=== PATIENT | female | born 1995 | race Caucasian/White ===

== ENCOUNTER 2018-07-15 21:21 | Emergency (ER) | payer MEDICAID, SELFPAY ==
[2018-07-15 21:25] VITALS: BP 122/71; PULSE 70; RESP 16; TEMP 37; O2SAT 99
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
[2018-07-15] MEDS: Ibuprofen 800 MG TAB PO (21:47)
[2018-07-15 22:41] VITALS: BP 122/71; PULSE 70; RESP 16; TEMP 37; O2SAT 99
--- NOTE | 2018-07-15 23:07 | DI.VRAD_ITS ---
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 COMPARISON: CR - RIGHT HAND COMPLETE 12/14/2016 9:16 PM FINDINGS: Bones/joints: Bone mineralization is age-appropriate. There is no evidence of fracture. No evidence of dislocation. The joint spaces are adequately preserved; no significant degenerative narrowing and no bony erosion seen. Soft tissues: No radiopaque foreign body present. There is no significant soft tissue swelling present. IMPRESSION: No acute osseous abnormality. Dictated and Authenticated by: Danny Waterman MD. Ordering:WEN GARCIA MD
== END 2018-07-15 23:18 ==
PROVIDERS: Emergency Provider Emergency Medicine; PCP Nurse Practitioner Gerontology
DX: S60.222A Contusion of left hand, initial encounter (principal); W22.8XXA Striking against or struck by other objects, initial encounter
CPT/HCPCS: 29125; 99283; 73130; L3908

== ENCOUNTER 2018-10-16 12:08 | Emergency (ER) | payer MEDICAID, SELFPAY ==
[2018-10-16 12:15] VITALS: BP 130/63; PULSE 100; RESP 16; TEMP 36.7; O2SAT 100
--- NOTE | 2018-10-16 12:39 | ED.GENADUL_ITS ---
Discharge Plan Disposition Patient Disposition: HOME Condition: Good Discharge Details Chief Complaint: RespSymp Clinical Impression: URI (upper respiratory infection) Primary Care Provider: Aleisha Casas ED Provider: Praful Christianson Home Meds and New Rx's Prescriptions: No Action etonogestrel [Nexplanon] 68 MG implant 68 mg SQ ONCE Qty: 1 RF: 0 acetaminophen [Tylenol] 325 MG tablet 650 mg PO Q4H PRN PRNRF: 0 sertraline 25 MG tablet 100 mg PO DAILY RF: 0 loratadine 10 MG tablet 10 mg PO DAILY PRNRF: 0 Discharge Instructions Instructions: Upper Respiratory Infection (ED) Stand Alone Forms: Work Release Referrals: Aleisha Casas, BUSINESS SERVICES MANAGER [Primary Care Provider] - Return if symptoms worsen Discharge Data Discharge Date/Time-TO BE ENTERED AT DEPARTURE: 10/16/18 13:40 Medical Decision Making Exam is normal and history consistent with cold. Will evaluate chest x-ray for pneumonia. If so will treat with Zithromax. If negative we will treat with rest and fluids. Will provide work note. Apprised of negative x-ray. Advised to get plenty of rest and fluids. Work note provided. Advised to return if symptoms worsen. Imaging Data Radiologic Study: Imaging: X-Ray My impression: normal chest Radiologist's impression: Negative chest x-ray. HPI General Date/Time Provider Initiated Documentation: 10/16/18 12:13 . Limitations to Documentation: no limitations . Information obtained by: patient . History of Present Illness 22 year old F presents to the emergency department with the chief complaint of cough, described as mild, HPI Narrative: 22 y/o female here with c/o cough, runny nose, stuffy hose, sob, and chest aches with cough. Symptoms started three weeks ago. 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 Denies smoking history. She denies any fever, chills, COLEY, or other concerns. Related Data Home Medications Medication Instructions Recorded Confirmed acetaminophen [Tylenol] 650 mg PO Q4H PRN PRN tab 07/02/16 07/15/18 etonogestrel [Nexplanon] 68 mg SQ ONCE #1 implant 08/04/16 10/16/18 sertraline 100 mg PO DAILY 11/12/17 10/16/18 loratadine 10 mg PO DAILY PRN 04/15/18 10/16/18 Previous Rx's Medication Instructions Recorded acetaminophen [Tylenol] 650 mg PO Q4H PRN PRN tab 07/02/16 Allergies Allergy/AdvReac Type Severity Reaction Status Date / Time shellfish derived AdvReac nausea/vomi Unverified 10/16/18 12:18 ting General Stated Complaint: RespSymp PALOMO: 4 Review of Systems Constitutional Denies headache(s) Eyes Reports system reviewed and no additional complaints, except as docu ENT Denies otalgia, Denies facial pain, Denies headache(s), Denies hoarseness, Reports nasal congestion, Reports nasal discharge, Denies sinus pain, Denies sinus pressure and Denies sore throat Cardiovascular Reports other (chest aches with cough) Respiratory Reports cough Gastrointestinal Reports system reviewed and no additional complaints, except as docu Genitourinary Reports system reviewed and no additional complaints, except as docu Musculoskeletal Reports system reviewed and no additional complaints, except as docu Neurologic Reports system reviewed and no additional complaints, except as docu and Denies headache(s) Allergic/Immunologic Reports system reviewed and no additional complaints, except as docu PFSH Family History Other No problems noted. Father Migraines Essential hypertension Depression Mental disorder Mother Migraines Grandfather Migraines Myocardial infarction Neoplasm Grandfather Alcohol abuse Neoplasm Grandmother Migraines Grandmother Migraines Diabetes Essential hypertension Sister No problems noted. Family history Neoplasm Social History Smoking/Tobacco Use Status: Never Exam Const General: cooperative, comfortable and no acute distress Nutritional Appearance: well nourished Orientation: alert, awake and oriented x3 HENMT Head: normal to inspection and atraumatic Ears: hearing grossly normal bilaterally, external ears normal and TM's normal bilaterally General nose exam: external nose normal and nares normal Face and sinus: normal facial exam, sinuses nontender and face symmetric Mouth: oral mucosae normal, lip normal, tongue normal, oropharynx normal and moist mucous membranes Teeth and gingiva: dentition normal Throat: posterior oropharynx normal Eyes General: appearance normal, both eyes and all related structures (with bilatral allergic shiners) Neck Neck: normal visual inspection, full ROM and no lymphadenopathy Resp Effort & Inspection: normal respiratory effort Auscultation: clear to auscultation bilaterally Cardio Rate: regular rate Rhythm: regular rhythm Heart Sounds: S1 normal, S2 normal and no murmurs Skin General skin exam: no rashes or lesions noted Extrem General: full ROM and normal capillary refill Psych Appearance: grossly normal Speech and Movement: speech and movement normal Mood: congruent mood Affect: normal affect Attitude: cooperative Thought Process: normal Thought Content: normal Insight: insight good Judgment: judgment good Course Vital Signs Temperature 36.7 C 10/16/18 12:15 Pulse 100 H 10/16/18 12:15 Respiratory Rate 16 10/16/18 12:15 Blood Pressure 130/63 10/16/18 12:15 Pulse Oximetry 100 10/16/18 12:15 Temperature 36.7 C 10/16/18 12:15 Temperature Source Skin 10/16/18 12:15 Pulse 100 H 10/16/18 12:15 Respiratory Rate 16 10/16/18 12:15 Respiratory Effort Non-Labored 10/16/18 12:20 Respiratory Depth Normal 10/16/18 12:20 Blood Pressure 130/63 10/16/18 12:15 Blood Pressure Position Sitting 10/16/18 12:15 Pulse Oximetry 100 10/16/18 12:15 Oxygen Delivery Method Room Air 10/16/18 12:15 Oxygen Flow Rate 0 10/16/18 12:15 Pain Level 6 10/16/18 12:15
--- NOTE | 2018-10-16 12:52 | DI.RAD_ITS ---
SYMPTOMS/DIAGNOSIS: COUGH X 3 WEEKS PA AND LATERAL CHEST: The cardiac and mediastinal contours have a normal appearance. The lungs are well inflated and clear. No infiltrate or effusion is seen. IMPRESSION: Negative chest x-ray.
== END 2018-10-16 13:40 | disposition home or self-care (01) ==
PROVIDERS: Emergency Provider Nurse Practitioner Family; PCP Nurse Practitioner Gerontology
DX: J06.9 Acute upper respiratory infection, unspecified (principal)
CPT/HCPCS: 99283; 71046; 99282

== ENCOUNTER 2018-12-15 17:07 | Emergency (ER) | payer MEDICAID, SELFPAY ==
[2018-12-15 18:09] VITALS: BP 109/58; PULSE 77; RESP 16; TEMP 36.7
--- NOTE | 2018-12-15 20:26 | W.ED.GENAD ---
Discharge Plan Disposition Patient Disposition: HOME Condition: Good Discharge Details Chief Complaint: Orthopedic Clinical Impression: Right knee injury Reason For Visit: right knee pain Primary Care Provider: Mary Muhammad ED Provider: Aki Kendall Meds and New Rx's Prescriptions: New ibuprofen 600 mg tablet 600 mg PO TID Qty: 20 RF: 0 Continued Nexplanon 68 MG implant 68 mg SQ ONCE Qty: 1 RF: 0 sertraline 25 MG tablet 100 mg PO DAILY RF: 0 loratadine 10 MG tablet 10 mg PO DAILY PRNRF: 0 Changed acetaminophen [Tylenol] 325 MG tablet 650 mg PO Q6H PRNQty: 0 RF: 0 Discharge Instructions Additional Instructions: X-rays are negative but you do have some swelling, tenderness and crepitus around the knee cap which may be related to tendonitis or bursitis. Wear knee immobillizer for comfort for the next 1 - 2 weeks. Ice and Motrin for the next week. Follow up with PCP in 1 - 2 weeks if not doing better. Return to ED for worse pain, swelling, fever, redness other problems. Referrals: Mary Muhammad [Primary Care Provider] - Medical Decision Making Patient ambulating with a limp. She has tenderness and some crepitus over the anterior patella. It may be even a little bit ballotable but there is no obvious effusion. Ligaments all appear to be intact. Neurovascularly intact distally. Will obtain x-ray and give Motrin. X-rays are negative, there is no patella fracture. May be related to a patella bursitis versus tendinitis. Patient will be placed in a knee immobilizer and placed on nonsteroidals and ice. Weight-bear as tolerated. Follow-up with primary care in 1-2 weeks. Return to ED for inability to ambulate, worsening pain, fever, other concerns. HPI General Mode of arrival: ambulatory. Date/Time Provider Initiated Documentation: 12/15/18 18:17. Limitations to Documentation: no limitations. Information obtained by: patient. HPI Narrative: Patient presents to ED with complaint of right knee pain. Patient reports that she initially injured it a couple weeks ago while sledding. She had pain at that time but it did seem to get better. She has no new injury that she is aware of. Over the last day or 2 knee has got worse. She has pain anteriorly with some swelling. She has difficulty walking. She presents for evaluation. Related Data Home Medications Medication Instructions Recorded Confirmed Nexplanon 68 mg SQ ONCE #1 implant 08/04/16 12/15/18 sertraline 100 mg PO DAILY 11/12/17 12/15/18 loratadine 10 mg PO DAILY PRN 04/15/18 12/15/18 acetaminophen [Tylenol] 650 mg PO Q6H PRN #0 tab 12/15/18 07/15/18 ibuprofen 600 mg PO TID #20 tab 12/15/18 Previous Rx's Medication Instructions Recorded acetaminophen [Tylenol] 650 mg PO Q6H PRN #0 tab 12/15/18 ibuprofen 600 mg PO TID #20 tab 12/15/18 Allergies Allergy/AdvReac Type Severity Reaction Status Date / Time shellfish derived AdvReac nausea/vomi Unverified 12/15/18 18:19 ting General Stated Complaint: Orthopedic PALOMO: 4 Review of Systems Musculoskeletal Reports abnormal gait, Denies back pain, Denies myalgias, Reports arthralgias, Denies muscle weakness and Denies numbness Integumentary/Breasts Denies erythema and Denies rash Neurologic Reports abnormal gait and Denies numbness [facility] Medical History Migraine (Chronic) Depression (Chronic) 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 Father Migraines Essential hypertension Depression Mental disorder Mother Migraines Grandfather Migraines Myocardial infarction Neoplasm Grandfather Alcohol abuse Neoplasm Grandmother Migraines Grandmother Migraines Diabetes Essential hypertension Sister No problems noted. Family history Neoplasm Social History Smoking/Tobacco Use Status: Never Exam Const General: cooperative, comfortable and no acute distress Orientation: alert and oriented x3 Extrem Right lower extremity: knee (NVI distal) Details: normal to inspection, tenderness Location: of the patella, normal ROM, knee ligament exam normal and other (crepitus over the patella) Course Vital Signs Temperature 98.1 F 12/15/18 18:09 Pulse 77 12/15/18 18:09 Respiratory Rate 16 12/15/18 18:09 Blood Pressure 109/58 L 12/15/18 18:09 Temperature 98.1 F 12/15/18 18:09 Temperature Source Temporal Artery Scan 12/15/18 18:09 Pulse 77 12/15/18 18:09 Respiratory Rate 16 12/15/18 18:09 Blood Pressure 109/58 L 12/15/18 18:09 Blood Pressure Position Sitting 12/15/18 18:09 Oxygen Delivery Method Room Air 12/15/18 18:09 Oxygen Flow Rate 0 12/15/18 18:09 Pain Level 9 12/15/18 18:09
--- NOTE | 2018-12-15 20:29 | DI.RAD_ITS ---
SYMPTOM/DIAGNOSIS: RIGHT KNEE PAIN/CREPITUS OVER PATELLA RIGHT KNEE: No fracture or joint effusion is seen. No soft tissue swelling is visible. IMPRESSION: Negative right knee.
--- NOTE | 2018-12-15 20:29 | ED.GENADUL_ITS ---
Discharge Plan Disposition Patient Disposition: HOME Condition: Good Discharge Details Chief Complaint: Orthopedic Clinical Impression: Right knee injury Reason For Visit: right knee pain Primary Care Provider: Mary Muhammad ED Provider: Aki Kendall Meds and New Rx's Prescriptions: New ibuprofen 600 mg tablet 600 mg PO TID Qty: 20 RF: 0 Continued Nexplanon 68 MG implant 68 mg SQ ONCE Qty: 1 RF: 0 sertraline 25 MG tablet 100 mg PO DAILY RF: 0 loratadine 10 MG tablet 10 mg PO DAILY PRNRF: 0 Changed acetaminophen [Tylenol] 325 MG tablet 650 mg PO Q6H PRNQty: 0 RF: 0 Discharge Instructions Additional Instructions: X-rays are negative but you do have some swelling, tenderness and crepitus around the knee cap which may be related to tendonitis or bursitis. Wear knee immobillizer for comfort for the next 1 - 2 weeks. Ice and Motrin for the next week. Follow up with PCP in 1 - 2 weeks if not doing better. Return to ED for worse pain, swelling, fever, redness other problems. Referrals: Mary Muhammad [Primary Care Provider] - Medical Decision Making Patient ambulating with a limp. She has tenderness and some crepitus over the anterior patella. It may be even a little bit ballotable but there is no obvious effusion. Ligaments all appear to be intact. Neurovascularly intact distally. Will obtain x-ray and give Motrin. X-rays are negative, there is no patella fracture. May be related to a patella bursitis versus tendinitis. Patient will be placed in a knee immobilizer and placed on nonsteroidals and ice. Weight-bear as tolerated. Follow-up with primary care in 1-2 weeks. Return to ED for inability to ambulate, worsening pain, fever, other concerns. HPI General Mode of arrival: ambulatory . Date/Time Provider Initiated Documentation: 12/15/18 18:17 . Limitations to Documentation: no limitations . Information obtained by: patient . HPI Narrative: Patient presents to ED with complaint of right knee pain. Patient reports that she initially injured it a couple weeks ago while sledding. She had pain at that time but it did seem to get better. She has no new injury that she is aware of. Over the last day or 2 knee has got worse. She has pain anteriorly with some swelling. She has difficulty walking. She presents for evaluation. Related Data Home Medications Medication Instructions Recorded Confirmed Nexplanon 68 mg SQ ONCE #1 implant 08/04/16 12/15/18 sertraline 100 mg PO DAILY 11/12/17 12/15/18 loratadine 10 mg PO DAILY PRN 04/15/18 12/15/18 acetaminophen [Tylenol] 650 mg PO Q6H PRN #0 tab 12/15/18 07/15/18 ibuprofen 600 mg PO TID #20 tab 12/15/18 Previous Rx's Medication Instructions Recorded acetaminophen [Tylenol] 650 mg PO Q6H PRN #0 tab 12/15/18 ibuprofen 600 mg PO TID #20 tab 12/15/18 Allergies Allergy/AdvReac Type Severity Reaction Status Date / Time shellfish derived AdvReac nausea/vomi Unverified 12/15/18 18:19 ting General Stated Complaint: Orthopedic PALOMO: 4 Review of Systems Musculoskeletal Reports abnormal gait, Denies back pain, Denies myalgias, Reports arthralgias, Denies muscle weakness and Denies numbness Integumentary/Breasts Denies erythema and Denies rash Neurologic Reports abnormal gait and Denies numbness [facility] Medical History Migraine (Chronic) Depression (Chronic) 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 Father Migraines Essential hypertension Depression Mental disorder Mother Migraines Grandfather Migraines Myocardial infarction Neoplasm Grandfather Alcohol abuse Neoplasm Grandmother Migraines Grandmother Migraines Diabetes Essential hypertension Sister No problems noted. Family history Neoplasm Social History Smoking/Tobacco Use Status: Never Exam Const General: cooperative, comfortable and no acute distress Orientation: alert and oriented x3 Extrem Right lower extremity: knee (NVI distal) Details: normal to inspection, tenderness Location: of the patella, normal ROM, knee ligament exam normal and other (crepitus over the patella) Course Vital Signs Temperature 98.1 F 12/15/18 18:09 Pulse 77 12/15/18 18:09 Respiratory Rate 16 12/15/18 18:09 Blood Pressure 109/58 L 12/15/18 18:09 Temperature 98.1 F 12/15/18 18:09 Temperature Source Temporal Artery Scan 12/15/18 18:09 Pulse 77 12/15/18 18:09 Respiratory Rate 16 12/15/18 18:09 Blood Pressure 109/58 L 12/15/18 18:09 Blood Pressure Position Sitting 12/15/18 18:09 Oxygen Delivery Method Room Air 12/15/18 18:09 Oxygen Flow Rate 0 12/15/18 18:09 Pain Level 9 12/15/18 18:09
[2018-12-15] MEDS: Ibuprofen 600 MG TAB PO (20:34)
--- NOTE | 2018-12-15 21:10 | DI.VRAD_ITS ---
EXAM: XR Left Knee, 4 or more Views EXAM DATE/TIME: 12/15/2018 8:31 PM CLINICAL HISTORY: 23 years old, female; Pain; Knee; Right; Patient HX: R knee pain, crepitus over patella TECHNIQUE: XR Left knee 4 or more views. COMPARISON: No relevant prior studies available. FINDINGS: Bones/joints: Normal. Soft tissues: Normal. IMPRESSION: Negative for acute skeletal pathology. Dictated and Authenticated by: Jero Key MD. Ordering:RUTHY Prabhakar MD
== END 2018-12-15 21:55 | disposition home or self-care (01) ==
PROVIDERS: Emergency Provider Emergency Medicine; PCP Nurse Practitioner Family
DX: M25.561 Pain in right knee (principal); S89.91XA Unspecified injury of right lower leg, initial encounter; X58.XXXA Exposure to other specified factors, initial encounter; Y93.23 Activity, snow (alpine) (downhill) skiing, snowboarding, sledding, tobogganing and snow tubing
CPT/HCPCS: 99283; 73564; L1830

== ENCOUNTER 2019-03-02 11:50 | Emergency (ER) | payer MEDICAID, SELFPAY ==
[2019-03-02 11:54] VITALS: BP 124/64; PULSE 85; RESP 16; TEMP 36.7; O2SAT 100
--- NOTE | 2019-03-02 12:38 | ED.GENADUL_ITS ---
Discharge Plan Disposition Patient Disposition: HOME Condition: Stable Discharge Details Chief Complaint: Abd Prob Clinical Impression: Pelvic pain Primary Care Provider: Mary Muhammad ED Provider: Sean Lovell Home Meds and New Rx's Prescriptions: No Action Nexplanon 68 MG implant 68 mg SQ ONCE Qty: 1 RF: 0 sertraline 25 MG tablet 100 mg PO DAILY RF: 0 loratadine 10 MG tablet 10 mg PO DAILY PRNRF: 0 ibuprofen 600 mg tablet 600 mg PO TID Qty: 20 RF: 0 acetaminophen [Tylenol] 325 MG tablet 650 mg PO Q6H PRNQty: 0 RF: 0 Discharge Instructions Additional Instructions: 1. Drink plenty of fluids. 2. Continue all medications as prescribed. 3. Acetaminophen 1000mg every 4 hours (up to 5 time a day) and/or ibuprofen 600mg every 6 hours as needed for fever or pain. 4. Follow-up Monday for a comprehensive transabdominal/transvaginal ultrasound. Return to the Emergency Department (ED) if your condition worsens, does not improve as expected, or for ANY other concerns. Specifically, return if you have new or uncontrolled pain, worsening fever, difficulty breathing, vomiting, or are unable to drink fluids. Stand Alone Forms: Work Release Medical Decision Making 23-year-old woman with a history of ovarian cyst presents with atypical right lower quadrant pain over the past 2 weeks which has been waxing and waning. Otherwise no other generalized abdominal pain or symptoms nonfocal exam except for right lower quadrant tenderness which reproduces subjective pain. Urine hCG negative. Limited bedside ultrasound suggestive of a possible 3 cm adnexal cyst. Pain has been waxing and waning and currently patient in minimal discomfort. Reviewed need for a comprehensive transvaginal/transabdominal ultrasound to evaluate for a possible cyst and assess ovarian blood flow. Also reviewed use of NSAIDs for pelvic pain. Discharged with a plan to place for a comprehensive pelvic ultrasound on Monday and also for regular OTC analgesia use pending imaging and outpatient woman's health follow-up. Pt evaluated immediately prior to discharge with improved symptoms, normal vital signs, and tolerating PO. The patient feels appropriate for discharge home. Discussed clinical/diagnostic findings. Discharged with a clear plan for outpatient follow up. Given usual and customary return instructions prior to discharge. Medical Records Medical records reviewed: Yes I reviewed the patient's medical records. Imaging Data Radiologic Study: Attestation: I personally reviewed and interpreted this imaging study as follows: Imaging: Ultrasound (Limited bedside transabdominal pelvic) My impression: Limited Pelvic Bedside Ultrasound. Findings include Likely 3 cm ovarian cyst. Limited views due to decompressed bladder. Pelvic. Images obtained, reviewed, and interpreted independently by myself. Images saved on ultrasound system for review. Lab Data Lab results reviewed: Yes I reviewed the patient's lab results. HPI 23-year-old woman with past medical history of chronic migraines, depression, and exercise-induced asthma. She also has a history of abdominal pain associated with ovarian cyst. She is currently on oral contraceptives with intermittent menses. She presents with 2 weeks of persistent and intermittent right lower quadrant pain which has been waxing and waning since onset. The pain is always been localized to the lower right lower quadrant/inguinal region and has been dull in nature with episodes of increased intensity. She has been typically treated her symptoms with acetaminophen. She denies generalized abdominal pain, fever/chills, urinary symptoms, change in bowel habits, or atypical vaginal bleeding/spotting. Her pain feels subjectively different than previous ovarian cyst pain in both location and intensity. She denies that she is currently . Also the right General Date/Time Provider Initiated Documentation: 03/02/19 12:08 . Related Data Home Medications Medication Instructions Recorded Confirmed Nexplanon 68 mg SQ ONCE #1 implant 08/04/16 03/02/19 sertraline 100 mg PO DAILY 11/12/17 03/02/19 loratadine 10 mg PO DAILY PRN 04/15/18 03/02/19 acetaminophen [Tylenol] 650 mg PO Q6H PRN #0 tab 12/15/18 03/02/19 ibuprofen 600 mg PO TID #20 tab 12/15/18 03/02/19 Previous Rx's Medication Instructions Recorded acetaminophen [Tylenol] 650 mg PO Q6H PRN #0 tab 12/15/18 ibuprofen 600 mg PO TID #20 tab 12/15/18 Allergies Allergy/AdvReac Type Severity Reaction Status Date / Time shellfish derived AdvReac nausea/vomi Unverified 03/02/19 11:58 ting General Stated Complaint: Abd Prob PALOMO: 3 Review of Systems Review of Systems All systems are reviewed and are unremarkable except as noted in HPI and below: CONSTITUTIONAL: no fevers/chills, no weakness or change in appetite EYES: no change in vision HEENT: no throat pain or difficulty swallowing; no neck pain CARDIOVASCULAR: no chest pain, palpitations, leg swelling, or diaphoresis RESPIRATORY: no cough, dyspnea, wheezing GASTROINTESTINAL: Right lower quadrant abdominal pain, waxing and waning, no melena, nausea/emesis GENITOURINARY: no dysuria, flank pain, MUSCULOSKELETAL: no pack pain, myalgias, arthralgias INTEGUMENTARY: no rash, no wounds NEUROLOGIC: no headache, focal weakness, difficulty with speech, numbness PSYCHIATRIC: no confusion, no anxiety HEME: no easy bruising or bleeding ALLERGIC: no urticaria PFSH Medical History Migraine (Chronic) Depression (Chronic) 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 Father Migraines Essential hypertension Depression Mental disorder Mother Migraines Grandfather Migraines Myocardial infarction Neoplasm Grandfather Alcohol abuse Neoplasm Grandmother Migraines Grandmother Migraines Diabetes Essential hypertension Sister No problems noted. Family history Neoplasm Social History Smoking/Tobacco Use Status: Never Alcohol Intake: current Alcohol Intake frequency: holidays/special occasions only Drug use: Occasionally Substance use type: marijuana Do you feel safe in your relationship?: Yes Exam Narrative Exam Narrative: Nursing note and vital signs have been reviewed and noted. GENERAL: alert, active, no acute distress, well -hydrated, well-nourished HEENT: atraumatic/normocephalic, PERRLA, EOMI, conjunctiva clear, external ears/canals normal, nasal mucosa normal NECK: supple, full range of motion, no mass, normal lymphadenopathy, no thyromegaly CARDIOVASCULAR: RRR, no murmurs, nl pulses, no edema PULMONARY: nl effort, no audible wheezing or stridor, nl breath sounds with no focal deficit. no chest wall tenderness ABDOMEN: soft, non-distended, no mass, no organomegaly; focal right lower quadrant tenderness which reproduces subjective pain. No rebound, guarding, or peritonitis. EXTREMITY: normal muscle tone, all joints with FROM, no deformity or tenderness SKIN: no exanthem appreciated NEURO: gross motor exam normal, normal stance and gait PSYCH: alert and oriented, Course Vital Signs Temperature 98.1 F 03/02/19 11:54 Pulse 85 03/02/19 11:54 Respiratory Rate 16 03/02/19 11:54 Blood Pressure 124/64 03/02/19 11:54 Pulse Oximetry 100 03/02/19 11:54 Temperature 98.1 F 03/02/19 11:54 Temperature Source Skin 03/02/19 11:54 Pulse 85 03/02/19 11:54 Respiratory Rate 16 03/02/19 11:54 Respiratory Effort Non-Labored 03/02/19 11:57 Blood Pressure 124/64 03/02/19 11:54 Pulse Oximetry 100 03/02/19 11:54 Pain Level 5 03/02/19 12:31 Lab/Test Results Lab/Test Results: POC- Test(urine) Negative
== END 2019-03-02 12:43 | disposition home or self-care (01) ==
PROVIDERS: Emergency Provider Emergency Medicine; PCP Nurse Practitioner Family
DX: R10.2 Pelvic and perineal pain (principal)
CPT/HCPCS: 81025; 99284

== ENCOUNTER 2019-03-05 12:11 | Outpatient (CLI) | payer MEDICAID, SELFPAY ==
--- NOTE | 2019-03-05 13:31 | DI.US_ITS ---
SYMPTOMS/DIAGNOSIS: RIGHT PELVIC PAIN, POSSIBLE 3 CM CYST PELVIC ULTRASOUND: A transabdominal and transvaginal examination was carried out. The uterus measures 8 cm in length, 3.7 cm in height and 4.3 cm in width with an endometrial stripe thickness of 1.3 mm. There is a small quantity of fluid in the endometrial cavity. The right ovary measures 2.5 x 1.8 x 1.8 cm, the left ovary measures 4.1 x 3.7 x 4.0 cm and contains a 3.3 x 3.1 x 3.7 cm cyst. The right kidney measures 8.9 cm, the left kidney 9.6 cm. There is no evidence of pelvic free fluid. SUMMARY: A small quantity of free fluid is noted in the endometrial cavity. Note is made of a 3.3 x 3.1 x 3.7 cm left ovarian cyst. The examination is otherwise unremarkable.
== END 2019-03-05 12:31 ==
PROVIDERS: PCP Nurse Practitioner Family; Visit Provider Emergency Medicine
DX: R10.2 Pelvic and perineal pain (principal); N83.292 Other ovarian cyst, left side
CPT/HCPCS: 76830; 76856

== ENCOUNTER 2019-06-30 23:04 | Emergency (ER) | payer MEDICAID, SELFPAY ==
[2019-06-30 23:06] VITALS: BP 108/64; PULSE 60; RESP 16; TEMP 36.7; O2SAT 100
--- NOTE | 2019-06-30 23:21 | ED.GENADUL_ITS ---
Discharge Plan Disposition Patient Disposition: HOME Condition: Good Discharge Details Chief Complaint: Orthopedic Clinical Impression: Acute wrist pain Primary Care Provider: Mary Muhammad ED Provider: Vanessa Wolf Home Meds and New Rx's Prescriptions: Continued Nexplanon 68 MG implant 68 mg SQ ONCE Qty: 1 RF: 0 sertraline 25 MG tablet 100 mg PO DAILY RF: 0 loratadine 10 MG tablet 10 mg PO DAILY PRNRF: 0 ibuprofen 600 mg tablet 600 mg PO TID Qty: 20 RF: 0 acetaminophen [Tylenol] 325 MG tablet 650 mg PO Q6H PRNQty: 0 RF: 0 Discharge Instructions Instructions: Wrist Injury (ED) Additional Instructions: Encourage rest, ice, elevation. Tylenol and/or Motrin as needed for discomfort. Continue with brace until reevaluated by primary care. Call tomorrow to schedule primary care follow up within the next 2 weeks. You will need reevaluation of the pain over your scaphoid pain as discussed. If you develop new/worsening symptoms please seek care urgently once again. Referrals: Mary Muhammad [Primary Care Provider] - Discharge Data Discharge Date/Time-TO BE ENTERED AT DEPARTURE: 06/30/19 23:50 Medical Decision Making Patient is a RHD 23 year old female presenting today with c/c of right wrist pain that began this afternoon at work. States that she was cutting up a pizza with a 2 handed pizza cutter when she began having severe pain in the right wrist. Indicates the distal radius and snuffbox as area of pain. No fevers/chills. No known trauma. No previous injury to this wrist. States that initially she was having numbness in this area of the wrist and the thumb but that this has since resolved. 2 point discriminiation intact. Full ROM. Plan for XR. She took Ibuprofen, will augment with tylenol. XR reviewed by myself. No acute abnormality noted. discussed with patient. As she has snuffbox tenderness, will place in a thumb spica and have her f/u with PCP. Discussed concerns regarding scaphoid injury. Encoruaged RICE. All of her questions and concerns were addressed, she is in agreement iwth this plan. HPI General Mode of arrival: ambulatory . Date/Time Provider Initiated Documentation: 06/30/19 23:09 . Limitations to Documentation: no limitations . Information obtained by: patient and RN notes reviewed . History of Present Illness 23 year old F presents to the emergency department with the chief complaint of right wrist pain, described as severe, with intensity rated at 8. Quality is described as aching, and is localized to the right and upper extremity. Patient reports no radiation. Patient started experiencing this hour(s) (1400) and it has been constant. Immobilization improves symptom(s), Movement worsens symptoms . Patient notes no other symptoms.. Patient did receive the following treatments prior to arrival, NSAID Related Data Home Medications Medication Instructions Recorded Confirmed Nexplanon 68 mg SQ ONCE #1 implant 08/04/16 06/30/19 sertraline 100 mg PO DAILY 11/12/17 06/30/19 loratadine 10 mg PO DAILY PRN 04/15/18 06/30/19 acetaminophen [Tylenol] 650 mg PO Q6H PRN #0 tab 12/15/18 06/30/19 ibuprofen 600 mg PO TID #20 tab 12/15/18 06/30/19 Previous Rx's Medication Instructions Recorded acetaminophen [Tylenol] 650 mg PO Q6H PRN #0 tab 12/15/18 ibuprofen 600 mg PO TID #20 tab 12/15/18 Allergies Allergy/AdvReac Type Severity Reaction Status Date / Time shellfish derived AdvReac nausea/vomi Unverified 06/30/19 23:10 ting General Stated Complaint: Orthopedic PALOMO: 4 Review of Systems Constitutional Reports as per HPI, Denies chills, Denies fever(s), Denies headache(s) and Denies weakness ENT Denies headache(s) Cardiovascular Reports as per HPI Respiratory Reports as per HPI and Denies cough Musculoskeletal Reports as per HPI and Denies tingling Integumentary/Breasts Reports as per HPI, Denies rash and Denies wounds Neurologic Reports as per HPI, Denies headache(s), Denies tingling, Denies paresthesias and Denies weakness [facility] Medical History Depression (Chronic) Exercise-induced asthma (Chronic 11/07/13) Migraine (Chronic) Social History Smoking/Tobacco Use Status: Never Alcohol Intake: current Alcohol Intake frequency: holidays/special occasions only Drug use: Occasionally Substance use type: marijuana Do you feel safe at home: Yes Do you feel safe in your relationship?: Yes Exam Const General: cooperative, healthy appearing, comfortable, no acute distress, well developed and well groomed Nutritional Appearance: average body habitus and well nourished Orientation: alert and awake Resp Effort & Inspection: normal respiratory effort, able to speak in complete sentences and no respiratory distress Cardio Rate: regular rate Rhythm: regular rhythm Skin General skin exam: ecchymosis (anterior radial side of wrist) Neuro General: alert and awake Cognition: normal cognition Speech: speech normal Gait: normal gait Motor: muscle tone normal throughout Sensory Exam: no sensory deficits noted Extrem Right upper extremity: full ROM, normal capillary refill, no joint enlargement, elbow/forearm Details: normal to inspection and normal ROM; no tenderness, no swelling, no unusual warmth, no abrasions, no lacerations and no deformity, wrist Details: tenderness Location: of the distal radius and of the anatomic snuffbox, normal ROM, ecchymosis (anterior distal radius), normal vascular exam and radial pulse present; no swelling, no unusual warmth, no abrasions, no lacerations, no crepitus and no deformity and hand Details: normal to inspection, normal capillary refill, neuromotor exam normal, neurosensory exam normal (2 point intact), tendon exam normal, vascular exam, normal ROM of fingers and no swelling; no tenderness, no unusual warmth, no swelling and no ecchymosis; no edema Psych Appearance: grossly normal and well kempt Mental Status: mental status grossly normal Speech and Movement: speech and movement normal Course Vital Signs Temperature 36.7 C 06/30/19 23:06 Pulse 60 06/30/19 23:06 Respiratory Rate 16 06/30/19 23:06 Blood Pressure 108/64 06/30/19 23:06 Pulse Oximetry 100 06/30/19 23:06 Temperature 36.7 C 06/30/19 23:06 Temperature Source Temporal Artery Scan 06/30/19 23:06 Pulse 60 06/30/19 23:06 Respiratory Rate 16 06/30/19 23:06 Respiratory Effort Non-Labored 06/30/19 23:06 Blood Pressure 108/64 06/30/19 23:06 Blood Pressure Position Sitting 06/30/19 23:06 Pulse Oximetry 100 06/30/19 23:06 Oxygen Delivery Method Room Air 06/30/19 23:06 Oxygen Flow Rate 0 06/30/19 23:06 Pain Level 8 06/30/19 23:10
--- NOTE | 2019-06-30 23:35 | DI.RAD_ITS ---
SYMPTOM/DIAGNOSIS: RADIAL PAIN AND SNUFF BOX TENDERNESS RIGHT WRIST: 06/30 Four views were obtained. There is no evidence of fracture. Carpal alignment appears within normal limits.
[2019-06-30] MEDS: Acetaminophen 325 MG TAB 650 MG PO (23:44)
--- NOTE | 2019-07-01 00:27 | DI.VRAD_ITS ---
EXAM: XR Right Wrist EXAM DATE/TIME: 06/30/2019 11:21 PM CLINICAL HISTORY: 23 years old, female; Patient HX: Radial pain and snuffbox tenderness in right wrist; Additional info: No injury or trauma TECHNIQUE: Imaging protocol: XR Right wrist. Views: 3 or more views. COMPARISON: CR RIGHT WRIST COMPLETE 07/18/2016 2:22 PM FINDINGS: Bones/joints: Normal. Soft tissues: Normal. IMPRESSION: No acute findings. Dictated and Authenticated by: Carlos Rizvi MD. Ordering:TEE Mendez MD
== END 2019-06-30 23:50 | disposition home or self-care (01) ==
LOC: ER 23:51
PROVIDERS: Emergency Provider Physician Assistant; PCP Nurse Practitioner Family
DX: M25.531 Pain in right wrist (principal); X50.3XXA Overexertion from repetitive movements, initial encounter
CPT/HCPCS: 29125; 99283; 73110; 99282; L3807

== ENCOUNTER 2019-08-02 16:23 | Outpatient (REF) | payer MEDICAID, SELFPAY ==
[2019-08-05 15:24] LABS: Chlamydia Result Negative; GC Result Negative
== END 2019-08-02 16:43 ==
LOC: LBN 16:23
PROVIDERS: PCP Nurse Practitioner Family; Visit Provider Nurse Practitioner Women's Health
DX: Z11.3 Encounter for screening for infections with a predominantly sexual mode of transmission (principal)
CPT/HCPCS: 87491; 87591

== ENCOUNTER 2020-07-15 14:43 | Emergency (ER) | payer MEDICAID, SELFPAY ==
[2020-07-15] VITALS (14 sets, daily range): BP systolic 99–136; BP diastolic 56–60; PULSE 67–93; RESP 13–27; TEMP 36.6–37; O2SAT 97–100
--- NOTE | 2020-07-15 14:54 | ED.GENADUL_ITS ---
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 States she has a history of strong reactions to hymenoptera envenomation in the past. She denies difficulty breathing or trouble swallowing. Vital signs are stable and her exam reveals an area of raised erythema over the right medial thigh. Given her history, she was given parenteral steroids, histamine roldan and observed. Patient improved with the above medications. She feels better. I will place her on a few days of prednisone to prevent recrudescence of symptoms. She is stable and appropriate to discharge home at this time. HPI General Mode of arrival: ambulatory . Date/Time Provider Initiated Documentation: 07/15/20 14:44 . Limitations to Documentation: no limitations . Information obtained by: patient . History of Present Illness 24 year old F presents to the emergency department with the chief complaint of Wasp sting right thigh, described as moderate, Quality is described as constant, and is localized to the right and lower extremity. Patient reports no radiation. Patient started experiencing this minute(s) and it has been constant. No relieving factors improve symptom(s), No exacerbating factors reported . Patient notes denies shortness of breath. Patient did receive the following treatments prior to arrival, none Related Data Home Medications Medication Instructions Recorded Confirmed Nexplanon 68 mg SQ ONCE #1 implant 08/04/16 07/15/20 sertraline 100 mg PO DAILY 11/12/17 07/15/20 loratadine 10 mg PO DAILY PRN 04/15/18 07/15/20 prednisone 40 mg PO DAILY 3 Days #6 tab 07/15/20 Previous Rx's Medication Instructions Recorded prednisone 40 mg PO DAILY 3 Days #6 tab 07/15/20 Allergies Allergy/AdvReac Type Severity Reaction Status Date / Time shellfish derived AdvReac nausea/vomi Unverified 07/15/20 14:50 ting General Stated Complaint: Allergic PALOMO: 3 Review of Systems Narrative: No shortness of breath. No difficulty swallowing or change to voice. States similar strong reactions in the past but no history of anaphylaxis. 6 systems reviewed and otherwise negative PFSH Medical History Depression (Chronic) Exercise-induced asthma (Chronic 11/07/13) intermittent asthma with exercise trigger Migraine (Chronic) Presence of subdermal contraceptive implant (Acute) Family History Other No problems noted. Father Migraines Essential hypertension Depression Mental disorder depression Mother Migraines Grandfather Migraines Myocardial infarction Neoplasm 3 TYPES Grandfather Alcohol abuse in remission Neoplasm COLON Grandmother Migraines Grandmother Migraines Diabetes Essential hypertension Sister No problems noted. Family history Neoplasm Ovarian Social History Smoking/Tobacco Use Status: Never Alcohol Intake: current Alcohol Intake frequency: holidays/special occasions only Drug use: Occasionally Substance use type: marijuana Do you feel safe at home: Yes Do you feel safe in your relationship?: Yes History History 1 Para 1 Hx # Term Pregnancies Multiple births Hx # Pregnancies Ectopic pregnancies AB induced Hx Number of Living Children AB spontaneous Exam Narrative Exam Narrative: GEN: awake, alert, oriented 3. Pleasant, well groomed, interactive. HEAD: Normocephalic, atraumatic ENT: Mucous membranes moist, oropharynx unremarkable, External ear exam unremarkable EYES: PERRL, EOMI NECK: Full ROM, no LINCOLN, no menigismus CHEST/RESP: Nontender, clear to auscultation bilateral, no wheeze/rhonchi/rales CARDIOVASCULAR: RRR, no murmur, rub sarkis. 2+ Rad pulse bilateral EXT: Full ROM, no edema, right medial proximal thigh with area of erythema approximately 3 x 5 cm with central envenomation, no stinger appreciated. Neuro: Grossly normal neurologic exam, conversant, interactive. Psych: Speech fluent, thoughts congruent, affect normal Course Vital Signs Vital signs: Vital Signs Temperature 36.6 C 07/15/20 14:46 Pulse 85 07/15/20 14:46 Respiratory Rate 18 07/15/20 14:46 Blood Pressure 136/57 L 07/15/20 14:46 Pulse Oximetry 100 07/15/20 14:46 Temperature 36.6 C 07/15/20 14:46 Temperature Source Skin 07/15/20 14:46 Pulse 85 07/15/20 14:46 Respiratory Rate 18 07/15/20 14:46 Blood Pressure 136/57 L 07/15/20 14:46 Blood Pressure Position Sitting 07/15/20 14:46 Pulse Oximetry 100 07/15/20 14:46 Oxygen Delivery Method Room Air 07/15/20 14:46 Oxygen Flow Rate 0 07/15/20 14:46 Pain Level 7 07/15/20 14:46 Comment 07/15/20 14:46
[2020-07-15] MEDS: methylPREDNISolone SUCC 125 MG VIAL IVP (15:00)
[2020-07-15] MEDS: Loratidine 10 MG TAB PO (15:00)
[2020-07-15] MEDS: diphenhydrAMINE 50 MG/ML VIAL 25 MG IVP (15:05)
[2020-07-15] MEDS: Normal Saline Flush 10 ML SYR IVP (15:21)
== END 2020-07-15 16:09 | disposition home or self-care (01) ==
PROVIDERS: Emergency Provider Emergency Medicine; PCP Nurse Practitioner Family
DX: T63.461A Toxic effect of venom of wasps, accidental (unintentional), initial encounter (principal); L53.9 Erythematous condition, unspecified; Z91.030 Bee allergy status
CPT/HCPCS: 96374; 96375; 99284; J1200; J2930

== ENCOUNTER 2020-08-30 10:51 | Emergency (ER) | payer MEDICAID, SELFPAY ==
[2020-08-30 10:58] VITALS: BP 113/56; PULSE 76; RESP 18; TEMP 36.8; O2SAT 100
--- NOTE | 2020-08-30 11:00 | DI.RAD_ITS ---
EXAM: XR ANKLE LT COMPLETE CLINICAL HISTORY: Fall, R/O fracture TECHNIQUE: 2D digital imaging was performed. COMPARISON: CR LEFT ANKLE COMPLETE from 04/15/2018 FINDINGS: BONES: No acute fracture is present. No bony destructive lesion is seen. JOINTS:The ankle mortise is normally aligned. SOFT TISSUE: Mild soft tissue swelling laterally. IMPRESSION: No acute fracture or dislocation. DATA REPOSITORY: RADIATION DOSE DELIVERED:
--- NOTE | 2020-08-30 11:05 | ED.GENADUL_ITS ---
Discharge Plan Disposition Patient Disposition: HOME Condition: Stable Discharge Details Clinical Impression: Left ankle sprain Primary Care Provider: Mary Muhammad ED Provider: Veronique Iraheta Home Meds and New Rx's Prescriptions: Continued Nexplanon 68 MG implant 68 mg SQ ONCE Qty: 1 RF: 0 sertraline 25 MG tablet 100 mg PO DAILY RF: 0 loratadine 10 MG tablet 10 mg PO DAILY PRNRF: 0 Discharge Instructions Instructions: Ankle Sprain (ED) Additional Instructions: Follow up with primary care provider in 3-5 days. Return to ED sooner if any worsening or concerns. Increase oral fluids. Please take Tylenol or Ibuprofen with food every 4-6 hours as needed for pain and swelling. Use splint and crutches as needed, toe-touch weightbearing as tolerated. Orthopedics will follow up with me after reviewing the x-rays. Rest, ice, compression, elevation Referrals: Mary Muhammad [Primary Care Provider] - Medical Decision Making 24-year-old female presents to the ED with chief complaint of left ankle pain after a fall last night. Patient states that she was walking her dog on a leash when the dog pulled her diagonally and she fell she states that she heard a crack and fell to the ground and has had increased pain with weightbearing. She has some lateral malleolus tenderness and swelling with palpation. Dorsal pedal pulses intact, cap refill less than 2 seconds. She took an ibuprofen prior to arrival. Imaging obtained to rule out fracture, CR LEFT ANKLE COMPLETE 04/15/2018 2:00 PM FINDINGS: Bones/joints: Normal mineralization and alignment. No fracture, degenerative spur, osseous erosion, joint effusion, joint body or other deformity. Soft tissues: Mild lateral left ankle soft tissue swelling without hematoma or radiodense soft tissue foreign body. IMPRESSION: Lateral soft tissue swelling without acute fracture, malalignment or other abnormality. Thank you for allowing us to participate in the care of your patient. Dictated and Authenticated by: Rodrigo Patel MD Patient given ankle lace up splint and crutches discussed toe-touch weightbearing, will put patient on a follow-up orthopedic list if needed in 1 to 2 weeks. Discussed rice and taking Tylenol and ibuprofen as needed, verbalized understanding. HPI General Mode of arrival: wheelchair . Date/Time Provider Initiated Documentation: 08/30/20 10:53 . Limitations to Documentation: no limitations . Information obtained by: patient . HPI Narrative: 24-year-old female presents to the ED with chief complaint of left ankle pain after a fall last night. Patient states that she was walking her dog on a leash when the dog pulled her diagonally and she fell she states that she heard a crack and fell to the ground and has had increased pain with weightbearing. She has some lateral malleolus tenderness and swelling with palpation. Dorsal pedal pulses intact, cap refill less than 2 seconds. She took an ibuprofen prior to arrival. Related Data Home Medications Medication Instructions Recorded Confirmed Nexplanon 68 mg SQ ONCE #1 implant 08/04/16 08/30/20 sertraline 100 mg PO DAILY 11/12/17 08/30/20 loratadine 10 mg PO DAILY PRN 04/15/18 08/30/20 Allergies Allergy/AdvReac Type Severity Reaction Status Date / Time shellfish derived AdvReac nausea/vomi Unverified 08/30/20 11:01 ting General Stated Complaint: Orthopedic PALOMO: 3 Review of Systems Narrative: Constitutional: Negative for weight loss, alert and oriented, well groomed, normal body habitus, appears comfortable. HEENT: Denies trauma, headaches, blurry vision, nasal discharge, sore throat, trouble swallowing. Chest: Denies chest pain, palpitations, irregular rhythm, hypertension. Respiratory: Denies Shortness of breath, cough, hemoptysis. GI: Denies abdominal pain, nausea, vomiting, diarrhea, constipation. : Denies dysuria, hematuria, flank pain, rectal bleeding. Neuro: Denies dizziness, blurry vision, weakness, syncope, headache or facial numbness. Hematologic: Denies easy bruising, intolerance to heat or cold, hair loss. PFSH Medical History Depression Exercise-induced asthma (11/07/13) intermittent asthma with exercise trigger Migraine Presence of subdermal contraceptive implant Family History Other No problems noted. Father Migraines Essential hypertension Depression Mental disorder depression Mother Migraines Grandfather Migraines Myocardial infarction Neoplasm 3 TYPES Grandfather Alcohol abuse in remission Neoplasm COLON Grandmother Migraines Grandmother Migraines Diabetes Essential hypertension Sister No problems noted. Family history Neoplasm Ovarian Social History Smoking/Tobacco Use Status: Never Alcohol Intake: current Alcohol Intake frequency: holidays/special occasions only Drug use: Occasionally Substance use type: marijuana Do you feel safe at home: Yes Do you feel safe in your relationship?: Yes History History 1 Para 1 Hx # Term Pregnancies Multiple births Hx # Pregnancies Ectopic pregnancies AB induced Hx Number of Living Children AB spontaneous Exam Narrative Exam Narrative: Constitutional: Alert and oriented x3. Appears stated age. Normal body habitus. Head: Normocephalic, no trauma. Eyes: Pupils PERRLA, Red reflex noted, EOM's intact. Eyelids symmetrical without lesions, discharge, or swelling. ENT: Bilateral TM's WNL, External ear normal to inspection, no mastoid TTP, swelling, or erythema, Nasal turbinates WNL, no nasal discharge. Normal dentition, Posterior pharynx WNL, no exudate. Chest: RRR, Normal S1, S2, distal pulses intact. Resp: Lungs clear to auscultation bilaterally, no wheezes, rales, or rhonchi. Musculoskeletal: Normal gait, 5/5 strength to all four extremities. Lateral malleolus tenderness and swelling mild contusion noted. Skin: No suspicious rashes or lesions. Capillary refill less than 2 sec. Neurologic: Cranial nerves II-XII intact. Alert and oriented x 3. DTR's intact. Hematologic/Lymphatic: No ecchymosis, no lymphadenopathy. Extrem Ankle/foot/toe images: 1. Tenderness and swelling palpation. Course Vital Signs Vital signs: Vital Signs Temperature 36.8 C 08/30/20 10:58 Pulse 76 08/30/20 10:58 Respiratory Rate 18 08/30/20 10:58 Blood Pressure 113/56 L 08/30/20 10:58 Pulse Oximetry 100 08/30/20 10:58 Temperature 36.8 C 08/30/20 10:58 Temperature Source Temporal Artery Scan 08/30/20 10:58 Pulse 76 08/30/20 10:58 Respiratory Rate 18 08/30/20 10:58 Respiratory Effort 08/30/20 11:02 Blood Pressure 113/56 L 08/30/20 10:58 Blood Pressure Position Sitting 08/30/20 10:58 Pulse Oximetry 100 08/30/20 10:58 Oxygen Delivery Method Room Air 08/30/20 10:58 Oxygen Flow Rate 0 08/30/20 10:58 Pain Level 9 08/30/20 10:58
--- NOTE | 2020-09-03 16:03 | DI.VRAD_ITS ---
PROCEDURE INFORMATION: Exam: XR Left Ankle Exam date and time: 08/30/2020 11:28 AM Age: 24 years old Clinical indication: Other: Fall, R/O fracture TECHNIQUE: Imaging protocol: XR Left ankle. Views: 3 or more views. COMPARISON: CR LEFT ANKLE COMPLETE 04/15/2018 2:00 PM FINDINGS: Bones/joints: Normal mineralization and alignment. No fracture, degenerative spur, osseous erosion, joint effusion, joint body or other deformity. Soft tissues: Mild lateral left ankle soft tissue swelling without hematoma or radiodense soft tissue foreign body. IMPRESSION: Lateral soft tissue swelling without acute fracture, malalignment or other abnormality. Dictated and Authenticated by: Rodrigo Patel MD. Ordering:MELINA Piper MD
== END 2020-08-30 12:25 | disposition home or self-care (01) ==
PROVIDERS: Emergency Provider Registered Nurse Emergency; PCP Nurse Practitioner Family
DX: S93.492A Sprain of other ligament of left ankle, initial encounter (principal); W17.2XXA Fall into hole, initial encounter; Y93.K1 Activity, walking an animal
CPT/HCPCS: 29515; 99283; 73610; 99284; E0114; L1902

== ENCOUNTER 2020-09-29 16:26 | Outpatient (REF) | payer MEDICAID, SELFPAY | END 2020-09-29 16:46 | LOC: NCHCN 16:26 | PROVIDERS: PCP Nurse Practitioner Family; Visit Provider Nurse Practitioner Family | DX: R30.0 Dysuria (principal) | CPT/HCPCS: 87077; 87086; 87186 ==

== ENCOUNTER 2020-11-10 09:11 | Outpatient (REF) | payer MEDICAID, SELFPAY ==
--- NOTE | 2020-11-10 08:45 | PAPFT_PTH ---
PATIENT: Lizette Saba LOC: [facility] U#:[id number] AGE/SX: 24/F ROOM: RE11/10/[address]: Kendy Jeter : 1995 BED: DIS: 11/10/2020 SPEC #: [id number] RECD: 11/10/20 18:05 STATUS: LUCY REBrian #: [id number] HANNA: 11/10/20 08:[address]: Kendy Jeter DEPT: [facility] Cytology RECD BY: Michelle Conway ENTERED: 11/10/20 18:05 SP TYPE: PAPFT OTHR DR: Mary Muhammad Tissues: 1 - CX/ENDOCX FOR PAP SMEARS Procedures: PAP THIN PREP/UVM Screening Comments: [id number]
== END 2020-11-10 09:31 ==
LOC: NCHCN 09:11
PROVIDERS: PCP Nurse Practitioner Family; Visit Provider Nurse Practitioner Family
DX: Z12.4 Encounter for screening for malignant neoplasm of cervix (principal)
CPT/HCPCS: 88142

== ENCOUNTER 2021-04-07 02:49 | Outpatient (CLI) | payer MEDICAID, SELFPAY ==
[2021-04-07 10:57] LABS: HCG Qual (Serum) Negative
== END 2021-04-07 02:50 | disposition home or self-care (01) ==
LOC: LBO 02:50
PROVIDERS: PCP Nurse Practitioner Family; Visit Provider Nurse Practitioner Women's Health
DX: N92.6 Irregular menstruation, unspecified (principal); N91.2 Amenorrhea, unspecified
CPT/HCPCS: 36415; 84703

== ENCOUNTER 2021-08-02 23:29 | Emergency (ER) | payer MEDICAID, SELFPAY ==
[2021-08-02 23:34] VITALS: BP 127/68; PULSE 74; RESP 18; TEMP 36.5; O2SAT 99
--- NOTE | 2021-08-02 23:45 | W.ED.GENAD ---
Discharge Plan Disposition Patient Disposition: HOME Condition: Good Discharge Details Clinical Impression: Infected nailbed of toe Primary Care Provider: Mary Muhammad ED Provider: Jarocho Kong Home Meds and New Rx's Prescriptions: New cephalexin 500 mg tablet 500 mg PO QID 7 Days Qty: 28 RF: 0 Continued sertraline 25 mg tablet 50 mg PO DAILY RF: 0 loratadine 10 MG tablet 10 mg PO DAILY PRNRF: 0 Discharge Instructions Instructions: Cellulitis (ED) Additional Instructions: At this time you have mild cellulitis of your toe. As we discussed together please allow your nail to grow out to the edges, so that it does not angel under the skin and cause infections. Please keep your shoes and socks dry at all times, even if it requires you to change your socks a few times throughout the day. Please apply triple antibiotic ointment/bacitracin/neomycin ointment on your toe to help with healing from the outside. Please take the antibiotic as directed. We have given you a small bottle with the first few doses to use until your prescription is filled. Your antibiotic prescription has been sent to your [facility] pharmacy on file. Take Tylenol and Motrin as needed for pain. If you notice any worsening of your symptoms, or any new symptoms such as vomiting, diarrhea, fever, chills, shortness of breath, chest pain, numbness, weakness, or fainting , please return immediately to the emergency department for reevaluation. Please follow up with your primary care provider as soon as possible for reassessment and reevaluation. As always, it was a pleasure participating in your medical care today. Referrals: Mary Muhammad [Primary Care Provider] - Medical Decision Making This is a 25-year-old female with no significant past medical history presents today for left great toe pain. Patient states that her last 48 hours she kicked a toy, and did not initially have significant pain plan eventually mild mild redness and soreness at the lateral nail aspect of her great toe on the left foot. She denies fever or chills, pain is present with walking or movement, there is no pain initially to suggest fracture, however pain came on gradually afterwards with suspect infection. Patient denies any other complaints at this time. No other modifying factors. Exam demonstrates mild cellulitis over the lateral aspect of the great toe at the nail. No evidence of fluctuance to suggest drainable paronychia or felon at this time. Will give Keflex for home use, recommend topical antibacterials as well. Recommend keeping dry feet. Discussed red flags which return. I have extensively reviewed the treatment plan and discharge instructions with the patient. I have addressed all patient concerns at this time. The patient was made aware of what symptoms to monitor for that would warrant a return to the emergency department. Discussed the plan with the patient, they demonstrate verbal understanding and agreement with our assessment and plan at this time. The documentation in this chart was dictated using [employer] dictation software. Please excuse any dictation errors. HPI General Date/Time Provider Initiated Documentation: 08/02/21 23:30. HPI Narrative: This is a 25-year-old female with no significant past medical history presents today for left great toe pain. Patient states that her last 48 hours she kicked a toy, and did not initially have significant pain plan eventually mild mild redness and soreness at the lateral nail aspect of her great toe on the left foot. She denies fever or chills, pain is present with walking or movement, there is no pain initially to suggest fracture, however pain came on gradually afterwards with suspect infection. Patient denies any other complaints at this time. No other modifying factors. Related Data Home Medications Medication Instructions Recorded Confirmed loratadine 10 mg PO DAILY PRN 04/15/18 08/02/21 sertraline 25 mg tablet 50 mg PO DAILY tab 11/17/20 08/02/21 cephalexin 500 mg PO QID 7 Days #28 tab 08/02/21 Previous Rx's Medication Instructions Recorded cephalexin 500 mg PO QID 7 Days #28 tab 08/02/21 Allergies Allergy/AdvReac Type Severity Reaction Status Date / Time shellfish derived AdvReac nausea/vomi Unverified 08/02/21 23:37 ting General Stated Complaint: GenMedical PALOMO: 4 Review of Systems All systems reviewed & are unremarkable except as noted in HPI and below PFSH Medical History Depression Exercise-induced asthma (11/07/13) intermittent asthma with exercise trigger Migraine Family History Other No problems noted. Father Migraines Essential hypertension Depression Mental disorder depression Mother Migraines Grandfather Migraines Myocardial infarction Neoplasm 3 TYPES Grandfather Alcohol abuse in remission Neoplasm COLON Grandmother Migraines Grandmother Migraines Diabetes Essential hypertension Sister No problems noted. Family history Neoplasm Ovarian Social History Smoking/Tobacco Use Status: Never Smoking risk assessment performed?: Yes Alcohol Intake: current Alcohol Intake frequency: holidays/special occasions only Drug use: Occasionally Substance use type: marijuana Do you feel safe at home: Yes Do you feel safe in your relationship?: Yes History History 1 Para 1 Hx # Term Pregnancies Multiple births Hx # Pregnancies Ectopic pregnancies AB induced Hx Number of Living Children AB spontaneous Exam Narrative Exam Narrative: 1.Const: Well-nourished, Well-developed, appearing stated age 2.Eyes: PERRL, no conjunctival injection, and symmetrical lids. 3.ENT: Atraumatic external nose and ears. Moist MM. Neck: Symmetric, trachea midline, No thyromegaly. 4.CVS: +S1/S2, No murmurs or gallops. Peripheral pulses 2+ and equal in all extremities. Brisk capillary refill in all extremities. 5.RESP: Unlabored respiratory effort. Clear to auscultation bilaterally. No wheezes rales or rhonchi 6.GI: Soft, Nontender/Nondistended, No hepatosplenomegaly. No guarding or rebound. 7.MSK: Normocephalic/Atraumatic, Extremities w/o deformity or ttp No cyanosis or clubbing, Normal movement of all extremities 8.Skin: Warm, Dry. Patient's left great toe demonstrates mild redness, mild skin irritation at the lateral aspect of the external lateral component of the nail. No fluctuance to suggest cellulitis or severe paronychia with abscess. No tenderness over the bony compartments of the toe. Toenail is actually somewhat short, and not overly long. The edge of the toenail is actually not very deep either. It is notably superficial. 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 Sensation grossly intact, no focal neurologic deficits. 10.Psych: (AAO) x3. Appropriate mood and affect Course Vital Signs Vital signs: Vital Signs Temperature 36.5 C 08/02/21 23:34 Pulse 74 08/02/21 23:34 Respiratory Rate 18 08/02/21 23:34 Blood Pressure 127/68 08/02/21 23:34 Pulse Oximetry 99 08/02/21 23:34 Temperature 36.5 C 08/02/21 23:34 Temperature Source Temporal Artery Scan 08/02/21 23:34 Pulse 74 08/02/21 23:34 Respiratory Rate 18 08/02/21 23:34 Respiratory Effort 08/02/21 23:38 Blood Pressure 127/68 08/02/21 23:34 Blood Pressure Position Sitting 08/02/21 23:34 Pulse Oximetry 99 08/02/21 23:34 Oxygen Delivery Method Room Air 08/02/21 23:34 Oxygen Flow Rate 0 08/02/21 23:34 Pain Level 3 08/02/21 23:34
[2021-08-02] MEDS: Cephalexin 500 MG CAP, 4 CAPS/BTL PO (23:54)
== END 2021-08-02 23:57 | disposition home or self-care (01) ==
PROVIDERS: Emergency Provider Student in an Organized Health Care Education/Training Program; PCP Nurse Practitioner Family
DX: L03.032 Cellulitis of left toe (principal)
CPT/HCPCS: 99283

== ENCOUNTER 2021-10-18 15:12 | Emergency (ER) | payer MEDICAID, SELFPAY ==
[2021-10-18 15:28] VITALS: BP 124/83; PULSE 116; RESP 18; TEMP 37.4; O2SAT 99
[2021-10-18 16:34] LABS: Bilirubin Small (Negative); Blood Small (Negative); Clarity Sl Cloudy (Clear); Glucose Negative (Negative); Ketones 80 mg/dL (Negative); Leukocyte Esterase Negative (Negative); Nitrite Negative (Negative); Specific Gravity >= 1.030 (1.005-1.025); Urobilinogen 0.2 EU/dL (Up TO 0.2)
[2021-10-18 16:43] LABS: Bacteria Few HPF (Negative); Casts Negative LPF (Negative); Crystals Negative HPF (Negative); Epithelial Cells Moderate HPF (Negative); Mucus Moderate (Negative)
[2021-10-18 16:44] LABS: C & S Indicated? No/Sq. Contamination
--- NOTE | 2021-10-18 16:56 | ED.GENADUL_ITS ---
Discharge Plan Disposition Patient Disposition: HOME Condition: Improving Discharge Details Clinical Impression: Leukopenia, Nausea & vomiting Primary Care Provider: Mary Muhammad ED Provider: Tad Sosa Home Meds and New Rx's Prescriptions: New ondansetron HCl [Zofran] 4 mg tablet 4 mg PO Q8H PRNQty: 10 RF: 0 Continued sertraline 25 mg tablet 50 mg PO DAILY RF: 0 loratadine 10 MG tablet 10 mg PO DAILY PRNRF: 0 Discharge Instructions Instructions: Acute Nausea and Vomiting (ED) Additional Instructions: Zofran as directed. Plenty of fluids to avoid dehydration. Please watch for new or worse symptoms and return to the ER. Covid swab is pending, I recommend quarantine until this test has resulted negative hopefully in the next 2-3 days. As we discussed, please contact your primary care provider tomorrow to discuss your ER visit and need for outpatient reevaluation. You will need to have your white blood cell count reevaluated and if it remains low likely work-up for abnormal lab finding Stand Alone Forms: Work Release Medical Decision Making 25-year-old female presents with subjective fever and chills, nausea and vomiting began over the past 12-24 hours. Clinically she has dry mucous membranes and presents with tachycardia, lungs are clear to auscultation, afebrile, O2 sat 99% on room air. Will obtain IV access, give IV fluid, Zofran p.o. challenge, routine screening laboratory values and a Covid send out swab Patient received IV fluid and Zofran, heart rate now in the 80s she was able to tolerate p.o. intake. Patient subjectively reports feeling improvement. Laboratory values reveal leukopenia, no evidence of anemia, potassium 3.4 anion gap 12.1 GFR greater than 60. Urine with 80 ketones but no signs of infection. Patient received her entire liter of IV fluid and I did give her 40 p.o. potassium. Discussed work-up with patient. She had no additional questions or concerns and was comfortable with discharge at this time. She does understand her Covid swab is pending and I will provide her with a work note for the 3 days while it is resolving. I will also provide her a prescription for Zofran to help with her nausea. We discussed the importance of treating her symptoms with [id number] medication and staying adequately hydrated. Patient was given strict discharge and return precautions. This documentation was generated using [employer] dictation system, please disregard any oddities of phrase or misspellings. Medical Records Medical records reviewed: Yes I reviewed the patient's medical records. Lab Data Lab results reviewed: Yes I reviewed the patient's lab results. Labs: Laboratory Tests Range/Units 10/18/21 10/18/21 10/18/21 16:11 17:08 17:08 WBC (4.4-10.8) 10^3/uL 2.16 L RBC (3.93-5.22) 10^6/uL 4.14 Hgb (11.2-15.7) g/dL 12.0 Hct (36.0-46.0) % 36.8 MCV (80-95) fL 88.9 MCH (27.0-33.0) pg 29.0 MCHC (32.0-36.0) % 32.6 RDW (11.7-14.6) % 12.9 Plt Count (130-400) 10^3/uL 186 MPV (8.0-11.0) fL 9.3 Immature Gran % 0.0 Neutrophils % 57.8 Lymphocytes % 24.1 Monocytes % 18.1 Eosinophils % 0.0 Basophils % 0.0 Nucleated RBC % % 0 Absolute Neutrophils (1.2-6.7) 10^3/uL 1.25 Absolute Lymphocytes (1.2-3.4) 10^3/uL 0.52 L Absolute Monocytes (0.1-0.8) 10^3/uL 0.39 Absolute Eosinophils (0.0-0.7) 10^3/uL 0.00 Absolute Basophils (0.0-0.2) 10^3/uL 0.00 Sodium (136-145) mmol/L 138 Potassium (3.5-5.1) mmol/L 3.4 L Chloride (98-107) mmol/L 103 Carbon Dioxide (21.0-32.0) mmol/L 22.9 Anion Gap (3-11) mmol/L 12.1 H BUN (7-18) mg/dL 10 Creatinine (0.55-1.02) mg/dL 0.7 Estimated GFR/1.73 m2 (mL/min/1.73m2) >= 60.00 Glucose (74-106) mg/dL 80 Calcium (8.5-10.1) mg/dL 8.4 L Total Bilirubin (0.2-1.0) mg/dL 0.2 AST (15-37) U/L 15 ALT (14-59) U/L 20 Alkaline Phosphatase (46-116) U/L 65 Total Protein (6.4-8.2) g/dL 7.4 Albumin (3.4-5.0) g/dL 3.9 Urine Color (Yellow) Yellow Urine Clarity (Clear) Sl Cloudy Urine pH (5-8) 6.0 Ur Specific [place] (1.005-1.025) >= 1.030 H Urine Protein (Negative) mg/dL 30 H Urine Ketones (Negative) mg/dL 80 H Urine Blood (Negative) Small H Urine Nitrite (Negative) Negative Urine Bilirubin (Negative) Small H Urine Urobilinogen (Up TO 0.2) EU/dL 0.2 Ur Leukocyte Esterase (Negative) Negative Urine RBC (0-2) HPF 3-5 H Urine WBC (0-5) HPF 3-5 Ur Epithelial Cells (Negative) HPF Moderate Urine Crystals (Negative) HPF Negative Urine Bacteria (Negative) HPF Few Urine Casts (Negative) LPF Negative Urine Mucus (Negative) Moderate Ur Culture Indicated? No/Sq. Contamination Urine Glucose (Negative) mg/dL Negative HPI General Mode of arrival: ambulatory . Date/Time Provider Initiated Documentation: 10/18/21 15:39 . Limitations to Documentation: no limitations . Information obtained by: patient . HPI Narrative: This is a 25-year-old female, past medical story exercise-induced asthma, depression, migraines, not vaccinated for Covid, presenting to the ER reported being sick for the past 2 days, subjective fever with chills, nausea and vomiting that began very early this morning. She denies any obvious sick contacts. Reports mild dull global headache, mild dry cough. Denies neck pain, sore throat, abdominal pain, diarrhea, dysuria, skin rash. She has taken [id number] medications with minimal relief. Patient states that she is concerned about dehydration as she has not had much p.o. intake today. She will also need a work note for today as she could not go to work in her current condition. Related Data Home Medications Medication Instructions Recorded Confirmed loratadine 10 mg PO DAILY PRN 04/15/18 10/18/21 sertraline 25 mg tablet 50 mg PO DAILY tab 11/17/20 10/18/21 ondansetron HCl [Zofran] 4 mg PO Q8H PRN #10 tab 10/18/21 Previous Rx's Medication Instructions Recorded ondansetron HCl [Zofran] 4 mg PO Q8H PRN #10 tab 10/18/21 Allergies Allergy/AdvReac Type Severity Reaction Status Date / Time shellfish derived AdvReac nausea/vomi Unverified 10/18/21 15:29 ting General Stated Complaint: Fever PALOMO: 4 Review of Systems Constitutional Constitutional: Reports chills, Reports fever(s) and Reports headache(s) ENT Ears, Nose, Mouth, and Throat: Reports headache(s), Denies neck pain and Denies sore throat Cardiovascular Cardiovascular: Denies chest pain and Denies dyspnea Respiratory Respiratory: Reports cough and Denies dyspnea Gastrointestinal Gastrointestinal: Denies abdominal pain, Denies diarrhea, Reports nausea and Reports vomiting Genitourinary Genitourinary: Denies dysuria Musculoskeletal Musculoskeletal: Denies neck pain Integumentary/Breasts Skin/Breast: Denies rash Neurologic Neurologic: Reports headache(s) and Reports weakness (Generalized) [facility] Active Problem List Infected nailbed of toe (Acute) Leukopenia (Acute) Nausea & vomiting (Acute) Migraine (Chronic) Depression (Chronic) 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 Father Migraines Essential hypertension Depression Mental disorder depression Mother Migraines Grandfather Migraines Myocardial infarction Neoplasm 3 TYPES Grandfather Alcohol abuse in remission Neoplasm COLON Grandmother Migraines Grandmother Migraines Diabetes Essential hypertension Sister No problems noted. Family history Neoplasm Ovarian Social History Smoking/Tobacco Use Status: Never Smoking risk assessment performed?: Yes Alcohol Intake: current Alcohol Intake frequency: holidays/special occasions only Drug use: Occasionally Substance use type: marijuana Do you feel safe at home: Yes Do you feel safe in your relationship?: Yes History History 1 Para 1 Hx # Term Pregnancies Multiple births Hx # Pregnancies Ectopic pregnancies AB induced Hx Number of Living Children AB spontaneous Exam Const General: cooperative, healthy appearing, comfortable and no acute distress Orientation: alert, awake and oriented x3 HENMT Head: normal to inspection, normocephalic and atraumatic Face and sinus: normal facial exam Mouth: moist mucous membranes abnormal (Dry) Throat: posterior oropharynx normal Eyes General: appearance normal, both eyes and all related structures Conjunctivae: conjunctivae normal Neck Neck: normal visual inspection, full ROM, no lymphadenopathy, no meningeal signs, trachea midline, supple and nontender Resp Effort & Inspection: normal respiratory effort and able to speak in complete sentences Auscultation: clear to auscultation bilaterally Cardio Rate: tachycardic (108) Rhythm: regular rhythm GI Palpation: soft, not firm, no guarding, no pulsatile masses and nontender Back/Spine/Pelvis Back: No back tenderness Skin General skin exam: no rashes or lesions noted Neuro General: patient alert, patient awake, moves all extremities and no focal motor deficits Cognition: normal cognition Speech: speech normal Gait: normal gait Motor: muscle tone normal throughout Sensory Exam: no sensory deficits noted Extrem General: normal to inspection and full ROM Psych Appearance: grossly normal Mental Status: mental status grossly normal Course Vital Signs Vital signs: Vital Signs Temperature 37.4 C 10/18/21 15:28 Pulse 116 H 10/18/21 15:28 Respiratory Rate 18 10/18/21 15:28 Blood Pressure 124/83 10/18/21 15:28 Pulse Oximetry 99 10/18/21 15:28 Temperature 37.4 C 10/18/21 15:28 Temperature Source Temporal Artery Scan 10/18/21 15:28 Pulse 116 H 10/18/21 15:28 Respiratory Rate 18 10/18/21 15:28 Respiratory Effort Non-Labored 10/18/21 15:30 Blood Pressure 124/83 10/18/21 15:28 Pulse Oximetry 99 10/18/21 15:28 Oxygen Delivery Method Room Air 10/18/21 15:28 Oxygen Flow Rate 0 10/18/21 15:28 Pain Level 7 10/18/21 15:28 Lab/Test Results Lab/Test Results: Laboratory Tests Range/Units 10/18/21 16:11 Urine Color (Yellow) Yellow Urine Clarity (Clear) Sl Cloudy Urine pH (5-8) 6.0 Ur Specific [place] (1.005-1.025) >= 1.030 H Urine Protein (Negative) mg/dL 30 H Urine Ketones (Negative) mg/dL 80 H Urine Blood (Negative) Small H Urine Nitrite (Negative) Negative Urine Bilirubin (Negative) Small H Urine Urobilinogen (Up TO 0.2) EU/dL 0.2 Ur Leukocyte Esterase (Negative) Negative Urine RBC (0-2) HPF 3-5 H Urine WBC (0-5) HPF 3-5 Ur Epithelial Cells (Negative) HPF Moderate Urine Crystals (Negative) HPF Negative Urine Bacteria (Negative) HPF Few Urine Casts (Negative) LPF Negative Urine Mucus (Negative) Moderate Ur Culture Indicated? No/Sq. Contamination Urine Glucose (Negative) mg/dL Negative POC- Test(urine) Negative
[2021-10-18] MEDS: Ondansetron 4 MG/2 ML VIAL IVP (17:11)
[2021-10-18] MEDS: Normal Saline 1,000 ML 1000 ML IV (17:12)
[2021-10-18 17:19] LABS: Absolute Lymphocyte Count 0.52 10^3/uL (1.2-3.4); Absolute Monocyte Count 0.39 10^3/uL (0.1-0.8); Absolute Neutrophil Count 1.25 10^3/uL (1.2-6.7); HCT 36.8 % (36.0-46.0); Lymphocytes % 24.1; MCHC 32.6 % (32.0-36.0); MCV 88.9 fL (80-95); MPV 9.3 fL (8.0-11.0); Monocytes % 18.1; Neutrophils % 57.8; Nucleated RBC 0 %; Platelet Count 186 10^3/uL (130-400); RBC 4.14 10^6/uL (3.93-5.22); RDW 12.9 % (11.7-14.6); RDW-SD 42.5 fL; WBC 2.16 10^3/uL (4.4-10.8)
[2021-10-18 17:43] LABS: ALT 20 U/L (14-59); AST 15 U/L (15-37); Albumin 3.9 g/dL (3.4-5.0); Alkaline Phosphatase 65 U/L (46-116); Anion Gap 12.1 mmol/L (3-11); BUN 10 mg/dL (7-18); Bilirubin, Total 0.2 mg/dL (0.2-1.0); CO2 22.9 mmol/L (21.0-32.0); CREATININE 0.7 mg/dL (0.55-1.02); Calcium 8.4 mg/dL (8.5-10.1); Chloride 103 mmol/L (98-107); Glucose 80 mg/dL (74-106); Potassium 3.4 mmol/L (3.5-5.1); Sodium 138 mmol/L (136-145); Total Protein 7.4 g/dL (6.4-8.2)
[2021-10-18] MEDS: Potassium Chloride 20 MEQ TABCR 40 MEQ PO (17:53)
[2021-10-18 18:44] VITALS: BP 99/47; PULSE 86; RESP 16; TEMP 37; O2SAT 97
[2021-10-20 13:41] LABS: COVID-19 RT-PCR UVMMC Result Positive (Negative)
--- NOTE | 2021-10-20 13:57 | W.ED.FU ---
Date of service: 10/20/21 Time of Service: 13:57 Follow Up Plan: Call made to patient regarding a positive Covid test, no answer voicemail left. 1401: Spoke with patient regarding positive Covid test, she verbalizes understanding. Discussed vitamins and continuing to quarantine for at least 14 days or until negative test. Patient verbalized understanding. Discussed strict return instructions.
== END 2021-10-18 18:52 | disposition home or self-care (01) ==
PROVIDERS: Emergency Provider Physician Assistant; PCP Nurse Practitioner Family
DX: R11.2 Nausea with vomiting, unspecified (principal); D72.819 Decreased white blood cell count, unspecified; E87.6 Hypokalemia; R05.9 Cough, unspecified; Z20.822 Contact with and (suspected) exposure to COVID-19
CPT/HCPCS: 36415; 80053; 81025; 96361; 96374; 99284; U0003; 81003; 81015; 85025; 99283; J2405

== ENCOUNTER 2021-12-26 00:02 | Emergency (ER) | payer MEDICAID, SELFPAY ==
[2021-12-26 00:06] VITALS: BP 122/82; PULSE 83; RESP 16; TEMP 36.3; O2SAT 99
--- NOTE | 2021-12-26 00:15 | DI.RAD_ITS ---
Exam(s) XR FOREARM RT EXAM: XR FOREARM RT CLINICAL HISTORY: fall, mid right ulnar pain. TECHNIQUE: 2D digital imaging was performed. COMPARISON: No exams were available for comparison FINDINGS: No evidence of fracture nor dislocation. Bone density normal. No osseous lesions. IMPRESSION: No significant findings. DATA REPOSITORY: RADIATION DOSE DELIVERED:
[2021-12-26] MEDS: Ibuprofen 800 MG TAB PO (00:19)
--- NOTE | 2021-12-26 00:28 | W.ED.GENAD ---
Discharge Plan Disposition Patient Disposition: HOME Condition: Good Discharge Details Clinical Impression: Arm pain, right Primary Care Provider: Mary Muhammad ED Provider: Jarocho Kong Home Meds and New Rx's Prescriptions: Continued sertraline 25 mg tablet 50 mg PO DAILY RF: 0 loratadine 10 MG tablet 10 mg PO DAILY PRNRF: 0 ondansetron HCl [Zofran] 4 mg tablet 4 mg PO Q8H PRNQty: 10 RF: 0 Discharge Instructions Instructions: Contusion in Adults (ED) Additional Instructions: At this time your x-ray shows no evidence of fracture. Your nerve has been contused. Please use ice as needed for your forearm to help with any pain. Tylenol and Motrin will help as well. The tingling will likely go away in the next few days. Please gently massage the arm and forearm to help. If you notice any worsening of your symptoms, or any new symptoms such as vomiting, diarrhea, fever, chills, shortness of breath, chest pain, numbness, weakness, or fainting , please return immediately to the emergency department for reevaluation. Please follow up with your primary care provider as soon as possible for reassessment and reevaluation. As always, it was a pleasure participating in your medical care today. Referrals: Mary Muhammad [Primary Care Provider] - Medical Decision Making 26-year-old female who is right-hand dominant presents today for right forearm pain and tingling in her fingertips. Patient states that she slipped on ice caught her self and cut her self landing on her right hand and right forearm. She developed some mild right-sided forearm pain, and did take Tylenol prior to arrival. However she noticed that she had tingling in the tips of her fingers and by her pinky. No pain in hand or wrist. No pain in elbow. She did not strike her head. No other complaints at this time. No other modifying factors. Physical exam demonstrates minimal tenderness over the midshaft ulna. No tenderness of the distal radius or ulna. No elbow tenderness. Good sensation movement and strength in the hand. Good two-point discrimination throughout, but slight subjective decrease in sensation over the ulnar nerve distribution. Suspect mild contusion to the ulnar nerve causing the slight tingling and subjective decrease sensation. However objectively all sensation remains intact. We will get an x-ray to rule out fracture. Will give ibuprofen 2:17 AM X-ray negative for acute process. Patient stable. No indication for further additional treatment at this time. Recommend B complex vitamin, gentle massage and Tylenol Motrin as needed. Discussed red flags which return. I have extensively reviewed the treatment plan and discharge instructions with the patient. I have addressed all patient concerns at this time. The patient was made aware of what symptoms to monitor for that would warrant a return to the emergency department. Discussed the plan with the patient, they demonstrate verbal understanding and agreement with our assessment and plan at this time. The documentation in this chart was dictated using [employer] dictation software. Please excuse any dictation errors. FINDINGS: Bones/joints: No suspicious osseous lytic or blastic lesion. No discrete or displaced fracture. No joint dislocation. Soft tissues: Mild dorsal proximal to mid forearm soft tissue edema. IMPRESSION: No acute fracture or dislocation. Thank you for allowing us to participate in the care of your patient. Dictated and Authenticated by: Luigi Denton MD 12/26/2021 12:54 AM Eastern Time ([place] & [place]) HPI General Date/Time Provider Initiated Documentation: 12/26/21 00:07. HPI Narrative: 26-year-old female who is right-hand dominant presents today for right forearm pain and tingling in her fingertips. Patient states that she slipped on ice caught her self and cut her self landing on her right hand and right forearm. She developed some mild right-sided forearm pain, and did take Tylenol prior to arrival. However she noticed that she had tingling in the tips of her fingers and by her pinky. No pain in hand or wrist. No pain in elbow. She did not strike her head. No other complaints at this time. No other modifying factors. Related Data Home Medications Medication Instructions Recorded Confirmed loratadine 10 mg PO DAILY PRN 04/15/18 10/18/21 sertraline 25 mg tablet 50 mg PO DAILY tab 11/17/20 10/18/21 ondansetron HCl [Zofran] 4 mg PO Q8H PRN #10 tab 10/18/21 Previous Rx's Medication Instructions Recorded ondansetron HCl [Zofran] 4 mg PO Q8H PRN #10 tab 10/18/21 Allergies Allergy/AdvReac Type Severity Reaction Status Date / Time shellfish derived AdvReac nausea/vomi Unverified 12/26/21 00:09 ting General Stated Complaint: Orthopedic PALOMO: 4 Review of Systems All systems reviewed & are unremarkable except as noted in HPI and below PFSH All Active Problems (Updated 12/26/21 @ 01:08 by Jarocho Kong DO) Infected nailbed of toe (Acute) Leukopenia (Acute) Nausea & vomiting (Acute) Arm pain, right (Acute) Migraine (Chronic) Depression (Chronic) Exercise-induced asthma (Chronic 11/07/13) intermittent asthma with exercise trigger Family History Other No problems noted. Father Migraines Essential hypertension Depression Mental disorder depression Mother Migraines Grandfather Migraines Myocardial infarction Neoplasm 3 TYPES Grandfather Alcohol abuse in remission Neoplasm COLON Grandmother Migraines Grandmother Migraines Diabetes Essential hypertension Sister No problems noted. Family history Neoplasm Ovarian Social History Smoking/Tobacco Use Status: Never Smoking risk assessment performed?: Yes Alcohol Intake: current Alcohol Intake frequency: holidays/special occasions only Drug use: Occasionally Substance use type: marijuana Do you feel safe at home: Yes Do you feel safe in your relationship?: Yes History History 1 Para 1 Hx # Term Pregnancies Multiple births Hx # Pregnancies Ectopic pregnancies AB induced Hx Number of Living Children AB spontaneous Exam Narrative Exam Narrative: 1.Const: Well-nourished, Well-developed, appearing stated age 2.Eyes: PERRL, no conjunctival injection, and symmetrical lids. 3.ENT: Atraumatic external nose and ears. Moist MM. Neck: Symmetric, trachea midline, No thyromegaly. 4.CVS: +S1/S2, No murmurs or gallops. Peripheral pulses 2+ and equal in all extremities. Brisk capillary refill in all extremities. 5.RESP: Unlabored respiratory effort. Clear to auscultation bilaterally. No wheezes rales or rhonchi 6.GI: Soft, Nontender/Nondistended, No hepatosplenomegaly. No guarding or rebound. 7.MSK: Normocephalic patient right upper extremity demonstrates no pain or tenderness at the elbow hand or wrist. Tenderness over midshaft ulna. Patient has good sensation throughout the entire of the hand, including good two-point discrimination for all fingers palm of the hand in the dorsal surface of the hand and thumb. Patient has slight subjective diminished sensation comparatively though in the ulnar nerve distribution area, and not in the median or the radial nerve distribution. Patient demonstrates good offbearer sewer pipe strength. Good movement of the thumb and fingers without any deficit. 8.Skin: Warm, Dry. No rashes or lesions. 9.Neuro: winemaker II-XII grossly intact. Sensation grossly intact, no focal neurologic deficits. Please see musculoskeletal 10.Psych: (AAO) x3. Appropriate mood and affect Course Vital Signs Vital signs: Vital Signs Temperature 36.3 C L 12/26/21 00:06 Pulse 83 12/26/21 00:06 Respiratory Rate 16 12/26/21 00:06 Blood Pressure 122/82 12/26/21 00:06 Pulse Oximetry 99 12/26/21 00:06 Temperature 36.3 C L 12/26/21 00:06 Pulse 83 12/26/21 00:06 Respiratory Rate 16 12/26/21 00:06 Respiratory Effort Non-Labored 12/26/21 00:09 Blood Pressure 122/82 12/26/21 00:06 Pulse Oximetry 99 12/26/21 00:06 Pain Level 8 12/26/21 00:06
--- NOTE | 2021-12-26 00:54 | DI.VRAD_ITS ---
PROCEDURE INFORMATION: Exam: XR Right Forearm Exam date and time: 12/26/2021 12:16 AM Age: 26 years old Clinical indication: Lower or forearm; Patient HX: Fall, mid right ulnar pain TECHNIQUE: Imaging protocol: XR Right forearm. Views: 2 views. COMPARISON: CR XR wrist RT compl navicular 06/30/2019 11:28 PM FINDINGS: Bones/joints: No suspicious osseous lytic or blastic lesion. No discrete or displaced fracture. No joint dislocation. Soft tissues: Mild dorsal proximal to mid forearm soft tissue edema. IMPRESSION: No acute fracture or dislocation. Dictated and Authenticated by: Luigi Denton MD. Ordering:AMANDA Avendaño MD
== END 2021-12-26 01:17 | disposition home or self-care (01) ==
PROVIDERS: Emergency Provider Student in an Organized Health Care Education/Training Program; PCP Nurse Practitioner Family
DX: M79.631 Pain in right forearm (principal); R20.2 Paresthesia of skin; W00.0XXA Fall on same level due to ice and snow, initial encounter
CPT/HCPCS: 99283; 73090

== ENCOUNTER 2022-06-15 20:49 | Emergency (ER) | payer OTHER, SELFPAY ==
[2022-06-15 20:55] VITALS: BP 125/87; PULSE 80; RESP 12; TEMP 36.8; O2SAT 98
--- NOTE | 2022-06-15 21:27 | ED.GENADUL_ITS ---
Discharge Plan Disposition Patient Disposition: HOME Condition: Improving Discharge Details Chief Complaint: HeadInjury Clinical Impression: Head injury Primary Care Provider: Mary Muhammad ED Provider: Jass Pacheco Home Meds and New Rx's Prescriptions: No Action sertraline 25 mg tablet 50 mg PO DAILY loratadine 10 MG tablet 10 mg PO DAILY PRN ondansetron HCl [Zofran] 4 mg tablet 4 mg PO Q8H PRNQty: 10 0RF acetaminophen 500 mg Tablet 500 - 1,000 mg PO Q6H PRN Discharge Instructions Instructions: Head Injury (ED) Additional Instructions: Please follow-up with your primary care physician. Please return to the emergency department you develop any worsening symptoms such as headache nausea vomiting weakness numbness trouble speaking trouble walking or other abnormal symptoms. Medical Decision Making 26-year-old female history of concussion, presents after hitting her head on a door frame at work. No loss of consciousness, no vomiting, did have brief double vision, no change in speech, does have slight nausea and gradual onset frontal headache, no evidence of scalp laceration or hematoma, TMs unremarkable, no otorrhea or rhinorrhea, patient is alert and oriented cranial nerves II to XII intact, 5 out of 5 strength upper and lower extremities no ataxia, patient is negative by [place] head CT rule, low risk for intracranial hemorrhage or skull fracture by history and physical, likely headache from contusion versus mild concussion. Trial of analgesia and antiemetics close reassessment. Likely home with concussion precautions. Patient was told to come to the emergency department by her manager [employer] for a note. 22: 15 patient feeling better after meds nausea and headache have improved. Will be given Zofran for home as needed. Given strict return precautions for any worsening symptoms. Will be given work note. HPI General Date/Time Provider Initiated Documentation: 06/15/22 20:54 . HPI Narrative: 26-year-old female history of prior concussion presents after hitting her head on a door frame at work slipped forward and hit her right frontal scalp on a door frame. No loss of conscious. Had brief double vision, has developed a gradual onset headache some slight nausea. No weakness numbness trouble speaking or walking. Patient is not on any blood thinners. Related Data Home Medications Medication Instructions Recorded Confirmed loratadine 10 mg tablet 10 mg PO DAILY PRN 04/15/18 06/15/22 sertraline 25 mg tablet 50 mg PO DAILY 11/17/20 06/15/22 ondansetron HCl 4 mg tablet 4 mg PO Q8H PRN #10 tabs 10/18/21 06/15/22 (Zofran) acetaminophen 500 mg tablet 500 - 1,000 mg PO Q6H PRN 06/15/22 06/15/22 Previous Rx's Medication Instructions Recorded ondansetron HCl 4 mg tablet 4 mg PO Q8H PRN #10 tabs 10/18/21 (Zofran) Allergies Allergy/AdvReac Type Severity Reaction Status Date / Time shellfish derived AdvReac nausea/vomi Unverified 06/15/22 20:58 ting General Stated Complaint: HeadInjury PALOMO: 3 Review of Systems Narrative: Review of Systems Constitutional: negative Eyes: negative ENT: negative Cardiovascular: negative Respiratory: negative Gastrointestinal: negative : negative Musculoskeletal: negative Skin: negative Neurologic: Headache Psych: negative PFSH All Active Problems (Updated 06/15/22 @ 22:16 by Jass Pacheco MD) Infected nailbed of toe (Acute) Leukopenia (Acute) Nausea & vomiting (Acute) Head injury (Acute) Migraine (Chronic) Depression (Chronic) Exercise-induced asthma (Chronic 11/07/13) intermittent asthma with exercise trigger Family History Other No problems noted. Father Migraines Essential hypertension Depression Mental disorder depression Mother Migraines Grandfather Migraines Myocardial infarction Neoplasm 3 TYPES Grandfather Alcohol abuse in remission Neoplasm COLON Grandmother Migraines Grandmother Migraines Diabetes Essential hypertension Sister No problems noted. Family history Neoplasm Ovarian Social History Smoking/Tobacco Use Status: Never Smoking risk assessment performed?: Yes Alcohol Intake: current Alcohol Intake frequency: holidays/special occasions only Alcohol type: wine Drug use: Never Substance use type: does not use Do you feel safe at home: Yes Do you feel safe in your relationship?: Yes History History 1 Para 1 Hx # Term Pregnancies Multiple births Hx # Pregnancies Ectopic pregnancies AB induced Hx Number of Living Children AB spontaneous Exam Narrative Exam Narrative: Physical Examination General: alert, awake, cooperative, resting comfortably, no acute distress HEENT: normocephalic, atraumatic; TMs unremarkable bilaterally; PERRL, EOM intact, conjunctiva normal; no nasal discharge; moist mucous membranes, oral and pharyngeal mucosa normal, tolerating secretions Neck: supple, trachea midline; full ROM Chest: normal to inspection Respiratory: normal respiratory effort, speaking in full sentences, clear to auscultation, no wheezing, rales or rhonchi Cardiac: regular rate, regular rhythm, S1S2 intact, no murmurs rubs or gallops GI: abdomen soft, non-tender, non-distended; no palpable mass or hepatosplenomegaly Skin: no lesions, rashes or trauma appreciated Neuro: AAOx3, normal speech, moving all extremities;Cranial nerves II through XII intact, 5 out of 5 strength upper and lower extremities, ambulatory, no ataxia Psych: Appropriate mood and affect Course Vital Signs Vital signs: Vital Signs Temperature 36.8 C 06/15/22 20:55 Pulse 80 06/15/22 20:55 Respiratory Rate 12 06/15/22 20:55 Blood Pressure 125/87 06/15/22 20:55 Pulse Oximetry 98 06/15/22 20:55 Temperature 36.8 C 06/15/22 20:55 Temperature Source Tympanic 06/15/22 20:55 Pulse 80 06/15/22 20:55 Respiratory Rate 12 06/15/22 20:55 Respiratory Effort Non-Labored 06/15/22 20:59 Respiratory Depth Normal 06/15/22 20:59 Respiratory Pattern Normal 06/15/22 20:59 Blood Pressure 125/87 06/15/22 20:55 Blood Pressure Position Sitting 06/15/22 20:55 Pulse Oximetry 98 06/15/22 20:55 Oxygen Delivery Method Room Air 06/15/22 20:55 Oxygen Flow Rate 0 06/15/22 20:55 Pain Level 7 06/15/22 20:55 PAWSS Have you Been Recently Intoxicated or Drunk Within the Last 30 days?: No Have you Ever Experienced Previous Episodes of Alcohol Withdrawal?: No Have you ever Experienced Withdrawal Seizures?: No Have you ever Experienced Delirium Tremens(DT)s?: No Have you ever undergone Alcohol Rehabilitation Treatment (i.e, inpt ot outpatient treatment programs)?: No Have you ever Experienced Blackouts?: No Have you ever Combined Alcohol with other Downers within the last 90 days?: No Have you ever Combined Alcohol with any other Substance of Abuse during the last 90 days?: No Positive Blood Alcohol level on Presentation? [PCS.BAL]: No Evidence of Increased Autonomic Activity (i.e. HR>120, tremor, sweating, agitation, nausea)?: No Result: 0
[2022-06-15] MEDS: Ondansetron O.D.T. 4 MG TABEF SL (21:30)
[2022-06-15] MEDS: Acetaminophen 325 MG TAB 650 MG PO (21:30)
[2022-06-15] MEDS: Ondansetron O.D.T. 4 MG TABEF, 3 TABS/BTL PO (22:25)
== END 2022-06-15 22:26 | disposition home or self-care (01) ==
PROVIDERS: Emergency Provider Emergency Medicine; PCP Nurse Practitioner Family
DX: S09.90XA Unspecified injury of head, initial encounter (principal); W01.198A Fall on same level from slipping, tripping and stumbling with subsequent striking against other object, initial encounter; Y99.0 Civilian activity done for income or pay
CPT/HCPCS: 99283; 99284

== ENCOUNTER 2022-09-25 09:13 | Emergency (ER) | payer MEDICAID, SELFPAY ==
[2022-09-25 09:16] VITALS: BP 112/61; PULSE 71; RESP 16; TEMP 36.7; O2SAT 98
--- NOTE | 2022-09-25 09:45 | DI.RAD_ITS ---
Exam(s) XR FINGER LT INDEX EXAM: XR FINGER LT INDEX CLINICAL HISTORY: trauma. TECHNIQUE: 2D digital imaging was performed. COMPARISON: CR LEFT HAND COMPLETE from 07/15/2018 FINDINGS: 3 views No evidence of acute fracture nor dislocation. No radiopaque foreign body. No osseous lesions. IMPRESSION: No acute osseous findings. DATA REPOSITORY: RADIATION DOSE DELIVERED:
--- NOTE | 2022-09-25 10:33 | DI.VRAD_ITS ---
PROCEDURE INFORMATION: Exam: XR Left Finger(s) Exam date and time: 09/25/2022 10:16 AM Age: 26 years old Clinical indication: Patient HX: Trauma, left index finger TECHNIQUE: Imaging protocol: Radiologic exam of the Left fingers. Views: Minimum 2 views. COMPARISON: CR LEFT HAND COMPLETE 07/15/2018 10:11 PM FINDINGS: Bones/joints: Imaging is centered on the 2nd finger. No acute fracture or dislocation is identified. Soft tissues: There is mild soft tissue swelling of the 2nd finger. Other findings: Metallic ring is present over the 4th finger proximally. IMPRESSION: Mild soft tissue swelling of the 2nd finger without acute fracture or dislocation identified. Dictated and Authenticated by: Praful Vences MD. Ordering:KLARISSA Lawrence MD
--- NOTE | 2022-09-25 10:44 | W.ED.GENAD ---
Discharge Plan Disposition Patient Disposition: HOME Condition: Stable Discharge Details Clinical Impression: Contusion of left index finger without damage to nail Primary Care Provider: Mary Muhammad ED Provider: Howard Monique Home Meds and New Rx's Prescriptions: No Action sertraline 25 mg tablet 50 mg PO DAILY loratadine 10 MG tablet 10 mg PO DAILY PRN ondansetron HCl [Zofran] 4 mg tablet 4 mg PO Q8H PRNQty: 10 0RF acetaminophen 500 mg Tablet 500 - 1,000 mg PO Q6H PRN Discharge Instructions Instructions: Contusion in Adults (ED) Additional Instructions: If you develop any new or significant worsening of symptoms feel free to return the emergency department for reassessment. Otherwise please allow the digit to rest over the next 3 to 4 days and slowly advance activity as tolerated. You may use the splint as provided for comfort measures. Continue to use [id number] acetaminophen or ibuprofen as needed for discomfort and apply ice to help with swelling. Do not apply ice for more than 20 minutes at a time with at least 20 minutes in between applications to prevent secondary injury. Referrals: Mary Muhammad [Primary Care Provider] - (As needed for reassessment) Discharge Data Discharge Date/Time-TO BE ENTERED AT DEPARTURE: 09/25/22 11:05 Medical Decision Making Patient presenting to the emergency department for chief complaint of injury to left index finger. Patient reports that her bow accidentally released striking her left index finger. No other injury or trauma noted. Patient has a 3 to 4 mm superficial laceration and significant swelling to the digit. Patient does have reported numbness and tingling distal of the PIP. Cap refill is intact. Difficult to fully assess range of motion due to stated pain. We will perform radiological imaging for evaluation of potential acute fracture due to mechanism injury Review of radiological imaging and radiologist interpretation show mild soft tissue swelling without evidence of acute fracture or dislocation. Patient was instructed on conservative management of contusion and return and follow-up precautions. Patient was placed in a splint for comfort. After discussion of diagnosis and plan of care patient has no further needs, questions, or concerns and states clear understanding to return to the emergency department for any worsening symptoms. This documentation was generated using new test companyation system, please disregard any oddities of phrase or misspellings. HPI General Mode of arrival: ambulatory. Date/Time Provider Initiated Documentation: 09/25/22 09:46. Limitations to Documentation: no limitations. Information obtained by: patient and RN notes reviewed. History of Present Illness 26 year old F presents to the emergency department with the chief complaint of Left index finger injury , described as moderate, with intensity rated at 3. Quality is described as sharp, and is localized to the left and upper extremity. Patient reports no radiation. Patient started experiencing this hour(s) (1) and it has been constant. No relieving factors improve symptom(s), Patient notes no other symptoms.. Patient did receive the following treatments prior to arrival, none Related Data Home Medications Medication Instructions Recorded Confirmed loratadine 10 mg tablet 10 mg PO DAILY PRN 04/15/18 09/25/22 sertraline 25 mg tablet 50 mg PO DAILY 11/17/20 09/25/22 ondansetron HCl 4 mg tablet 4 mg PO Q8H PRN #10 tabs 10/18/21 09/25/22 (Zofran) acetaminophen 500 mg tablet 500 - 1,000 mg PO Q6H PRN 06/15/22 09/25/22 Previous Rx's Medication Instructions Recorded ondansetron HCl 4 mg tablet 4 mg PO Q8H PRN #10 tabs 10/18/21 (Zofran) Allergies Allergy/AdvReac Type Severity Reaction Status Date / Time shellfish derived AdvReac nausea/vomi Unverified 09/25/22 09:21 ting General Stated Complaint: Orthopedic PALOMO: 3 Review of Systems Narrative: 6 systems reviewed and unremarkable except what is marked below. Musculoskeletal Musculoskeletal: Reports as per HPI, Reports joint swelling, Reports limited range of motion, Reports numbness and Reports tingling Integumentary/Breasts Skin/Breast: Reports wounds Neurologic Neurologic: Reports numbness and Reports tingling PFSH All Active Problems (Updated 09/25/22 @ 10:47 by Howard Monique NP) Infected nailbed of toe (Acute) Leukopenia (Acute) Nausea & vomiting (Acute) Contusion of left index finger without damage to nail (Acute) Migraine (Chronic) Depression (Chronic) Exercise-induced asthma (Chronic 11/07/13) intermittent asthma with exercise trigger Family History Other No problems noted. Father Migraines Essential hypertension Depression Mental disorder depression Mother Migraines Grandfather Migraines Myocardial infarction Neoplasm 3 TYPES Grandfather Alcohol abuse in remission Neoplasm COLON Grandmother Migraines Grandmother Migraines Diabetes Essential hypertension Sister No problems noted. Family history Neoplasm Ovarian Social History Smoking/Tobacco Use Status: Never Smoking risk assessment performed?: Yes Alcohol Intake: current Alcohol Intake frequency: holidays/special occasions only Alcohol type: wine Drug use: Never Substance use type: does not use Do you feel safe at home: Yes Do you feel safe in your relationship?: Yes History History 1 Para 1 Hx # Term Pregnancies Multiple births Hx # Pregnancies Ectopic pregnancies AB induced Hx Number of Living Children AB spontaneous Exam Const General: cooperative, no acute distress and not ill appearing Orientation: alert, awake and oriented x3 Resp Effort & Inspection: normal respiratory effort, able to speak in complete sentences and no respiratory distress Cardio Rate: regular rate Rhythm: regular rhythm Pulses: normal peripheral pulses Skin General skin exam: no rashes or lesions noted Neuro General: patient alert, patient awake, patient oriented x3, moves all extremities and no focal motor deficits Sensory Exam: no sensory deficits noted Extrem General: normal exam except as noted Left upper extremity: hand Details: normal capillary refill, neuromotor exam normal, neurosensory exam normal, tendon exam normal, tenderness Location: of the 2nd digit, abnormal ROM of finger Details: pain with active ROM Location: of the 2nd digit, swelling Location: of the 2nd digit and laceration (Superficial distal left index finger) Course Vital Signs Vital signs: Vital Signs Temperature 36.7 C 09/25/22 09:16 Pulse 71 09/25/22 09:16 Respiratory Rate 16 09/25/22 09:16 Blood Pressure 112/61 09/25/22 09:16 Pulse Oximetry 98 09/25/22 09:16 Temperature 36.7 C 09/25/22 09:16 Temperature Source Oral 09/25/22 09:16 Pulse 71 09/25/22 09:16 Respiratory Rate 16 09/25/22 09:16 Respiratory Effort Non-Labored 09/25/22 09:20 Blood Pressure 112/61 09/25/22 09:16 Blood Pressure Position Sitting 09/25/22 09:16 Pulse Oximetry 98 09/25/22 09:16 Oxygen Delivery Method Room Air 09/25/22 09:16 Oxygen Flow Rate 0 09/25/22 09:16 Pain Level 3 09/25/22 09:22
== END 2022-09-25 11:05 | disposition home or self-care (01) ==
PROVIDERS: Emergency Provider Nurse Practitioner Family; PCP Nurse Practitioner Family
DX: S61.211A Laceration without foreign body of left index finger without damage to nail, initial encounter (principal); W22.8XXA Striking against or struck by other objects, initial encounter
CPT/HCPCS: 99283; 73140; 99282

== ENCOUNTER 2022-11-29 03:45 | Outpatient (CLI) | payer MEDICAID, SELFPAY ==
[2022-11-29 12:03] LABS: Panorama Kit Sent via Fed Ex
[2022-11-29 12:27] LABS: Abs Immature Grans 0.02 10^3/uL (0.0-0.06); Absolute Basophil Count 0.06 10^3/uL (0.0-0.2); Absolute Eosinophil Count 0.02 10^3/uL (0.0-0.7); Absolute Lymphocyte Count 1.71 10^3/uL (1.2-3.4); Absolute Monocyte Count 0.59 10^3/uL (0.1-0.8); Absolute Neutrophil Count 6.54 10^3/uL (1.2-6.7); Basophils % 0.7; Eosinophils % 0.2; HCT 35.5 % (36.0-46.0); HGB 12.2 g/dL (11.2-15.7); Immature Grans % 0.2; Lymphocytes % 19.1; MCH 29.6 pg (27.0-33.0); MCHC 34.4 % (32.0-36.0); MCV 86 fL (80-95); MPV 9.1 fL (8.0-11.0); Monocytes % 6.6; Neutrophils % 73.2; Platelet Count 265 10^3/uL (130-400); RBC 4.12 10^6/uL (3.93-5.22); RDW 13.2 % (11.7-14.6); RDW-SD 41.1 fL; WBC 8.94 10^3/uL (4.4-10.8)
[2022-11-30 09:58] LABS: Hepatitis C Ab w Rflx HCV PCR Negative (Negative)
[2022-11-30 10:09] LABS: Hepatitis B Surface Ag Negative (Negative)
[2022-11-30 10:30] LABS: HIV-1/2 Ag & Ab Screen Negative (Negative)
[2022-11-30 10:35] LABS: Varicella IgG Antibody Positive (See Note)
[2022-11-30 10:41] LABS: Rubella IgG Ab (UVM) Negative (See Note)
[2022-12-01 15:43] LABS: Syphilis IgG w/Reflex Nonreactive (Nonreactive)
== END 2022-11-29 03:46 | disposition home or self-care (01) ==
LOC: LBO 03:45
PROVIDERS: PCP Nurse Practitioner Family; Visit Provider Advanced Practice Midwife
DX: Z34.91 Encounter for supervision of normal pregnancy, unspecified, first trimester (principal)
CPT/HCPCS: 36415; 86787; 86803; 86850; 86900; 86901; 87340; 87389; 85025; 86762; 86780

== ENCOUNTER 2022-11-29 12:47 | Outpatient (REF) | payer MEDICAID, SELFPAY ==
[2022-11-29 14:06] LABS: *AMPHETAMINES SCREEN URINE Negative (Negative); *BARBITURATES SCREEN URINE Negative (Negative); *BENZODIAZEPINES SCREEN URINE Negative (Negative); Cannabinoids THC Negative (Negative); Cocaine Screen,Urine Negative (Negative); METHADONE URINE SCREEN Negative (Negative); OPIATES URINE SCREEN Negative (Negative)
[2022-11-29 14:13] LABS: Tricyclic Antidepressants Negative (Negative)
[2022-12-03 16:21] LABS: Buprenorphine Negative ng/mL (Cutoff: 5.0); Norbuprenorphine Negative ng/mL (Cutoff: 2.5)
== END 2022-11-29 12:48 | disposition home or self-care (01) ==
LOC: LBN 12:47
PROVIDERS: PCP Nurse Practitioner Family; Visit Provider Advanced Practice Midwife
DX: Z34.91 Encounter for supervision of normal pregnancy, unspecified, first trimester (principal)
CPT/HCPCS: 80307; 80348; 87086

== ENCOUNTER 2022-12-27 15:48 | Outpatient (REF) | payer MEDICAID, SELFPAY ==
[2022-12-29 13:32] LABS: Chlamydia Result Negative (Negative); GC Result Negative (Negative)
== END 2022-12-27 15:49 | disposition home or self-care (01) ==
LOC: LBN 15:48
PROVIDERS: PCP Nurse Practitioner Family; Visit Provider Advanced Practice Midwife
DX: Z34.92 Encounter for supervision of normal pregnancy, unspecified, second trimester (principal); Z3A.15 15 weeks gestation of pregnancy
CPT/HCPCS: 87491; 87591

== ENCOUNTER 2023-01-02 21:25 | Emergency (ER) | payer MEDICAID, SELFPAY ==
[2023-01-02 21:29] VITALS: BP 108/53; PULSE 94; RESP 16; TEMP 36.5; O2SAT 100
--- NOTE | 2023-01-02 22:31 | ED.GENADUL_ITS ---
Discharge Plan Disposition Patient Disposition: Home Condition: Stable Discharge Details Clinical Impression: Asymptomatic bacteriuria, Nausea and vomiting during Primary Care Provider: Mary Muhammad ED Provider: Praful Griffin Home Meds and New Rx's Prescriptions: New ondansetron 4 mg tablet,disintegrating 4 mg PO Q8H PRN (Reason: nausea and vomiting) Qty: 30 0RF nitrofurantoin monohyd/m-cryst [Macrobid] 100 mg capsule 100 mg PO Q12H 5 Days Qty: 10 0RF Rx Instructions: must administer with a meal/food Continued prenat.vits,blaine,[id number] Tablet 1 tab PO DAILY loratadine 10 MG tablet 10 mg PO DAILY PRN acetaminophen 500 mg Tablet 500 - 1,000 mg PO Q6H PRN Discontinued ondansetron HCl 4 mg tablet 4 mg PO Q6H Qty: 30 5RF Discharge Instructions Instructions: Nausea and Vomiting in (ED) Additional Instructions: follow up with your OB provider within a week if you feel more ill, have persisent vomiting or severe pain return to the emergency department Medical Decision Making <Nicole Bowers DO - Last Filed: 01/02/23 23:47> 2200 -- 27-year-old female at 16 weeks presents for headache and vomiting since yesterday with fever today. Patient appears comfortable and nontoxic. Her vitals are reassuring with slightly elevated heart rate and a blood pressure at 108/53. She is afebrile here with normal respiratory rate and oxygen saturation. Normal oropharynx. Lungs clear bilaterally. No focal deficits. No meningeal signs. Abdomen soft and nontender. Suspect viral process. Consider COVID, flu, RSV. Do not see an indication for imaging. History and presentation does not appear consistent with meningitis at this time. Will obtain screening labs, FLUVID and give IV Tylenol, IV Zofran and fluids and reassess. Labs reviewed. Normal white blood cell count. FLUVID negative. 2330 -- Case endorsed Dr. Griffin to follow-up on urinalysis and final disposition. We will plan for p.o. challenge and if patient feels better, will discharge to home. Medical Records Medical records reviewed: Yes I reviewed the patient's medical records. Lab Data Lab results reviewed: Yes I reviewed the patient's lab results. <Praful Griffin MD - Last Filed: 01/03/23 01:04> 2200 -- 27-year-old female at 16 weeks presents for headache and vomiting since yesterday with fever today. Patient appears comfortable and nontoxic. Her vitals are reassuring with slightly elevated heart rate and a blood pressure at 108/53. She is afebrile here with normal respiratory rate and oxygen saturation. Normal oropharynx. Lungs clear bilaterally. No focal deficits. No meningeal signs. Abdomen soft and nontender. Suspect viral process. Consider COVID, flu, RSV. Do not see an indication for imaging. History and presentation does not appear consistent with meningitis at this time. Will obtain screening labs, FLUVID and give IV Tylenol, IV Zofran and fluids and reassess. Labs reviewed. Normal white blood cell count. FLUVID negative. 0 -- Case endorsed Dr. Griffin to follow-up on urinalysis and final disposition. We will plan for p.o. challenge and if patient feels better, will discharge to home. pt signed out to me, covid/flu/rsv negative and blood work reassuring. UA with bacteria, she denies any back pain, suprapubic pain and no urinary symptoms so doubt pyelo. Will treat for asymptomatic bacteriuria. She states the zofran she has is not dissolavable and would prefer this which I will provide. She is nieves ating po, no abdominal pain or tenderness on exam. Stable for d/c, will f/u with her ob providers, return precautions given HPI <Nicole Bowers DO - Last Filed: 01/02/23 23:47> General Mode of arrival: ambulatory . Date/Time Provider Initiated Documentation: 01/02/23 21:28 . Limitations to Documentation: no limitations . Information obtained by: patient . HPI Narrative: Patient is a 27-year-old female who is at 17 weeks presents for nausea, vomiting and fever since yesterday. She has had approximately 8 episodes of vomiting since yesterday which is mainly been clear and bile. She also states today she developed a fever which was high as 102 p.o. Patient states she did not take any Tylenol today. She states she called OB and they advised her to take a cold shower which she states helped her symptoms. She states anytime she attempts to eat something she vomits. She denies any known exposure to COVID or influenza. She does admit to a migraine for the past day since onset of her symptoms. She denies any sore throat, ear pain, cough, chest pain, difficulty breathing, abdominal pain or new urinary symptoms. Related Data Home Medications Medication Instructions Recorded Confirmed loratadine 10 mg tablet 10 mg PO DAILY PRN 04/15/18 11/29/22 acetaminophen 500 mg tablet 500 - 1,000 mg PO Q6H PRN 06/15/22 11/29/22 prenat.vits,blaine,dha-ratm-onqql 1 tab PO DAILY 11/29/22 11/29/22 nitrofurantoin 100 mg PO Q12H 5 days #10 caps 01/03/23 monohydrate/macrocrystals 100 mg capsule (Macrobid) ondansetron 4 mg disintegrating 4 mg PO Q8H PRN nausea and 01/03/23 tablet vomiting #30 tabs Previous Rx's Medication Instructions Recorded nitrofurantoin 100 mg PO Q12H 5 days #10 caps 01/03/23 monohydrate/macrocrystals 100 mg capsule (Macrobid) ondansetron 4 mg disintegrating 4 mg PO Q8H PRN nausea and 01/03/23 tablet vomiting #30 tabs Allergies Allergy/AdvReac Type Severity Reaction Status Date / Time shellfish derived AdvReac nausea/vomi Unverified 12/27/22 13:36 ting General Stated Complaint: Fever PALOMO: 3 Review of Systems <Nicole Bowers DO - Last Filed: 01/02/23 23:47> All systems reviewed & are unremarkable except as noted in HPI and below Constitutional Constitutional: Reports as per HPI, Denies chills and Reports fever(s) Eyes Eyes: Denies blurry vision ENT Ears, Nose, Mouth, and Throat: Denies dizziness, Denies sore throat and Denies throat swelling Cardiovascular Cardiovascular: Denies chest pain and Denies dyspnea Respiratory Respiratory: Denies cough and Denies dyspnea Gastrointestinal Gastrointestinal: Denies abdominal pain, Denies diarrhea, Reports nausea and Reports vomiting Genitourinary Genitourinary: Denies hematuria and Denies dysuria Musculoskeletal Musculoskeletal: Denies back pain and Denies numbness Integumentary/Breasts Skin/Breast: Denies lesions and Denies rash Neurologic Neurologic: Denies dizziness, Denies localized weakness and Denies numbness Allergic/Immunologic Allergic/Immunologic: Denies throat swelling PFSH <Nicole Bowers DO - Last Filed: 01/02/23 23:47> All Active Problems (Updated 01/03/23 @ 00:44 by Praful Griffin MD) Asymptomatic bacteriuria (Acute) Nausea and vomiting during (Acute) Rubella non-immune status, antepartum (Acute) (Acute) Positive test (Acute) Medical History (Updated 01/03/23 @ 00:44 by Praful Griffin MD) Depression Exercise-induced asthma (11/07/13) intermittent asthma with exercise trigger Migraine TGV (transposition of great vessels) Father of baby affected, had surgery at 2 days of age Surgical History (Updated 01/02/23 @ 23:07 by Nicole Bowers DO) No significant past surgical history Family History Other Neoplasm Paternal Great Aunt with Ovarian cancer Father Migraines Essential hypertension Depression Mental disorder depression Mother Migraines Grandfather Migraines Myocardial infarction Neoplasm 3 TYPES Grandfather Alcohol abuse in remission Neoplasm COLON Grandmother Migraines Grandmother Migraines Diabetes Essential hypertension Family history Neoplasm Ovarian Social History Smoking/Tobacco Use Status: Never Smoking risk assessment performed?: Yes Alcohol Intake: current Alcohol Intake frequency: holidays/special occasions only Alcohol type: wine Drug use: Never Substance use type: does not use Do you feel safe at home: Yes Do you feel safe in your relationship?: Yes History History 2 Para 1 Hx # Term Pregnancies 1 Multiple births 0 Hx # Pregnancies 0 Ectopic pregnancies 0 AB induced 0 Hx Number of Living Children 1 AB spontaneous 0 Past Pregnancies Del. Date GA/Weeks # Preg Succ Route Wgt Sex Labor Lgth Anesth esia Location Prov Complic 07/03/16 42 No Yes vaginal 3659.923 g Male 8 hr active labor induced for 2 days [facility] Delivery Date: 07/03/16 Last Updated by: Siomara Tolbert CNM Erik, no complications Exam <Nicole Bowers DO - Last Filed: 01/02/23 23:47> Const General: cooperative, healthy appearing and no acute distress Orientation: alert, awake and oriented x3 HENMT Head: normal to inspection Face and sinus: normal facial exam Eyes General: appearance normal, both eyes and all related structures Pupils: PERRL EOM: EOM intact bilaterally Neck Neck: normal visual inspection and No submandibular swelling Lymphatic: no lymphadenopathy noted Chest Chest: normal inspection of the chest and no tenderness Resp Effort & Inspection: normal respiratory effort and able to speak in complete sentences Auscultation: clear to auscultation bilaterally Cardio Rate: regular rate Rhythm: regular rhythm GI Inspection: normal to inspection Palpation: soft, not firm, not rigid and nontender Auscultation: hypoactive bowel sounds Skin General skin exam: no rashes or lesions noted Neuro General: patient alert, patient awake, patient oriented x3, moves all extremities and no meningeal signs Cranial Nerves: CN's II-XI intact bilaterally Cognition: normal cognition Speech: speech normal Motor: muscle tone normal throughout and strength 5/5 throughout Sensory Exam: no sensory deficits noted Extrem General: normal to inspection, full ROM, capillary refill normal, no calf tenderness bilaterally and no edema Psych Appearance: grossly normal Mental Status: mental status grossly normal Speech and Movement: speech and movement normal Affect: normal affect Course <DO Niurka Guidry Last Filed: 01/02/23 23:47> Vital Signs Vital signs: Vital Signs Temperature 97.7 F 01/02/23 21:29 Pulse 94 H 01/02/23 21:29 Respiratory Rate 16 01/02/23 21:29 Blood Pressure 108/53 L 01/02/23 21:29 Pulse Oximetry 100 01/02/23 21:29 Temperature 97.7 F 01/02/23 21:29 Pulse 94 H 01/02/23 21:29 Respiratory Rate 16 01/02/23 21:29 Respiratory Effort Normal 01/02/23 21:32 Blood Pressure 108/53 L 01/02/23 21:29 Blood Pressure Position Sitting 01/02/23 21:29 Pulse Oximetry 100 01/02/23 21:29 Oxygen Delivery Method Room Air 01/02/23 21:29 Oxygen Flow Rate 0 01/02/23 21:29 Pain Level 3 01/02/23 21:29 Sign Out <DO Niurka Guidry Last Filed: 01/02/23 23:47> Sign Out Data: Sign Out Comment: at 16 weeks . Vomiting since yesterday. Temp 102 today. Also admits to headache. Follow-up on labs, FLUVID and response to medication. Last updated by Nicole Bowers DO at 01/02/23 23:09
[2023-01-02] MEDS: ACETAMINOPHEN 1,000 MG/100 ML BTL 400 MG IVPB (22:54)
[2023-01-02] MEDS: Normal Saline 1,000 ML 1000 ML IV (22:55)
[2023-01-02] MEDS: Ondansetron 4 MG/2 ML VIAL IVP (22:55)
[2023-01-02 22:58] LABS: Abs Immature Grans 0.03 10^3/uL (0.0-0.06); Absolute Basophil Count 0.02 10^3/uL (0.0-0.2); Absolute Eosinophil Count 0.01 10^3/uL (0.0-0.7); Absolute Lymphocyte Count 0.87 10^3/uL (1.2-3.4); Absolute Monocyte Count 0.62 10^3/uL (0.1-0.8); Absolute Neutrophil Count 3.84 10^3/uL (1.2-6.7); Basophils % 0.4; Eosinophils % 0.2; HCT 32.7 % (36.0-46.0); HGB 11.3 g/dL (11.2-15.7); Immature Grans % 0.6; Lymphocytes % 16.1; MCH 29.8 pg (27.0-33.0); MCHC 34.6 % (32.0-36.0); MCV 86 fL (80-95); MPV 8.9 fL (8.0-11.0); Monocytes % 11.5; Neutrophils % 71.2; Platelet Count 214 10^3/uL (130-400); RBC 3.79 10^6/uL (3.93-5.22); RDW 13.1 % (11.7-14.6); RDW-SD 40.9 fL; WBC 5.39 10^3/uL (4.4-10.8)
[2023-01-02 23:10] LABS: COVID-19 PCR Negative (Negative); Influenza A PCR Negative (Negative); Influenza B PCR Negative (Negative); RSV PCR Negative (Negative)
[2023-01-02 23:11] LABS: Source Nasopharynx
[2023-01-02 23:16] LABS: ALT 15 U/L (14-59); AST 18 U/L (15-37); Albumin 3.2 g/dL (3.4-5.0); Alkaline Phosphatase 57 U/L (46-116); Anion Gap 8.5 mmol/L (3-11); BUN 8 mg/dL (7-18); Bilirubin, Total 0.3 mg/dL (0.2-1.0); CO2 24.5 mmol/L (21.0-32.0); CREATININE 0.5 mg/dL (0.55-1.02); Calcium 8.9 mg/dL (8.5-10.1); Chloride 101 mmol/L (98-107); Estimated GFR 131.75 (mL/min/1.73m2); Glucose 86 mg/dL (74-106); Potassium 3.6 mmol/L (3.5-5.1); Sodium 134 mmol/L (136-145); Total Protein 6.5 g/dL (6.4-8.2)
[2023-01-02 23:22] LABS: Lipase 17 U/L (16-77)
[2023-01-03 00:02] LABS: Bilirubin Small (Negative); Blood Negative (Negative); Clarity Sl Cloudy (Clear); Glucose Negative (Negative); Ketones >=160 mg/dL (Negative); Leukocyte Esterase Trace (Negative); Nitrite Negative (Negative); Specific Gravity >= 1.030 (1.005-1.025)
[2023-01-03 00:20] LABS: Bacteria Moderate HPF (Negative); C & S Indicated? No/Sq. Contamination; Casts Negative LPF (Negative); Crystals Negative HPF (Negative); Epithelial Cells Many HPF (Negative); Mucus Moderate (Negative)
[2023-01-03 01:02] VITALS: BP 101/66; PULSE 81; RESP 16; TEMP 36.5; O2SAT 98
[2023-01-03] MEDS: MacroBID 100 MG CAP PO (01:03)
== END 2023-01-03 02:08 | disposition home or self-care (01) ==
PROVIDERS: Physician Assistant; Emergency Provider Emergency Medicine; PCP Nurse Practitioner Family
DX: O23.92 Unspecified genitourinary tract infection in pregnancy, second trimester (principal); O21.9 Vomiting of pregnancy, unspecified; R82.71 Bacteriuria; Z20.822 Contact with and (suspected) exposure to COVID-19; Z3A.17 17 weeks gestation of pregnancy
CPT/HCPCS: 80053; 83690; 87637; 96361; 96374; 96375; 99284; 81003; 81015; 85025; J0131; J2405

== ENCOUNTER 2023-03-06 08:43 | Outpatient (CLI) | payer MEDICAID, SELFPAY ==
[2023-03-06 08:59] VITALS: BP 108/58; PULSE 80; TEMP 36.6
[2023-03-06 09:04] VITALS: BP 108/58; PULSE 80
[2023-03-06 09:21] LABS: Bilirubin Negative (Negative); Blood Negative (Negative); Clarity Clear (Clear); Glucose Negative (Negative); Ketones Negative (Negative); Leukocyte Esterase Trace (Negative); Nitrite Positive (Negative); Urobilinogen 0.2 mg/dL (Up to 0.2); pH 7.5 (5-8)
[2023-03-06 09:27] LABS: Bacteria Few HPF (Negative); C & S Indicated? Yes; Casts Negative LPF (Negative); Crystals Negative HPF (Negative); Epithelial Cells Rare HPF (Negative); Mucus Negative (Negative); RBC Negative HPF (0-2); WBC 0-2 HPF (0-5)
--- NOTE | 2023-03-06 09:35 | W.OBNST ---
Date of service: 03/06/23 Time of Service: 09:35 NST Evaluation Reason for NST Reasons for Nonstress Test: OTHER, SEE COMMENT Reason for NST Other: Cramping Gestational Age Gestational Age in Weeks and Days: 25 Weeks and 0Days Test and Monitor Explained Test/Monitor Explained: Test Explained, Monitor Explained and Patient Verbalized Understanding Vital Signs Blood Pressure: 108/58 Pulse: 80 Temperature: 97.9 F NST Information Date on Monitor: 03/06/23 Time on Monitor: 09:03 Date off Monitor: 03/06/23 NST Interventions: PO Hydration NST Evaluation Patient States Movement: Present FHR Baseline: 135 Variability: Moderate 6-25 bpm Accelerations: 10x10 Decelerations: None NST Results: Reactive Note Ultrasound Done: N/A. NST Note Note: NST done as Lizette has right side and lower abdominal discomfort. CC urine obtained, + Nitrites. Denies symptoms of UTI and prefers to avoid antibiotic unless indicated by culture. No bleeding or LOF. Declines VE. Is reassured by not having contractions. Negative for CVAT bilaterally. Will call with urine culture results and patient will RTO as scheduled. MAXIME NST Reviewed and Verified by: Siomara Tolbert
[2023-03-06 09:38] VITALS: BP 108/58; PULSE 80; TEMP 36.6
== END 2023-03-06 09:40 | disposition home or self-care (01) ==
LOC: BCD 08:49 → OBS 08:59
PROVIDERS: PCP Nurse Practitioner Family; Visit Provider Advanced Practice Midwife
DX: O99.891 Other specified diseases and conditions complicating pregnancy (principal); R10.9 Unspecified abdominal pain; Z3A.25 25 weeks gestation of pregnancy
CPT/HCPCS: 59025; 81003; 81015; 87086

== ENCOUNTER 2023-03-17 00:29 | Outpatient (CLI) | payer MEDICAID, SELFPAY ==
--- NOTE | 2023-03-17 07:15 | DI.US_ITS ---
Exam(s) US OB JANET WEIGHT EXAM: US OB JANET WEIGHT CLINICAL HISTORY: [facility] US lagging at 21 weeks by 11 days,o26.842. TECHNIQUE: Transabdominal obstetrical ultrasound performed. COMPARISON: US US OB DETAILED MORPHOLOGY from 02/07/2023 FINDINGS:: Number of fetuses: One. position: Variable Placental location: Anterior no evidence of previa. BIOMETRIC DATA: BPD: 62mm = 25+1 weeks HC: 235mm = 25+4 weeks AC: 226mm = 27+ 0 weeks FL: 44 mm = 24+3 weeks EFW: 862 Gms = 12% Composite Age: 20 5+4 weeks EDC: 26 June 2023 Heart Rate: BPM Amniotic fluid index: 15.5 cm. Amount of fluid is visually within normal limits. There is a question of a choroid plexus cyst. This was not noted on the prior exam. IMPRESSION: size now lagging by 8 days. weight in the low normal range. Question of a choroid plexus cyst. DATA REPOSITORY:
== END 2023-03-17 00:49 ==
LOC: DI 00:29
PROVIDERS: PCP Nurse Practitioner Family; Visit Provider Advanced Practice Midwife
DX: O26.842 Uterine size-date discrepancy, second trimester (principal); Z34.90 Encounter for supervision of normal pregnancy, unspecified, unspecified trimester
CPT/HCPCS: 76816

== ENCOUNTER 2023-04-06 02:07 | Outpatient (CLI) | payer MEDICAID, SELFPAY ==
--- NOTE | 2023-04-06 08:00 | DI.US_ITS ---
Exam(s) US OB JANET WEIGHT EXAM: US OB JANET WEIGHT CLINICAL HISTORY: growth lagging at 21 weeks,O26.842. TECHNIQUE: Transabdominal obstetrical ultrasound performed. COMPARISON: US US OB JANET WEIGHT from 03/17/2023 FINDINGS: Number of fetuses: 1 position: Yahir breech Placental location: There is a grade 2 anterior placenta. No evidence of previa. BIOMETRIC DATA: BPD: 6.91cm, 27weeks 5days HC: 26.62cm, 29weeks AC: 24.9cm, 29weeks 1day FL: 4.99cm, 26weeks 6days EFW: 1,200.43g, 2lb 11.63oz, 6.8% Composite Age: 28weeks 1day RENÉE: 06/28/2023 Heart Rate: 162 Amniotic fluid index: 18.62cm. Visually, amount of fluid is within normal limits. S/D, RI and PI values are at or around the 50th percentile. IMPRESSION: 1. Single live intrauterine gestation as above. 2. Estimated weight is 1200gms. This is the 7th percentile. 3. There is now a lag of 11 days. 4. Amniotic fluid index is 18.6 cm. Visually within normal limits. DATA REPOSITORY:
== END 2023-04-06 02:27 ==
PROVIDERS: PCP Nurse Practitioner Family; Visit Provider Advanced Practice Midwife
DX: O26.842 Uterine size-date discrepancy, second trimester (principal); Z34.92 Encounter for supervision of normal pregnancy, unspecified, second trimester
CPT/HCPCS: 76816

== ENCOUNTER 2023-04-06 02:52 | Outpatient (CLI) | payer MEDICAID, SELFPAY ==
[2023-04-06 11:47] LABS: HCT 32.3 % (36.0-46.0); HGB 10.8 g/dL (11.2-15.7); MCH 29.4 pg (27.0-33.0); MCHC 33.4 % (32.0-36.0); MCV 88 fL (80-95); MPV 8.7 fL (8.0-11.0); Platelet Count 267 10^3/uL (130-400); RBC 3.67 10^6/uL (3.93-5.22); RDW 13.2 % (11.7-14.6); RDW-SD 42.8 fL; WBC 13.29 10^3/uL (4.4-10.8)
[2023-04-06 11:57] LABS: Glucose,1 Hr (Glucola) 164 mg/dL (80-140)
== END 2023-04-06 02:53 | disposition home or self-care (01) ==
LOC: LBO 02:52
PROVIDERS: PCP Nurse Practitioner Family; Visit Provider Advanced Practice Midwife
DX: Z34.93 Encounter for supervision of normal pregnancy, unspecified, third trimester (principal); Z3A.29 29 weeks gestation of pregnancy
CPT/HCPCS: 36415; 82950; 85027

== ENCOUNTER 2023-04-29 18:36 | Outpatient (CLI) | payer MEDICAID, SELFPAY ==
[2023-04-29 18:59] VITALS: BP 119/69; PULSE 104; RESP 18; TEMP 36.8
[2023-04-29 19:27] LABS: Bilirubin Negative (Negative); Blood Negative (Negative); Clarity Clear (Clear); Glucose Negative (Negative); Ketones Trace mg/dL (Negative); Leukocyte Esterase Negative (Negative); Nitrite Negative (Negative); Specific Gravity 1.025 (1.005-1.025); Urobilinogen 0.2 mg/dL (Up to 0.2); pH 5.5 (5-8)
[2023-04-29 20:03] VITALS: BP 119/69; PULSE 104; TEMP 208.9; TEMP 98.3
--- NOTE | 2023-04-29 20:07 | W.OBNST ---
Date of service: 04/29/23 Time of Service: 20:07 NST Evaluation Reason for NST Reasons for Nonstress Test: LABOR (reporting lower abd discomfort and right groin pain, noticed brown/red on postvoid wipe x1 today) Gestational Age Gestational Age in Weeks and Days: 32 Weeks and 6Days Test and Monitor Explained Test/Monitor Explained: Test Explained, Monitor Explained and Patient Verbalized Understanding Vital Signs Blood Pressure: 119/69 Pulse: 104 Temperature: 208.9 F Urine Results Urine Protein: Negative Urine Ketones: Positive (sp gr 1.025) Urine Glucose: Negative Urine Blood: Negative NST Information Date on Monitor: 04/29/23 Time on Monitor: 18:50 Date off Monitor: 04/29/23 Time off Monitor: 19:30 Total Time on Monitor: 40 NST Interventions: PO Hydration (and snacks) Contraction Frequency: 0 NST Evaluation Patient States Movement: Present FHR Baseline: 130 Variability: Moderate 6-25 bpm Accelerations: 15x15 Decelerations: None NST Results: Reactive Note Ultrasound Done: N/A. NST Note Note: Sterile spec exam done, no visible blood, white clumpy discharge noted, intact membranes Cvx exam closed/thick PPOOP VPS collected and sent, Rx for keri sent Blood sugars at home reviewed and have been nml since beginning insulin, one hypoglycemic episode prior to a meal Next appt w/MD to review sugars on Monday, interval growth scan for SGA sched'ed for next week as well. Pt agrees to continue care with MD's due to GDM and SGA NST Reviewed and Verified by: Pia Keith
[2023-04-29 20:12] VITALS: BP 119/69; PULSE 104; TEMP 208.9; TEMP 98.3
== END 2023-04-29 18:37 | disposition home or self-care (01) ==
LOC: BCD 18:36
PROVIDERS: PCP Nurse Practitioner Family; Visit Provider Advanced Practice Midwife
DX: O60.03 Preterm labor without delivery, third trimester (principal); Z3A.32 32 weeks gestation of pregnancy
CPT/HCPCS: 59025; 81003; 87086; 87480; 87510; 87660

== ENCOUNTER 2023-05-05 00:47 | Outpatient (CLI) | payer MEDICAID, SELFPAY ==
--- NOTE | 2023-05-05 08:30 | DI.US_ITS ---
Exam(s) US OB JANET WEIGHT EXAM: US OB JANET WEIGHT CLINICAL HISTORY: size lagging at 21 week per MFM,INCONSISTENT SIZE,o26.842. TECHNIQUE: Transabdominal obstetrical ultrasound was performed. COMPARISON: US US OB JANET WEIGHT from 04/06/2023 FINDINGS: There is a single viable intrauterine gestation with cardiac activity identified-148 bpm The fetus is presently in belgica breech position . Amniotic fluid: There is a upper normal amount of amniotic fluid with an JANET of 23.69cm. Placental location: The placenta is anterior grade 2,with no evidence of placenta previa. Dating parameters place this at approximately 32 weeks and 2 days gestational age, implying RENÉE of June 28, 2023. BPD measures 32 weeks and 4 days HC measures 34 weeks and 0 days AC measures 32 weeks and 3 days FL measures 30 weeks and 2 days Estimated weight is 1883 gm-4 pounds 2 ounces Fetus is at the 7th percentile on the Hadlock scale. IMPRESSION:: Viable 3rd trimester gestation, as described above. DATA REPOSITORY:
== END 2023-05-05 01:07 ==
LOC: DI 00:48
PROVIDERS: PCP Nurse Practitioner Family; Visit Provider Advanced Practice Midwife
DX: O26.843 Uterine size-date discrepancy, third trimester (principal); Z34.93 Encounter for supervision of normal pregnancy, unspecified, third trimester
CPT/HCPCS: 76816

== ENCOUNTER 2023-05-12 10:23 | Outpatient (CLI) | payer MEDICAID, SELFPAY ==
[2023-05-12 10:36] VITALS: BP 116/66; PULSE 90; TEMP 36.8
[2023-05-12 10:45] VITALS: BP 116/66; PULSE 90
--- NOTE | 2023-05-12 13:21 | W.OBNST ---
Date of service: 05/12/23 Time of Service: 13:21 NST Evaluation Reason for NST Reasons for Nonstress Test: GDM-INSULIN Gestational Age Gestational Age in Weeks and Days: 34 Weeks and 5Days Test and Monitor Explained Test/Monitor Explained: Test Explained, Monitor Explained and Patient Verbalized Understanding Vital Signs Blood Pressure: 116/66 Pulse: 90 Temperature: 98.2 F NST Information Date on Monitor: 05/12/23 Time on Monitor: 10:30 Date off Monitor: 05/12/23 Time off Monitor: 11:02 Total Time on Monitor: 32 NST Interventions: PO Hydration NST Evaluation Patient States Movement: Present FHR Baseline: 135 Variability: Moderate 6-25 bpm Accelerations: 15x15 Note Ultrasound Done: N/A. NST Note Note: Patient is currently 34W5D EGA with insulin requiring gestational diabetes. She will begin twice-weekly NSTs with 1 NST appointment followed [facility]. Patient is agreeable to the plan NST Reviewed and Verified by: Nancy Mendez
[2023-05-12 13:23] VITALS: BP 116/66; PULSE 90; TEMP 36.8
--- NOTE | 2023-05-28 14:14 | W.OBNST ---
Date of service: 05/12/23 Time of Service: 16:00 NST Evaluation Reason for NST Reasons for Nonstress Test: GDM-INSULIN Gestational Age Gestational Age in Weeks and Days: 36 Weeks and 4Days Test and Monitor Explained Test/Monitor Explained: Test Explained, Monitor Explained and Patient Verbalized Understanding Vital Signs Blood Pressure: 116/66 Pulse: 90 Temperature: 98.2 F NST Information Date on Monitor: 05/12/23 Time on Monitor: 10:30 Date off Monitor: 05/12/23 Time off Monitor: 11:02 Total Time on Monitor: 32 NST Interventions: PO Hydration NST Evaluation Patient States Movement: Present FHR Baseline: 135 Variability: Moderate 6-25 bpm Accelerations: 15x15 NST Results: Reactive Note Ultrasound Done: N/A. NST Note Note: Pt reports satisfactory glycemic control. Will continue with twice surveillance. No changes in insulin dosing. NST Reviewed and Verified by: Nancy Mendez
[2023-05-28 14:17] VITALS: BP 116/66; PULSE 90; TEMP 36.8
== END 2023-05-12 11:02 | disposition home or self-care (01) ==
LOC: BCD 10:26 → OBS 10:35
PROVIDERS: PCP Nurse Practitioner Family; Visit Provider Obstetrics & Gynecology Gynecology
DX: O24.414 Gestational diabetes mellitus in pregnancy, insulin controlled (principal); Z3A.34 34 weeks gestation of pregnancy
CPT/HCPCS: 59025

== ENCOUNTER 2023-05-16 09:17 | Outpatient (CLI) | payer MEDICAID, SELFPAY ==
[2023-05-16 09:38] VITALS: BP 111/68; PULSE 84; TEMP 36.7
== END 2023-05-16 11:00 ==
LOC: BCD 09:18 → OBS 09:33
PROVIDERS: PCP Nurse Practitioner Family; Visit Provider Obstetrics & Gynecology
DX: O24.414 Gestational diabetes mellitus in pregnancy, insulin controlled (principal); Z3A.35 35 weeks gestation of pregnancy
CPT/HCPCS: 59025

== ENCOUNTER 2023-05-19 03:35 | Outpatient (CLI) | payer MEDICAID, SELFPAY ==
[2023-05-19 10:32] VITALS: BP 112/61; PULSE 94; TEMP 36.7
[2023-05-19 10:35] VITALS: BP 112/61; PULSE 94
[2023-05-19 10:55] VITALS: BP 112/61; PULSE 94; TEMP 36.7
--- NOTE | 2023-05-19 11:10 | W.OBNST ---
Date of service: 05/19/23 Time of Service: 11:11 NST Evaluation Reason for NST Reasons for Nonstress Test: GDM-INSULIN Gestational Age Gestational Age in Weeks and Days: 35 Weeks and 5Days Test and Monitor Explained Test/Monitor Explained: Test Explained Vital Signs Blood Pressure: 112/61 Pulse: 94 Temperature: 98.1 F NST Information Date on Monitor: 05/19/23 Time on Monitor: 10:30 Date off Monitor: 05/19/23 Time off Monitor: 10:55 Total Time on Monitor: 25 NST Interventions: PO Hydration NST Evaluation Patient States Movement: Present FHR Baseline: 140 Variability: Moderate 6-25 bpm Accelerations: 15x15 Decelerations: None NST Results: Reactive Note Ultrasound Done: N/A. NST Note Note: Category 1 reactive nonstress test. Follow-up as scheduled for twice-weekly nonstress testing. NST Reviewed and Verified by: Opal Blair
[2023-05-19 11:11] VITALS: BP 112/61; PULSE 94; TEMP 36.7
== END 2023-05-19 11:00 | disposition home or self-care (01) ==
LOC: BCD 04:54 → OBS 10:31
PROVIDERS: PCP Nurse Practitioner Family; Visit Provider Obstetrics & Gynecology
DX: O24.414 Gestational diabetes mellitus in pregnancy, insulin controlled (principal); Z3A.35 35 weeks gestation of pregnancy
CPT/HCPCS: 59025

== ENCOUNTER 2023-05-23 09:21 | Outpatient (CLI) | payer MEDICAID, SELFPAY | END 2023-05-23 18:05 | LOC: BCD 09:25 → OBS 10:24 | PROVIDERS: PCP Nurse Practitioner Family; Visit Provider Obstetrics & Gynecology ==

== ENCOUNTER 2023-05-25 13:21 | Outpatient (CLI) | payer MEDICAID, SELFPAY ==
[2023-05-25 16:19] VITALS: BP 116/73; PULSE 101; TEMP 36.7
[2023-05-25 16:41] LABS: Bilirubin Negative (Negative); Blood Negative (Negative); Clarity Sl Cloudy (Clear); Glucose Negative (Negative); Ketones 40 mg/dL (Negative); Leukocyte Esterase Trace (Negative); Nitrite Negative (Negative); Urobilinogen 0.2 mg/dL (Up to 0.2); pH 5.5 (5-8)
--- NOTE | 2023-05-25 16:48 | W.OBNST ---
Date of service: 05/25/23 Time of Service: 16:48 NST Evaluation Reason for NST Reasons for Nonstress Test: GDM-INSULIN Gestational Age Gestational Age in Weeks and Days: 36 Weeks and 4Days Test and Monitor Explained Test/Monitor Explained: Test Explained, Monitor Explained and Patient Verbalized Understanding Vital Signs Blood Pressure: 116/73 Pulse: 101 Temperature: 98.1 F Urine Results Urine Protein: Negative Urine Ketones: Negative Urine Glucose: Negative Urine Blood: Negative NST Information Date on Monitor: 05/25/23 Time on Monitor: 15:13 Date off Monitor: 05/25/23 Time off Monitor: 16:00 Total Time on Monitor: 47 NST Interventions: PO Hydration, Meal Given, Notify Provider and Other Contraction Frequency: Occasional NST Evaluation Patient States Movement: Present FHR Baseline: 135 Variability: Moderate 6-25 bpm Accelerations: 15x15 Decelerations: None NST Results: Reactive Note Ultrasound Done: JANET Largest Vertical Pocket: 5 Total JANET: 16.1 Other Pertinent Findings: Heart Rate and Presentation (Cephalic) Coding for JANET w/NST: Completed Exam and Presentation Coding for Presentation w/NST: Completed Exam. NST Note Note: Patient seen on the center due to uterine crampiness and back pain. She had a category 1, reactive nonstress test with occasional episodes of uterine irritability. Bedside ultrasound performed for confirmation of vertex position with an JANET of 16.1. Cervical exam cervix is closed but soft and group B strep culture was obtained. NST Reviewed and Verified by: Opal Blair
[2023-05-25 16:49] VITALS: BP 116/73; PULSE 101; TEMP 36.7
[2023-05-25 17:21] LABS: RBC 0-2 HPF (0-2)
[2023-05-25 17:22] LABS: Bacteria Moderate HPF (Negative); C & S Indicated? No/Sq. Contamination; Casts Negative LPF (Negative); Crystals Negative HPF (Negative); Epithelial Cells Moderate HPF (Negative); Mucus Negative (Negative)
== END 2023-05-25 16:25 | disposition home or self-care (01) ==
LOC: BCD 13:23 → OBS 15:10
PROVIDERS: PCP Nurse Practitioner Family; Visit Provider Obstetrics & Gynecology
DX: O24.414 Gestational diabetes mellitus in pregnancy, insulin controlled (principal); Z3A.36 36 weeks gestation of pregnancy
CPT/HCPCS: 59025; 81003; 81015; 87081

== ENCOUNTER 2023-05-29 07:54 | Outpatient (CLI) | payer MEDICAID, SELFPAY ==
[2023-05-29 17:41] VITALS: BP 111/67; PULSE 77
[2023-05-29 17:42] VITALS: BP 111/67; PULSE 77; TEMP 37
--- NOTE | 2023-05-29 18:44 | W.OBNST ---
Date of service: 05/29/23 Time of Service: 18:44 NST Evaluation Reason for NST Reasons for Nonstress Test: GDM-INSULIN Gestational Age Gestational Age in Weeks and Days: 37 Weeks and 1Days Test and Monitor Explained Test/Monitor Explained: Test Explained, Monitor Explained and Patient Verbalized Understanding Vital Signs Blood Pressure: 111/67 Pulse: 77 Temperature: 98.6 F Urine Results Urine Protein: Negative Urine Ketones: Negative Urine Glucose: Negative Urine Blood: Negative NST Information Date on Monitor: 05/29/23 Time on Monitor: 17:20 Date off Monitor: 05/29/23 NST Interventions: PO Hydration NST Evaluation Patient States Movement: Present Variability: Moderate 6-25 bpm Accelerations: 15x15 Decelerations: None NST Results: Reactive Note Ultrasound Done: N/A. NST Note Note: Patient reports excellent glycemic control. NST reactive. Will have patient follow-up 06/02/2023 for repeat NST NST Reviewed and Verified by: Nancy Mendez
[2023-05-29 18:45] VITALS: BP 111/67; PULSE 77; TEMP 37
[2023-05-29 21:44] VITALS: BP 108/62; PULSE 86
== END 2023-05-29 18:00 ==
LOC: BCD 07:57 → OBS 17:19
PROVIDERS: PCP Nurse Practitioner Family; Visit Provider Obstetrics & Gynecology Gynecology
DX: O24.414 Gestational diabetes mellitus in pregnancy, insulin controlled (principal); Z3A.37 37 weeks gestation of pregnancy
CPT/HCPCS: 59025

== ENCOUNTER 2023-06-02 12:17 | Outpatient (CLI) | payer MEDICAID, SELFPAY ==
[2023-06-02 12:50] VITALS: BP 104/67; PULSE 127; TEMP 36.5
--- NOTE | 2023-06-02 12:57 | PDOC.NST_ITS ---
Date of service: 06/02/23 Time of Service: 12:57 NST Evaluation Reason for NST Reasons for Nonstress Test: GDM-INSULIN Gestational Age Gestational Age in Weeks and Days: 37 Weeks and 5Days Test and Monitor Explained Test/Monitor Explained: Test Explained, Monitor Explained and Patient Verbalized Understanding Vital Signs Blood Pressure: 104/67 Pulse: 127 Temperature: 97.7 F NST Information Date on Monitor: 06/02/23 Time on Monitor: 12:00 Date off Monitor: 06/02/23 Time off Monitor: 12:35 Total Time on Monitor: 35 NST Interventions: None NST Evaluation Patient States Movement: Present FHR Baseline: 135 Variability: Moderate 6-25 bpm Accelerations: 15x15 Decelerations: None NST Results: Reactive Note Ultrasound Done: N/A. NST Note Note: Called to see patient at the bedside today while having her nonstress test. Her initial pulse upon arrival was 127 per nursing. On my exam today was 96 and regular. On interrogation regarding her blood sugars, fasting blood sugars have been in the 70s range with 1 hour postprandials approximately 120. She states the baby is moving and active. Overall she has painful irregular crampiness. There are no contractions noted on the monitor. She is working up until Monday . We did discuss limiting her activities. She does understand to call if she has chest pain, shortness of breath, or changes in any of her symptomatology. Overall clinically, today, she looks better and more rested than she has in previous visits. She has a reactive, category 1 heart rate tracing. NST Reviewed and Verified by: Opal Blair
[2023-06-02 12:59] VITALS: BP 104/67; PULSE 127; TEMP 36.5
== END 2023-06-02 12:55 | disposition home or self-care (01) ==
LOC: BCD 12:19 → OBS 12:21
PROVIDERS: PCP Nurse Practitioner Family; Visit Provider Obstetrics & Gynecology
DX: O24.414 Gestational diabetes mellitus in pregnancy, insulin controlled (principal); Z3A.37 37 weeks gestation of pregnancy
CPT/HCPCS: 59025

== ENCOUNTER 2023-06-05 18:23 | Outpatient (CLI) | payer MEDICAID, SELFPAY ==
[2023-06-05 19:34] VITALS: BP 112/64; PULSE 78
--- NOTE | 2023-06-06 06:52 | W.OBNST ---
Date of service: 06/06/23 Time of Service: 06:53 NST Evaluation Reason for NST Reasons for Nonstress Test: GDM-INSULIN and OTHER, SEE COMMENT Reason for NST Other: SGA Gestational Age Gestational Age in Weeks and Days: 38 Weeks and 1Days Test and Monitor Explained Test/Monitor Explained: Test Explained, Monitor Explained and Patient Verbalized Understanding Vital Signs Blood Pressure: 112/64 Pulse: 78 NST Information Date on Monitor: 06/05/23 Time on Monitor: 18:24 Date off Monitor: 06/05/23 Time off Monitor: 19:23 Total Time on Monitor: 59 NST Interventions: PO Hydration and Reposition Patient Contraction Frequency: Occasional per pt, irritability noted on EFM, none palpated NST Evaluation Patient States Movement: Present FHR Baseline: 140 Variability: Moderate 6-25 bpm Accelerations: 15x15 Decelerations: None NST Results: Reactive Note Ultrasound Done: N/A. NST Note Note: Category 1, reactive nonstress test. Ultrasound for growth is scheduled. Labor induction at 39 weeks is planned. NST Reviewed and Verified by: Opal Blair
[2023-06-06 06:53] VITALS: BP 112/64; PULSE 78
== END 2023-06-05 19:25 ==
LOC: BCD 18:23 → OBS 18:30
PROVIDERS: PCP Nurse Practitioner Family; Visit Provider Obstetrics & Gynecology
DX: O24.414 Gestational diabetes mellitus in pregnancy, insulin controlled (principal); O36.8131 Decreased fetal movements, third trimester, fetus 1; Z3A.38 38 weeks gestation of pregnancy
CPT/HCPCS: 59025

== ENCOUNTER 2023-06-06 15:01 | Outpatient (CLI) | payer MEDICAID, SELFPAY ==
[2023-06-06 17:15] VITALS: BP 120/75; PULSE 99; TEMP 36.6
[2023-06-06 17:39] VITALS: BP 120/75; PULSE 99; TEMP 36.6
== END 2023-06-06 17:47 | disposition home or self-care (01) ==
LOC: BCD 15:06 → OBS 16:33
PROVIDERS: PCP Nurse Practitioner Family; Visit Provider Obstetrics & Gynecology Gynecology
DX: O24.424 Gestational diabetes mellitus in childbirth, insulin controlled (principal); Z3A.38 38 weeks gestation of pregnancy
CPT/HCPCS: 59025

== ENCOUNTER 2023-06-07 02:57 | Outpatient (CLI) | payer MEDICAID, SELFPAY ==
--- NOTE | 2023-06-07 08:45 | DI.US_ITS ---
Exam(s) US OB JANET WEIGHT EXAM: US OB JANET WEIGHT CLINICAL HISTORY: size lagging at 21 weeks per MFM, O26.842, Z34.90. TECHNIQUE: Transabdominal obstetrical ultrasound performed. COMPARISON: US US OB DETAILED MORPHOLOGY from 02/07/2023 US US OB JANET WEIGHT from 03/17/2023 US US OB JANET WEIGHT from 04/06/2023 US US OB JANET WEIGHT from 05/05/2023 US POCUS EXAM from 05/25/2023 FINDINGS:: Number of fetuses: One. position: Vertex. Placental location: Anterior no evidence of previa. BIOMETRIC DATA: BPD: 94mm = 38+ 3 weeks HC: 339mm = 39+ 0 weeks AC: 345mm = 38+ 3 weeks FL: 67 mm = 34+3 weeks <3% EFW: 3241 Gms = 42% Composite Age: 37+ 4 weeks EDC: 24 June 2023 Heart Rate: 165 BPM Amniotic fluid: Amount of fluid is visually within normal limits. IMPRESSION: size and weight are the lower limit of normal, lagging by 1 week. Estimated weight is no w at 42 percentile improvement from prior DATA REPOSITORY:
== END 2023-06-07 03:17 ==
LOC: DI 02:57
PROVIDERS: PCP Nurse Practitioner Family; Visit Provider Advanced Practice Midwife
DX: O26.843 Uterine size-date discrepancy, third trimester (principal); Z34.93 Encounter for supervision of normal pregnancy, unspecified, third trimester
CPT/HCPCS: 76816

== ENCOUNTER 2023-06-11 17:42 | Inpatient (IN) | payer MEDICAID, SELFPAY ==
[2023-06-11 17:49] VITALS: BP 112/68; PULSE 109
[2023-06-11 17:56] VITALS: BP 112/68; PULSE 109; RESP 16; TEMP 36.4; O2SAT 99
--- NOTE | 2023-06-11 19:38 | HPE_ITS ---
Date of service: 06/11/23 Time of Service: 19:00 Assessment and Plan Assessment and plan (1) Gestational diabetes: Status: Acute Assessment and plan: Begin induction with misoprostol. Anticipate AROM/Pitocin in the am. Will take normal insulin dose tonight and hold tomorrow's dose. Will check FS in labor and treat accordingly. OB-HPI Labor/Delivery History of Present Illness Reason for Visit: IOL Chief Complaint: Scheduled Induction of Labor Indication for Induction: Chronic Maternal Diabetes. RENÉE Calculator Estimated Delivery Date Method Current WG Current Estimate 06/18/23 LMP (Certain) 39w 1d Other Estimates 06/20/23 Ultrasound #1 38w 6d History of Present Expected Delivery Route/Plan - change to MD d/t insulin GDM & SGA FOB - Jag Dinh (2nd baby together) BB yes to circ Rubella non-immune, pt accepts MMR GDM at 29 wks; started insulin @ 31 wks Specific Issues/Plan 1. FOB had transposition of great vessels at , required surgery at 2 days of age -Referral to [facility] [place] MFM: Nml US level 2 @ [facility] [place], echo-WNL 2. IUGR (lag x13 days at 21 wk sono) - US at DI @ 26 wks: 12%ile, JANET 15.5 - US for growth d/t S<D at 29 wks: EFW 6.8%ile, JANET=18, - Interval growth @ 33 wks: EFW in 7th percentile, JANET 23, breech. - Plan twice weekly NSTs/39wk induction 3. Rubella Non-Immune, discussed w/pt, offer vaccine post . 4. History of asthma- exercise induced. No inhaler current 5. History of depression-sertraline in the past- no meds currently. 6. GDM: Elevated 1-hr GTT - 164, declines 3 hr GTT, Will start testing QID 04/07/23 - 04/21/23: Novolin-N 4units in pm, 8 units am. - Plan NSTs begin 34wks. Assessment: History Reviewed & Current Review of Systems Constitutional Constitutional: Reports system reviewed and no additional complaints, except as documented Gastrointestinal Gastrointestinal: Denies nausea and Denies vomiting Genitourinary Genitourinary: Reports system reviewed and no additional complaints, except as documented Musculoskeletal Comments: No regular contractions PFSH All Active Problems (Updated 06/12/23 @ 09:33 by Kerline Smith MD) (Acute) Rubella non-immune status, antepartum (Acute) Gestational diabetes (Acute) Encounter for supervision of other normal , third trimester (Acute) Medical History (Updated 06/12/23 @ 09:33 by Kerline Smith MD) Depression Exercise-induced asthma (11/07/13) intermittent asthma with exercise trigger Migraine Surgical History (Updated 01/02/23 @ 23:07 by Nicole Bowers DO) No significant past surgical history Family History Other Neoplasm Paternal Great Aunt with Ovarian cancer Father Migraines Essential hypertension Depression Mental disorder depression Mother Migraines Grandfather Migraines Myocardial infarction Neoplasm 3 TYPES Grandfather Alcohol abuse in remission Neoplasm COLON Grandmother Migraines Grandmother Migraines Diabetes Essential hypertension Family history Neoplasm Ovarian Social History Smoking/Tobacco Use Status: Never Smoking risk assessment performed?: Yes Alcohol Intake: current Alcohol Intake frequency: holidays/special occasions only Alcohol type: wine Drug use: Never Substance use type: does not use Housing: apartment Do you feel safe at home: Yes Do you feel safe in your relationship?: Yes History History 2 Para 1 Hx # Term Pregnancies 1 Multiple births 0 Hx # Pregnancies 0 Ectopic pregnancies 0 AB induced 0 Hx Number of Living Children 1 AB spontaneous 0 Past Pregnancies Del. Date GA/Weeks # Preg Succ Route Wgt Sex Labor Lgth Anesth esia Location Prov Complic 07/03/16 42 No Yes vaginal 8 lb 1.1 oz Male 8 hr active labor induced for 2 days regional [facility] [place] Delivery Date: 07/03/16 Last Updated by: Siomara Saenz CNM [place], no complications, checked blood sugar due to 1 elevation on 3-hr, No abnormal levels Meds Allergies and Home Medications Allergies Allergy/AdvReac Type Severity Reaction Status Date / Time shellfish derived AdvReac nausea/vomi Unverified 06/11/23 18:04 ting Home Medications Medication Instructions Recorded Confirmed Type loratadine 10 mg tablet 10 mg PO DAILY PRN 04/15/18 06/11/23 History acetaminophen 500 mg tablet 500 - 1,000 mg PO Q6H PRN 06/15/22 06/11/23 History prenat.vits,blaine,hby-ltqr-xgupj 1 tab PO DAILY 11/29/22 06/11/23 History calcium polycarbophil 625 mg 1,250 mg PO DAILY #30 tabs 01/12/23 06/11/23 Rx tablet (FiberCon) docusate sodium 50 mg capsule 50 mg PO BID #30 caps 01/12/23 06/11/23 Rx (Colace Clear) magnesium gluconate 27 mg 27 mg PO DAILY #30 tabs 01/12/23 06/11/23 Rx magnesium (500 mg) tablet ondansetron 4 mg disintegrating 4 mg PO Q8H PRN nausea and 02/09/23 06/11/23 Rx tablet vomiting #30 tabs blood sugar diagnostic (OneTouch #100 ea 04/06/23 06/11/23 Rx Ultra Test strips) lancets 30 gauge (OneTouch Delica #100 ea 04/06/23 06/11/23 Rx Plus Lancet) pantoprazole 20 mg tablet,delayed 20 mg PO DAILY #30 tabs 04/20/23 06/11/23 Rx release (Protonix) insulin NPH isoph U-100 human 100 8 unit (0.08 mL) subcut .COMPLEX 04/21/23 06/11/23 Rx unit/mL (3 mL) subcutaneous pen gestational diabetes #6 mL (Novolin N FlexPen) pen needle, diabetic 33 gauge x #100 ea 04/21/23 06/11/23 Rx 1/4 (Comfort EZ Pen [place]) Exam Physical Exam Vital signs: Temp Pulse Resp BP Pulse Ox 97.5 F L 109 H 16 112/68 99 06/11/23 17:56 06/11/23 17:56 06/11/23 17:56 06/11/23 17:56 06/11/23 17:56 Vital Signs Reviewed: Yes Detailed Labor and Delivery Exam Dilation: 0 Effacement (%): 50 station: -3 Aguilera Score: Cervical Points Exam 0 1 2 3 Dilation Closed 1-2cm 3-4 cm 5-6cm Effacement 0-30% 40-50% 60-70% 80% Consistency Firm Medium Soft Station -3 -2 -1,0 +1,+2 Position Posterior Mid Anterior Fetus A Heart Rate Baseline: 130 Monitor Accelerations: 15 X 15 Monitor Decelerations: None Variability: Moderate (6-25 BPM) Presentation: Cephalic (on sono 4 days ago) Est. Weight: 7 lb 8 oz Detailed HEENT Exam Head: Present normocephalic and atraumatic Detailed Abdominal Exam Comments: gravid, nontender Detailed Neurological Exam Neurological: Present alert, oriented X3 and CN II-XII intact DetailedPsychiatric Exam Psychiatric: Present normal affect, normal thought process and cooperative Results Results Group Beta Strep: Negative Blood Type: O+ Rubella Status: Nonimmune Varicella Immunity: Immune Risk Assessment Risk for Shoulder Dystocia Historical/Initial OB: NEGATIVE FOR: Pelvic Abnormality, Pre- BMI>30, Previous Shoulder Dystocia or Previous Macrosomia Date/Initial: 11/29/22 Risk for Pre-Eclampsia Yes, if one or more: NEGATIVE FOR: Hx Pre-E/Gest HTN, Chronic HTN, Multiple Gestation, Pre-gestational DM, Renal Disease, Systemic Lupus or APA Syndrome Yes, if 2 or more: NEGATIVE FOR: Nulliparity, Age>= 35 yrs, >10yr btwn pregnancies, BMI>30, ethinicty, Mother/Sister w/ Pre-E or Previous IUGR Risk for Post- Hemorrhage Initial: NEGATIVE FOR: Multiple Gestation, Previous PPH, Known Clotting Deficiency, Grand Multiparity or Anticoagulation Risks Reviewed Risks Reviewed Upon Admission: Yes
[2023-06-11 20:07] LABS: HCT 34.8 % (36.0-46.0); HGB 11.5 g/dL (11.2-15.7); MCH 27.6 pg (27.0-33.0); MCV 84 fL (80-95); MPV 9.4 fL (8.0-11.0); Platelet Count 288 10^3/uL (130-400); RBC 4.17 10^6/uL (3.93-5.22); RDW 13.6 % (11.7-14.6); RDW-SD 40.9 fL; WBC 12.19 10^3/uL (4.4-10.8)
[2023-06-11] MEDS: miSOPROStol 25 MCG TAB PO ×2 (20:12→23:43)
[2023-06-11 23:44] VITALS: BP 105/56; PULSE 68
[2023-06-12] VITALS (34 sets, daily range): BP systolic 74–121; BP diastolic 45–77; PULSE 54–100; RESP 16; TEMP 36.2–36.8; O2SAT 89–99; BMI 26.6
[2023-06-12] MEDS: Acetaminophen 325 MG TAB 650 MG PO (08:34)
--- NOTE | 2023-06-12 09:27 | W.PM.OBNL1 ---
Date of service: 06/12/23 Time of Service: 08:00 Pelvic Exam Dilation: 1.5 Effacement (%): 50 station: -3 Position: OP Cervix Position: mid Consistency: soft Contractions Contraction Frequency(min): q1-3 Fetus A Heart Rate Baseline: 140 Variability: Moderate (6-25 BPM) Categories: Category I Accelerations: 15 X 15 Decelerations: None Assessment and Plan Assessment and plan (1) Gestational diabetes: Status: Acute Assessment and plan: Will allow pt to ambulate and do some position work to see if baby can turn. Then will plan recheck and consider breaking her water vs starting pitocin. Objective Abnormal lab results 06/11/23 Range/Units 19:45 WBC 12.19 H (4.4-10.8) 10^3/uL Hct 34.8 L (36.0-46.0) % Temp Pulse Resp BP Pulse Ox 98.1 F 96 H 16 120/67 99 06/12/23 07:13 06/12/23 07:13 06/12/23 07:13 06/12/23 07:13 06/11/23 17:56 Laboratory Results WBC 12.19 10^3/uL (4.4-10.8) H 06/11/23 19:45 RBC 4.17 10^6/uL (3.93-5.22) 06/11/23 19:45 Hgb 11.5 g/dL (11.2-15.7) 06/11/23 19:45 Hct 34.8 % (36.0-46.0) L 06/11/23 19:45 MCV 84 fL (80-95) 06/11/23 19:45 MCH 27.6 pg (27.0-33.0) 06/11/23 19:45 MCHC 33.0 % (32.0-36.0) 06/11/23 19:45 RDW 13.6 % (11.7-14.6) 06/11/23 19:45 Plt Count 288 10^3/uL (130-400) 06/11/23 19:45 MPV 9.4 fL (8.0-11.0) 06/11/23 19:45 Patient ABO/Rh O Positive 06/11/23 19:45 Antibody Screen NEGATIVE 06/11/23 19:45 Vital Signs Reviewed: Yes Subjective Interval history since last seen: Pt is feeling more uncomfortable with contractions. Her last dose of misoprostol was at midnight. Still feeling good movement. Results Hemoglobin/Hematocrit: Hgb 11.5 g/dL (11.2-15.7) 06/11/23 19:45 Hct 34.8 % (36.0-46.0) L 06/11/23 19:45 Abnormal Lab Findings: Abnormal Labs 06/11/23 19:45 WBC 12.19 H Hct 34.8 L
--- NOTE | 2023-06-12 10:20 | ANES.PREOP_ITS ---
General Info Date of Service Date Performed: 06/12/23 Height: 5 ft 6 in Weight: 74.843 kg Body Mass Index (BMI): 26.6 Meds Allergies and Home Medications Allergies Allergy/AdvReac Type Severity Reaction Status Date / Time shellfish derived AdvReac nausea/vomi Unverified 06/11/23 18:04 ting Home Medication Medication Instructions Recorded loratadine 10 mg tablet 10 mg PO DAILY PRN 04/15/18 acetaminophen 500 mg tablet 500 - 1,000 mg PO Q6H PRN 06/15/22 prenat.vits,blaine,ngi-ghib-xtqqt 1 tab PO DAILY 11/29/22 calcium polycarbophil 625 mg 1,250 mg PO DAILY #30 tabs 01/12/23 tablet (FiberCon) docusate sodium 50 mg capsule 50 mg PO BID #30 caps 01/12/23 (Colace Clear) magnesium gluconate 27 mg 27 mg PO DAILY #30 tabs 01/12/23 magnesium (500 mg) tablet ondansetron 4 mg disintegrating 4 mg PO Q8H PRN nausea and 02/09/23 tablet vomiting #30 tabs blood sugar diagnostic (OneTouch #100 ea 04/06/23 Ultra Test strips) lancets 30 gauge (OneTouch Delica #100 ea 04/06/23 Plus Lancet) pantoprazole 20 mg tablet,delayed 20 mg PO DAILY #30 tabs 04/20/23 release (Protonix) insulin NPH isoph U-100 human 100 8 unit (0.08 mL) subcut .COMPLEX 04/21/23 unit/mL (3 mL) subcutaneous pen gestational diabetes #6 mL (Novolin N FlexPen) pen needle, diabetic 33 gauge x #100 ea 04/21/2311/23 (Comfort EZ Pen [place]) Current Visit Medications: Current Medications Generic Name Dose Route Start Last Admin Trade Name Freq PRN Reason Stop Dose Admin Acetaminophen 650 mg 06/12/23 08:29 06/12/23 08:34 Acetaminophen 325 Mg Tab PO 650 mg Q6H PRN PRN Administration Sodium Chloride 500 mls @ 0 mls/hr 06/11/23 19:35 Saline 500ml Bag IV PRN PRN As Directed Dextrose/Lactated Ringer's 1,000 mls @ 125 mls/hr 06/12/23 09:30 Dextrose 5%-Lr IV INFUSION DINO IV Miscellaneous Supplies 1 each 06/11/23 19:45 Iv Access IV DIRECTED DINO Misoprostol 25 mcg 06/11/23 20:00 06/12/23 09:34 Misoprostol 25 Mcg Tab PO Not Given Q4H DINO Sodium Chloride 0 ml 06/11/23 19:35 Normal Saline Flush 10 Ml Syr IVP PRN PRN Terbutaline Sulfate 0.25 mg 06/11/23 20:00 Terbutaline 1 Mg/Ml Vial SC PRN PRN PFSH Active Problems Active Problems: Problem Status Onset Code Z34.90 Rubella non-immune status, antepartum O09.899, Z28.39 Gestational diabetes O24.419 Encounter for supervision of other normal , third trimester Z34.83 Medical History Medical History (Updated 06/12/23 @ 09:33 by Kerline Smith MD) Depression Exercise-induced asthma (11/07/13) intermittent asthma with exercise trigger Migraine Surgical History Surgical History (Updated 01/02/23 @ 23:07 by Nicole Bowers DO) No significant past surgical history Tobacco Smoking/Tobacco Use Status: Never Alcohol Alcohol Intake: current Alcohol intake frequency: holidays/special occasions only Alcohol type: wine Substance Use Substance use: Never Substance use type: does not use Prental History History 2 Para 1 Hx # Term Pregnancies 1 Multiple births 0 Hx # Pregnancies 0 Ectopic pregnancies 0 AB induced 0 Hx Number of Living Children 1 AB spontaneous 0 Past Pregnancies Del. Date GA/Weeks # Preg Succ Route Wgt Sex Labor Lgth Anesth esia Location [facility] 07/03/16 42 No Yes vaginal 3659.923 g Male 8 hr active labor induced for 2 days regional [facility] [place] Delivery Date: 07/03/16 Last Updated by: Siomara Saenz CNM [place], no complications, checked blood sugar due to 1 elevation on 3-hr, No abnormal levels Vital Signs and Lab Results Vital Signs Most Recent Vital Signs in EMR: Most Recent Vital Signs Temp Pulse Resp BP Pulse Ox 36.7 C 80 16 118/77 99 06/12/23 07:13 06/12/23 09:52 06/12/23 07:13 06/12/23 09:52 06/11/23 17:56 Point of Care Results Point of Care Results: Finger Stick Blood Glucose 117 06/12/23 07:25 Lab Results 06/11/23 19:45 Blood Type / Crossmatch: Patient ABO/Rh O Positive 06/11/23 Antibody Screen NEGATIVE 06/11/23 Complete Blood Count: White Blood Count 12.19 10^3/uL (4.4-10.8) H 06/11/23 19:45 Red Blood Count 4.17 10^6/uL (3.93-5.22) 06/11/23 19:45 Hemoglobin 11.5 g/dL (11.2-15.7) 06/11/23 19:45 Hematocrit 34.8 % (36.0-46.0) L 06/11/23 19:45 Platelet Count 288 10^3/uL (130-400) 06/11/23 19:45 Complete Metabolic Panel: No Data to Display Liver Function Panel: No Data to Display Coagulation Panel: No Data to Display Cardiac Panel: No Data to Display Arterial Blood Gas: No Data to Display Venous Blood Gas: No Data to Display Pancreas Panel: No Data to Display Thyroid Panel: No Data to Display Infectious Disease: No Data to Display Blood Cultures: No Data to Display Toxicology Panel: No Data to Display Panel: No Data to Display Anesthesia Assessment and Plan Anesthesia History Personal History: No History of Anesthesia Complications Family History: No Family History of Anesthesia Complications Exercise Tolerance Exercise Tolerance: Metabolic Equivalents>4 Pertinent Negatives Pertinent Negatives: No Symptoms of GERD Cardiac & Pulmonary Exam Cardiac Exam: Normal S1/S2 Heart Sounds Pulmonary Exam: Clear Bilateral Breath Sounds Implantable Cardiac Device Does patient have a Pacemaker or an ICD?: No Airway Exam Known Difficult Airway: No Mallampati Class: 2 Mouth Opening: Normal (> 3cm) Thyromental Distance: Greater than 3 cm Neck Range of Motion: Full ROM Neck Circumference: Normal Teeth Condition: Normal Dentition ASA Classification ASA Score: ASA 2 Emergency Case?: No NPO Status NPO Status: NPO Clears >2 hours, Solids >8 hours Status Status: Confirmed Anesthesia Plan Resuscitation Status: Full Code Anesthesia Technique: Spinal Anesthesia Airway Planned: Natural Airway Monitors Used: Standard Monitors
--- NOTE | 2023-06-12 13:28 | W.PM.OBNL1 ---
Date of service: 06/12/23 Time of Service: 13:28 Pelvic Exam Dilation: 2 Effacement (%): 60 station: -3 Comments: exam at 11:30 with AROM clear fluid. Contractions Contraction Frequency(min): 1-3min Fetus A Heart Rate Baseline: 135 Variability: Moderate (6-25 BPM) Categories: Category I Accelerations: 15 X 15 Decelerations: None Assessment and Plan Assessment and plan (1) Gestational diabetes: Status: Acute Assessment and plan: AROM completed. Pt agrees to augmentation with pitocin. Objective Abnormal lab results 06/11/23 Range/Units 19:45 WBC 12.19 H (4.4-10.8) 10^3/uL Hct 34.8 L (36.0-46.0) % Temp Pulse Resp BP Pulse Ox 98.1 F 75 16 121/72 99 06/12/23 07:13 06/12/23 12:23 06/12/23 07:13 06/12/23 12:23 06/11/23 17:56 Laboratory Results WBC 12.19 10^3/uL (4.4-10.8) H 06/11/23 19:45 RBC 4.17 10^6/uL (3.93-5.22) 06/11/23 19:45 Hgb 11.5 g/dL (11.2-15.7) 06/11/23 19:45 Hct 34.8 % (36.0-46.0) L 06/11/23 19:45 MCV 84 fL (80-95) 06/11/23 19:45 MCH 27.6 pg (27.0-33.0) 06/11/23 19:45 MCHC 33.0 % (32.0-36.0) 06/11/23 19:45 RDW 13.6 % (11.7-14.6) 06/11/23 19:45 Plt Count 288 10^3/uL (130-400) 06/11/23 19:45 MPV 9.4 fL (8.0-11.0) 06/11/23 19:45 Patient ABO/Rh O Positive 06/11/23 19:45 Antibody Screen NEGATIVE 06/11/23 19:45 Vital Signs Reviewed: Yes Subjective Interval history since last seen: Pt says contractions are getting stronger but she is still moving comfortably and chatting with her support people. Results Hemoglobin/Hematocrit: Hgb 11.5 g/dL (11.2-15.7) 06/11/23 19:45 Hct 34.8 % (36.0-46.0) L 06/11/23 19:45 Abnormal Lab Findings: Abnormal Labs 06/11/23 19:45 WBC 12.19 H Hct 34.8 L
[2023-06-12] MEDS: Normal Saline Flush 10 ML SYR IVP (13:55)
[2023-06-12] MEDS: Oxytocin/Normal Saline 30 UNITS/500 ML BAG IV (14:05)
[2023-06-12] MEDS: DEXTROSE 5%-LACTATED RINGERS 1,000 ML 125 ML IV (14:15)
[2023-06-12] MEDS: Lactated Ringers 1,000 ML 125 ML IV (16:50)
--- NOTE | 2023-06-12 19:00 | W.PM.OBNL1 ---
Date of service: 06/12/23 Time of Service: 18:30 Pelvic Exam Dilation: 4 Effacement (%): 70 station: -2 Contractions Contraction Frequency(min): q2-3min Fetus A Heart Rate Baseline: 140 Presentation: Vertex Variability: Moderate (6-25 BPM) Categories: Category I Accelerations: 15 X 15 Decelerations: None Amniotic Membrane Status: Ruptured Rupture Method: Artifical Amniotic Fluid: Clear Assessment and Plan Assessment and plan (1) Gestational diabetes: Status: Acute Assessment and plan: Continue with pitocin. May consider nitrous oxide for pain management. Declines epidural at this point. Objective Abnormal lab results 06/11/23 Range/Units 19:45 WBC 12.19 H (4.4-10.8) 10^3/uL Hct 34.8 L (36.0-46.0) % Temp Pulse Resp BP Pulse Ox 98.2 F 54 L 16 107/67 99 06/12/23 16:16 06/12/23 18:23 06/12/23 16:16 06/12/23 18:23 06/11/23 17:56 Laboratory Results WBC 12.19 10^3/uL (4.4-10.8) H 06/11/23 19:45 RBC 4.17 10^6/uL (3.93-5.22) 06/11/23 19:45 Hgb 11.5 g/dL (11.2-15.7) 06/11/23 19:45 Hct 34.8 % (36.0-46.0) L 06/11/23 19:45 MCV 84 fL (80-95) 06/11/23 19:45 MCH 27.6 pg (27.0-33.0) 06/11/23 19:45 MCHC 33.0 % (32.0-36.0) 06/11/23 19:45 RDW 13.6 % (11.7-14.6) 06/11/23 19:45 Plt Count 288 10^3/uL (130-400) 06/11/23 19:45 MPV 9.4 fL (8.0-11.0) 06/11/23 19:45 Patient ABO/Rh O Positive 06/11/23 19:45 Antibody Screen NEGATIVE 06/11/23 19:45 Vital Signs Reviewed: Yes Subjective Interval history since last seen: Pt getting significantly more uncomfortable with contractions and desires cervical exam. Results Hemoglobin/Hematocrit: Hgb 11.5 g/dL (11.2-15.7) 06/11/23 19:45 Hct 34.8 % (36.0-46.0) L 06/11/23 19:45 Abnormal Lab Findings: Abnormal Labs 06/11/23 19:45 WBC 12.19 H Hct 34.8 L
[2023-06-12] MEDS: FentaNYL/ROPIvacaine 2 mcg/ml and 0.1% 200 ML CADD Cassette EP (21:17)
--- NOTE | 2023-06-12 21:24 | W.ANESNEU ---
Epidural/Spinal Catheter Date Performed: 06/12/23 Procedure Start: 20:33 Procedure Stop: 21:12 Requesting Provider: Kerline Smith Procedure Location: Obstetrics Reason Performed: Labor Epidural Standard Monitors Applied: ECG, Blood Pressure and SpO2 Patient Position: Sitting Sedation Given (Indicate Dose Given): No Sedation given Patient Mental Status: Awake Sterility: Hand Hygiene, Surgical Cap, Surgical Mask, Sterile Gloves, Sterile Drape/Sheet, Eye Protection and Chlorhexidine Procedure Location: L3-L4 Interspace Epidural Needle: Tuohy 18 Gauge Needle Length: 3.5 Inch Needle Approach: Midline Epidural Procedure: Skin Prepped, Sterile Drape Placed, 1% Lidocaine to skin and subcutaneous tissue with 25G needle, Tuohy Needle placed, ARNOLDO to Saline Used (6cm), Epidural Catheter Placed, Positive Heme Noted (Removed catheter and placed new catheter more cephlad in same space, no heme with 2nd catheter.), Negative CSF Flow and Tuohy Needle Removed Catheter Placed?: Catheter Placed Test Dose (Indicate Dose Given): 3ml 1.5% Lidocaine with 1:200K Epinephrine Given Loss of Resistance Depth (cm): 6 Catheter depth at skin (cm): 11 Dressing: Sorbaview Dressing Placed, Tegaderm Applied and Dressing reinforced with Tape Epidural Provider Bolus (Indicate Dose Given): Total Ropivacaine 0.1% with Fentanyl 2mcg/ml Given from pump. (ml) (bolus from pump) Dose:: 7cc Additives (Indicate Dose Given ): None Infusion Medication: Medication Infusion Began Medication Infusion: Ropivacaine 0.1% with Fentanyl 2mcg/ml Maintenance Infusion Rate (ml/hour): 10 PCEA Bolus Dose (ml): 5 Block Level: T8 Paresthesia: None Ultrasound: Used to asif site Number of Attempts (See previous attempts in note section): 2 (D/T heme in 1st catheter.) Procedure Tolerated: Patient tolerated well Procedure Outcome: Successful Performed By: Praful Penny
--- NOTE | 2023-06-12 21:46 | W.PM.OBNL1 ---
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 Objective Temp Pulse Resp BP Pulse Ox 97.1 F L 73 16 91/50 L 99 06/12/23 21:41 06/12/23 21:42 06/12/23 16:16 06/12/23 21:42 06/12/23 21:03 Laboratory Results WBC 12.19 10^3/uL (4.4-10.8) H 06/11/23 19:45 RBC 4.17 10^6/uL (3.93-5.22) 06/11/23 19:45 Hgb 11.5 g/dL (11.2-15.7) 06/11/23 19:45 Hct 34.8 % (36.0-46.0) L 06/11/23 19:45 MCV 84 fL (80-95) 06/11/23 19:45 MCH 27.6 pg (27.0-33.0) 06/11/23 19:45 MCHC 33.0 % (32.0-36.0) 06/11/23 19:45 RDW 13.6 % (11.7-14.6) 06/11/23 19:45 Plt Count 288 10^3/uL (130-400) 06/11/23 19:45 MPV 9.4 fL (8.0-11.0) 06/11/23 19:45 Patient ABO/Rh O Positive 06/11/23 19:45 Antibody Screen NEGATIVE 06/11/23 19:45 Vital Signs Reviewed: Yes Subjective Interval history since last seen: Pt more uncomfortable. Requesting possible epidural Results Hemoglobin/Hematocrit: Hgb 11.5 g/dL (11.2-15.7) 06/11/23 19:45 Hct 34.8 % (36.0-46.0) L 06/11/23 19:45 Abnormal Lab Findings: Abnormal Labs 06/11/23 19:45 WBC 12.19 H Hct 34.8 L
--- NOTE | 2023-06-12 21:49 | W.PM.OBNL1 ---
Date of service: 06/12/23 Time of Service: 09:40 Pelvic Exam Dilation: 9 Effacement (%): 90 station: +1 Contractions Contraction Frequency(min): q2-3min Fetus A Heart Rate Baseline: 135 Variability: Moderate (6-25 BPM) Categories: Category II Accelerations: 15 X 15 Decelerations: Early and Variable (occasional) Assessment and Plan Assessment and plan (1) Gestational diabetes: Status: Acute Assessment and plan: Await delivery Objective Temp Pulse Resp BP Pulse Ox 97.1 F L 79 16 74/45 L 99 06/12/23 21:41 06/12/23 21:46 06/12/23 16:16 06/12/23 21:46 06/12/23 21:03 Laboratory Results WBC 12.19 10^3/uL (4.4-10.8) H 06/11/23 19:45 RBC 4.17 10^6/uL (3.93-5.22) 06/11/23 19:45 Hgb 11.5 g/dL (11.2-15.7) 06/11/23 19:45 Hct 34.8 % (36.0-46.0) L 06/11/23 19:45 MCV 84 fL (80-95) 06/11/23 19:45 MCH 27.6 pg (27.0-33.0) 06/11/23 19:45 MCHC 33.0 % (32.0-36.0) 06/11/23 19:45 RDW 13.6 % (11.7-14.6) 06/11/23 19:45 Plt Count 288 10^3/uL (130-400) 06/11/23 19:45 MPV 9.4 fL (8.0-11.0) 06/11/23 19:45 Patient ABO/Rh O Positive 06/11/23 19:45 Antibody Screen NEGATIVE 06/11/23 19:45 Vital Signs Reviewed: Yes Subjective Interval history since last seen: Pt feeling better s/p epidural. No contraction pain but feels low back pain. Results Hemoglobin/Hematocrit: Hgb 11.5 g/dL (11.2-15.7) 06/11/23 19:45 Hct 34.8 % (36.0-46.0) L 06/11/23 19:45 Abnormal Lab Findings: Abnormal Labs 06/11/23 19:45 WBC 12.19 H Hct 34.8 L
--- NOTE | 2023-06-12 23:34 | W.OBDELIVERY ---
Date of service: 06/12/23 Time of Service: 11:06 OB Labor/ Delivery Information Baby A Delivery Delivery Method: Spontaneaous Presentation: Vertex Vertex Position: Right Occipital Anterior Amniotic Fluid: Clear Estimated Blood Loss: 150 Delivery Outcome: Liveborn Infant Transferred: Remains with Mother Note: The pt was found to be fully dilated. She pushed 18mins to deliver the 's head in BERTIN position followed by the shoulders and the rest of the body. The baby was placed on mom's abdomen. After >1min the cord was clamped x2 and cut. Cord blood collected. The placenta delivered with gentle cord traction and fundal massage and appeared intact. Fundus was firm with good hemostasis. Mom and baby stable at time of note. Providers Doctor: Kerline Smith Nurse: Ramandeep Leal Nurse: Nicole Keith Labor/Delivery Information Number of Babies in Womb: 1 Steroids Given: None Reason Steroids Not Administered: N/A Group Beta Strep: Negative Antibiotics Administered: No Rubella Status: Nonimmune Blood Type: O+ Varicella Immunity: Immune Shoulder Dystocia: No Stages of Labor Onset of Labor Date: 06/11/23 Complete Dilatation Date: 06/12/23 Complete Dilatation Time: 22:48 ROM Baby A: 06/12/23 ROM Baby A: 11:15 ROM Total Time- Baby A: [id number] Infant Delivery Date-Baby A: 06/12/23 Infant Delivery Time-Baby A: 23:06 Labor Stage 2 Duration: 18 minutes Placenta Delivery Date-Baby A: 06/12/23 Placenta Delivery Time-Baby A: 23:12 Labor-Stage 3 Duration: 6 minutes Placenta Status: Delivered Baby A Infant Gender: Male Gestational Status: Term (39-41.6 wks) Gestational Age in Weeks/Days: 39 Weeks and 1 Days Score-1 Minute Interval(Baby A) Heart Rate-1 minute: 100 BPM or Greater Respiratory Effort- 1 minute: Spontaneous/Strong Cry Muscle Tone-1 minute: Active Movement Reflex Response-1 minute: Minimal Response Color-1 minute: Bluish Hands or Feet Total Score-1 minute: 8 Score-5 Minute Interval(Baby A) Heart Rate- 5 minute: 100 BPM or Greater Respiratory Effort-5 minute: Spontaneous/Strong Cry Muscle Tone-5 minute: Active Movement Reflex Response-5 minute: Prompt Response Color-5 minute: Bluish Hands or Feet Total Score- 5 minute: 9
[2023-06-13 00:10] VITALS: BP 103/51; PULSE 67
[2023-06-13 00:40] VITALS: BP 113/59; PULSE 68
[2023-06-13 01:11] VITALS: BP 101/55; PULSE 71
[2023-06-13] MEDS: diphenhydrAMINE 50 MG/ML VIAL 25 MG IVP (01:19)
[2023-06-13 02:14] VITALS: BP 110/56; PULSE 78
[2023-06-13 03:00] VITALS: BP 107/59; PULSE 64
[2023-06-13 06:32] LABS: HCT 34.7 % (36.0-46.0); HGB 11.5 g/dL (11.2-15.7); MCH 27.4 pg (27.0-33.0); MCHC 33.1 % (32.0-36.0); MCV 83 fL (80-95); MPV 9.5 fL (8.0-11.0); Platelet Count 267 10^3/uL (130-400); RDW 13.3 % (11.7-14.6); WBC 19.99 10^3/uL (4.4-10.8)
[2023-06-13 08:00] VITALS: BP 119/72; PULSE 69; RESP 16; TEMP 36.6
[2023-06-13] MEDS: Acetaminophen 325 MG TAB 650 MG PO ×2 (08:51→21:04)
--- NOTE | 2023-06-13 11:32 | W.ANESPOSTOP ---
Postoperative Evaluation Date, Time and Location Date Performed: 06/13/23 Time Performed: 11:32 Patient Location: Obstetrics Vital Signs Most Recent Imported Vital Signs: Most Recent Vital Signs Temp Pulse Resp BP Pulse Ox 36.6 C 69 16 119/72 99 06/13/23 08:00 06/13/23 08:00 06/13/23 08:00 06/13/23 08:00 06/12/23 21:03 Pain Score Most Recent Pain Score: Most Recent Pain Score Pain Level 2 06/13/23 08:51 Assessment Mental Status: Awake (Alert & Oriented to Patient Baseline) Airway and Respiratory Function: Patent airway with normal (patient baseline) respiratory exam Cardiovascular Function: Hemodynamically Stable Hydration Status: Adequately Hydrated Nausea & Vomiting: No Nausea or Vomiting Pain: Pt. Denies Any Pain Peripheral Nerve Block: Patient did not receive a nerve block (Epidural appropriately worn off. Patient reports took longer Left than right to resolve but now completely resolved. All questions answered. )
--- NOTE | 2023-06-13 12:49 | W.PM.OBPNV1 ---
Date of service: 06/13/23 Time of Service: 12:49 Assessment and Plan Assessment and plan (1) Normal spontaneous vaginal delivery: Status: Acute Assessment and plan: day #1 doing well. No issues or concerns. Anticipate discharge home tomorrow. circumcision will be performed tomorrow. Subjective Subjective Interval history: Patient was seen and examined this morning. Overall doing well. No complaints or issues. Fasting blood glucose performed. This was appropriate. She has been eating and ambulating. We will plan circumcision for her son tomorrow. All of her questions were answered. Anticipate discharge tomorrow Exam Physical Exam Vital signs: Temp Pulse Resp BP Pulse Ox 97.9 F 69 16 119/72 99 06/13/23 08:00 06/13/23 08:00 06/13/23 08:00 06/13/23 08:00 06/12/23 21:03 Vital Signs Reviewed: Yes Constitutional Constitutional: no acute distress HEENT Exam HEENT Exam: Normal Respiratory Exam Respiratory Exam: Normal Cardiovascular Exam Cardiovascular Exam: Normal Fundal Exam Fundus: Below Umbilicus and Firm Psychiatric Exam Psychiatric Exam: Normal Results Hemoglobin/Hematocrit: Hgb 11.5 g/dL (11.2-15.7) 06/13/23 06:10 Hct 34.7 % (36.0-46.0) L 06/13/23 06:10 Abnormal Lab Findings: Abnormal Labs 06/11/23 06/13/23 19:45 06:10 WBC 12.19 H 19.99 H Hct 34.8 L 34.7 L
[2023-06-14 00:05] VITALS: BP 117/69; PULSE 76; RESP 17; TEMP 36.8; O2SAT 98
[2023-06-14 08:20] VITALS: BP 117/72; PULSE 78; RESP 16; TEMP 36.6; O2SAT 99
--- NOTE | 2023-06-14 09:33 | DSE_ITS ---
Date of service: 06/14/23 Time of Service: 09:43 DS: Diagnosis Discharge Diagnosis (1) Normal spontaneous vaginal delivery: Status: Acute Discharge Plan Disposition Condition: Good Discharge Details Reason For Visit: IOL Admit Date/Time: 06/11/23 17:42 Admit Provider: Kerline Smith Attending Provider: Kerline Smith Primary Care Provider: Mary Muhammad Hospital Course Hospital Course: Admitted for 39wk induction. Had 2 dose of misoprostol followed by AROM and pitocin augmentation. Proceeded into active labor, received an epidural and underwent uncomplicated vaginal delivery Home Meds and New Rx's Prescriptions: No Action Colace Clear 50 mg capsule 50 mg PO BID Qty: 30 6RF magnesium gluconate 27 mg magnesium (500 mg) tablet 27 mg PO DAILY Qty: 30 6RF calcium polycarbophil [FiberCon] 625 mg tablet 1,250 mg PO DAILY Qty: 30 6RF prenat.vits,blaine,[id number] Tablet 1 tab PO DAILY ondansetron 4 mg tablet,disintegrating 4 mg PO Q8H PRN (Reason: nausea and vomiting) Qty: 30 0RF pantoprazole [Protonix] 20 mg tablet,delayed release (DR/EC) 20 mg PO DAILY Qty: 30 3RF Novolin N FlexPen 100 unit/mL (3 mL) insulin pen 8 unit subcut .COMPLEX Qty: 6 4RF Rx Instructions: 8 units subcutaneously in morning, 4 units at bedtime.; (DME) pen needle, diabetic [Comfort EZ Pen [place]] 33 gauge x 1/4 needle See Rx Instructions .Route Qty: 100 1RF Rx Instructions: Novolin-N 8 units in am and 4 units at hour of sleep (DME) lancets [OneTouch Delica Plus Lancet] 30 gauge misc See Rx Instructions .ROUTE .MEDSUPPLY Qty: 100 3RF Rx Instructions: qid testing (DME) OneTouch Ultra Test Strip See Rx Instructions .Route Qty: 100 3RF Rx Instructions: Testing QID loratadine 10 MG tablet 10 mg PO DAILY PRN acetaminophen 500 mg Tablet 500 - 1,000 mg PO Q6H PRN Discharge Instructions Activity:: Activity as Tolerated Activity:: Activity as Tolerated Equipment/Supplies:: No Equipment Needed Diet:: As Tolerated OB:DS Summary Summary Vaginal Delivery Method: Spontaneaous Episiotomy Description: None Laceration Description: None Laceration Extension: N/A Contraception Discussed Contraception Discussed: Yes (Wants tubal but plans to abstain or use condoms until then. ), [place] Gender-Baby A: Male weight: 6 lb 13.349 oz Status at Discharge Functional status at discharge: independent ambulation Overall status at discharge: patient is back to baseline Mental Status: mental status grossly normal Speech and Movement: speech and movement normal Mood: congruent mood Affect: normal affect Exam Physical Exam Vital signs: Temp Pulse Resp BP Pulse Ox 98.2 F 76 17 117/69 98 06/14/23 00:05 06/14/23 00:05 06/14/23 00:05 06/14/23 00:05 06/14/23 00:05 Vital Signs Reviewed: Yes Constitutional Constitutional: no acute distress and cooperative Detailed HEENT Exam Head: Present normocephalic and atraumatic Respiratory Exam Respiratory Exam: Normal Abdominal Exam Abdomen: Tender (mildly) Fundal Exam Fundus: Below Umbilicus and Firm Extremities Exam Extremity Exam: negative Calf Tenderness or Edema Detailed Neurological Exam Neurological: Present alert, oriented X3 and CN II-XII intact PFSH All Active Problems (Updated 06/14/23 @ 09:44 by Kerline Smith MD) Normal spontaneous vaginal delivery (Acute) 06/12/2023. Male infant. Labor induction due to insulin requiring gestational diabetes at term. Medical History (Updated 06/14/23 @ 09:44 by Kerline mSith MD) Depression Exercise-induced asthma (11/07/13) intermittent asthma with exercise trigger Gestational diabetes Migraine Surgical History (Updated 01/02/23 @ 23:07 by Nicole Bowers DO) No significant past surgical history Family History Other Neoplasm Paternal Great Aunt with Ovarian cancer Father Migraines Essential hypertension Depression Mental disorder depression Mother Migraines Grandfather Migraines Myocardial infarction Neoplasm 3 TYPES Grandfather Alcohol abuse in remission Neoplasm COLON Grandmother Migraines Grandmother Migraines Diabetes Essential hypertension Family history Neoplasm Ovarian Social History Smoking/Tobacco Use Status: Never Smoking risk assessment performed?: Yes Alcohol Intake: current Alcohol Intake frequency: holidays/special occasions only Alcohol type: wine Drug use: Never Substance use type: does not use Housing: apartment Do you feel safe at home: Yes Do you feel safe in your relationship?: Yes History History 2 Para 1 Hx # Term Pregnancies 1 Multiple births 0 Hx # Pregnancies 0 Ectopic pregnancies 0 AB induced 0 Hx Number of Living Children 1 AB spontaneous 0 Past Pregnancies Del. Date GA/Weeks # Preg Succ Route Wgt Sex Labor Lgth Anesth esia Location Prov Complic 07/03/16 42 No Yes vaginal 8 lb 1.1 oz Male 8 hr active labor induced for 2 days [facility] 06/12/23 39 No Yes vaginal 6 lb 14 oz Male [facility] Delivery Date: 07/03/16 [facility], checked blood sugar due to 1 elevation on 3-hr, No abnormal levels Delivery Date: 06/12/23 Last Updated by: Kerline Smith MD IND for GDM DS: Data Vitals/I&O Vitals and I&O: Vital Signs Temperature 98.2 F 06/14/23 00:05 Temperature Source Oral 06/14/23 00:05 Pulse 76 06/14/23 00:05 Pulse Rhythm Regular 06/13/23 19:21 Respiratory Rate 17 06/14/23 00:05 Respiratory Depth Normal 06/13/23 19:21 Blood Pressure 117/69 06/14/23 00:05 Blood Pressure Mean 85 06/14/23 00:05 Pulse Oximetry 98 06/14/23 00:05 Oxygen Delivery Method Room Air 06/11/23 17:56 Oxygen Flow Rate 0 06/11/23 17:56 Pain Level 2 06/13/23 08:51 Intake & Output 06/13/23 06/13/23 06/14/23 11:59 23:59 11:59 Intake Total 1000 / 1000 Output Total 2250 / 3150 900 / 3150 Balance -2250 / -2150 100 / -2150 Intake: IV 1000 / 1000 Output: Urine 2250 / 3150 900 / 3150 Other: Voiding Methods Toilet
[2023-06-14] MEDS: Acetaminophen 325 MG TAB 650 MG PO (12:33)
[2023-06-14] MEDS: Ibuprofen 600 MG TAB PO (12:34)
== END 2023-06-14 13:15 | disposition home or self-care (01) | DRG 807 ==
PROVIDERS: Admitting Provider Obstetrics & Gynecology; PCP Nurse Practitioner Family; Visit Provider Obstetrics & Gynecology
DX: O24.424 Gestational diabetes mellitus in childbirth, insulin controlled (principal); Z37.0 Single live birth; Z3A.39 39 weeks gestation of pregnancy; O36.5930 Maternal care for other known or suspected poor fetal growth, third trimester, not applicable or unspecified; J45.990 Exercise induced bronchospasm; F32.A Depression, unspecified; O99.52 Diseases of the respiratory system complicating childbirth; O99.344 Other mental disorders complicating childbirth
CPT/HCPCS: 36415; 85027; 86850; 86900; 86901; J1200; J3490

== ENCOUNTER 2023-07-25 16:00 | Outpatient (CLI) | payer MEDICAID, SELFPAY ==
[2023-07-25 14:13] LABS: GTT Comment See Comments
== END 2023-07-25 16:01 | disposition home or self-care (01) ==
LOC: LBO 16:01
PROVIDERS: PCP Nurse Practitioner Family; Visit Provider Obstetrics & Gynecology
DX: Z39.2 Encounter for routine postpartum follow-up (principal); Z86.32 Personal history of gestational diabetes
CPT/HCPCS: 36415; 82947; 82951

== ENCOUNTER 2024-01-16 11:31 | Outpatient (CLI) | payer MEDICAID, SELFPAY ==
[2024-01-16 16:53] LABS: Abs Immature Grans 0.02 10^3/uL (0.0-0.06); Absolute Basophil Count 0.07 10^3/uL (0.0-0.2); Absolute Eosinophil Count 0.08 10^3/uL (0.0-0.7); Absolute Lymphocyte Count 2.59 10^3/uL (1.2-3.4); Absolute Monocyte Count 0.75 10^3/uL (0.1-0.8); Absolute Neutrophil Count 6.34 10^3/uL (1.2-6.7); Basophils % 0.7; Eosinophils % 0.8; HCT 37.7 % (36.0-46.0); Immature Grans % 0.2; Lymphocytes % 26.3; MCH 28.8 pg (27.0-33.0); MCHC 34.5 % (32.0-36.0); MCV 83 fL (80-95); MPV 9.1 fL (8.0-11.0); Monocytes % 7.6; Neutrophils % 64.4; Platelet Count 343 10^3/uL (130-400); RBC 4.52 10^6/uL (3.93-5.22); RDW 13.6 % (11.7-14.6); RDW-SD 41.9 fL; WBC 9.85 10^3/uL (4.4-10.8)
[2024-01-16 17:30] LABS: Hemoglobin A1C 4.9 % (<5.7)
[2024-01-16 18:15] LABS: Vitamin D 25 Total 20.6 ng/mL (30-100)
[2024-01-16 18:26] LABS: ALT 28 U/L (14-59); AST 14 U/L (15-37); Albumin 3.7 g/dL (3.4-5.0); Alkaline Phosphatase 100 U/L (46-116); Anion Gap 9.9 mmol/L (3-11); BUN 11 mg/dL (7-18); Bilirubin, Total 0.2 mg/dL (0.2-1.0); CO2 27.1 mmol/L (21.0-32.0); CREATININE 0.6 mg/dL (0.55-1.02); Calcium 9.4 mg/dL (8.5-10.1); Calculated LDL 118 mg/dL (<100); Chloride 104 mmol/L (98-107); Cholesterol 195 mg/dL (<200); Estimated GFR 125.31 (mL/min/1.73m2); Glucose 91 mg/dL (74-106); HDL Cholesterol 51 mg/dL (40-60); Potassium 4.1 mmol/L (3.5-5.1); Sodium 141 mmol/L (136-145); TSH (W/Ref FT4) 3.92 uIU/mL (0.36-3.74); Total Protein 6.9 g/dL (6.4-8.2); Triglyceride 134 mg/dL (<150); Vitamin B12 588 pg/mL (193-986)
[2024-01-16 18:43] LABS: FREE T4 0.89 ng/dL (0.76-1.46)
== END 2024-01-16 11:32 | disposition home or self-care (01) ==
LOC: LBO 01-17 11:32
PROVIDERS: Visit Provider Nurse Practitioner Family
DX: E78.5 Hyperlipidemia, unspecified (principal); I10 Essential (primary) hypertension; E55.9 Vitamin D deficiency, unspecified; D51.9 Vitamin B12 deficiency anemia, unspecified; B18.2 Chronic viral hepatitis C
CPT/HCPCS: 36415; 80053; 80061; 82306; 82607; 83036; 84439; 84443; 85025

== ENCOUNTER 2024-02-04 01:04 | Emergency (ER) | payer MEDICAID, SELFPAY ==
[2024-02-04 01:07] VITALS: BP 115/62; PULSE 83; RESP 18; TEMP 36.8; O2SAT 99
[2024-02-04] MEDS: Cephalexin 500 MG CAP PO (01:33)
--- NOTE | 2024-02-04 01:57 | W.ED.GENAD ---
Discharge Plan Disposition Patient Disposition: Home Condition: Improving Discharge Details Clinical Impression: Ingrowing left great toenail, Ingrown right greater toenail, Paronychia of great toe of left foot, Paronychia of great toe of right foot Primary Care Provider: Yolis Mckeon ED Provider: Mitch Arias Home Meds and New Rx's Prescriptions: New cephalexin 500 mg capsule 500 mg PO QID Qty: 40 0RF bacitracin 500 unit/gram ointment 1 applic topical BID Qty: 30 0RF Rx Instructions: Apply after soaks to bilateral great toe wounds No Action magnesium gluconate 27 mg magnesium (500 mg) tablet 27 mg PO DAILY Qty: 30 6RF calcium polycarbophil [FiberCon] 625 mg tablet 1,250 mg PO DAILY Qty: 30 6RF prenat.vits,blaine,oue-caxa-jqxxz Tablet 1 tab PO DAILY Nexplanon 68 mg implant 1 implant subdermal ONCE Qty: 1 0RF Rx Instructions: as a single dose loratadine 10 MG tablet 10 mg PO DAILY PRN Discharge Instructions Instructions: Paronychia (ED) Additional Instructions: Soak your toes twice a day in warm water and Epsom salts for 15 to 20 minutes. After each soak, dry the toes off and recover them with bacitracin and a sterile dressing such as a rolled up piece of gauze or Band-Aids. You should take 1 cephalexin capsule every 6 hours (4 times a day), for the next 10 days. You can take three 200 mg ibuprofen tablets every 6 hours as needed for pain. You can take 2 or three 325 mg acetaminophen tablets every 4-6 hours as needed for additional pain relief. These medications can be taken together as they are processed by different organs in your body. Both will alleviate pain. I have placed you on a referral list for podiatry to follow-up with you. They can do revision of the ingrown toenail excision, if needed for additional treatment. You should not wear the small steel toed boots, especially while you are toes have surgical wounds. I have written a work note to that effect. You should try to purchase larger boots with a room your toe box. You can always return to the ER for any new concerns or sudden changes in your health which you feel require emergency medical attention. Discharge Data Discharge Physician: Mitch Arias [facility] General Date/Time Provider Initiated Documentation: 02/04/24 01:12. HPI Narrative: The patient is a 28-year-old female, with no contributory past medical history, presents the emergency department this evening complaining of bilateral big toe redness, swelling, discharge, and pain. 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 She has been suffering for approximately 2 weeks and has been treating them with soaks at home and bag balm. The patient was having difficulty sleeping tonight secondary to the discomfort in her right lateral great toe nail fold. The left lateral great toe nail fold is also swollen but less painful for the patient. She denies any associated fever or chills. Related Data Home Medications Medication Instructions Recorded Confirmed loratadine 10 mg tablet 10 mg PO DAILY PRN 04/15/18 07/25/23 prenat.vits,blaine,mua-pals-ffaje 1 tab PO DAILY 11/29/22 07/25/23 calcium polycarbophil 625 mg 1,250 mg (2 x 625 mg) PO DAILY #30 01/12/23 07/25/23 tablet (FiberCon) tabs magnesium gluconate 27 mg 27 mg PO DAILY #30 tabs 01/12/23 07/25/23 magnesium (500 mg) tablet etonogestrel 68 mg subdermal 1 implant subdermal ONCE #1 ea 07/12/23 07/25/23 implant (Nexplanon) bacitracin 500 unit/gram topical 1 applic topical BID #30 grams 02/04/24 ointment cephalexin 500 mg capsule 500 mg PO QID #40 caps 02/04/24 Previous Rx's Medication Instructions Recorded calcium polycarbophil 625 mg 1,250 mg (2 x 625 mg) PO DAILY #30 01/12/23 tablet (FiberCon) tabs magnesium gluconate 27 mg 27 mg PO DAILY #30 tabs 01/12/23 magnesium (500 mg) tablet etonogestrel 68 mg subdermal 1 implant subdermal ONCE #1 ea 07/12/23 implant (Nexplanon) bacitracin 500 unit/gram topical 1 applic topical BID #30 grams 02/04/24 ointment cephalexin 500 mg capsule 500 mg PO QID #40 caps 02/04/24 Allergies Allergy/AdvReac Type Severity Reaction Status Date / Time shellfish derived AdvReac nausea/vomi Unverified 07/12/23 09:04 ting General Stated Complaint: [facility] PALOMO: 5 Exam Extrem Other: There are bilateral, lateral ingrown toenails on the great toes of both feet. The lateral nail folds are thickened and appear to have underlying infections. The left has a somewhat simple paronychia. The right has a paronychia that extends into the superior nail fold along the germinal matrix laterally. Both have scant pustular discharge to palpation. Course Vital Signs Vital signs: Vital Signs Temperature 36.8 C 02/04/24 01:07 Pulse 83 02/04/24 01:07 Respiratory Rate 18 02/04/24 01:07 Blood Pressure 115/62 02/04/24 01:07 Pulse Oximetry 99 02/04/24 01:07 Temperature 36.8 C 02/04/24 01:07 Temperature Source Oral 02/04/24 01:07 Pulse 83 02/04/24 01:07 Respiratory Rate 18 02/04/24 01:07 Respiratory Effort Normal 02/04/24 01:10 Blood Pressure 115/62 02/04/24 01:07 Pulse Oximetry 99 02/04/24 01:07 Pain Level 5 02/04/24 01:07 Procedures Other Description: The bilateral great toes were anesthetized using 5% bupivacaine, 1 cc was instilled on each side of each of the great toes and a digital block. The right great toenail, lateral fold was lifted using a pair of curved scissors and the lateral 3 mm were excised to the germinal matrix. An 11 blade was used to make a stab incision to alleviate any underlying paronychia in the fold. There was scant blood loss from the procedure. There was a minimal amount of pustular discharge after the stab incision. The wound was dressed using bacitracin, a 2 x 2 gauze, and roll gauze overlying that. The left great toenail, lateral fold was lifted using a pair of curved scissors and the lateral 3 mm were excised to the germinal matrix. An 11 blade was used to make a stab incision to alleviate any underlying paronychia in the fold. There was scant blood loss from the procedure. There was a minimal amount of pustular discharge after the stab incision. The wound was dressed using bacitracin, a 2 x 2 gauze, and roll gauze overlying that. Medical Decision Making The ingrown components of the toenails were excised bilaterally using curved scissors to lift up the nail folds and remove approximately half centimeter in each side. There was no significant release of pustular discharge from either nail fold. They were irrigated bilaterally and bacitracin with a nonabsorbent dressing and roll gauze were placed above it. The patient's toes were anesthetized using bupivacaine for a more long-acting analgesia. My plan will be to have the patient soak her toes twice a day for 10 to 15 minutes, and redo dressing changes at that time. I will have her take oral antibiotics in the short-term and we will refer her to podiatry for reevaluation and further management. I have cautioned her about wearing her steel toed boots until her toes have improved and will provide a work note to that effect. Quality:SDOH Health Related Social Needs: No Data to Display PFSH All Active Problems (Updated 02/04/24 @ 02:02 by Mitch Arias MD) Paronychia of great toe of right foot (Acute) Paronychia of great toe of left foot (Acute) Ingrown right greater toenail (Acute) Ingrowing left great toenail (Acute) Medical History (Updated 02/04/24 @ 02:02 by Mitch Arias MD) Sciatic leg pain Normal spontaneous vaginal delivery 06/12/2023. Male infant. Labor induction due to insulin requiring gestational diabetes at term. Gestational diabetes Presence of subdermal contraceptive implant (07/12/23) Nexplanon placed in R arm 07/12/23 Migraine Depression Exercise-induced asthma (11/07/13) intermittent asthma with exercise trigger Surgical History (Updated 01/02/23 @ 23:07 by Nicole Bowers DO) No significant past surgical history Family History Other Neoplasm Paternal Great Aunt with Ovarian cancer Father Migraines Essential hypertension Depression Mental disorder depression Mother Migraines Grandfather Migraines Myocardial infarction Neoplasm 3 TYPES Grandfather Alcohol abuse in remission Neoplasm COLON Grandmother Migraines Grandmother Migraines Diabetes Essential hypertension Family history Neoplasm Ovarian Social History Smoking/Tobacco Use Status: Never Smoking risk assessment performed?: Yes Alcohol Intake: current Alcohol Intake frequency: holidays/special occasions only Alcohol type: wine Drug use: Never Substance use type: does not use Housing: apartment Do you feel safe at home: Yes Do you feel safe in your relationship?: Yes History History 2 Para 1 Hx # Term Pregnancies 1 Multiple births 0 Hx # Pregnancies 0 Ectopic pregnancies 0 AB induced 0 Hx Number of Living Children 1 AB spontaneous 0 Past Pregnancies Del. Date GA/Weeks # Preg Succ Route Wgt Sex Labor Lgth Anesthesia Location Prov Complic 07/03/16 42 No Yes vaginal 3659.923 g Male 8 hr active labor induced for 2 days [facility] 06/12/23 39 No Yes vaginal 3118.448 g Male [facility] Delivery Date: 07/03/16 Last Updated by: Siomara Saenz CNM [place], no complications, checked blood sugar due to 1 elevation on 3-hr, No abnormal levels Delivery Date: 06/12/23 Last Updated by: Kerline Smith MD IND for GDM
[2024-02-04] MEDS: Bacitracin 1 PACKET 2 PACKET TP (02:05)
[2024-02-04] MEDS: Bupivacaine 0.5% Pres-Free 30 ML VIAL IJ (02:09)
--- NOTE | 2024-02-04 02:09 | NUR.NOTE ---
Pt placed on care management list for referral for Poidatry for bilateral ingrown toenails with infection to be seen as soon as possible
== END 2024-02-04 02:18 | disposition home or self-care (01) ==
PROVIDERS: Emergency Provider Emergency Medicine Emergency Medical Services; PCP Nurse Practitioner Family
DX: L60.0 Ingrowing nail (principal); L03.032 Cellulitis of left toe; L03.031 Cellulitis of right toe
CPT/HCPCS: 11765; 99283; J0665

== ENCOUNTER 2024-09-08 14:10 | Emergency (ER) | payer MEDICAID, SELFPAY ==
[2024-09-08 14:16] VITALS: BP 118/77; PULSE 90; RESP 12; TEMP 37.1; O2SAT 98
--- OUTSIDE RECORDS SUMMARY | 2024-09-08 14:31 | XMS_ITS | Encounter Summary ---
[place] [address] Care Team Providers Care Cigar Inspector Name Role Phone Mary Muhammad APRN Primary Care Provider [phone] Reason for Referral * Diagnostic Test (Routine) - Closed Specialty Diagnoses / Procedures Referred By Contac t Referred To Contact Radiology Diagnoses 42 weeks gestation of Transposition of great vessels, double outlet right ventricle Procedures US OB Detailed Morphology Ramiro Millan CNM [address] [place] [address] [address] [place] [address] [facility] [place] [address] Referral ID Status Reason Start Date Expiration Date V isits Requested Visits Authorized [id number] Closed Specialty Service Requested 12/02/2022 06/01/2024 1 1 Reason for Visit * Diagnostic Test (Routine) - Closed Specialty Diagnoses / Procedures Referred By Contac t Referred To Contact Radiology Diagnoses 42 weeks gestation of Transposition of great vessels, double outlet right ventricle Procedures US OB Detailed Morphology Ramiro Millan CNM [address] [place] [address] [address] [place] [address] [facility] [place] [address] Referral ID Status Reason Start Date Expiration Date V isits Requested Visits Authorized [id number] Closed Specialty Service Requested 12/02/2022 06/01/2024 1 1 Encounter Details Date Type Department Care Team (Latest Contact Info) Description 02/07/2023 2:30 PM EDT - 02/07/2023 11:59 PM EDT Hospital [place] [address] Ramiro Millan CNM [address] [place] [address] [address] [place] [address] 42 weeks gestation of ; Transposition of great vessels, double outlet right ventricle Discharge Disposition: Home Social History Tobacco Use Types Packs/Day Years Used Date Smoking Tobacco: Never Smokeless Tobacco: Never Comments Yes Sex and Gender Information Value Date Recorded Sex Assigned at Not on file Gender Identity Not on file Sexual Orientation Not on file documented as of this encounter Medications at Time of Discharge Medication Sig Dispensed Refills Start Date End Date ondansetron (Zofran) 4 mg tablet Take 4 mg by mouth every 6 hours. 12/28/2022 Mag-G 27 mg magnesium (500 mg) Tablet Take 1 tablet by mouth daily. 01/18/2023 psyllium seed, with sugar, (FIBER ORAL) Take by mouth. PNV no.95/ferrous fum/folic ac ( ORAL) Take by mouth. loratadine (CLARITIN ORAL) Take by mouth as needed. acetaminophen (TYLENOL) 325 mg Tablet Take 650 mg by mouth as needed for Pain. promethazine (PHENERGAN) 12.5 mg TabletIndications:Family history of transposition of great vessels,FHx: congenital heart disease Take 12.5 mg by mouth as needed for Nausea. magnesium 250 mg TabletIndications:Family history of transposition of great vessels,FHx: congenital heart disease Take by mouth daily. 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 Current growth parameters are lagging by 13 days compared to LMP dating. Amniotic fluid volume is Subjectively normal for gestational age Detailed anatomic evaluation was performed and no structural abnormalities are noted. Thank you for letting us participate in the care of this patient. If you are a health care provider and have any questions regarding this report, please contact the number above. For patients who have questions, please contact the health care provider that requested your imaging first. ? Fernando Aburto, Staff Physician Electronically Signed Final Report ?? 02/07/2023 04:29 pm Narrative 02/07/2023 4:30 PM EDT OBSTETRICS REPORT ?(Signed Final 02/07/2023 04:29 pm) PATIENT INFO: ID #: ? [id number] ?: ??[birth year] (27 yrs)(F) Name: ? ABRAHAN SABA ?Visit Date: 02/07/2023 04:04 pm PERFORMED BY: Performed By: ? Cara Black RDMS Attending: ?Fernando Aburto MD Referred By: ?RAMIRO MILLAN Location: ? [place] SERVICE(S) PROVIDED: [facility] - Detailed Morphology - [id number] ? [id number] INDICATIONS: 21 weeks gestation of ?Z3A.21 Reproductive partner had transposition of great Vessels at , surgery 2 days old VITAL SIGNS: Weight (lb): 137.0 Height: ?5'6 ? BMI: ? 22.11 EVALUATION: Num Of Fetuses: ? 1 Heart Rate(bpm): ??152 Cardiac Activity: ? Observed, normal rhythm Presentation: ? Variable Placenta: ? Anterior P. Cord Insertion: ?Within Normal Limits Amniotic Fluid JANET FV: ?Subjectively normal for gestational age --------- BIOMETRY: --------- BPD: ?44.6 ??mm ? G.Age: ?? 19w 3d OFD: ?59.6 ??mm HC: ?166.6 ??mm ? G.Age: ?? 19w 2d AC: ?144.0 ??mm ? G.Age: ?? 19w 5d FL: ? 30.3 ??mm ? G.Age: ?? 19w 3d HUM: ?29.9 ??mm ? G.Age: ?? 19w 6d CER: ?19.4 ??mm ? G.Age: ?? 18w 5d NFT: ? 4.7 ??mm NB: ?6.3 ??mm LV: ?6.1 ??mm CM: ?4.5 ??mm CI: ?74.8 ??% ? 70 - 86 FL/HC: ? 18.2 ??% ? 15.9 - 20.3 HC/AC: ? 1.16 ?1.06 - 1.25 FL/BPD: ?67.9 ??% FL/AC: ? 21.0 ??% ? - Est. FW: ? 298 ??gm ?0 lb 11 oz OB HISTORY: : ?2 ? Term: ?? 1 GESTATIONAL AGE: LMP: ? 21w 2d ?Date: ??09/11/22 ? RENÉE: ?? 06/18/23 U/S Today: ? 19w 3d ?RENÉE: ?? 07/01/23 Best: ?21w 2d ?? Det. By: ??LMP ??(09/11/22) ?RENÉE: ?? 06/18/23 TARGETED ANATOMY: Central Nervous System Calvarium/Cranial V.: ??Within Normal Limits Intracranial Liane: ? Within Normal Limits Cavum: ? Within Normal Limits Parenchyma: ?Within Normal Limits Lateral Ventricles: ?Within Normal Limits Choroid Plexus: ?Within Normal Limits Cereb./Vermis: ? Within Normal Limits Cisterna Magna: ?Within Normal Limits Midline Falx: ?Within Normal Limits Spine Cervical: ?Visualized Thoracic: ?Visualized Lumbar: ?Visualized Sacral: ?Visualized Shape/Curvature: ? Visualized Head/Neck Face: ?Within Normal Limits Lips: ?Within Normal Limits Neck: ?Within Normal Limits Nuchal Fold: ? Within Normal Limits Nasal Bone: ?Present Profile: ? Visualized Orbits/Eyes: ? Visualized Mandible: ?Visualized Maxilla: ? Visualized Thorax Thoracic Contour: ?Within Normal Limits Lungs: ? Visualized 4 Chamber View: ?Within Normal Limits Cardiac Activity: ?Normal Rhythm Rt Outflow Tract: ?Visualized Lt Outflow Tract: ?Visualized Aortic Arch: ? Visualized Ductal Arch: ? Visualized SVC: ? Visualized Cardiac Wilton: ?Visualized Diaphragm: ? Visualized 3 Vessel View: ? Visualized 3 V Trachea View: ?Visualized IVC: ? Visualized Crossing: ?Visualized Abdomen Ventral Wall: ?Visualized Cord Insertion: ?Visualized Situs: ? Normal Stomach: ? Visualized Liver: ? Visualized Lt Kidney: ? Visualized Rt Kidney: ? Visualized Bladder: ? Visualized Bowel: ? Visualized Extremities Lt Humerus: ?Within Nomal Limits Rt Humerus: ?Within Normal Limits Lt Forearm: ?Within Normal Limits Rt Forearm: ?Within Normal Limits Lt Hand: ? Within Normal Limits Rt Hand: ? Within Normal Limits Lt Femur: ?Within Normal Limits Rt Femur: ?Within Normal Limits Lt Lower Leg: ?Within Normal Limits Rt Lower Leg: ?Within Normal Limits Lt Foot: ? Visualized Rt Foot: ? Visualized Other Umbilical Cord: ?3 vessel cord Genitalia: ? Male CERVIX UTERUS ADNEXA: Right Ovary Size(cm) ? 2.6 ??x ?? 2.1 ?x ??1.6 ? Vol(ml): 4.6 Visualized Left Ovary Not visualized Procedure Note Mikhail Aburto MD - 02/07/2023 OBSTETRICS REPORT (Signed Final 02/07/2023 04:29 pm) PATIENT INFO: ID #: [id number] : [birth year] (27 yrs)(F) Name: ABRAHAN SABA Visit Date: 02/07/2023 04:04 pm PERFORMED BY: Performed By: Cara Black RDMS Attending: Fernando Aburto MD Referred By: RAMIRO MILLAN Location: [place] SERVICE(S) PROVIDED: [facility] - Detailed Morphology - [id number] INDICATIONS: 21 weeks gestation of Z3A.21 Reproductive partner had transposition of great Vessels at , surgery 2 days old VITAL SIGNS: Weight (lb): 137.0 Height: 5'6 BMI: 22.11 EVALUATION: Num Of Fetuses: 1 Heart Rate(bpm): 152 Cardiac Activity: Observed, normal rhythm Presentation: Variable Placenta: Anterior P. Cord Insertion: Within Normal Limits Amniotic Fluid JANET FV: Subjectively normal for gestational age --------- BIOMETRY: --------- BPD: 44.6 mm G.Age: 19w 3d OFD: 59.6 mm HC: 166.6 mm G.Age: 19w 2d AC: 144.0 mm G.Age: 19w 5d FL: 30.3 mm G.Age: 19w 3d HUM: 29.9 mm G.Age: 19w 6d CER: 19.4 mm G.Age: 18w 5d NFT: 4.7 mm NB: 6.3 mm LV: 6.1 mm CM: 4.5 mm CI: 74.8 % 70 - 86 FL/HC: 18.2 % 15.9 - 20.3 HC/AC: 1.16 1.06 - 1.25 FL/BPD: 67.9 % FL/AC: 21.0 % 20 - 24 Est. FW: 298 gm 0 lb 11 oz OB HISTORY: : 2 Term: 1 GESTATIONAL AGE: LMP: 21w 2d Date: 09/11/22 RENÉE: 06/18/23 U/S Today: 19w 3d RENÉE: 07/01/23 Best: 21w 2d Det. By: LMP (09/11/22) RENÉE: 06/18/23 TARGETED ANATOMY: Central Nervous System Calvarium/Cranial V.: Within Normal Limits Intracranial Liane: Within Normal Limits Cavum: Within Normal Limits Parenchyma: Within Normal Limits Lateral Ventricles: Within Normal Limits Choroid Plexus: Within Normal Limits Cereb./Vermis: Within Normal Limits Cisterna Magna: Within Normal Limits Midline Falx: Within Normal Limits Spine Cervical: Visualized Thoracic: Visualized Lumbar: Visualized Sacral: Visualized Shape/Curvature: Visualized Head/Neck Face: Within Normal Limits Lips: Within Normal Limits Neck: Within Normal Limits Nuchal Fold: Within Normal Limits Nasal Bone: Present Profile: Visualized Orbits/Eyes: Visualized Mandible: Visualized Maxilla: Visualized Thorax Thoracic Contour: Within Normal Limits Lungs: Visualized 4 Chamber View: Within Normal Limits Cardiac Activity: Normal Rhythm Rt Outflow Tract: Visualized Lt Outflow Tract: Visualized Aortic Arch: Visualized Ductal Arch: Visualized SVC: Visualized Cardiac Wilton: Visualized Diaphragm: Visualized 3 Vessel View: Visualized 3 V Trachea View: Visualized IVC: Visualized Crossing: Visualized Abdomen Ventral Wall: Visualized Cord Insertion: Visualized Situs: Normal Stomach: Visualized Liver: Visualized Lt Kidney: Visualized Rt Kidney: Visualized Bladder: Visualized Bowel: Visualized Extremities Lt Humerus: Within Nomal Limits Rt Humerus: Within Normal Limits Lt Forearm: Within Normal Limits Rt Forearm: Within Normal Limits Lt Hand: Within Normal Limits Rt Hand: Within Normal Limits Lt Femur: Within Normal Limits Rt Femur: Within Normal Limits Lt Lower Leg: Within Normal Limits Rt Lower Leg: Within Normal Limits Lt Foot: Visualized Rt Foot: Visualized Other Umbilical Cord: 3 vessel cord Genitalia: Male CERVIX UTERUS ADNEXA: Right Ovary Size(cm) 2.6 x 2.1 x 1.6 Vol(ml): 4.6 Visualized Left Ovary Not visualized IMPRESSION 2nd Trimester - Detailed Morphology - Summary Single intrauterine with a gestational age of 21w 2d based on LMP (09/11/22) Composite age based on the current ultrasound alone is 19w 3d. Current growth parameters are lagging by 13 days compared to LMP dating. Amniotic fluid volume is Subjectively normal for gestational age Detailed anatomic evaluation was performed and no structural abnormalities are noted. Thank you for letting us participate in the care of this patient. If you are a health care provider and have any questions regarding this report, please contact the number above. For patients who have questions, please contact the health care provider that requested your imaging first. Fernando Aburto, Staff Physician Electronically Signed Final Report 02/07/2023 04:29 pm Ramiro Millan CNM IMG OB ORDERABLE S documented in this encounter Visit Diagnoses Diagnosis 42 weeks gestation of state, incidental Transposition of great vessels, double outlet right ventricle documented in this encounter Care Teams Cigar Inspector Relationship Specialty Start Date End Date Mary Muhammad APRN PCP - General Family Medicine 03/08/18 documented as of this encounter
--- OUTSIDE RECORDS SUMMARY | 2024-09-08 14:31 | XMS_ITS | Encounter Summary ---
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 Cardiology Consultation Note Patient : Lizette Saba, : 1995 (27 y.o. female) Demographics : [address] [place] [facility] [address]. [phone] (home) Insurance : MEDICAID [place] OB : Siomara Tolbert CNM MFM : Meme Huitron, [facility] / [facility] *, [place] [phone], FAX: [phone] Dear Meme Huitron, I saw Lizette Saba at our cardiology clinic in [place], [place] on 02/14/2023. She was unaccompanied. Lizette Saba is a 27 y.o. old female who is currently at 22w2d gestation based on an estimated due date 06/18/23. She conceived naturally and is expecting a boy. She currently plans to deliver at [facility]. I saw Lizette today specifically to address the risks of heart disease due to the family history of congenital heart disease. Her significant other/father of the baby (Jag Zee) is a [facility] in [facility], was born with D-transposition of the great arteries (TGA) with intact ventricular septum, and underwent arterial switch procedure with [facility]. has otherwise been uncomplicated. Morphology scan was otherwise normal. NIPT was not performed. MEDICATIONS : Magnesium Gluconate, PNV no.95/ferrous fum/folic ac, acetaminophen, loratadine, magnesium, ondansetron, promethazine, and psyllium seed (with sugar) ALLERGIES : Shellfish derived PAST MEDICAL HISTORY : Patient Active Problem List Diagnosis Code ??? Exercise-induced asthma J45.990 ??? 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 Child Erik Mcdonough (6). Lizette reports that she has never smoked. She has never used smokeless tobacco. FAMILY HISTORY : As above. No other known significant childhood structural cardiac disease. No known recurrent loss or sudden syndrome. No known inherited arrhythmias. ECHOCARDIOGRAM RESULTS : I personally reviewed and interpreted a complete echocardiogram today. For detailed findings, please see the separate echo report. In just a few words, visualization was technically challenging for most of the study, with great clarity for the last few minutes, and it showed normal anatomy, normal valve function, normal systolic function, and no hydrops. IMPRESSION : 27 y.o. female at 22w2d gestation. ??? Elevated pre-test risk for heart disease due to the family history. ??? Low post-test risk with normal echocardiogram (within the limits of ultrasound). DISCUSSION/EDUCATION A echocardiogram was performed today because the fetus was at elevated pre-test risk for heart disease. The pre-test risk of congenital heart disease (CHD) in the general population (Baseline) is about 0.8-1.0%. That pre-test risk is higher for certain groups of patients. Risk factors in this case, as summarized by the [place] [employer]chocardi[employer], include: ??? Family history of congenital heart disease (CHD). The risk of recurrence (of any CHD) is higherin closer relatives, and lower in more distant relatives. The risk of recurrence is also higher forcertain entities such as HLHS, BAV, aortic stenosis, and AVCD, and lower for others such as Tetralogy of Fallot and transposition of the great arteries. o If a first degree relative has aortic stenosis, up to 18% risk o If first degree relative has BAV, about 9% risk of BAV o If mother has CHD, about 3-7% risk o If father or sibling has CHD, about 2-3% risk o If a second degree relative has CHD, less than 2% risk o If a third degree or more distant relative has CHD, the risk is essentially the baseline risk of 1% RECOMMENDATIONS : 1. Understanding today's findings : I relayed that I see no evidence of a significant cardiac abnormality by imaging today. ??? I discussed the risks for cardiac disease in this case, and how today's normal study substantially lowered those risks. ??? I discussed the inherent strengths and limitations of echocardiography as currently understood, including the inability to detecting certain cardiac conditions prenatally and to predict thepersistence of normal structures unique to circulation such as a PFO or PDA. ??? 2. Expectations for cardiac care during remainder of : Assuming no change in clinical status, Lizette does not need additional echocardiography. 3. Expectations during delivery and care : I would not predict any hemodynamic complications during delivery; therefore I have no reason to change her delivery plans at a local hospital. ??? Vaginal delivery is encouraged as long as there are no maternal contraindications. 4. Expectations after hospital discharge : Scheduled followup in our pediatric cardiology clinic is not necessary on the basis of this study alone unless additional concerns arise. ??? If any clinician has concerns after about the baby's heart that is not addressed above, that clinician should call our [facility] immediately to discuss appropriate timing and type of cardiac evaluation. It was my pleasure to see Lizette today. Thank you for asking me to participate in her care. I hope that our conversation was informative and helpful to the expectant mother, and that this summary has been helpful for you. Time spent: 30 min. Clinical service to/for this patient included gyen-lk-izro work (obtaining the medical history, performing a medically appropriate examination when appropriate, counseling and educating the patient) and atvkcx-gap-[id number] work (reviewing medical records and tests, reviewing marquez ent-completed health questionnaire, ordering any medications/tests/procedures, documenting in the electronic medical record, and communicating and coordinating care with other health field care advocate). 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
--- OUTSIDE RECORDS SUMMARY | 2024-09-08 14:31 | XMS_ITS | Clinical Summary ---
Author Organization [facility] [place] [address] Care Team Providers Care Poultry Picking Machine Tender Name Role Phone Jb Mary Drew APRN Primary Care Provider [phone] Allergies Active Allergy Reactions Criticality Noted Date Comments Shellfish Derived Nausea And Vomiting 6 Medications Medication Sig Dispensed Refills Start Date End Date Status promethazine (PHENERGAN) 12.5 mg TabletIndications:Family history of transposition of great vessels,FHx: congenital heart disease Take 12.5 mg by mouth as needed for Nausea. Active magnesium 250 mg TabletIndications:Family history of transposition of great vessels,FHx: congenital heart disease Take by mouth daily. Active loratadine (CLARITIN ORAL) Take by mouth as needed. Active acetaminophen (TYLENOL) 325 mg Tablet Take 650 mg by mouth as needed for Pain. Active psyllium seed, with sugar, (FIBER ORAL) Take by mouth. A ctive PNV no.95/ferrous fum/folic ac ( ORAL) Take by mouth. Active ondansetron (Zofran) 4 mg tablet Take 4 mg by mouth every 6 hours. 12/28/2022 Active Mag-G 27 mg magnesium (500 mg) Tablet Take 1 tablet by mouth daily. 01/18/2023 Active Active Problems Problem Noted Date Diagnosed Date Family history of complex co ngenital heart disease: FOB transposition of the great vessels 02/07/2023 Exercise-induced asthma 11/07/2013 Immunizations Name Administration Dates Next Due DTP-Hib (Tetramune) 05/24/1996,03/25/1996,1995 DTaP 11/29/2000,02/12/1997 HIB PRP-T Conjugate (ActHIB, Hiberix, OmniHib) 02/12/1997 HPV, Quadrivalent (Gardasil) 04/17/2008,12/06/19 08,10/04/2007 Hepatitis A Pediatric/Adoles cent (Havrix, Vaqta) 08/10/2012,01/31/2012 Hepatitis B Pediatric/Adoles cant (Engerix-B, Recombivax) 08/22/1996,03/25/1996,01/22/1996 Influenza Quadrivalent with Preservative 013 Influenza Unspecified Formulation 12/29/2015 MMR Vaccine LIVE 11/29/2000,02/12/1997 Meningococcal ACWY Polysacch aride Conjugate (Menactra) 01/31/2012,10/04/2007 Polio Inactivated (IPOL) 11/29/2000,05/24/1996,0 03/25/1996 Polio Oral Trivalent LIVE (Orimune) 01/22/1996 Tdap (Adacel, Boostrix) 12/07/2007 Varicella LIVE (Varivax) 04/17/2008,08/16/1999 Family History Medical History Relation Comments Anxiety Disorder Father Depression Father Heart Defect Father of Baby transposition of the great arteries Heart Defect Sister PFO vs. ASD per patient description Relation Status Comments Father Father of Baby Sister Social History Tobacco Use Types Packs/Day Years Used Date Smoking Tobacco: Never Smokeless Tobacco: Never Tobacco Cessation:Counseling Given: Not Answered Sex and Gender Information Value Date Recorded Sex Assigned at Not on file Gender Identity Not on file Sexual Orientation Not on file Last Filed Vital Signs Vital Sign Reading Time Taken Comments Blood Pressure 110/62 02/07/2023 4:21 PM EDT Pulse - - Temperature - - Respiratory Rate - - Oxygen Saturation - - Inhaled Oxygen Concentration - - Weight 66.2 kg (145 lb 14.4 oz) 02/07/2023 4:21 PM EDT Height 167.6 cm (5' 6) 05/15/2018 11:0 3 AM EDT Body Mass Index 23.55 05/15/2018 11:03 AM EDT Plan of Treatment Health Maintenance Due Date Last Done Comments Pneumococcal Vaccine: At-Ris k 5-64yrs (1 of 2 - PCV) 2001 HIV screen 2013 Hepatitis C Screening 2013 PAP Smear 2016 Tetanus/Diphtheria/Pertussis Vaccines (7 - Td or Tdap) 12/07/2017 12/07/2007, 11/29/2000, 02/12/1997, Additional history exists Covid-19 Vaccine (1 - 2022-2 4 season) 2024 Influenza (Flu) vaccine (1 o f 1 - Influenza standard series) 07/21/2024 12/29/2015, 11/07/2013 Hepatitis B vaccine (0-59 yrs) Completed 1 , 03/25/1996, 01/22/1996 HPV vaccine Completed 04/17/2008, 11/20, 10/04/2007 Care Teams Poultry Picking Machine Tender Relationship Specialty Start Date End Date Mary Muhammad APRN PCP - General Family Medicine 03/08/18
--- OUTSIDE RECORDS SUMMARY | 2024-09-08 14:31 | XMS_ITS | Encounter Summary ---
[place] [address] Care Team Providers Care Pole Tester Name Role Phone Mary Muhammad APRN Primary Care Provider [phone] Encounter Details Date Type Department Care Team (Latest Contact Info) Description 02/14/2023 Travel Social History Tobacco Use Types Packs/Day Years Used Date Smoking Tobacco: Never Smokeless Tobacco: Never Comments Yes Sex and Gender Information Value Date Recorded Sex Assigned at Not on file Gender Identity Not on file Sexual Orientation Not on file documented as of this encounter Plan of Treatment Not on file documented as of this encounter Visit Diagnoses Not on filedocumented in this encounter Care Teams Pole Tester Relationship Specialty Start Date End Date Mary Muhammad APRN PCP - General Family Medicine 03/08/18 documented as of this encounter
--- OUTSIDE RECORDS SUMMARY | 2024-09-08 14:31 | XMS_ITS | Encounter Summary ---
[place] [address] Care Team Providers Care Equipment Lead Name Role Phone Mary Muhammad APRN Primary Care Provider [phone] Encounter Details Date Type Department Care Team (Latest Contact Info) Description 02/07/2023 Travel Social History Tobacco Use Types Packs/Day [...] on filedocumented in this encounter Care Teams Equipment Lead Relationship Specialty Start Date End Date Mary Muhammad APRN PCP - General Family Medicine 03/08/18 documented as of this encounter
--- OUTSIDE RECORDS SUMMARY | 2024-09-08 14:31 | XMS_ITS | Encounter Summary ---
[place] [address] Care Team Providers Care Bellman Driver Name Role Phone Mary Muhammad APRN Primary Care Provider [phone] Reason for Referral * Diagnostic Test (Routine) - Closed Specialty Diagnoses / Procedures Referred By Contac t Referred To Contact Diagnoses Family history of congenital heart disease Procedures Echo Hussein Huitron MD [facility] OBSTETRICS [place] [address] [facility] [place] [address] Referral ID Status Reason Start Date Expiration Date V isits Requested Visits Authorized [id number] Closed Specialty Service Requested 12/07/2022 12/07/2023 1 1 Reason for Visit * Diagnostic Test (Routine) - Closed Specialty Diagnoses / Procedures Referred By Contac t Referred To Contact Diagnoses Family history of congenital heart disease Procedures Echo Hussein Huitron MD [facility] OBSTETR[facility] [place] [address] [facility] [place] [address] Referral ID Status Reason Start Date Expiration Date V isits Requested Visits Authorized [id number] Closed Specialty Service Requested 12/07/2022 12/07/2023 1 1 Encounter Details Date Type Department Care Team (Latest Contact Info) Description 02/14/2023 12:59 PM EDT - 02/14/2023 11:59 PM EDT Hospital Encounter Non-Invasive Cardiology Lab [facility] [place] [address] Hussein Huitron MD [facility] [address] OBSTETRICS [place] [address] Family history of congenital heart disease Discharge Disposition: Home Social History Tobacco Use [...] Procedure Name Priority Date/Time Associated Diagnosis Comments ECHO COMPLETE Routine 02/14/2023 2 :24 PM EDT Family history of congenital heart disease documented in this encounter Results * ECHO COMPLETE (02/14/2023 2:24 PM EDT) Anatomical Region Laterality Modality Cardiac Other 02/14/2023 1:12 PM EDT Narrative 02/14/2023 2:45 PM EDT Echocardiogram Report Name: ABRAHAN SABA ? Study Date: 02/14/2023 ?Patient Location: [address] [place] [address] : 1995 ?Gender: Female Age: 27 yrs Reason For Study: Family history of congenital heart disease Ordering Physician: HUSSEIN HUITRON Referring Physician: HUSSEIN HUITRON Performed By: Nataly Perez [facility] Exam Location: [facility]. Interpretation Summary This is a 22 2/7 week fetus. The estimated due date is 06/18/2023. Technically challenging visualization secondary to position, significantly improved for the final images of study. 1. Levocardia, normal (S,D,S) segmental relationships. 2. No congenital heart disease identified.* 3. No significant valve dysfunction. 4. Qualitatively normal biventricular size and systolic function. 5. No arrhythmia detected. 6. No hydrops. *Prenatally cannot exclude certain septal defects, coarctation of the aorta, partial pulmonary venous anomalies, coronary anomalies, or subtle valve abnormalities, and cannot predict the persistence of structures of circulation such as a PDA or PFO. The results of today's study were discussed with the patient. Please see office note regarding the details of this consultation. Position Single intrauterine . Breech presentation. Cardiac Position Levocardia. Cardiac Segments {S,D,S}. Veins The inferior vena cava appears normal. The superior vena cava appears normal. There is no evidence of an LSVC. Color and spectral Doppler flow patterns of at least one right and one left pulmonary vein appear normal. Atria There is no evidence of right atrial enlargement. There is no evidence of left atrial dilatation. Mitral Valve The mitral valve appears normal. There is a normal biphasic inflow pattern across the valve. There is no evidence of mitral regurgitation by color and spectral Doppler. The mitral diameter at the annulus measures 0.55 cm ([place] Z-score: - 0.23). Tricuspid Valve The tricuspid valve appears normal. There is a normal biphasic inflow pattern across the valve. There is no evidence of tricuspid insufficiency. The tricuspid diameter at the annulus measures 0.59 cm ([place] Z-score: +0.09). Left Ventricle The left ventricular cavity size appears normal. The left ventricular systolic function is qualitatively within normal limits. There is no evidence of left ventricular hypertrophy. There are no obvious segmental wall motion abnormalities. Right Ventricle The right ventricle is not dilated. There is no evidence of right ventricular hypertrophy. The right ventricular systolic function is qualitatively within normal limits. Single tiny echogenic focus in the right ventricle involving a papillary muscle head. Interventricular/Interatrial Septum There is a moderate sized foramen ovale with right to left shunting by color Doppler. There is no evidence of a ventricular septal defect. Aortic Valve The aortic valve appears normal. There is no evidence of valvular aortic stenosis. There is no evidence of aortic insufficiency by color or spectral Doppler. The aortic diameter at the annulus is 0.29 cm ([place] Z-score: -1.6). Pulmonic Valve The pulmonary valve appears normal. There is no evidence of valvular pulmonary stenosis. There is no evidence of pulmonary insufficiency by color or spectral Doppler. The pulmonary annulus measures 0.41 cm ([place] Z-score: -0.68). Great Vessels The main pulmonary artery appears normal. The branch pulmonary arteries appear normal. The ascending aorta does not appear dilated. The descending thoracic aorta does not appear dilated. There is no evidence of coarctation of the aorta. The aortic isthmus measures 0.31 cm ([place] Z-score: +0.37). Circulation The umbilicus has 2 umbilical arteries. Normal Doppler flow pattern in the umbilical artery. There is a normal flow pattern in the umbilical vein. There is a normal flow pattern in the ductus venosus. There is normal intrauterine right to left flow across the ductus arteriosus. The rhythm is regular. The heart rate is 146 bpm. The AV interval is 112 msec. Pericardium and Pleura No pericardial effusion. No evidence of hydrops. CPT A complete two-dimensional echocardiogram was performed (2D, M-mode, Doppler and color flow Doppler). ? Reading Physician:02:45 PM Procedure Note Luis Novak MD - 02/14/2023 Echocardiogram Report Name: ABRAHAN SABA Study Date: 02/14/2023 Patient Location: 4A 0000 : 1995 Gender: Female Age: 27 yrs Reason For Study: Family history of congenital heart disease Ordering Physician: HUSSEIN HUITRON Referring Physician: HUSSEIN HUITRON Performed By: Nataly Perez [facility] Exam Location: [facility]. Interpretation Summary This is a 22 2/7 week fetus. The estimated due date is 06/18/2023.Technically challenging visualization secondary to position, significantlyimproved for the final images of study. 1. Levocardia, normal (S,D,S) segmental relationships. 2. No congenital heart disease identified.* 3. No significant valve dysfunction. 4. Qualitatively normal biventricular size and systolic function. 5. No arrhythmia detected. 6. No hydrops. *Prenatally cannot exclude certain septal defects, coarctation of theaorta, partial pulmonary venous anomalies, coronary anomalies, or subtle valve abnormalities, and cannot predict the persistence of structuresof circulation such as a PDA or PFO. The results of today's study were discussed with the patient. Please seeoffice note regarding the details of this consultation. Position Single intrauterine . Breech presentation. Cardiac Position Levocardia. Cardiac Segments {S,D,S}. Veins The inferior vena cava appears normal. The superior vena cava appearsnormal. There is no evidence of an LSVC. Color and spectral Doppler flow patternsof at least one right and one left pulmonary vein appear normal. Atria There is no evidence of right atrial enlargement. There is no evidence ofleft atrial dilatation. Mitral Valve The mitral valve appears normal. There is a normal biphasic inflow patternacross the valve. There is no evidence of mitral regurgitation by color andspectral Doppler. The mitral diameter at the annulus measures 0.55 cm ([place]-score: - 0.23). Tricuspid Valve The tricuspid valve appears normal. There is a normal biphasic inflowpattern across the valve. There is no evidence of tricuspid insufficiency. Thetricuspid diameter at the annulus measures 0.59 cm ([place] Z-score: +0.09). Left Ventricle The left ventricular cavity size appears normal. The left ventricularsystolic function is qualitatively within normal limits. There is no evidence ofleft ventricular hypertrophy. There are no obvious segmental wall motionabnormalities. Right Ventricle The right ventricle is not dilated. There is no evidence of rightventricular hypertrophy. The right ventricular systolic function is qualitativelywithin normal limits. Single tiny echogenic focus in the right ventricleinvolving a papillary muscle head. Interventricular/Interatrial Septum There is a moderate sized foramen ovale with right to left shunting bycolor Doppler. There is no evidence of a ventricular septal defect. Aortic Valve The aortic valve appears normal. There is no evidence of valvular aorticstenosis. There is no evidence of aortic insufficiency by color or spectral Doppler.The aortic diameter at the annulus is 0.29 cm ([place] Z-score: -1.6). Pulmonic Valve The pulmonary valve appears normal. There is no evidence of valvularpulmonary stenosis. There is no evidence of pulmonary insufficiency by color orspectral Doppler. The pulmonary annulus measures 0.41 cm ([place] Z-score: -0.68). Great Vessels The main pulmonary artery appears normal. The branch pulmonary arteriesappear normal. The ascending aorta does not appear dilated. The descendingthoracic aorta does not appear dilated. There is no evidence of coarctation of the aorta.The aortic isthmus measures 0.31 cm ([place] Z-score: +0.37). Circulation The umbilicus has 2 umbilical arteries. Normal Doppler flow pattern inthe umbilical artery. There is a normal flow pattern in the umbilical vein.There is a normal flow pattern in the ductus venosus. There is normal intrauterineright to left flow across the ductus arteriosus. The rhythm is regular. The fetalheart rate is 146 bpm. The AV interval is 112 msec. Pericardium and Pleura No pericardial effusion. No evidence of hydrops. CPT A complete two-dimensional echocardiogram was performed (2D, M- mode,Doppler and color flow Doppler). Electronically signed by: Luis Novak MD on02/14/2023 Reading Physician:02:45 PM Hussein Huitron MD ECHO ORDERABLES documented in this encounter Visit Diagnoses Diagnosis Family history of congenital heart disease Family history of congenital anomalies documented in this encounter Care Teams Bellman Driver Relationship Specialty Start Date End Date Mary Muhammad APRN PCP - General Family Medicine 03/08/18 documented as of this encounter
--- OUTSIDE RECORDS SUMMARY | 2024-09-08 14:31 | XMS_ITS | Encounter Summary ---
[place] [address] Care Team Providers Care Carver Hand Name Role Phone Mary Muhammad APRN Primary Care Provider [phone] Reason for Visit * Consultation (Routine) - Closed Specialty Diagnoses / Procedures Referred By Contact Referred To Contact Obstetrics and Gynecology Diagnoses Encounter for supervision of normal , antepartum, unspecified Discordant ventriculoarterial connection Siomara Tolbert, [address] [place] [address] [facility] [address] [place] [address] Referral ID Status Reason Start Date Expiration Date V isits Requested Visits Authorized [id number] Closed Consult, Test & Treat PCP Updated and/or Approved 11/29/2022 11/29/2023 1 1 Encounter Details Date Type Department Care Team (Latest Contact Info) Description 02/07/2023 4:00 PM EDT Office Visit Obstetrics [place] [address] Mikhail Aburto MD [facility] OBSTETRICS [place] [address] Family history of complex congenital heart disease: FOB transposition of the great vessels Social History Tobacco Use Types Packs/Day Years Used Date Smoking Tobacco: Never Smokeless Tobacco: Never Tobacco Cessation:Counseling Given: Not Answered Comments Yes Sex and Gender Information Value Date Recorded Sex Assigned at Not on file Gender Identity Not on file Sexual Orientation Not on file documented as of this encounter Last Filed Vital Signs Vital Sign Reading Time Taken Comments Blood Pressure 110/62 02/07/2023 4:21 PM EDT Pulse - - Temperature - - Respiratory Rate - - Oxygen Saturation - - Inhaled Oxygen Concentration - - Weight 66.2 kg (145 lb 14.4 oz) 02/07/2023 4:21 PM EDT Height - - Body Mass Index 23.55 05/15/2018 11:03 AM EDT documented in this encounter Progress Notes * Mikhail Aburto MD - 02/07/2023 4:00 PM EDT Diagnosis/Maternal Medicine Consult Note Lizette Saba is a 27 y.o. year old female who is at 21w2d gestation. She is seen in consultation at the request of Siomara Tolbert CNM for evaluation of anatomy due to family history of complex congenital heart defect. The patient's partner and FOB was born with transposition of thegreat arteries. She was seen today for maternal- medicine consultation and ultrasound evaluatio n. Review of Systems Constitutional:feels well Movement: normal Contractions: none Leaking: None Bleeding: None Patient Active Problem List Diagnosis Date Noted ??? Family history of complex congenital heart disease: FOB transposition of the great vessels 02/07/2023 ??? Exercise-induced asthma 11/07/2013 No past medical history on file. No past surgical history on file. Family History Problem Relation Age of Onset ??? Heart Defect Father of Baby transposition of the great arteries ??? Heart Defect Sister PFO vs. ASD per patient description ??? Depression Father ??? Anxiety Disorder Father Social History Occupational History ??? Not on file Tobacco Use ??? Smoking status: Never ??? Smokeless tobacco: Never Vaping Use ??? Vaping Use: Never used Substance and Sexual Activity ??? Alcohol use: Not on file ??? Drug use: Not on file ??? Sexual activity: Not on file OB History 2 Para Term AB Living SAB IAB Ectopic Multiple Live Births # Outc Date GA Lbr Vamshi/2nd Wgt Sex Del Anes PTL Lv 1 Term 06/2016 42w0d 3.657 kg (8 lb 1 oz) M Vag-Spont Living 2 Current Current Outpatient Medications Medication Sig Dispense Refill ??? psyllium seed, with sugar, (FIBER ORAL) Take by mouth. ??? PNV no.95/ferrous fum/folic ac ( ORAL) Take by mouth. ??? loratadine (CLARITIN ORAL) Take by mouth as needed. ??? acetaminophen (TYLENOL) 325 mg Tablet Take 650 mg by mouth as needed for Pain. ??? promethazine (PHENERGAN) 12.5 mg Tablet Take 12.5 mg by mouth as needed for Nausea. ??? magnesium 250 mg Tablet Take by mouth daily. No current facility-administered medications for this visit. Allergies Allergen Reactions ??? Shellfish Derived Nausea And Vomiting Ultrasound Date: 02/07/2023 Amniotic fluid volume normal Presentation breech Placenta anterior Growth small for gestational age anatomy appears normal Physical Exam BP 110/62 Wt 66.2 kg (145 lb 14.4 oz) BMI 23.55 kg/m?? General: alert, well appearing, in no apparent distress, oriented to person, place and time HEENT: normocephalic, atraumatic Abdomen: Soft, nontender Neurologic:alert, oriented, normal speech, no focal findings or movement disorder noted Psychiatric: Affect is Appropriate. Assessment and Recommendations: 27 y.o. year old female at 21w2d weeks gestation, referred for counseling regarding anatomy due to family history. The ultrasound appears normal today; echocardiogram is scheduled next week. The growth is lagging by 13 days. Reportedly normal low risk cfDNA screening (report not included in records sent). I recommend serial growth scans beginning in 4-5 weeks. I have some concern regarding the accuracy of the dating ultrasound. This is dated LMP, confirmed by a transabdominal ultrasound at 8 weeks. Ideally vaginal probe ultrasound would be used for dating ultrasound at <=10 weeks gestaiton for accuracy of measurement and imaging. Of note, in 2015 the patient's fetus was also noted to be lagging at the 18-20 week ultrasound, but ultimately was normally grown. I appreciate the opportunity to be involved in this patients care, and am available if further questions should arise. Mikhail ABURTO MD 02/07/2023 Cc: Siomara Tolbert, [facility] [address] [place] [address] , with copy of ultrasound report documented in this encounter Plan of Treatment Not on file documented as of this encounter Visit Diagnoses Diagnosis Family history of complex congenital heart disease: FOB transposition of the great vessels documented in this encounter Care Teams Carver Hand Relationship Specialty Start Date End Date Mary Muhammad APRN PCP - General Family Medicine 03/08/18 documented as of this encounter
--- OUTSIDE RECORDS SUMMARY | 2024-09-08 14:31 | XMS_ITS | Encounter Summary ---
[place] [address] Care Team Providers Care Certified Flex Endoscope Reprocessor Name Role Phone Jb Mary Drew APRN Primary Care Provider [phone] Reason for Referral * Diagnostic Test (Routine) - Closed Specialty Diagnoses / Procedures Referred By Contac t Referred To Contact Diagnoses Family history of congenital heart disease Procedures Echo Hussein Huitron MD [facility] OBSTETRICS [place] [address] [facility] [place] [address] Referral ID Status Reason Start Date Expiration Date V isits Requested Visits Authorized [id number] Closed Specialty Service Requested 12/07/2022 12/07/2023 1 1 Encounter Details Date Type Department Care Team (Late st Contact Info) Description 12/07/2022 Orders Only Obstetrics [place] [address] Hussein Huitron MD [facility] OBSTETRICS [place] [address] Family history of congenital heart disease Social History Tobacco Use Types Packs/Day Years Used Date Smoking Tobacco: Never Smokeless Tobacco: Never Sex and Gender Information Value Date Recorded Sex Assigned at Not on file Gender Identity Not on file Sexual Orientation Not on file documented as of this encounter Plan of Treatment Not on file documented as of this encounter Results * ECHO COMPLETE (02/14/2023 2:24 PM EDT) Anatomical Region Laterality Modality Cardiac Other 02/14/2023 1:12 PM EDT Narrative 02/14/2023 2:45 PM EDT Echocardiogram Report Name: ABRAHAN SABA ? Study Date: 02/14/2023 ?Patient Location: 4A 0000 : 1995 ?Gender: Female Age: 27 yrs Reason For Study: Family history of congenital heart disease Ordering Physician: HUSSEIN HUITRON Referring Physician: HUSSEIN HUITRON Performed By: Nataly Perez [facility] Exam Location: [facility]. Interpretation Summary This is a 22 [...] diameter at the annulus measures 0.55 cm ([place] Z-score: - 0.23). Tricuspid Valve The tricuspid valve appears normal. There is a normal biphasic inflow pattern across the valve. There is no evidence of tricuspid insufficiency. The tricuspid diameter at the annulus measures 0.59 cm ([place] Z-score: +0.09). Left Ventricle The left ventricular [...] diameter at the annulus is 0.29 cm ([place] Z-score: -1.6). Pulmonic Valve The pulmonary valve appears normal. There is no evidence of valvular pulmonary stenosis. There is no evidence of pulmonary insufficiency by color or spectral Doppler. The pulmonary annulus measures 0.41 cm ([place] Z-score: -0.68). Great Vessels The main pulmonary artery appears normal. The branch pulmonary arteries appear normal. The ascending aorta does not appear dilated. The descending thoracic aorta does not appear dilated. There is no evidence of coarctation of the aorta. The aortic isthmus measures 0.31 cm ([place] Z-score: +0.37). Circulation The umbilicus has 2 [...] ABRAHAN SABA Study Date: 02/14/2023 Patient Location: [address] [place] [address] : 1995 Gender: Female Age: 27 yrs Reason For Study: Family history of congenital heart disease Ordering Physician: HUSSEIN HUITRON Referring Physician: HUSSEIN HUITRON Performed By: Nataly Perez [facility] Exam Location: [facility]. Interpretation Summary This is a 22 [...] diameter at the annulus measures 0.59 cm ([place] Z-score: +0.09). Left Ventricle The left ventricular [...] diameter at the annulus is 0.29 cm ([place] Z-score: -1.6). Pulmonic Valve The pulmonary valve appears normal. There is no evidence of valvularpulmonary stenosis. There is no evidence of pulmonary insufficiency by color orspectral Doppler. The pulmonary annulus measures 0.41 cm ([place] Z-score: -0.68). Great Vessels The main pulmonary artery appears normal. The branch pulmonary arteriesappear normal. The ascending aorta does not appear dilated. The descendingthoracic aorta does not appear dilated. There is no evidence of coarctation of the aorta.The aortic isthmus measures 0.31 cm ([place] Z-score: +0.37). Circulation The umbilicus has 2 [...] heart disease Family history of congenital anomalies Family history of congenital heart disease Family history of congenital anomalies documented in this encounter Care Teams Certified Flex Endoscope Reprocessor Relationship Specialty Start Date End Date Mary Muhammad APRN PCP - General Family Medicine 03/08/18 documented as of this encounter
--- OUTSIDE RECORDS SUMMARY | 2024-09-08 14:32 | XMS_ITS | Encounter Summary ---
Author Organization [facility] [place] [address] Care Team Providers Care Service Worker Helper Name Role Phone Jb Mary Rajendra COSME Primary Care Provider [phone] Encounter Details Date Type Department Care Team (Late st Contact Info) Description 05/15/2018 10:30 AM EDT Office Visit Audiology at [address] [address] Naty Mccall AUD [facility] [place] [address] Right ear pain; Encounter for hearing examination Social History Tobacco Use Types Packs/Day Years Used Date Smoking Tobacco: Never Smokeless Tobacco: Never Comments Yes Sex and Gender Information Value Date Recorded Sex Assigned at Not on file Gender Identity Not on file Sexual Orientation Not on file documented as of this encounter Progress Notes * Naty Mccall AUD - 05/15/2018 10:30 AM EDT [place] [address] Lizette Saba, 22 y.o., was seen on 05/15/2018 for an audiologic evaluation in conjunction with Dr. Mcgraw in Otolaryngology. Please refer to the electronic audiogram listed under Procedures in Chart Review for findings, impressions and recommendations. Enclosure: Audiogram [place] [address] documented in this encounter Plan of Treatment Not on file documented as of this encounter Procedures Procedure Name Priority Date/Time Associated Diagnosis Comments COMPREHENSIVE HEARING TEST Routine 05/15/2018 10:37 AM EDT documented in this encounter Results * Comprehensive hearing test (05/15/2018 10:37 AM EDT) 05/15/2018 10:3 7 AM EDT Narrative AUDBASE COMP - 05/15/2018 10:37 AM EDT Seen in conjunction with Dr. Mcgraw for second opinion on conductive hearing loss, muffled sound quality and otalgia on the right. Audio from February suggested a moderately severe conductive loss. Results: It was this clinician's opinion that the SRT from February did not match RETORT UNLOADER and therefore testing was completed in ascending 5 dB steps AU. ??She could hold a conversation in the right ear only at 40 dB HL initially prior to testing. Normal hearing for both ears. Normal tymps. Recorded MEEI word list used AU. Rec: Follow up per ENT. Procedure Note Unknown - 05/15/2018 Seen in conjunction with Dr. Mcgraw for second opinion on conductivehearing loss, muffled sound quality and otalgia on the right. Audio from February suggested amoderately severe conductive loss. Results: It was this clinician's opinion that the SRT from February did notmatch RETORT UNLOADER and therefore testing was completed in ascending 5 dB steps AU. She couldhold a conversation in the right ear only at 40 dB HL initially prior to testing. Normal hearingfor both ears. Normal tymps. Recorded MEEI word list used AU. Rec: Follow up per ENT. Unknown AUDIOLOGY SERVICES O RDERABLES AUDBASE COMP documented in this encounter Visit Diagnoses Diagnosis Right ear pain Otalgia, unspecified Encounter for hearing examination Other examination of ears and hearing documented in this encounter Care Teams Service Worker Helper Relationship Specialty Start Date End Date Mary Muhammad APRN PCP - General Family Medicine 03/08/18 documented as of this encounter
--- OUTSIDE RECORDS SUMMARY | 2024-09-08 14:32 | XMS_ITS | Clinical Summary ---
Author Organization [facility] Address [address] [place] [address] Care Team Providers Care Meat And Seafood Clerk Name Role Phone Unknown, Provider Primary Care Provider [phone] Social History Tobacco Use Types Packs/Day Years Used Date Smoking Tobacco: Never Assessed Sex and Gender Information Value Date Recorded Sex Assigned at Not on file Gender Identity Not on file Sexual Orientation Not on file Plan of Treatment Health Maintenance Due Date Last Done Comments Hepatitis B Vaccine (1 of 3 - 19+ 3-dose series) 11/20 COVID-19 Vaccine ( season) 2024 Hepatitis C Screen Completed 11/29/2022 Procedures Procedure Name Priority Date/Time Associated Diagnosis Comments HEPATITIS C AB W REFLEX TO HCV RNA BY PCR Routine 11/29/2022 12:05 EST from Last 3 Months or Most Recently Relevant to Health Maintenance Results * HEPATITIS C AB W REFLEX TO HCV RNA BY PCR (11/29/2022 12:05 EST) Hep C Antibody Negative Negative 11/30/2022 9:54 EST [facility] Blood VENOUS BLOOD / Unknown 11/29/2022 12:05 EST 11/29/2022 21:41 EST Provider Outr Resulting Lab CHEMISTRY & BLOOD GAS ORDERABLES [facility] [address] [place] [address] from Last 3 Months or Most Recently Relevant to Health Maintenance Care Teams Meat And Seafood Clerk Relationship Specialty Start Date End Date Unknown, Provider, PCP - General 03/17/16
--- OUTSIDE RECORDS SUMMARY | 2024-09-08 14:32 | XMS_ITS | Encounter Summary ---
Author Organization [facility] Address [address] [place] [address] Care Team Providers Care Final Cigar And Box Examiner Name Role Phone Unknown, Provider Primary Care Provider [phone] Encounter Details Date Type Department Care Team (Late st Contact Info) Description 11/29/2022 Lab Requisition [facility] Pathology & Laboratory Medicine - [facility] [address] [place] [address] Outr Resulting Lab, Provider Social History Tobacco Use Types Packs/Day Years [...] RNA BY PCR Routine 11/29/2022 12:05 EST HEPATITIS B SURFACE ANTIGEN Routine 11/29/2022 12:05 EST documented in this encounter Results * HEPATITIS B SURFACE ANTIGEN (11/29/2022 12:05 EST) Hep B Surface Ag Negative Negative 11/30/2022 10:04 EST [facility] Blood VENOUS BLOOD / Unknown 11/29/2022 12:05 EST 11/29/2022 21:41 EST Provider Outr Resulting Lab CHEMISTRY & BLOOD GAS ORDERABLES [facility] [address] [place] [address] * HEPATITIS C AB W REFLEX TO HCV RNA BY PCR (11/29/2022 12:05 EST) Hep C Antibody Negative Negative 11/30/2022 9:54 EST [facility] Blood VENOUS BLOOD / Unknown 11/29/2022 12:05 EST 11/29/2022 21:41 EST Provider Outr Resulting Lab CHEMISTRY & BLOOD GAS ORDERABLES [facility] [address] [place] [address] documented in this encounter Visit Diagnoses Not on filedocumented in this encounter Care Teams Final Cigar And Box Examiner Relationship Specialty Start Date End Date Unknown, Provider, PCP - General 03/17/16 documented as of this encounter
--- OUTSIDE RECORDS SUMMARY | 2024-09-08 14:32 | XMS_ITS | Encounter Summary ---
Author Organization [facility] Address [facility] [place] [address] Care Team Providers Care Wood Sawyer Name Role Phone Lexie Finn MD Primary Care Provider [phone] Encounter Details Date Type Department Care Team (Late st Contact Info) Description 02/12/2016 Orders Only Obstetrics [place] [address] Meme Huitron MD [facility] DR OBSTETRICS [place] [address] FHx: congenital heart disease Social History Tobacco Use Types Packs/Day Years Used Date Smoking Tobacco: Never Assessed Sex and Gender Information Value Date Recorded Sex Assigned at Not on file Gender Identity Not on file Sexual Orientation Not on file documented as of this encounter Plan of Treatment Not on file documented as of this encounter Results * US OB Detailed Morphology (02/24/2016 2:46 PM EDT) Anatomical Region Laterality Modality Pelvis, Abdomen Ultrasound 02/24/2016 2:00 PM EDT Impressions 02/24/2016 3:40 PM EDT Impression 2nd Trimester - Detailed Morphology - Summary Single intrauterine with a gestational age of 23w 2d based on Early Ultrasound ??(12/08/15). Composite age based on the current ultrasound alone is 21w 0d. Amniotic fluid volume is appropriate for gestational age. Detailed anatomic evaluation was performed and no structural abnormalities are noted. I ??viewed the images and agree with the above interpretation. ? E Dorita Aburto MD Electronically Signed Final Report ?? 02/24/2016 03:40 pm Narrative 02/24/2016 3:40 PM EDT OBSTETRICS REPORT ?(Signed Final 02/24/2016 03:40 pm) Patient Info ID #: ? [id number] ?: ??[birth year] (20 yrs) Name: ? ABRAHAN SABA ?Visit Date: 02/24/2016 02:00 pm Performed By Performed By: ? 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 O+ ? Height: ??5'6 ?? Weight: ?? 134 ? BMI: ??21.63 Evaluation Num Of Fetuses: ? 1 Heart ? 139 Rate(bpm): Cardiac Activity: ?? Observed, normal rhythm Presentation: ? Breech Placenta: ? Posterior P. Cord Insertion: ??Within Normal Limits Amniotic Fluid JANET FV: ?Appropriate for gestational age -------- Biometry -------- BPD: ?45.7 ??mm ? G.Age: ?? 19w 6d OFD: ?69.1 ??mm HC: ?185.0 ??mm ? G.Age: ?? 20w 6d AC: ?167.7 ??mm ? G.Age: ?? 21w 5d FL: ? 36.2 ??mm ? G.Age: ?? 21w 3d HUM: ?35.2 ??mm ? G.Age: ?? 22w 1d CER: ?22.6 ??mm ? G.Age: ?? 21w 2d NB: ?5.9 ??mm LV: ?5.2 ??mm CM: ?3.9 ??mm CI: ?66.1 ??% ? 70 - 86 FL/HC: ? 19.6 ??% ? 19.2 - 20.8 HC/AC: ? 1.10 ?1.05 - 1.21 FL/BPD: ?79.2 ??% ? 71 - 87 FL/AC: ? 21.6 ??% ? 20 - 24 Est. FW: ? 428 ?? gm ?? 0 lb 15 oz Gestational Age LMP: ? 14w 5d ?Date: ??11/13/15 ? REÉNE: ?? 08/19/16 U/S Today: ? 21w 0d ?RENÉE: ?? 07/06/16 Best: ?23w 2d ?? Det. By: ??Early ?RENÉE: ?? 06/20/16 ? Ultrasound ? (12/08/15) Targeted Anatomy Central Nervous System Calvarium: ?Within Normal Limits Intracranial: ? Within Normal Limits Cavum: ?Visualized Lat. Ventricles: ?Within Normal Limits Cerebellum: ? Within Normal Limits Choroid Plexus: ? Within Normal Limits Cisterna Magna: ? Within Normal Limits Spine Cervical: ? Visualized Thoracic: ? Visualized Lumbar: ? Visualized Sacral: ? Visualized Head/Neck Face: ? Visualized Lips: ? Within Normal Limits Nuchal Fold: ?Not evaluated at this Eyes: ? Visualized Neck: ? Visualized Profile: ?Visualized Thorax Lungs: ?Visualized Four Chamber: ? Within Normal Limits Cardiac Motion: ? Normal Rhythm R Outflow Tract: ?Visualized L Outflow Tract: ?Visualized Aortic Arch: ?Visualized Ductal Arch: ?Visualized Cardiac [place]: ? Visualized 3 Vessel View: ?Visualized Diaphragm: ?Visualized Abdomen Ventral Wall: ? Visualized Stomach: ?Visualized Situs: ?Normal Lt Kidney: ?Visualized Rt Kidney: ?Visualized Bladder: ?Visualized Bowel: ?Visualized Extremities Lt Humerus: ? Visualized Rt Humerus: ? Visualized Lt Forearm: ? Visualized Rt Forearm: ? Visualized Lt Hand: ?Visualized Rt Hand: ?Visualized Lt Femur: ? Visualized Rt Femur: ? Visualized Lt Lower Leg: ? Visualized Rt Lower Leg: ? Visualized Lt Foot: ?Visualized Rt Foot: ?Visualized Other Umbilical Cord: ? 3 vessel cord Cord Insertion: ? WIthin Normal Limits Comment: ? Nasal Bone: Visualized Cervix Uterus Adnexa Left Ovary Not visualized Right Ovary Not visualized Procedure Note Charbel Aburto MD - 02/24/2016 OBSTETRICS REPORT (Signed Final 02/24/2016 03:40 pm) Patient Info ID #: [id number] : [birth year] (20 yrs) Name: ABRAHAN SABA Visit Date: 02/24/2016 02:00 pm Performed By Performed By: Kristyn Johns RDMS Attending: Charbel Aburto MD Referred By: K[facility] Service(s) Provided [facility] - Detailed Morphology - Genetics - [id number] Indications FOB transposition of great vessels; E - Coordinates with gestational age or more than one week OB History Blood Type: O+ Height: 5'6 Weight: 134 BMI: 21.63 Evaluation Num Of Fetuses: 1 Heart 139 Rate(bpm): Cardiac Activity: Observed, normal rhythm Presentation: Breech Placenta: Posterior P. Cord Insertion: Within Normal Limits Amniotic Fluid JANET FV: Appropriate for gestational age -------- Biometry -------- BPD: 45.7 mm G.Age: 19w 6d OFD: 69.1 mm HC: 185.0 mm G.Age: 20w 6d AC: 167.7 mm G.Age: 21w 5d FL: 36.2 mm G.Age: 21w 3d HUM: 35.2 mm G.Age: 22w 1d CER: 22.6 mm G.Age: 21w 2d NB: 5.9 mm LV: 5.2 mm CM: 3.9 mm CI: 66.1 % 70 - 86 FL/HC: 19.6 % 19.2 - 20.8 HC/AC: 1.10 1.05 - 1.21 FL/BPD: 79.2 % 71 - 87 FL/AC: 21.6 % 20 - 24 Est. FW: 428 gm 0 lb 15 oz Gestational Age LMP: 14w 5d Date: 11/13/15 RENÉE: 08/19/16 U/S Today: 21w 0d RENÉE: 07/06/16 Best: 23w 2d Det. By: Early RENÉE: 06/20/16 Ultrasound (12/08/15) Targeted Anatomy Central Nervous System Calvarium: Within Normal Limits Intracranial: Within Normal Limits Cavum: Visualized Lat. Ventricles: Within Normal Limits Cerebellum: Within Normal Limits Choroid Plexus: Within Normal Limits Cisterna Magna: Within Normal Limits Spine Cervical: Visualized Thoracic: Visualized Lumbar: Visualized Sacral: Visualized Head/Neck Face: Visualized Lips: Within Normal Limits Nuchal Fold: Not evaluated at this Eyes: Visualized Neck: Visualized Profile: Visualized Thorax Lungs: Visualized Four Chamber: Within Normal Limits Cardiac Motion: Normal Rhythm R Outflow Tract: Visualized L Outflow Tract: Visualized Aortic Arch: Visualized Ductal Arch: Visualized Cardiac [place]: Visualized 3 Vessel View: Visualized Diaphragm: Visualized Abdomen Ventral Wall: Visualized Stomach: Visualized Situs: Normal Lt Kidney: Visualized Rt Kidney: Visualized Bladder: Visualized Bowel: Visualized Extremities Lt Humerus: Visualized Rt Humerus: Visualized Lt Forearm: Visualized Rt Forearm: Visualized Lt Hand: Visualized Rt Hand: Visualized Lt Femur: Visualized Rt Femur: Visualized Lt Lower Leg: Visualized Rt Lower Leg: Visualized Lt Foot: Visualized Rt Foot: Visualized Other Umbilical Cord: 3 vessel cord Cord Insertion: WIthin Normal Limits Comment: Nasal Bone: Visualized Cervix Uterus Adnexa Left Ovary Not visualized Right Ovary Not visualized IMPRESSION Impression 2nd Trimester - Detailed Morphology - Summary Single intrauterine with a gestational age of 23w 2d based on Early Ultrasound (12/08/15). Composite age based on the current ultrasound alone is 21w 0d. Amniotic fluid volume is appropriate for gestational age. Detailed anatomic evaluation was performed and no structural abnormalities are noted. I viewed the images and agree with the above interpretation. Charbel Aburto MD Electronically Signed Final Report 02/24/2016 03:40 pm Meme Huitron MD IMG OB ORDERABLES documented in this encounter Visit Diagnoses Diagnosis FHx: congenital heart disease Family history of congenital anomalies FHx: congenital heart disease Family history of congenital anomalies documented in this encounter Care Teams Wood Sawyer Relationship Specialty Start Date End Date Lexie Finn MD [facility] [place] [address] PCP - General 10/12/10 03/07/18 documented as of this encounter
--- OUTSIDE RECORDS SUMMARY | 2024-09-08 14:32 | XMS_ITS | Encounter Summary ---
Author Organization [facility] Address [address] [place] [address] Care Team Providers Care Sand Hauler Name Role Phone Unknown, Provider Primary Care Provider [phone] Encounter Details Date Type Department Care Team (Latest Contact Info) Description 11/11/2020 Lab Requisition [facility] Pathology & Laboratory Medicine - [address] [address] Kendy Jeter FNP [address] [place], [place] [id number] Encounter for general adult medical examination without abnormal findings; Encounter for screening for malignant neoplasm of cervix; Encounter for screening for human papillomavirus (HPV) Social History Tobacco Use Types Packs/Day Years Used Date Smoking Tobacco: Never Assessed Sex and Gender Information Value Date Recorded Sex Assigned at Not on file Gender Identity Not on file Sexual Orientation Not on file documented as of this encounter Plan of Treatment Not on file documented as of this encounter Procedures Procedure Name Priority Date/Time Associated Diagnosis Comments PAP TEST Today 11/10/2020 8:45 EST Encounter for general adult medical examination without abnormal findings Encounter for screening for malignant neoplasm of cervix Encounter for screening for human papillomavirus (HPV) documented in this encounter Results * PAP TEST (11/10/2020 8:45 EST) Specimens A. Cervix and/or Endocervix , ThinPrep Imaging System with Manual Evaluation 11/23/2020 14:58 EST [facility] Specimen Adequacy Satisfactory for Evaluation - transformation zone component present 11/23/2020 14:58 EST [facility] General Categorization Negative for intraepithelial lesion or malignancy 11/23/2020 14:58 EST [facility] Attestation . 11/23/2020 14:58 EST [facility] at 1458 Clinical History See below 11/23/19 14:58 EST [facility] Performing Lab [facility] 11/23/2020 14:58 EST [facility] Scanned Images 11/23/2020 14:58 EST [facility] Papanicolaou smear specimen (specimen) CERVIX UTERI STRUCTURE / Unknown 11/10/2020 8:45 EST 11/11/2020 10:59 EST Kendy Corona FOOD AND BEVERAGE ATTENDANT PATHOLOGY ORDERABLES [facility] [address] [place] [address] documented in this encounter Visit Diagnoses Diagnosis Encounter for general adult medical examination without abnormal findings Unspecified general medical examination Encounter for screening for malignant neoplasm of cervix Screening for malignant neoplasm of the cervix Encounter for screening for human papillomavirus (HPV) Special screening examination for human papillomavirus (HPV) documented in this encounter Additional Health Concerns Infection Onset Date Last Indicated Resolved Time COVID-19 10/18/2021 10/18/2021 11/07/2021 22:1 5 EST documented as of this encounter Care Teams Sand Hauler Relationship Specialty Start Date End Date Unknown, Provider, PCP - General 03/17/16 documented as of this encounter
--- OUTSIDE RECORDS SUMMARY | 2024-09-08 14:32 | XMS_ITS | Encounter Summary ---
[place] [address] Care Team Providers Care Construction Foreman Name Role Phone Jb Mary Drew APRN Primary Care Provider [phone] Reason for Referral * Diagnostic Test (Routine) - Closed Specialty Diagnoses / Procedures Referred By Contac t Referred To Contact Radiology Diagnoses Conductive hearing loss of right ear with unrestricted hearing of left ear Procedures CT Temporal Bone wo Contrast (Generic) Germán Mcgraw MD [facility] [place] [address] [facility] [place] [address] Referral ID Status Reason Start Date Expiration Date V isits Requested Visits Authorized [id number] Closed Specialty Service Requested 05/21/2018 08/19/2018 1 1 Reason for Visit * Diagnostic Test (Routine) - Closed Specialty Diagnoses / Procedures Referred By Contac t Referred To Contact Radiology Diagnoses Conductive hearing loss of right ear with unrestricted hearing of left ear Procedures CT Temporal Bone wo Contrast (Generic) Germán Mcgraw MD [facility] [place] [address] [facility] [place] [address] Referral ID Status Reason Start Date Expiration Date V isits Requested Visits Authorized [id number] Closed Specialty Service Requested 05/21/2018 08/19/2018 1 1 Encounter Details Date Type Department Care Team (Latest Contact Info) Description 05/22/2018 8:34 AM EDT - 05/22/2018 11:59 PM EDT Hospital Encounter [facility] Scan at [facility] [place] [address] Germán Mcgraw MD [facility] [place] [address] Conductive hearing loss of right ear with unrestricted hearing of left ear Discharge Disposition: Home Social History Tobacco Use Types Packs/Day Years Used Date Smoking Tobacco: Never Smokeless Tobacco: Never Comments Yes Sex and Gender Information Value Date Recorded Sex Assigned at Not on file Gender Identity Not on file Sexual Orientation Not on file documented as of this encounter Medications at Time of Discharge Medication Sig Dispensed Refills Start Date End Date loratadine (CLARITIN ORAL) Take by mouth as needed. acetaminophen (TYLENOL) 325 mg Tablet Take 650 mg by mouth as needed for Pain. promethazine (PHENERGAN) 12.5 mg TabletIndications:Family history of transposition of great vessels,FHx: congenital heart disease Take 12.5 mg by mouth as needed for Nausea. magnesium 250 mg TabletIndications:Family history of transposition of great vessels,FHx: congenital heart disease Take by mouth daily. etonogestrel (NEXPLANON) 68 mg Implant by Subdermal route once. 02/07/2023 b complex vitamins CapsuleIndications:Family history of transposition of great vessels,FHx: congenital heart disease Take 1 capsule by mouth daily. 02/07/2023 documented as of this encounter Plan of Treatment Not on file documented as of this encounter Procedures Procedure Name Priority Date/Time Associated Diagnosis Comments CT TEMPORAL BONE WO CONTRAST Routine 05/22/2018 8:55 AM EDT Conductive hearing loss of right ear with unrestricted hearing of left ear documented in this encounter Results * CT Temporal Bone wo Contrast (Generic) (05/22/2018 8:55 AM EDT) Anatomical Region Laterality Modality Head Computed Tomogra phy Impressions 05/22/2018 2:[address] of the temporal bones. I have personally reviewed the image(s) and the residents interpretation and agree with the findings, LOTTIE GROSS at 05/22/2018 2:10 PM Narrative 05/22/2018 2:10 PM EDT EXAMINATION: CT TEMPORAL BONE WO CONTRAST (GENERIC) CLINICAL HISTORY: right ear fluctuating maximal conductive hearing loss. TECHNIQUE: Noncontrast CT of the temporal bones COMPARISON: None FINDINGS: RIGHT TEMPORAL BONE: The external auditory canal is patent. The tympanic membrane is intact. No opacification in the middle ear cavity. The ossicular chain is intact. The fluid-filled structures of the inner ear are normal in configuration. The mastoid air cells are clear. LEFT TEMPORAL BONE: The external auditory canal is patent. The tympanic membrane is intact. No opacification in the middle ear cavity. The ossicular chain is intact. The fluid-filled structures of the inner ear are normal in configuration. The mastoid air cells are clear. Procedure Note Lottie Gross MD - 05/22/2018 EXAMINATION: CT TEMPORAL BONE WO CONTRAST (GENERIC) CLINICAL HISTORY: right ear fluctuating maximal conductive hearing loss. TECHNIQUE: Noncontrast CT of the temporal bones COMPARISON: None FINDINGS: RIGHT TEMPORAL BONE: The external auditory canal is patent. The tympanic membrane is intact. No opacification in the middle ear cavity. Theossicular chain is intact. The fluid-filled structures of the inner ear are normalin configuration. The mastoid air cells are clear. LEFT TEMPORAL BONE: The external auditory canal is patent. The tympanicmembrane is intact. No opacification in the middle ear cavity. The ossicular chainis intact. The fluid-filled structures of the inner ear are normal in configuration. The mastoid air cells are clear. IMPRESSION Normal CT of the temporal bones. I have personally reviewed the image(s) and the residents interpretationand agree with the findings, LOTTIE GROSS at 05/22/2018 2:10 PM Germán Mcgraw MD IMG CT ORDERABLES documented in this encounter Visit Diagnoses Diagnosis Conductive hearing loss of right ear with unrestricted hearing of left ear documented in this encounter Care Teams Construction Foreman Relationship Specialty Start Date End Date Mary Muhammad APRN PCP - General Family Medicine 03/08/18 documented as of this encounter
--- OUTSIDE RECORDS SUMMARY | 2024-09-08 14:32 | XMS_ITS | Encounter Summary ---
Author Organization [facility] [place] [address] Care Team Providers Care Senior Data Quality Analyst Name Role Phone Lexie Finn MD Primary Care Provider [phone] Encounter Details Date Type Department Care Team (Latest Contact Info) Description 02/24/2016 12:45 PM EDT - 02/24/2016 2:55 PM EDT Hospital [place] [address] Meme Huitron MD [facility] [place] [address] FHx: congenital heart disease Discharge Disposition: Home Social [...] Sig Dispensed Refills Start Date End Date promethazine (PHENERGAN) 12.5 mg TabletIndications:Family history of transposition of great vessels,FHx: congenital heart disease Take 12.5 mg by mouth as needed for Nausea. magnesium 250 mg TabletIndications:Family history of transposition of great vessels,FHx: congenital heart disease Take by mouth daily. VOL-PLUS 27-1 mg TabletIndications:Family history of transposition of great vessels,FHx: congenital heart disease 0 01/30/2016 b complex vitamins CapsuleIndications:Family history of transposition of great vessels,FHx: congenital heart disease Take 1 capsule by mouth daily. 02/07/2023 documented as of this encounter Plan of Treatment Not on file documented as of this encounter Procedures Procedure Name Priority Date/Time Associated Diagnosis Comments US OB DETAILED MORPHOLOGY Routine 02/24/2016 2:46 PM EDT FHx: congenital heart disease documented in this encounter Results * US [...] and agree with the above interpretation. ? Charbel Aburto MD Electronically Signed Final Report ?? 02/24/2016 03:40 pm Narrative 02/24/2016 3:40 PM EDT OBSTETRICS REPORT ?(Signed Final 02/24/2016 03:40 pm) Patient Info ID #: ? [id number] ?: ??[birth year] (20 yrs) Name: ? ABRAHANMICHAEL SABA ?Visit Date: 02/24/2016 02:00 pm Performed By Performed By: ? 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 21.6 ??% ? - Est. FW: ? 428 ?? gm ?? 0 lb 15 oz Gestational Age LMP: ? 14w 5d ?Date: ??11/13/15 ? RENÉE: ?? 08/19/16 U/S Today: ? 21w 0d [...] Aortic Arch: ?Visualized Ductal Arch: ?Visualized Cardiac [place]: ? Visualized 3 Vessel View: ?Visualized Diaphragm: [...] 02/24/2016 03:40 pm) Patient Info ID #: [id number] : [birth year] (20 yrs) Name: ABRAHAN SABA Visit Date: 02/24/2016 02:00 pm Performed By Performed By: Kristyn Johns RDMS Attending: Charbel Aburto MD Referred By: ANEA LELONG CNM Service(s) Provided [facility] - Detailed Morphology - Genetics - [id number] Indications FOB transposition of great vessels; E [...] Aortic Arch: Visualized Ductal Arch: Visualized Cardiac [place]: Visualized 3 Vessel View: Visualized Diaphragm: Visualized [...] 02/24/2016 03:40 pm Meme Huitron MD IMG US OB ORDERABLES documented in this encounter Visit Diagnoses Diagnosis FHx: congenital heart disease Family history of congenital anomalies documented in this encounter Care Teams Senior Data Quality Analyst Relationship Specialty Start Date End Date Lexie Finn MD [facility] [place] [address] PCP - General 10/12/10 03/07/18 documented as of this encounter
--- OUTSIDE RECORDS SUMMARY | 2024-09-08 14:32 | XMS_ITS | Encounter Summary ---
[place] [address] Care Team Providers Care Chocolate Packer Name Role Phone Mary Muhammad APRN Primary Care Provider [phone] Encounter Details Date Type Department Care Team (Late st Contact Info) Description 05/21/2018 [place] [phone] Laura Rae Social History Tobacco Use Types Packs/Day Years Used Date Smoking Tobacco: Never Smokeless Tobacco: Never Comments Yes Sex and Gender Information Value Date Recorded Sex Assigned at Not on file Gender Identity Not on file Sexual Orientation Not on file documented as of this encounter Miscellaneous Notes * Telephone Encounter - Laura Rae - 05/21/2018 2:16 PM EDT Mom took a message for Lizette. Informed she will call back to book Follow up within the next [address] prior per RM. documented in this encounter Plan of Treatment Not on file documented as of this encounter Visit Diagnoses Not on filedocumented in this encounter Care Teams Chocolate Packer Relationship Specialty Start Date End Date Mary Muhammad APRN PCP - General Family Medicine 03/08/18 documented as of this encounter
--- OUTSIDE RECORDS SUMMARY | 2024-09-08 14:32 | XMS_ITS | Encounter Summary ---
Author Organization [facility] Address [address] [place] [address] Care Team Providers Care Colorman Name Role Phone Unknown, Provider Primary Care Provider [phone] Encounter Details Date Type Department Care Team ([facility] st Contact Info) Description 09/18/2017 Results Only [facility] [phone] Mary Muhammad, PUBLIC WORKS INSPECTOR [address] [place] [phone] Social History Tobacco Use Types Packs/Day Years Used Date Smoking Tobacco: Never Assessed Sex and Gender Information Value Date Recorded Sex Assigned at Not on file Gender Identity Not on file Sexual Orientation Not on file documented as of this encounter Plan of Treatment Not on file documented as of this encounter Procedures Procedure Name Priority Date/Time Associated Diagnosis Comments PAP TEST- RESULT ONLY Routine 09/18/2017 0:00 EDT documented in this encounter Results * PAP TEST- RESULT ONLY (09/18/2017 0:00 EDT) Pathology Report: CYTOPATHOLOGY REPORT Reports generated via electronic interface contain original data; however they are lacking the format of the original report. Caution should be taken when reading/interpreti ng unformatted reports. Name: ? NAKIA ABRAHAN ? Accession #: ? [id number] : ? 1995 (Age: 21) ??F ?Collect Date: ? 09/18/2017 Location: ? [facility] ? Receive Date: ? 09/19/2017 Provider: ?MARY MUHAMMAD PUBLIC WORKS INSPECTOR Copy to: ? Specimen/Source: ?Pap Test, Cervix, ThinPrep Imaging System with manual evaluation Last Menstrual Period: ? 09/04/17 Menstrual/Pregnanc y Status: ? None Hormonal/Contracep tive Status: ? Yes ? SPECIMEN ADEQUACY ? Satisfactory for Evaluation - transformation zone component absent GENERAL CATEGORIZATION ? Negative for Intraepithelial Lesion or Malignancy ? Document reviewed and electronically signed by: ? MACK Yanez(ASCP) ? Report Date: ??10/03/2017 10:20 End of Report [facility] 09/18/2017 09/19/2017 Mary Muhammad NP PATHOLOGY ORDERABLES [facility] [address] [place] [address] documented in this encounter Visit Diagnoses Not on filedocumented in this encounter Care Teams Colorman Relationship Specialty Start Date End Date Unknown, Provider, PCP - General 03/17/16 documented as of this encounter
--- OUTSIDE RECORDS SUMMARY | 2024-09-08 14:32 | XMS_ITS | Encounter Summary ---
Author Organization [facility] Address [address] [place] [address] Care Team Providers Care Machine Greaser Name Role Phone Unavailable Primary Care Provider Unavailabl e Encounter Details Date Type Department Care Team (Latest Contact Info) Description 03/28/2001 10:26 EDT - 03/28/2001 11:59 EDT Hospital Encounter [address] [address] Tyler Castillo, DDS [address] [place], [place] [id number] Discharge Disposition: Auto Discharge Social History Tobacco Use Types Packs/Day Years Used Date Smoking Tobacco: Never Assessed Sex and Gender Information Value Date Recorded Sex Assigned at Not on file Gender Identity Not on file Sexual Orientation Not on file documented as of this encounter Discharge Disposition Disposition Code Departure Means Destination Auto Discharge documented in this encounter Plan of Treatment Not on file documented as of this encounter Visit Diagnoses Not on filedocumented in this encounter
--- OUTSIDE RECORDS SUMMARY | 2024-09-08 14:32 | XMS_ITS | Encounter Summary ---
Author Organization [facility] Address [facility] [place] [address] Care Team Providers Care Editor Trade Journal Name Role Phone Lexie Finn MD Primary Care Provider [phone] Encounter Details Date Type Department Care Team (Latest Contact Info) Description 02/24/2016 2:56 PM EDT - 02/24/2016 11:59 PM EDT Hospital Encounter Non-[place] [address] Meme Huitron MD [facility] OBST[place]ICS [place] [address] Family history of transposition of great vessels Discharge Disposition: Home Social History Tobacco Use [...] Date/Time Associated Diagnosis Comments ECHO COMPLETE Routine 02/24/2016 3:56 PM EDT Family history of transposition of great vessels documented in this encounter Results * ECHO COMPLETE (02/24/2016 3:56 PM EDT) Anatomical Region Laterality Modality Other 02/24/2016 Narrative 02/24/2016 4:13 PM EDT Procedure: ?Pediatric Echocardiogram Patient: ?NAKIA GAUTHIER ? (Age): 1995(20y) ? Med Rec#: ? [id number] ?Sex: ?F ? Site Loc: ? Ht / Wt: ??(cm)/ (kg) ? Pt. Loc: ?Echo Lab ? Study Date: ?? 02/24/2016 ?Pt. Type: Study Quality: ? Referring: Meme Huitron Reading: Mattie Beck ([id number]) Fiberglass Technician: Solo Reinoso Diagnosis: *ICD-10-PCS Family history of other specified conditions (Z84.89) BP: ? / SUMMARY: 1. 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 ??Good quality images were obtained. ??The fetus was in a transverse position. 2. No cardiac structural abnormalities were identified. ??Chamber sizes, ventricular function, arterial and venous connections appear normal. The Doppler exam was normal. ??No arrhythmias were noted during the exam. heart rate was 137 beats per minute. ??There was no evidence of hydrops. ??This was a normal echocardiogram. 3. The limitations of echocardiography include the inability to diagnose patent ductus arteriosus, some atrial and ventricular septal defects, minor valve abnormalities and coarctation. ?? 4. No specific or cardiac follow-up is required on this basis of this study. FINDINGS: ? Venous Connections ?At least one pulmonary vein from each side enters the left atrium. No pulmonary venous anomalies are detected. ?? Av Valves ?The tricuspid valve is functionally and structurally normal. ?The tricuspid valve diameter measures 7.4 mm in the lateral plane obtained from the A4C view. (Z-Score: 0.52). ?The mitral valve is functionally and structurally normal. ?The mitral valve diameter measures 6.8 mm in the lateral plane obtained from the A4C view. (Z-Score: 0.04). Ventricles ?The right ventricle is of normal size. ?The right ventricular systolic function is normal. ?The left ventricular chamber size, wall thickness and systolic function are normal. ?The global left ventricular systolic function is normal. Ventricular Septum ?The interventricular septum is intact with no evidence of a ventricular septal defect. Semilunar Valves ?The pulmonary valve annulus diameter measures 4.2 mm. (Z-Score: -0.08). ?The pulmonary valve leaflets are of normal thickness. ?The aortic valve annulus diameter measures 2.9 mm. (Z-Score: -1.52). ?The aortic valve leaflets are of normal thickness. Thoracic Arteries ?The main pulmonary artery is normal, without dilatation, stenosis, or aneurysm.The great arteries are normally related. ?The right pulmonary artery has normal size, origin, and configuration. ?The left pulmonary artery has normal size, origin, and configuration. ?The ascending aorta is normal, without dilatation or narrowing. ?The ascending aorta diameter measures 4 mm from the long axis view. (Z-Score: 0.00). ?The aortic arch is normal, without dilatation, aneurysm or coarctation.The aortic isthmus is normal sized. ?The aortic isthmus diameter measures 2.4 mm distal to the left subclavian artery. (Z-Score: -0.70). ?The descending aorta is normal, without dilatation, narrowing or aneurysm. Effusion ?There is no pericardial effusion. ?No evidence of hydrops. Mitral Valve ?Value ?Units (Range) ? Z Score ? MV diam (lateral) 4C6.8 ?mm ? Tricuspid Valve ?Value ?Units (Range) ? Z Score ? TV diam (lateral) 4C7.4 ?mm ? Pulmonary Valve / RV ?Value ?Units (Range) ? Z Score ? PV biju diam 2D ?4.2 ?mm ? Aorta ?Value ?Units (Range) ? Z Score ? AV biju diam 2D ?2.9 ?mm ? Asc Ao diam (LAX) ?? 4 ?mm ? Isthmus diam (SSN) ??2.4 ?mm ? All Z scores are estimated This report has been electronically signed by: Mattie Beck MD ? 02/24/2016 16:13:27 Images reviewed and interpretation verified [facility] Cardiac Ultrasound Laboratory Procedure Note Mattie Beck MD - 02/24/2016 Procedure: Pediatric Echocardiogram Patient: NAKIA GAR(Age): 1995(20y) Med Rec#: [id number] Sex: F Site Loc: Ht / Wt: (cm)/ (kg) Pt. Loc: Echo Lab Study Date: 02/24/2016 Pt. Type: Study Quality: Referring: Meme Huitron Reading: Mattie Beck ([id number]) Fiberglass Technician: Solo Reinoso Diagnosis: *ICD-10-PCS Family history of other specified conditions (Z84.89) BP: / SUMMARY: 1. 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 Good quality images were obtained. The fetus was in a transverse position. 2. No cardiac structural abnormalities were identified. Chamber sizes, ventricular function, arterial and venous connections appear normal. The Doppler exam was normal. No arrhythmias were noted during the exam. heart rate was 137 beats per minute. There was no evidence of hydrops. This was a normal echocardiogram. 3. The limitations of echocardiography include the inability to diagnose patent ductus arteriosus, some atrial and ventricular septal defects, minor valve abnormalities and coarctation. 4. No specific or cardiac follow-up is required on this basis of this study. FINDINGS: Venous Connections At least one pulmonary vein from each side enters the left atrium. No pulmonary venous anomalies are detected. Av Valves The tricuspid valve is functionally and structurally normal. The tricuspid valve diameter measures 7.4 mm in the lateral plane obtained from the A4C view. (Z-Score: 0.52). The mitral valve is functionally and structurally normal. The mitral valve diameter measures 6.8 mm in the lateral plane obtained from the A4C view. (Z-Score: 0.04). Ventricles The right ventricle is of normal size. The right ventricular systolic function is normal. The left ventricular chamber size, wall thickness and systolic function are normal. The global left ventricular systolic function is normal. Ventricular Septum The interventricular septum is intact with no evidence of a ventricular septal defect. Semilunar Valves The pulmonary valve annulus diameter measures 4.2 mm. (Z-Score: -0.08). The pulmonary valve leaflets are of normal thickness. The aortic valve annulus diameter measures 2.9 mm. (Z-Score: -1.52). The aortic valve leaflets are of normal thickness. Thoracic Arteries The main pulmonary artery is normal, without dilatation, stenosis, or aneurysm.The great arteries are normally related. The right pulmonary artery has normal size, origin, and configuration. The left pulmonary artery has normal size, origin, and configuration. The ascending aorta is normal, without dilatation or narrowing. The ascending aorta diameter measures 4 mm from the long axis view. (Z-Score: 0.00). The aortic arch is normal, without dilatation, aneurysm or coarctation.The aortic isthmus is normal sized. The aortic isthmus diameter measures 2.4 mm distal to the left subclavian artery. (Z-Score: -0.70). The descending aorta is normal, without dilatation, narrowing or aneurysm. Effusion There is no pericardial effusion. No evidence of hydrops. Mitral Valve Value Units (Range) Z Score MV diam (lateral) 4C6.8 mm Tricuspid Valve Value Units (Range) Z Score TV diam (lateral) 4C7.4 mm Pulmonary Valve / RV Value Units (Range) Z Score PV biju diam 2D 4.2 mm Aorta Value Units (Range) Z Score AV biju diam 2D 2.9 mm Asc Ao diam (LAX) 4 mm Isthmus diam (SSN) 2.4 mm All Z scores are estimated This report has been electronically signed by: Mattie Beck MD 02/24/2016 16:13:27 Images reviewed and interpretation verified [facility] Cardiac Ultrasound Laboratory Meme Huitron MD ECHO ORDERABLES documented in this encounter Visit Diagnoses Diagnosis Family history of transposition of great vessels Family history of congenital anomalies documented in this encounter Care Teams Editor Trade Journal Relationship Specialty Start Date End Date Lexie Finn MD [facility] [address] [facility] [place] [address] PCP - General 10/12/10 03/07/18 documented as of this encounter
--- OUTSIDE RECORDS SUMMARY | 2024-09-08 14:32 | XMS_ITS | Encounter Summary ---
Author Organization [facility] Address [facility] [place] [address] Care Team Providers Care Is Support Analyst Name Role Phone Lexie Finn MD Primary Care Provider [phone] Reason for Visit * Reason Comments Ultrasound * Consultation (Routine) - Closed Specialty Diagnoses / Procedures Referred By Xiomara t Referred To Contact Genetics / Obstetrics and Gynecology Diagnoses FOB TRANSPOSITION OF GREAT VESSELS Procedures GENETIC CONSULT Sunshine العراقي, NICK [address] [place] [address] [facility] [employer] [address] [place] [address] Referral ID Status Reason Start Date Expiration Date Visits Re quested Visits Authorized [id number] Closed 01/15/2016 01/14/2017 2 2 Encounter Details Date Type Department Care Team (Latest Contact Info) Description 02/24/2016 2:15 PM EDT Procedure visit Obstetrics [place] [address] Charbel Aburto MD [facility] [place] [address] Family history of transposition of great vessels; FHx: congenital heart disease Social History Tobacco Use Types Packs/Day Years Used Date Smoking Tobacco: Never Smokeless Tobacco: Never Comments Yes Sex and Gender Information Value Date Recorded Sex Assigned at Not on file Gender Identity Not on file Sexual Orientation Not on file documented as of this encounter Last Filed Vital Signs Vital Sign Reading Time Taken Comments Blood Pressure 130/60 02/24/2016 12:53 PM EDT Pulse - - Temperature - - Respiratory Rate - - Oxygen Saturation - - Inhaled Oxygen Concentration - - Weight 60.8 kg (134 lb) 02/24/2016 12:53 PM EDT Height 167.6 cm (5' 6) 02/24/2016 12:53 PM EDT Body Mass Index 21.63 02/24/2016 12:53 PM EDT documented in this encounter Progress Notes * Charbel Aburto MD - 02/24/2016 2:18 PM EDT Diagnosis/Maternal Medicine Consult Note Lizette Saba is a 20 y.o. year old female who is at 23w2d gestation. She is seen in consultation at the request of Sunshine العراقي CNM for evaluation of anatomy due to FOB's history of congential heart defect: transposition of the great arteries. She was seen today for maternal- medicine consultation, ultrasound evaluation and genetic counseling with Gerald Perkins MS. Review of Systems Constitutional:feels well Movement: normal Contractions: none Leaking: None Bleeding: None Patient Active Problem List Diagnosis Date Noted ??? Exercise-induced asthma 11/07/2013 No past medical history on file. No past surgical history on file. Family History Problem Relation Age of Onset ??? Heart Defect Father of Baby Social History Occupational History ??? Not on file. Social History Main Topics ??? Smoking status: Never Smoker ??? Smokeless tobacco: Never Used ??? Alcohol Use: Not on file ??? Drug Use: Not on file ??? Sexual Activity: Not on file OB History Para Term AB TAB SAB Ectopic Multiple Living 1 # Outc Date GA Lbr Vamshi/2nd Wgt Sex Del Anes PTL Lv 1 Current Current Outpatient Prescriptions Medication Sig Dispense Refill ??? VOL-PLUS 27-1 mg Tablet 0 ??? promethazine (PHENERGAN) 12.5 mg Tablet Take 12.5 mg by mouth as needed for Nausea. ??? magnesium 250 mg Tablet Take by mouth daily. ??? b complex vitamins Capsule Take 1 capsule by mouth daily. No current facility-administered medications for this visit. Allergies Allergen Reactions ??? Shellfish Derived Nausea And Vomiting Ultrasound Date: 02/24/2016 Amniotic fluid volume normal Presentation breech Placenta posterior Growth is lagging slightly anatomy appears within normal limits Physical Exam BP 130/60 mmHg Ht 167.6 cm (5' 6) Wt 60.782 kg (134 lb) BMI 21.64 kg/m2 General: alert, well appearing, in no apparent distress, oriented to person, place and time HEENT: normocephalic, atraumatic Abdomen: Soft, nontender, gravid Neurologic:alert, oriented, normal speech, no focal findings or movement disorder noted Psychiatric: Affect is Appropriate. Assessment and Recommendations: 20 y.o. year old female at 23w2d weeks gestation, referred for counseling regarding family history of congenital heart defect. Today's ultrasound revealed normal appearing anatomy. The patient is also scheduled for echocardiogram later today. Due to lagging growth I recommend follow-up ultrsaound in 4 weeks at [facility]. This may representearly growth restriction or dating error. The is dated based upon a 12 week ultrasound done at an outside facility. The 18 week ultrasound done at [facility] was lagging by one week relative to the 12 week ultrasound. I appreciate the opportunity to be involved in this patients care, and am available if further questions should arise. Charbel ABURTO MD 02/24/2016 Cc: Sunshine العراقي CN [address] [place] [address] , with copy of ultrasound report documented in this encounter Plan of Treatment Not on file documented as of this encounter Visit Diagnoses Diagnosis Family history of transposition of great vessels Family history of congenital anomalies FHx: congenital heart disease Family history of congenital anomalies documented in this encounter Care Teams Is Support Analyst Relationship Specialty Start Date End Date Lexie Finn MD [facility] [place] [address] PCP - General 10/12/10 03/07/18 documented as of this encounter
--- OUTSIDE RECORDS SUMMARY | 2024-09-08 14:32 | XMS_ITS | Referral Summary ---
Author Organization [facility] Address [address] [place] [address] Care Team Providers Care Content Coordinator Name Role Phone Unknown, Provider Primary Care Provider [phone] Social History Tobacco Use Types Packs/Day Years Used Date Smoking Tobacco: Never Assessed Sex and Gender Information Value Date Recorded Sex Assigned at Not on file Gender Identity Not on file Sexual Orientation Not on file Plan of Treatment Not on file Procedures Procedure Name Priority Date/Time Associated Diagnosis Comments HEPATITIS C AB W REFLEX TO HCV RNA BY PCR Routine 11/29/2022 12:05 EST from Last 3 Months or Most Recently Relevant to Health Maintenance Results * HEPATITIS C AB W REFLEX TO HCV RNA BY PCR (11/29/2022 12:05 EST) Hep C Antibody Negative Negative 11/30/2022 9:54 EST [facility] Blood VENOUS BLOOD / Unknown 11/29/2022 12:05 EST 11/29/2022 21:41 EST Provider Outr Resulting Lab CHEMISTRY & BLOOD GAS ORDERABLES [facility] [address] [place] [address] from Last 3 Months or Most Recently Relevant to Health Maintenance Care Teams Content Coordinator Relationship Specialty Start Date End Date Unknown, Provider, PCP - General 03/17/16
--- OUTSIDE RECORDS SUMMARY | 2024-09-08 14:32 | XMS_ITS | Encounter Summary ---
Author Organization [facility] [place] [address] Care Team Providers Care Superintendent Transportation Name Role Phone Lexie Finn MD Primary Care Provider [phone] Encounter Details Date Type Department Care Team (Late st Contact Info) Description 02/12/2016 Orders Only Obstetrics [place] [address] [facility] [place] [address] Family history of transposition of great vessels Social History Tobacco Use Types Packs/Day Years Used Date Smoking Tobacco: Never Assessed Sex and Gender Information Value Date Recorded Sex Assigned at Not on file Gender Identity Not on file Sexual Orientation Not on file documented as of this encounter Plan of Treatment Not on file documented as of this encounter Results * ECHO COMPLETE (02/24/2016 3:56 PM EDT) Anatomical Region Laterality Modality Other 02/24/2016 Narrative 02/24/2016 4:13 PM EDT Procedure: ?Pediatric Echocardiogram Patient: ?NAKIA ABRAHAN ? (Age): 1995(20y) ? Med Rec#: ? [id number] ?Sex: ?F ? Site Loc: ? Ht / Wt: ??(cm)/ (kg) ? Pt. Loc: ?Echo Lab ? Study Date: ?? 02/24/2016 ?Pt. Type: Study Quality: ? Referring: Meme Huitron Reading: Mattie Beck ([id number]) [employer] Whe[employer] Driver: Solo Reinoso Diagnosis: *ICD-10-PCS Family history of [...] 02/24/2016 16:13:27 Images reviewed and interpretation verified [facility] Cardiac Ultrasound Laboratory Procedure Note Mattie Beck MD - 02/24/2016 Procedure: Pediatric Echocardiogram Patient: NAKIA GAR(Age): 1995(20y) Med Rec#: [id number] Sex: F Site Loc: Ht / Wt: (cm)/ (kg) Pt. Loc: Echo Lab Study Date: 02/24/2016 Pt. Type: Study Quality: Referring: Meme Huitron Reading: Mattie Beck ([id number]) [employer] Driver: Solo Reinoso Diagnosis: *ICD-10-PCS Family history of [...] 02/24/2016 16:13:27 Images reviewed and interpretation verified [facility] Cardiac Ultrasound Laboratory Meme Huitron MD ECHO ORDERABLES documented in this encounter Visit Diagnoses Diagnosis Family history of transposition of great vessels Family history of congenital anomalies Family history of transposition of great vessels Family history of congenital anomalies documented in this encounter Care Teams Superintendent Transportation Relationship Specialty Start Date End Date Lexie Finn MD [facility] [address] [facility]ILD [facility]VOC[facility] & [place] [address] PCP - General 10/12/10 03/07/18 documented as of this encounter
--- OUTSIDE RECORDS SUMMARY | 2024-09-08 14:32 | XMS_ITS | Encounter Summary ---
[place] [address] Care Team Providers Care Typewriter Assembler Name Role Phone Lexie Finn MD Primary Care Provider [phone] Reason for Visit * Reason Comments Family History Father of fetus: his tory of transposition of the great arteries * Consultation (Routine) - Closed Specialty Diagnoses / Procedures Referred By Xiomara desai Referred To Contact Genetics / Obstetrics and Gynecology Diagnoses FOB TRANSPOSITION OF GREAT VESSELS Procedures GENETIC CONSULT Sunshine العراقي CNM [address] [place] [address] [facility] [employer] Crane [address] [place] [address] [place] [address] Referral ID Status Reason Start Date Expiration Date Visits Re quested Visits Authorized [id number] Closed 01/15/2016 01/14/2017 2 2 Encounter Details Date Type Department Care Team (Late st Contact Info) Description 02/24/2016 1:00 PM EDT Office Visit Obstetrics [place] [address] Gerald Perkins, [facility] OBSTETRICS & [place] [address] Hereditary disease in family possibly affecting fetus, affecting management of mother, antepartum condition or complication, not applicable or unspecified fetus; Encounter for genetic counseling Social History Tobacco Use Types Packs/Day Years Used Date Smoking Tobacco: Never Smokeless Tobacco: Never Comments Yes Sex and Gender Information Value Date Recorded Sex Assigned at Not on file Gender Identity Not on file Sexual Orientation Not on file documented as of this encounter Progress Notes * MaddieGerald, [facility] - 02/24/2016 5:15 PM EDT Genetic Counseling Note Lizette Saba is a 20 y.o. female currently at 23w2d gestation. She was referred to the Diagnosis Program by Sunshine العراقي CNM. I met with Lizette for a 45 minute genetic counselingvisit. She was accompanied to the visit by her partner, Jag Zee; and Jag's mother. Chief Complaint Patient presents with ??? Family History Father of fetus: history of transposition of the great arteries Medical History No past medical history on file. Family History Problem (# of Occurrences) Relation (Name,Age of Onset) Anxiety Disorder (1) Father Depression (1) Father Heart Defect (2) Father of Baby (Jag Zee): transposition of the great arteries, Sister: PFO vs.ASD per patient description Per Jag's mother, Jag's paternal grandmother had three cousins with congenital heart disease, twoof whom in the period. Jag's mother had a brother who two hours after , but the cause of is unknown. Jag's mother had two miscarriages. The reported family history wasotherwise unremarkable for intellectual disability, congenital anomalies, recurrent loss,or known genetic conditions. A pedigree was obtained and will be scanned into Lizette's electronicmedical record. Obstetric History T0 TAB0 SAB0 E0 M0 L0 # Outcome Date GA Lbr Vamshi/2nd Weight Sex Delivery Anes PTL Lv 1 Current Estimated Date of Delivery: 06/20/2016 based on first ultrasound (12w1d on 12/08/2015). Screening Results Test Result ??? Quad screen Ordered locally, report requested but could not be located by referring provider's office ??? Cystic fibrosis carrier screen Negative ??? 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 TGA is very rarelyassociated with chromosome disorders (e.g. Dooley syndrome, 22q11.2 deletion syndrome), genetic syndromes (e.g. Bethel syndrome, Mark syndrome, Marfan syndrome, CHARGE syndrome, tuberous sclerosis), and VACTERL association. It has also been associated with teratogenic exposures, including maternal diabetes. The recurrence rate among first-degree relatives is 1-2%. We discussed the benefits and limitations of ultrasonography and echocardiography in screening for congenital anomalies. Gene Bauer is scheduled for a targeted morphology ultrasound, maternal- medicine consultation, and a echocardiogram following our visit today. documented in this encounter Plan of Treatment Not on file documented as of this encounter Visit Diagnoses Diagnosis Hereditary disease in family possibly affecting fetus, affecting management of mother, antepartum condition or complication, not applicable or unspecified fetus Encounter for genetic counseling Genetic counseling documented in this encounter Care Teams Typewriter Assembler Relationship Specialty Start Date End Date Lexie Finn MD [facility] CHILD [facility]VOCACY & [place] [address] PCP - General 10/12/10 03/07/18 documented as of this encounter
--- OUTSIDE RECORDS SUMMARY | 2024-09-08 14:32 | XMS_ITS | Encounter Summary ---
[place] [address] Care Team Providers Care Senior Examiner Name Role Phone Mary Muhammad APRN Primary Care Provider [phone] Encounter Details Date Type Department Care Team (Late st Contact Info) Description 05/15/2018 Telephone Audiology at [address] [phone] Brandi Castellanos Social History Tobacco Use Types Packs/Day Years Used Date Smoking Tobacco: Never Smokeless Tobacco: Never Comments Yes Sex and Gender Information Value Date Recorded Sex Assigned at Not on file Gender Identity Not on file Sexual Orientation Not on file documented as of this encounter Miscellaneous Notes * Telephone Encounter - Brandi Castellanos - 05/15/2018 8:04 AM EDT I called [facility] to request Benita audiogram to be sent over. They will fax it right away. * Telephone Encounter - Brandi Castellanos - 05/15/2018 8:04 AM EDT ----- Message from PORTILLO Barreto sent at 05/14/2018 8:02 AM EDT ----- Black Paz, Can we get the outside audio on this patient for tomorrow? I see the ENT note but I don't see the audio. Sorry if I missed it I'm working from home off 4 hours of sleep ha. Thanks. documented in this encounter Plan of Treatment Not on file documented as of this encounter Visit Diagnoses Not on filedocumented in this encounter Care Teams Senior Examiner Relationship Specialty Start Date End Date Mary Muhammad APRN PCP - General Family Medicine 03/08/18 documented as of this encounter
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
--- OUTSIDE RECORDS SUMMARY | 2024-09-08 14:32 | XMS_ITS | Encounter Summary ---
Author Organization [facility] Address [address] [place] [address] Care Team Providers Care Senior Reservoir Engineer Name Role Phone Unknown, Provider Primary Care Provider [phone] Encounter Details Date Type Department Care Team (Late st Contact Info) Description 10/19/2021 Lab Requisition [facility] Pathology & Laboratory Medicine - [facility] [address] [place] [address] Outr Resulting Lab, Provider Social History Tobacco [...] Procedure Name Priority Date/Time Associated Diagnosis Comments ZZCOVID-19 TEST [facility] LAB PCR Today 10/18/2021 17:10 EST COVID-19 TESTING Routine 10/18/2021 17:1 0 EST documented in this encounter Results * COVID-19 TEST [facility] LAB PCR (10/18/2021 17:10 EST) Swab 10/18/2021 17:1 0 EST 10/19/2021 17:07 EST Provider Outr Resulting Lab MICROBIOLOGY - GENERAL ORDERABLES [facility] [address] [place] [address] * (ABNORMAL) COVID-19 TESTING (10/18/2021 17:10 EST) COVID-19 rt-PCR Result Positive( AA) Negative 10/20/2021 12:45 EST [facility] Comment: This test has not been FDA cleared or approved. This test has been authorized by FDA under an EUA for use by authorized laboratories. This test has been authorized only for detection of nucleic acid from 2019-nCoV, not for any other viruses or pathogens. This test is only authorized for the duration of the declaration that circumstances exist justifying the authorization of emergency use of in vitro diagnostic tests for detection and/or diagnosis of 2019-nCoV under section 564(b)(1) of Act, 21 U.S.C ?? 360bbb-3(b) (1), unless the authorization is terminated or revoked sooner. Testing was performed using the segundo SARS-CoV-2 assay ([employer] on the [address] [address] System Performing Lab [address] [facility] Lab 10/20/2021 12:45 EST [facility] Swab 10/18/2021 17:1 0 EST 10/19/2021 17:07 EST Provider Outr Resulting Lab MICROBIOLOGY - GENERAL ORDERABLES [facility] [address] [place] [address] documented in this encounter Visit Diagnoses Not on filedocumented in this encounter Additional Health Concerns Infection Onset Date Last Indicated Resolved Time COVID-19 10/18/2021 10/18/2021 11/07/2021 22:1 5 EST documented as of this encounter Care Teams Senior Reservoir Engineer Relationship Specialty Start Date End Date Unknown, Provider, PCP - General 03/17/16 documented as of this encounter
--- OUTSIDE RECORDS SUMMARY | 2024-09-08 14:32 | XMS_ITS | Encounter Summary ---
[place] [address] Care Team Providers Care Shear Grinder Operator Helper Name Role Phone Jb Mary Drew APRN Primary Care Provider [phone] Reason for Referral * Consultation (Routine) - Closed Specialty Diagnoses / Procedures Referred By Contact Referred To Contact Obstetrics and Gynecology Diagnoses Encounter for supervision of normal , antepartum, unspecified Discordant ventriculoarterial connection Siomara Tolbert CNM [address] [place] [address] [address] [place] [address] [facility] [address] [place] [address] Referral ID Status Reason Start Date Expiration Date V isits Requested Visits Authorized [id number] Closed Consult, Test & Treat PCP Updated and/or Approved 11/29/2022 11/29/2023 1 1 Encounter Details Date Type Department Care Team (Latest Contact Info) Description 11/29/2022 Transcribe Orders eDH Incoming Referrals [phone] Siomara Tolbert CNM [address] [place] [address] [address] [place], [place] [id number] Encounter for supervision of normal , antepartum, unspecified ; Discordant ventriculoarterial connection Social History Tobacco Use Types Packs/Day Years Used Date Smoking Tobacco: Never Smokeless Tobacco: Never Sex and Gender Information Value Date Recorded Sex Assigned at Not on file Gender Identity Not on file Sexual Orientation Not on file documented as of this encounter Plan of Treatment Scheduled Referrals Name Type Priority Associated Diagnoses Orde r Schedule Referral to Maternal Medicine Outpatient Referral Routine Encounter for supervision of normal , antepartum, unspecified Discordant ventriculoarterial connection Ordered: 11/29/2022 documented as of this encounter Visit Diagnoses Diagnosis Encounter for supervision of normal , antepartum, unspecified 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
--- OUTSIDE RECORDS SUMMARY | 2024-09-08 14:32 | XMS_ITS | Encounter Summary ---
Author Organization [facility] Address [address] [place] [address] Care Team Providers Care Hardboard Coating Machine Operator Name Role Phone Unknown, Provider Primary Care Provider [phone] Encounter Details Date Type Department Care Team (Late st Contact Info) Description 11/29/2022 Lab Requisition [facility] Pathology & Laboratory Medicine - [address] [address] Outr Resulting Lab, Provider Social History Tobacco [...] Procedure Name Priority Date/Time Associated Diagnosis Comments HIV 1/2 ANTIGEN AND ANTIBODY, 4TH GENERATION Routine 11/29/2022 12:05 EST documented in this encounter Results * HIV 1/2 ANTIGEN AND ANTIBODY, 4TH GENERATION (11/29/2022 12:05 EST) HIV 1 and 2 Antibody/p24 Antigen, 4th Generation Negative Negative 11/30/2022 10:25 EST [facility] Comment:If acute HIV-1 infec tion is suspected in a high risk patient, submit plasma specimen for HIV-1 RNA quantitation test. Blood VENOUS BLOOD / Unknown 11/29/2022 12:05 EST 11/29/2022 21:41 EST Narrative [facility] - 11/30/2022 10:25 EST Fourth Generation assay performed on the Siem[employer] listedplacesaur XPT. Provider Outr Resulting Lab IMMUNOLOGY A ND SEROLOGY ORDERABLES [facility] [address] [place] [address] documented in this encounter Visit Diagnoses Not on filedocumented in this encounter Care Teams Hardboard Coating Machine Operator Relationship Specialty Start Date End Date Unknown, Provider, PCP - General 03/17/16 documented as of this encounter
--- OUTSIDE RECORDS SUMMARY | 2024-09-08 14:32 | XMS_ITS | Encounter Summary ---
Author Organization [facility] Address [address] [place] [address] Care Team Providers Care Nutrition Tech Name Role Phone Unknown, Provider Primary Care Provider [phone] Encounter Details Date Type Department Care Team (Late st Contact Info) Description 12/28/2022 Lab Requisition [facility] Pathology & Laboratory Medicine - [address] [address] Outr Resulting Lab, Provider Social History Tobacco [...] Procedure Name Priority Date/Time Associated Diagnosis Comments CHLAMYDIA/N. GONORRHOEAE AMPLIFIED NUCLEIC ACID Routine 12/27/2022 14:30 EST documented in this encounter Results * CHLAMYDIA/N. GONORRHOEAE AMPLIFIED RNA (12/27/2022 14:30 EST) Neisseria gonorrhoeae Result Negative Negative 12/29/2022 13:26 EST [facility] Chlamydia trachomatis Result Negative Negative 12/29/2022 13:26 EST [facility] Urine URINE / Unknown 12/27/2022 1 4:30 EST 12/28/2022 17:15 EST Narrative [facility] - 12/29/2022 13:26 EST A first catch urine specimen is acceptable for detection of Gonorrhea and Chlamydia, but might detect up to 10% fewer infections when compared with vaginal and endocervical swab samples. Provider Outr Resulting Lab MICROBIOLOGY - GENERAL ORDERABLES [facility] [address] [place] [address] documented in this encounter Visit Diagnoses Not on filedocumented in this encounter Care Teams Nutrition Tech Relationship Specialty Start Date End Date Unknown, Provider, PCP - General 03/17/16 documented as of this encounter
--- OUTSIDE RECORDS SUMMARY | 2024-09-08 14:32 | XMS_ITS | Encounter Summary ---
Author Organization [facility] Address [address] [place] [address] Care Team Providers Care Preparole Counseling Aide Name Role Phone Unknown, Provider MD Primary Care Provider [phone] Encounter Details Date Type Department Care Team (Late st Contact Info) Description 11/29/2022 Lab Requisition [facility] Pathology & Laboratory Medicine - [address] [address] Outr Resulting Lab, Provider Social History Tobacco [...] Procedure Name Priority Date/Time Associated Diagnosis Comments RUBELLA IGG ANTIBODY Routine 11/29/2022 12:05 EST VARICELLA IGG ANTIBODY Routine 11/29/2022 12:05 EST documented in this encounter Results * VARICELLA IGG ANTIBODY (11/29/2022 12:05 EST) Varicella IgG Ab Positive See Note 11/30/2022 10:30 EST [facility] Comment:Presence of detectab le Varicella Zoster virus IgG antibodies. Blood VENOUS BLOOD / Unknown 11/29/2022 12:05 EST 11/29/2022 21:41 EST Provider Outr Resulting Lab IMMUNOLOGY A ND SEROLOGY ORDERABLES [facility] [address] [place] [address] * RUBELLA IGG ANTIBODY (11/29/2022 12:05 EST) Rubella IgG Ab Negative See Note 11/30/2022 10:36 EST [facility] Comment:Sample is considered negative for IgG antibodies to Rubella virus. A negative result presumes that immunity has not been acquired. If exposure to Rubella virus is suspected despite a negative finding, a second specimen should be collected and tested for Rubella IgG Ab one or two weeks later. Blood VENOUS BLOOD / Unknown 11/29/2022 12:05 EST 11/29/2022 21:41 EST Provider Outr Resulting Lab CHEMISTRY & BLOOD GAS ORDERABLES Performing Organization Address City/State/[facility] Co de Phone Number [facility] [address] [place] [address] documented in this encounter Visit Diagnoses Not on filedocumented in this encounter Care Teams Preparole Counseling Aide Relationship Specialty Start Date End Date Unknown, Provider, PCP - General 03/17/16 documented as of this encounter
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
== END 2024-09-08 16:30 | disposition home or self-care (01) ==
PROVIDERS: Emergency Provider Emergency Medicine; PCP Nurse Practitioner Family
DX: S50.11XA Contusion of right forearm, initial encounter (principal); S60.221A Contusion of right hand, initial encounter; V43.52XA Car driver injured in collision with other type car in traffic accident, initial encounter; W22.11XA Striking against or struck by driver side automobile airbag, initial encounter
CPT/HCPCS: 99283; 73090; 73130

== ENCOUNTER 2024-12-13 15:40 | Emergency (ER) | payer OTHER, SELFPAY ==
[2024-12-13 15:41] VITALS: BP 124/82; PULSE 77; RESP 14; TEMP 36.2; O2SAT 99
--- NOTE | 2024-12-13 15:45 | DI.RAD_ITS ---
Exam(s) XR KNEE LT 3V AP,LAT,RENATA EXAM: XR KNEE LT 3V AP,LAT,RENATA CLINICAL HISTORY: pain at pip joint. TECHNIQUE: 2D digital imaging was performed. Three views. COMPARISON: CR XR knee RT 4V AP,lat,renata,pat from 12/15/2018 FINDINGS: BONES: No acute fracture is present. No bony destructive lesion is seen. JOINTS: The knee is normally aligned. No joint effusion is seen. The joint spaces are maintained. SOFT TISSUE: Normal. IMPRESSION: Normal radiographs of the left knee. DATA REPOSITORY: RADIATION DOSE DELIVERED:
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
--- OUTSIDE RECORDS SUMMARY | 2024-12-13 16:32 | XMS_ITS | Clinical Summary ---
Author Organization [facility] Address [facility] [place] [address] Care Team Providers Care Qa Automation Developer Name Role Phone Yolis Mckeon APRN Primary Care Provider [phone] Allergies Active Allergy Reactions Criticality Noted Date [...] the great vessels 02/07/2023 Exercise-induced asthma 11/07/2013 Encounters Date Type Department Care Team Description 10/24/2024 Transcribe Orders eD Incoming Referrals [phone] Yolis Mckeon APRN History of abnormal cervical Pap smear from Last 3 Months Immunizations Name Administration Dates Next Due DTP-Hib [...] 05/15/2018 11:03 AM EDT Plan of Treatment Upcoming Encounters Date Type Department Care Team (Late st Contact Info) Description 02/19/2025 1:40 PM EDT Office Visit Obstetrics [place] [address] Manda Hillman MD [facility] OBSTETRICS [place] [address] Health Maintenance Due Date Last Done Comments HIV screen 2013 Hepatitis C Screening 2013 Pneumococcal Vaccine: At-Ris k 5-49yrs (1 of 2 - PCV) 2014 PAP Smear 2016 Tetanus/Diphtheria/Pertussis Vaccines (7 - Td or Tdap) 12/07/2017 12/07/2007, 11/29/2000, 02/12/1997, Additional history exists Covid-19 Vaccine ( - 2023-2 5 season) 2024 Influenza (Flu) vaccine (1 o f 1 - Influenza standard series) 07/21/2024 12/29/2015, 11/07/2013 Hepatitis B vaccine (0-59 yrs) Completed 1 , 03/25/1996, 01/22/1996 HPV vaccine Completed 04/17/2008, 11/20, 10/04/2007 Care Teams Qa Automation Developer Relationship Specialty Start Date End Date Yolis Mckeon APRN [address] [place] [address] [address] [place] [address] PCP - General Family Medicine 10/24/24
--- OUTSIDE RECORDS SUMMARY | 2024-12-13 16:32 | XMS_ITS | Encounter Summary ---
[place] [address] Care Team Providers Care Beach Attendant Name Role Phone Mary Muhammad APRN Primary Care Provider [phone] Reason for Visit * Consultation (Routine) - Closed Specialty Diagnoses / Procedures Referred By Contact Referred To Contact Obstetrics and Gynecology Diagnoses Encounter for supervision of normal , antepartum, unspecified Discordant ventriculoarterial connection Siomara Tolbert, [facility] [address] [place] [address] [place] [address] [facility] [address] [place] [address] Referral ID Status Reason Start Date Expiration Date V isits Requested Visits Authorized [id number] Closed Consult, Test & Treat PCP Updated and/or Approved 11/29/2022 11/29/2023 1 1 Encounter Details Date Type Department Care Team (Latest Contact Info) Description 02/07/2023 4:00 PM EDT Office Visit Obstetrics [place] [address] Mikhail Aburto MD [facility] OBSTETRICS [place] [address] Family history of complex congenital [...] Mikhail ABURTO MD 02/07/2023 Cc: Siomara Tolbert, JOSE F [address] [facility] [place] [address] , with copy of ultrasound report documented in this encounter Plan of Treatment Upcoming Encounters Date Type Department Care Team (Late st Contact Info) Description 02/19/2025 1:40 PM EDT Office Visit Obstetrics [place] [address] Manda Hillman MD [facility] OBSTETRICS [place] [address] documented as of this encounter Visit Diagnoses Diagnosis Family history of complex congenital heart disease: FOB transposition of the great vessels documented in this encounter Care Teams Beach Attendant Relationship Specialty Start Date End Date Mary Muhammad APRN PCP - General Family Medicine 03/08/18 10/23/24 documented as of this encounter
--- OUTSIDE RECORDS SUMMARY | 2024-12-13 16:32 | XMS_ITS | Encounter Summary ---
[place] [address] Care Team Providers Care Manager Name Role Phone Mary Muhammad APRN Primary Care Provider [phone] Encounter Details Date Type Department Care Team (Latest Contact Info) Description 02/07/2023 Travel Social History Tobacco Use Types Packs/Day Years Used Date Smoking Tobacco: Never Smokeless Tobacco: Never Comments Yes Sex and Gender Information Value Date Recorded Sex Assigned at Not on file Gender Identity Not on file Sexual Orientation Not on file documented as of this encounter Plan of Treatment Upcoming Encounters Date Type Department Care Team (Late st Contact Info) Description 02/19/2025 1:40 PM EDT Office Visit Obstetrics [place] [address] Manda Hilmlan MD [facility] [address] OBST[place]ICS [place] [address] documented as of this encounter Visit Diagnoses Not on filedocumented in this encounter Care Teams Manager Relationship Specialty Start Date End Date Mary Muhammad APRN PCP - General Family Medicine 03/08/18 10/23/24 documented as of this encounter
--- OUTSIDE RECORDS SUMMARY | 2024-12-13 16:32 | XMS_ITS | Encounter Summary ---
[place] [address] Care Team Providers Care Supervisor Cooperage Shop Name Role Phone Mary Muhammad APRN Primary Care Provider [phone] Encounter Details Date Type Department Care Team [...] EDT Office Visit Obstetrics [place] [address] Manda Hillman MD [facility] [address] OBSTETRICS [place] [address] documented as of this encounter Visit Diagnoses Not on filedocumented in this encounter Care Teams Supervisor [employer]age Shop Relationship Specialty Start Date End Date Mary Muhammad APRN PCP - General Family Medicine 03/08/18 10/23/24 documented as of this encounter
--- OUTSIDE RECORDS SUMMARY | 2024-12-13 16:32 | XMS_ITS | Encounter Summary ---
[place] [address] Care Team Providers Care Asbestos Brake Lining Finisher Name Role Phone Yolis Mckeon APRN Primary Care Provider [phone] Reason for Referral * Consultation (Routine) - Closed Specialty Diagnoses / Procedures Referred By Contlaurel t Referred To Contact Obstetrics and Gynecology Diagnoses History of abnormal cervical Pap smear Christian Education Director MULTI INCONSISTEN PAPS AND POSSIBLE ENDOMETRIOSIS Yolis Mckeon APRN [address] [place] [address] [facility] [address] [address] Referral ID Status Reason Start Date Expiration Date V isits Requested Visits Authorized [id number] Closed Consult, Test & Treat PCP Updated and/or Approved 09/18/2024 09/18/2025 6 6 Encounter Details Date Type Department Care Team (Late st Contact Info) Description 10/24/2024 Transcribe Orders eDH Incoming Referrals [phone] Yolis Mckeon APRN [address] [place], [place] [id number] History of abnormal cervical Pap smear Social History Tobacco Use Types Packs/Day Years [...] EDT Office Visit Obstetrics [place] [address] Manda Hillman MD [facility] OBSTETRICS [place] [address] Scheduled Referrals Name Type Priority Associated Diagnoses Orde r Schedule Referral to Ob-Christian Education Director Outpatient Referral Routine History of abnormal cervical Pap smear Ordered: 10/24/2024 documented as of this encounter Visit Diagnoses Diagnosis History of abnormal cervical Pap smear Personal history of other genital system and obstetric disorders documented in this encounter Care Teams Asbestos Brake Lining Finisher Relationship Specialty Start Date End Date Yolis Mckeon APRN [address] [place] [address] [address] [place] [address] PCP - General Family Medicine 10/24/24 documented as of this encounter
--- OUTSIDE RECORDS SUMMARY | 2024-12-13 16:32 | XMS_ITS | Encounter Summary ---
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 female) Demographics : [address] [place] [facility] [address]. [phone] (home) Insurance : MEDICAID [place] OB : Siomara Tolbert CNM MFM : Meme Huitron, [facility] OBSTETRICS & GYNECOLOGY / [facility] *, PH [phone], FAX: [phone] Dear Meme Huitron, I saw Lizette Saba at our cardiology clinic in [place], [place] on 02/14/2023. She was unaccompanied. Lizette Saba is a 27 y.o. old female who is currently at 22w2d gestation based on an estimated due date 06/18/23. She conceived naturally and is expecting a boy. She currently plans to deliver at [facility]. I saw Lizette today specifically to address the risks of heart disease due to the family history of congenital heart disease. 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 has otherwise been uncomplicated. Morphology scan was [...] in this case, as summarized by the [place] [employer], include: ??? Family history [...] min. Clinical service to/for this patient included [id number] work (obtaining the medical history, performing a medically appropriate examination when appropriate, counseling and educating the patient) and [id number] work (reviewing medical records and tests, reviewing marquez ent-completed health questionnaire, ordering any medications/tests/procedures, documenting in the electronic medical record, and communicating and coordinating care with other health day care director). 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
--- OUTSIDE RECORDS SUMMARY | 2024-12-13 16:32 | XMS_ITS | Encounter Summary ---
[place] [address] Care Team Providers Care Service Station Cashier Name Role Phone Mary Muhammad APRN Primary Care Provider [phone] Reason for Referral * Diagnostic Test (Routine) - Closed Specialty Diagnoses / Procedures Referred By Contac t Referred To Contact Radiology Diagnoses 42 weeks gestation of Transposition of great vessels, double outlet right ventricle Procedures US OB Detailed Morphology Ramiro Millan CNM [address] [place] [address] [address] [place] [address] [facility] [place] [address] Referral ID Status Reason Start Date Expiration Date V isits Requested Visits Authorized [id number] Closed Specialty Service Requested 12/02/2022 06/01/2024 1 1 Reason for Visit * Diagnostic Test (Routine) - Closed Specialty Diagnoses / Procedures Referred By Contac t Referred To Contact Radiology Diagnoses 42 weeks gestation of Transposition of great vessels, double outlet right ventricle Procedures US OB Detailed Morphology Ramiro Millan CNM [address] [place] [address] [address] [place] [address] [facility] [place] [address] Referral ID Status Reason Start Date Expiration Date V isits Requested Visits Authorized [id number] Closed Specialty Service Requested 12/02/2022 06/01/2024 1 1 Encounter Details Date Type Department Care Team (Latest Contact Info) Description 02/07/2023 2:30 PM EDT - 02/07/2023 11:59 PM EDT Hospital En[place] [address] [place] [address] 42 weeks gestation of ; Transposition of [...] Obstetrics [place] [address] Manda Hillman MD [facility] OBSTETRICS [place] [address] (work) documented as of this encounter Procedures Procedure [...] who have questions, please contact the health auto care center manager that requested your imaging first. ? Fernando Aburto, Staff Physician Electronically Signed Final Report ?? 02/07/2023 04:29 pm Narrative 02/07/2023 4:30 PM EDT OBSTETRICS REPORT ?(Signed Final 02/07/2023 04:29 pm) PATIENT INFO: ID #: ? [id number] ?: ??[birth year] (27 yrs)(F) Name: ? ABRAHAN SABA ?Visit Date: 02/07/2023 04:04 pm PERFORMED BY: Performed By: ? Cara Black RDMS Attending: ?Fernando Aburto MD Referred By: ?RAMIRO MILLAN Location: ? [facility] SERVICE(S) PROVIDED: [facility] - Detailed Morphology - [id number] ? [id number] INDICATIONS: 21 weeks gestation of ?Z3A.21 Reproductive [...] ?67.9 ??% FL/AC: ? 21.0 ??% ? 20 - 24 Est. FW: ? 298 ??gm ?0 lb [...] Arch: ? Visualized SVC: ? Visualized Cardiac Pickrell: ?Visualized Diaphragm: ? Visualized 3 Vessel View: [...] 02/07/2023 04:29 pm) PATIENT INFO: ID #: [id number] : [birth year] (27 yrs)(F) Name: ABRAHAN SABA Visit Date: 02/07/2023 04:04 pm PERFORMED BY: Performed By: Cara Black RDMS Attending: Fernando Aburto MD Referred By: RAMIRO MILLAN Location: [facility] SERVICE(S) PROVIDED: [facility] - Detailed Morphology - [id number] INDICATIONS: 21 weeks gestation of Z3A.21 Reproductive [...] Visualized Ductal Arch: Visualized SVC: Visualized Cardiac Pickrell: Visualized Diaphragm: Visualized 3 Vessel View: Visualized [...] who have questions, please contact the health auto care center manager that requested your imaging first. Fernando Aburto, Staff Physician Electronically Signed Final Report 02/07/2023 04:29 pm Ramiro Millan CNM IMMaci US OB ORDERABLE S documented in this encounter Visit Diagnoses Diagnosis 42 weeks gestation of state, incidental Transposition of great vessels, double outlet right ventricle documented in this encounter Care Teams Service Station Cashier Relationship Specialty Start Date End Date Mary Muhammad APRN PCP - General Family Medicine 03/08/18 10/23/24 documented as of this encounter
--- OUTSIDE RECORDS SUMMARY | 2024-12-13 16:32 | XMS_ITS | Continuity of Care Document ---
Author Organization [place] - [facility], Yolis Mckeon Address [address] [facility] [address] [place] [address] Assessment Encounter Date Assessment Date Assessment LastModified by Organization Details LastModified Time 12/04/2024 12/04/2024 - bipolar disorder: The patient is currently stable on Abilify 10 mg with no reported psychosis or panic attacks. Anxiety has improved but still present at times. (Bipolar Disorder, currently stable) - weight management: The patient is concerned about weight gain and is currently not at their ideal weight. (Overweight) Plan: - Continue Abilify 10 mg. - Start Phentermine 15 mg for weight management. - Monitor mood and anxiety levels. - Ensure adequate hydration. - Report any adverse effects or mood changes. Time Spent:Time spent with the patient was greater than 45 minutes, including evaluation and management. [email or web address] Not available 12/04/2024 18:15:54 Plan of Treatment Reminders Order Date Submit Date Provider Last Modified By Organization Details Last Modified Time Details Appointments None recorded. Lab None recorded. Referral None recorded. Procedures None recorded. Surgeries None recorded. Imaging None recorded. Medication Orders phentermine 15 mg capsule 2024 025 [facility], [address] [place], [address], 18:13:46 Patient Targets Encounter Date Encounter Id Patient Goals Patient Target Last Modified By Organization Details Last Modified Time Achieve a healthier weight through medication and lifestyle changes. [email or web address] Not available 12/04/2024 18:16:07 Patient Instructions Encounter Date Encounter Id Patient Instructions Last Modified By Organization Details Last Modified Time 12/04/2024 487 - Continue takin g Abilify 10 mg as it seems to be working well for your mood and anxiety. - Start the new medication at 15 mg for weight management. Monitor for any side effects such as palpitations, anxiety, mood changes, insomnia, elevated blood pressure, dizziness, or headaches. - Drink plenty of fluids to stay hydrated while on the new medication. - Inform the physician if you experience uncontrollable crying, emotional instability, or insomnia. - Have your mom help monitor your symptoms and report any concerns to the physician. - Sign the controlled substance agreement as the new medication is a controlled substance. [email or web address] Not available 12/04/2024 18:11:08 Reason for Referral None Reported. Problems Name Problem SNOMED Code Status Onset Date Resolution Date Notes Provider Name and Address Organization Details Recorded Time Furuncle 018955500 Active [address] [place], [address], [facility] 4 10:23:04 Tinea pedis 7925970 Active [address] [place], [address], [facility] 4 10:23:13 Visual disturbance 11602352 Active [address] [place], [address], [facility] 4 10:23:24 Ingrowing nail 639539551 Active [address] [place], [address], [facility] 4 10:23:30 Bipolar I disorder 361213472 Active [address] [place], [address], [facility] 4 10:23:41 Posttraumatic stress disorder 24771077 Active [address] [place], [address], [facility] 4 10:23:49 Generalized anxiety disorder 57200554 Active [address] [place], [address], [facility] 4 10:23:56 Major depression, single episode 68510370 Active [address] [place], [address], [facility] 4 10:24:04 Migraine 37747728 Active [address] [place], [address], [facility] 4 10:24:12 Clinical finding Active [address] [place], [address], [facility] 4 10:24:22 Body mass index 25-29 - overweight 086188621 Active 2024 Yolis Mckeon, BEAM WORKER, SEARCH MARKETING SPECIALIST-C, PMHNP-C, [place] [address] [place], [address], [facility] 5 18:12:46 Problem Notes None recorded. Medical Equipment None Reported. Allergies Allergen ID Allergen Name Allergen Category Reaction Reaction Severity Criticality Documentation Date Start Date Code Code System Note Provider Name and Address Organization Details Recorded Time 77 hornet venom environme nt Not available Not available Not available 11/07/[address] [place], [address], [facility] 4 10:22:29 78 shellfish derived food,medi cation Not available Not available Not available 11/07/[address] [place], [address], [facility] 4 10:22:36 79 wasp venoms environme nt Not available Not available Not available 11/07/[address] [place], [address], [facility] 4 10:22:42 Medications Name Sig Start Date Stop Date Status Note LastModified by Organization Details LastModified Time terbinafine HCl 1 % topical cream APPLY TOPICALLY TO FEET TWICE DAILY UNTIL HEALED 12/04 completed Not Available Not Available Not Available clonazepam 0.5 mg tablet TAKE ONE TABLET BY MOUTH TWICE A DAY NEEDED FOR ANXIETY AND PANIC ATTACKS (USE SPARINGLY ) active Not Available Not Available No t Available phentermine 15 mg capsule Take 1 capsule every day by oral route for 30 days. 2024 active Not Available Not Available Not Avai lable bacitracin zinc 500 unit/gram topical ointment APPLY TO BILATERAL GREAT TOE WOUNDS TWO TIMES A DAY AFTER SOAKS 12/04 completed Not Available Not Available Not Available ondansetron 8 mg disintegrat ing tablet TAKE ONE TABLET BY MOUTH EVERY 4 TO 6 HOURS NEEDED FOR NAUSEA active Not Available Not Available No t Available cephalexin 500 mg capsule TAKE ONE CAPSULE BY MOUTH THREE TIMES A DAY FOR 10 DAYS 12/04 completed Not Available Not Available Not Available paroxetine 20 mg tablet TAKE 1 TABLET BY MOUTH DAILY 12/04 completed Not Available Not Available Not Available hydroxyzine HCl 25 mg tablet TAKE 1 TABLET BY MOUTH THREE TIMES DAILY NEEDED FOR ANXIETY active Not Available Not Available No t Available ammonium lactate 12 % topical cream APPLY TO FEET TWO TIMES A DAY 12/04 completed Not Available Not Available Not Available epinephrine 0.3 mg/0.3 mL injection, auto-inject or INJECT 1 PEN DIRECTED WHEN STUNG BY WASP OR HORNET FOR ALLERGIC REACTION active Not Available Not Available No t Available paroxetine 40 mg tablet TAKE 1 TABLET BY MOUTH ONCE A DAY active Not Available Not Available No t Available doxycycline hyclate 100 mg tablet TAKE ONE TABLET BY MOUTH TWICE A DAY FOR 7 DAYS 12/04 completed Not Available Not Available Not Available aripiprazol e 10 mg tablet TAKE ONE TABLET BY MOUTH EVERY DAY active Not Available Not Available No t Available aripiprazol e 5 mg tablet TAKE ONE TABLET BY MOUTH EVERY DAY 12/04 completed Not Available Not Available Not Available Emgality Pen 120 mg/mL subcutaneou s pen injector Inject 120 mg every month by subcutane ous route. 2024 active Not Available Not Available Not Avai lable Emgality 120 mg/mL subcutaneou s syringe INJECT 120MG (1 PEN) SUBCUTANE OUSLY ONCE MONTHLY 12/04 completed Not Available Not Available Not Available Vitals Date Recorded Body height Body mass index (BMI) Body weight Oxygen saturation Oxygen saturation in Arterial blood by Pulse oximetry Heart rate Body temperature Systolic blood pressure Diastolic blood pressure Provider Name and Address Organization Details Last Updated DateTime 167.64 cm 29.8 kg/m2 45355.1 5 g 98 % 98 % 88 /min 97.5 [degF] 118 mm[Hg] 64 mm[Hg] [address], [place], [address], [place] - [facility] 16:08:55 Social History None recorded. Functional Status None recorded. Mental Status None recorded. Family History Nothing Reported. Medical History No medical history recorded. Gynecological HistoryNo gynecological history recorded. Obstetrics History GPAL:G 0 P 0 0 0 0 Past Encounters Encounter ID Performer Location Encounter Start Date Encounter Closed Date Diagnosis/Indication Diagnosis SNOMED-CT Code Diagnosis ICD10 Code Diagnosis Note 487 Yolis Mckeon APRN, SEARCH MARKETING SPECIALIST-C, PMHNP-C, DNP Yolis Mckeon [address] [place] [address] 12/04/2024 16:01:56 12/04/2024 16:35:49 Bipolar disorder 42645046 F31.9 Continue Abilify 10 mg. Monitor mood and anxiety levels. Report any signs of mood instabilit y, insomnia, or increased anxiety. Body mass index 25-29 - overweight 080181512 E66.3 Health Concerns Section Related Observation LastModified by Organization Detai ls LastModified Time None Recorded Concern Status LastModified by Organization Details LastModified Time None Recorded Payers Encounter Date Sequence Insurance Name Policy Number Policy Garcia Covered Member ID Garcia Member ID Guarantor Name 12/04/2024 1 [place] [facility] [id number] Lizette Saba [id number] Lizette Saba 12/04/2024 2 [facility] (MEDICAID) Lizette Saba [id number] Lizette Saba Notes Date Note Type Note Provider Name and Address Organization Details Recorded Time 12/04/2024 text/html The patient repo rts that their mood has been good and that the Abilify 10 mg is working well. They have not experienced any more psychosis and their anxiety has improved, though they still occasionally feel on edge. They have not had any panic attacks and are feeling happier, enjoying their activities, and working towards finishing their degree. The patient is also concerned about weight loss, noting that they have been having trouble losing weight and are not at their ideal weight, having gained weight up to nearly 200 pounds from their usual 130s to 140s. Exam: EKG Result: Normal sinus rhythm, heart rate 68, no abnormalities detected. Current Medications:Abilify , Dose: 10 mg, Frequency: daily, Route: oral, Indication: psychosis Yolis Mckeon APRN, SEARCH MARKETING SPECIALIST-C, PMHNP-C, DNP [address] [facility] , [place], [address], [facility] 12/04/2024 18:17:12 OBGyn Episode No OBEpisode recorded.
--- OUTSIDE RECORDS SUMMARY | 2024-12-13 16:32 | XMS_ITS | Encounter Summary ---
[place] [address] Care Team Providers Care English Language Learner Tutor Name Role Phone Mary Muhammad APRN Primary Care Provider [phone] Reason for Referral * Diagnostic Test (Routine) - Closed Specialty Diagnoses / Procedures Referred By Contac t Referred To Contact Diagnoses Family history of congenital heart disease Procedures Echo Hussein Huitron MD [facility] DR OBSTETRICS [place] [address] [facility] [place] [address] Referral ID Status Reason Start Date Expiration Date V isits Requested Visits Authorized [id number] Closed Specialty Service Requested 12/07/2022 12/07/2023 1 1 Reason for Visit * Diagnostic Test (Routine) - Closed Specialty Diagnoses / Procedures Referred By Contac t Referred To Contact Diagnoses Family history of congenital heart disease Procedures Echo Hussein Huitron MD [facility] OBSTETRICS [place] [address] [facility] [place] [address] Referral ID Status Reason Start Date Expiration Date V isits Requested Visits Authorized [id number] Closed Specialty Service Requested 12/07/2022 12/07/2023 1 1 Encounter Details Date Type Department Care Team (Latest Contact Info) Description 02/14/2023 12:59 PM EDT - 02/14/2023 11:59 PM EDT Hospital Encounter Non-Invasive [place] [address] Hussein Huitron MD [facility] OBSTETRICS [place] [address] Family history of congenital heart disease Discharge [...] EDT Office Visit Obstetrics [place] [address] Manda Hillman MD [facility] OBSTETRICS [place] [address] documented as of this encounter Procedures Procedure [...] SABA ? Study Date: 02/14/2023 ?Patient Location: [address] [place] [address] : 1995 ?Gender: Female Age: 27 yrs Reason For Study: Family history of congenital heart disease Ordering Physician: HUSSEIN HUITRON Referring Physician: HUSSEIN HUITRON Performed By: Nataly Perez [facility] [[email or web address]] Exam Location: [facility]. Interpretation Summary This is a 22 [...] diameter at the annulus measures 0.55 cm (Edgarton Z-score: - 0.23). Tricuspid Valve The tricuspid valve appears normal. There is a normal biphasic inflow pattern across the valve. There is no evidence of tricuspid insufficiency. The tricuspid diameter at the annulus measures 0.59 cm (Edgarton Z-score: +0.09). Left Ventricle The left ventricular [...] diameter at the annulus is 0.29 cm (Edgarton Z-score: -1.6). Pulmonic Valve The pulmonary valve appears normal. There is no evidence of valvular pulmonary stenosis. There is no evidence of pulmonary insufficiency by color or spectral Doppler. The pulmonary annulus measures 0.41 cm (Edgarton Z-score: -0.68). Great Vessels The main pulmonary artery appears normal. The branch pulmonary arteries appear normal. The ascending aorta does not appear dilated. The descending thoracic aorta does not appear dilated. There is no evidence of coarctation of the aorta. The aortic isthmus measures 0.31 cm (Edgarton Z-score: +0.37). Circulation The umbilicus has 2 [...] ABRAHAN SABA Study Date: 02/14/2023 Patient Location: [address] [place] [address] : 1995 Gender: Female Age: 27 yrs Reason For Study: Family history of congenital heart disease Ordering Physician: HUSSEIN HUITRON Referring Physician: HUSSEIN HUITRON Performed By: Nataly Perez [facility] [[email or web address]] Exam Location: [facility]. Interpretation Summary This is a 22 [...] diameter at the annulus measures 0.59 cm (Edgarton Z-score: +0.09). Left Ventricle The left ventricular [...] diameter at the annulus is 0.29 cm (Edgarton Z-score: -1.6). Pulmonic Valve The pulmonary valve appears normal. There is no evidence of valvularpulmonary stenosis. There is no evidence of pulmonary insufficiency by color orspectral Doppler. The pulmonary annulus measures 0.41 cm (Edgarton Z-score: -0.68). Great Vessels The main pulmonary artery appears normal. The branch pulmonary arteriesappear normal. The ascending aorta does not appear dilated. The descendingthoracic aorta does not appear dilated. There is no evidence of coarctation of the aorta.The aortic isthmus measures 0.31 cm (Edgarton Z-score: +0.37). Circulation The umbilicus has 2 [...] anomalies documented in this encounter Care Teams English Language Learner Tutor Relationship Specialty Start Date End Date Mary Muhammad APRN PCP - General Family Medicine 03/08/18 10/23/24 documented as of this encounter
--- OUTSIDE RECORDS SUMMARY | 2024-12-13 16:33 | XMS_ITS | Encounter Summary ---
[place] [address] Care Team Providers Care On Site Nurse Name Role Phone Mary Muhammad APRN Primary Care Provider [phone] Encounter Details Date Type Department Care Team (Late Contact Info) Description 05/21/2018 Telephone [place] [address] Laura Rae Social History Tobacco Use Types [...] Encounters Date Type Department Care Team (Late Contact Info) Description 02/19/2025 1:40 PM EDT Office Visit Obstetrics [place] [address] [facility] [place] [address] documented as of this encounter Visit Diagnoses Not on filedocumented in this encounter Care Teams On Site Nurse Relationship Specialty Start Date End Date Mary Muhammad APRN PCP - General Family Medicine 03/08/18 10/23/24 documented as of this encounter
--- OUTSIDE RECORDS SUMMARY | 2024-12-13 16:33 | XMS_ITS | Encounter Summary ---
Author Organization [facility] Address [address] [place] [address] Care Team Providers Care Artificial Limb Maker Name Role Phone Unknown, Provider Primary Care Provider Unava ilable Encounter Details Date Type Department Care Team ([facility] st Contact Info) Description 09/18/2017 Results Only [facility] [phone] Mary Gomez, BOND CLERK [address] [place] [phone] Social History Tobacco Use Types Packs/Day Years Used Date Smoking Tobacco: Never Assessed Comments Unknown Sex and Gender Information Value Date Recorded Sex Assigned at Not on file Legal Sex Female 18:26 EST Gender Identity Not on file Sexual Orientation [...] when reading/interpreti ng unformatted reports. Name: ? ABRAHAN SABA ? Accession #: ? [id number] : ? 1995 (Age: 21) ??F ?Collect Date: ? 09/18/2017 Location: ? [facility] ? Receive Date: ? 09/19/2017 Provider: ?MARY GOMEZ BOND CLERK Copy to: ? Specimen/Source: ?Pap Test, Cervix, [...] Report Date: ??10/03/2017 10:20 End of Report [facility] 09/18/2017 09/19/2017 us Mary Gomez NP PATHOLOGY ORDERABLES Final Resul t [facility] [address] [place] [address] documented in this encounter Visit Diagnoses Not on filedocumented in this encounter Care Teams Artificial Limb Maker Relationship Specialty Start Date End Date Unknown, Provider, PCP - General 03/17/16 documented as of this encounter
--- OUTSIDE RECORDS SUMMARY | 2024-12-13 16:33 | XMS_ITS | Encounter Summary ---
[place] [address] Care Team Providers Care Degreaser Operator Name Role Phone Lexie Finn MD Primary Care Provider [phone] Encounter Details Date Type Department Care Team ([facility] Contact Info) Description 02/12/2016 Orders Only Obstetrics [place] [address] Gina Lincoln, LG Family history of transposition of great vessels [...] EDT Office Visit Obstetrics [place] [address] Manda Hillman MD [facility] [address] OBSTETRICS [place] [address] documented as of this encounter Results * ECHO COMPLETE (02/24/2016 3:56 PM EDT) Anatomical Region Laterality Modality Other 02/24/2016 Narrative 02/24/2016 4:13 PM EDT Procedure: ?Pediatric Echocardiogram Patient: ?WANDY GAUTHIER ? (Age): 1995(20y) ? Med Rec#: ? [id number] ?Sex: ?F ? Site Loc: ? Ht / Wt: ??(cm)/ (kg) ? Pt. Loc: ?Echo Lab ? Study Date: ?? 02/24/2016 ?Pt. Type: Study Quality: ? Referring: Meme Huitron Reading: Mattie Beck ([id number]) Occupational Therapist Aide: Solo Reinoso Diagnosis: *ICD-10-PCS Family history of [...] 02/24/2016 16:13:27 Images reviewed and interpretation verified [facility] Cardiac Ultrasound Laboratory Procedure Note Mattie Beck MD - 02/24/2016 Procedure: Pediatric Echocardiogram Patient: WANDY GAR(Age): 1995(20y) Med Rec#: [id number] Sex: F Site Loc: Ht / Wt: (cm)/ (kg) Pt. Loc: Echo Lab Study Date: 02/24/2016 Pt. Type: Study Quality: Referring: Meme Huitron Reading: Mattie Beck ([id number]) Occupational Therapist Aide: Solo Reinoso Diagnosis: *ICD-10-PCS Family history of [...] 02/24/2016 16:13:27 Images reviewed and interpretation verified [facility] Cardiac Ultrasound Laboratory Meme Huitron MD ECHO ORDERABLES documented in this encounter Visit Diagnoses Diagnosis Family history of transposition of great vessels Family history of congenital anomalies Family history of transposition of great vessels Family history of congenital anomalies documented in this encounter Care Teams Degreaser Operator Relationship Specialty Start Date End Date Lexie Finn MD [facility] [address] [facility] [place] [address] PCP - General 10/12/10 03/07/18 documented as of this encounter
--- OUTSIDE RECORDS SUMMARY | 2024-12-13 16:33 | XMS_ITS | Encounter Summary ---
Author Organization [facility] Address [address] [place] [address] Care Team Providers Care Obstetrics Specialist Name Role Phone Unknown, Provider Primary Care Provider Unava ilable Encounter Details Date Type Department Care Team (Late st Contact Info) Description 11/29/2022 Lab Requisition [facility] Pathology & Laboratory Medicine - [facility] [address] [place], [place] [id number] Outr Resulting Lab, Provider Social History Tobacco [...] Surface Ag Negative Negative 11/30/2022 10:04 EST [facility] Blood VENOUS BLOOD / Unknown 11/29/2022 12:05 EST 11/29/2022 21:41 EST us Provider Outr Resulting Lab CHEMISTRY & BLOOD GA S ORDERABLES Final Result [facility] [address] [place] [address] * HEPATITIS C AB W REFLEX TO HCV RNA BY PCR (11/29/2022 12:05 EST) Hep C Antibody Negative Negative 11/30/2022 9:54 EST [facility] Blood VENOUS BLOOD / Unknown 11/29/2022 12:05 EST 11/29/2022 21:41 EST us Provider Outr Resulting Lab CHEMISTRY & BLOOD GA S ORDERABLES Final Result [facility] [address] [place] [address] documented in this encounter Visit Diagnoses Not on filedocumented in this encounter Care Teams Obstetrics Specialist Relationship Specialty Start Date End Date Unknown, Provider, PCP - General 03/17/16 documented as of this encounter
--- OUTSIDE RECORDS SUMMARY | 2024-12-13 16:33 | XMS_ITS | Encounter Summary ---
[place] [address] Care Team Providers Care Hand Spring Repairer Name Role Phone Mary Muhammad APRN Primary Care Provider [phone] Encounter Details Date Type Department Care Team (Late st Contact Info) Description 05/15/2018 Telephone Audiology at [address] [phone] Brandi Castellanos Social History Tobacco Use Types Packs/Day Years Used Date Smoking Tobacco: Never Smokeless Tobacco: Never Comments Yes Sex and Gender Information Value Date Recorded Sex Assigned at Not on file Gender Identity Not on file Sexual Orientation Not on file documented as of this encounter Miscellaneous Notes * Telephone Encounter - Brandi Castellanos - 05/15/2018 8:04 AM EDT I called [facility] to request Benita audiogram [...] from home off 4 hours of sleep haha. Thanks. documented in this encounter Plan of Treatment Upcoming Encounters Date Type Department Care Team (Late st Contact Info) Description 02/19/2025 1:40 PM EDT Office Visit Obstetrics [place] [address] Manda Hillman MD [facility] [address] OBSTETRICS [place] [address] documented as of this encounter Visit Diagnoses Not on filedocumented in this encounter Care Teams Hand Spring Repairer Relationship Specialty Start Date End Date Mary Muhammad APRN PCP - General Family Medicine 03/08/18 10/23/24 documented as of this encounter
--- OUTSIDE RECORDS SUMMARY | 2024-12-13 16:33 | XMS_ITS | Encounter Summary ---
Author Organization [facility] [place] [address] Care Team Providers Care Principal Java Developer Name Role Phone Lexie Finn MD Primary Care Provider [phone] Encounter Details Date Type Department Care Team (Latest Contact Info) Description 02/24/2016 2:56 PM EDT - 02/24/2016 11:59 PM EDT Hospital Encounter Non[place] [address] Meme Huitron MD [facility] OBSTETRICS [place] [address] Family history of transposition of great vessels [...] EDT Office Visit Obstetrics and Gynecology at [facility] [place] [address] Manda Hillman MD [facility] OBSTETRICS [place] [address] documented as of this encounter Procedures Procedure Name Priority Date/Time Associated Diagnosis Comments ECHO COMPLETE Routine 02/24/2016 3:56 PM EDT Family history of transposition of great vessels documented in this encounter Results * ECHO COMPLETE (02/24/2016 3:56 PM EDT) Anatomical Region Laterality Modality Other 02/24/2016 Narrative 02/24/2016 4:13 PM EDT Procedure: ?Pediatric Echocardiogram Patient: ?NAKIA GAUTHIER ? (Age): 1995(20y) ? Med Rec#: ? [id number] ?Sex: ?F ? Site Loc: ? Ht / Wt: ??(cm)/ (kg) ? Pt. Loc: ?Echo Lab ? Study Date: ?? 02/24/2016 ?Pt. Type: Study Quality: ? Referring: Meme Huitron Reading: Mattie Beck ([id number]) Hospital Coder: Solo Reinoso Diagnosis: *ICD-10-PCS Family history of [...] 02/24/2016 16:13:27 Images reviewed and interpretation verified [facility] Cardiac Ultrasound Laboratory Procedure Note Mattie Beck MD - 02/24/2016 Procedure: Pediatric Echocardiogram Patient: NAKIA GAR(Age): 1995(20y) Med Rec#: [id number] Sex: F Site Loc: Ht / Wt: (cm)/ (kg) Pt. Loc: Echo Lab Study Date: 02/24/2016 Pt. Type: Study Quality: Referring: Meme Huitron Reading: Mattie Beck ([id number]) Hospital Coder: Solo Reinoso Diagnosis: *ICD-10-PCS Family history of [...] 02/24/2016 16:13:27 Images reviewed and interpretation verified [facility] Cardiac Ultrasound Laboratory Meme Huitron MD ECHO ORDERABLES documented in this encounter Visit Diagnoses Diagnosis Family history of transposition of great vessels Family history of congenital anomalies documented in this encounter Care Teams Principal Java Developer Relationship Specialty Start Date End Date Lexie Finn MD [facility] CHILD ADVOCACY & [place] [address] PCP - General 10/12/10 03/07/18 documented as of this encounter
--- OUTSIDE RECORDS SUMMARY | 2024-12-13 16:33 | XMS_ITS | Referral Summary ---
Author Organization [facility] Address [address] [place] [address] Care Team Providers Care Induction Coordination Engineer Name Role Phone Unknown, Provider MD Primary Care Provider Unava ilable Social History Tobacco Use Types Packs/Day Years [...] C Antibody Negative Negative 11/30/2022 9:[address] [facility] Blood VENOUS BLOOD / Unknown 11/29/2022 12:05 EST 11/29/2022 21:41 EST us Provider Outr Resulting Lab CHEMISTRY & BLOOD GA S ORDERABLES Final Result [facility] [address] [place] [address] from Last 3 Months or Most Recently Relevant to Health Maintenance Care Teams Induction Coordination Engineer Relationship Specialty Start Date End Date Unknown, Provider, PCP - General 03/17/16
--- OUTSIDE RECORDS SUMMARY | 2024-12-13 16:33 | XMS_ITS | Encounter Summary ---
[place] [address] Care Team Providers Care Pss Delivery Professional Name Role Phone Familiayumiko Mary Yumiko COSME Primary Care Provider [phone] Encounter Details Date Type Department Care Team (Late Contact Info) Description 05/15/2018 10:30 AM EDT Office Visit Audiology at [address] [address] Naty Mccall AUD Right ear pain; Encounter for hearing examination [...] - 05/15/2018 10:30 AM ED[place] [address] Lizette Wandy, 22 y.o., was seen on 05/15/2018 for an audiologic evaluation in conjunction with Dr. Mcgraw in Otolaryngology. Please refer to the electronic audiogram listed under Procedures in Chart Review for findings, impressions and recommendations. Enclosure: Audi[place] [address] documented in this encounter Plan of Treatment Upcoming Encounters Date Type Department Care Team (Late st Contact Info) Description 02/19/2025 1:40 PM EDT Office Visit Obstetrics and Gynecology at [facility] [place] [address] Manda Hillman MD [facility] [place] [address] documented as of this encounter Procedures Procedure [...] the SRT from February did not match VOCATIONAL GUIDANCE COUNSELOR and therefore testing was completed in ascending [...] that the SRT from February did notmatch VOCATIONAL GUIDANCE COUNSELOR and therefore testing was completed in ascending [...] hearing documented in this encounter Care Teams Pss Delivery Professional Relationship Specialty Start Date End Date Mary Muhammad APRN PCP - General Family Medicine 03/08/18 10/23/24 documented as of this encounter
--- OUTSIDE RECORDS SUMMARY | 2024-12-13 16:33 | XMS_ITS | Encounter Summary ---
Author Organization [facility] Address [address] [place] [address] Care Team Providers Care Head Tennis Professional Name Role Phone Unknown, Provider Primary Care Provider Unava ilable Encounter Details Date Type Department Care Team (Late st Contact Info) Description 10/19/2021 Lab Requisition [facility] Pathology & Laboratory Medicine - [facility] [address] [place], [place] [address] Outr Resulting Lab, Provider Social History Tobacco [...] Priority Date/Time Associated Diagnosis Comments ZZCOVID-19 TEST [facility] PCR Today 10/18/2021 17:10 EST COVID-19 TESTING Routine 10/18/2021 17:1 0 EST documented in this encounter Results * COVID-19 TEST [facility] PCR (10/18/2021 17:10 EST) Swab 10/18/2021 17:1 0 EST 10/19/2021 17:07 EST us Provider Outr Resulting Lab MICROBIOLOGY - GENER AL ORDERABLES Final Result [facility] [address] [place] [address] * (ABNORMAL) COVID-19 TESTING (10/18/2021 17:10 EST) COVID-19 rt-PCR Result Positive( AA) Negative 10/20/2021 12:45 EST [facility] Comment: This test has not [...] was performed using the segundo SARS-CoV-2 assay ([employer] on the Segundo 6800 System Performing Lab [address] [facility] Lab 10/20/2021 12:45 EST [facility] Swab 10/18/2021 17:1 0 EST 10/19/2021 17:07 EST us Provider Outr Resulting Lab MICROBIOLOGY - GENER AL ORDERABLES Final Result [facility] [address] [place] [address] documented in this encounter Visit Diagnoses Not on filedocumented in this encounter Additional Health Concerns Infection Onset Date Last Indicated Resolved Time COVID-19 10/18/2021 10/18/2021 11/07/2021 22:1 5 EST documented as of this encounter Care Teams Head Tennis Professional Relationship Specialty Start Date End Date Unknown, Provider, PCP - General 03/17/16 documented as of this encounter
--- OUTSIDE RECORDS SUMMARY | 2024-12-13 16:33 | XMS_ITS | Encounter Summary ---
Author Organization [facility] [place] [address] Care Team Providers Care Manager Fitness Name Role Phone Lexie Finn MD Primary Care Provider [phone] Encounter Details Date Type Department Care Team (Late Contact Info) Description 02/12/2016 Orders Only Obstetrics [place] [phone] Meme Huitron MD [facility] DR OBSTETRICS [place] [address] FHx: congenital heart disease Social History Tobacco [...] EDT Office Visit Obstetrics [place] [address] Manda Hillman MD [facility] DR OBSTETRICS [place] [address] documented as of this encounter Results * [...] 03:40 pm) Patient Info ID #: ? [id number] ?: ??[birth year] (20 yrs) Name: ? ABRAHAN SABA ?Visit Date: 02/24/2016 02:00 pm Performed By Performed By: ? 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 21.6 ??% ? Est. FW: ? 428 ?? gm ?? [...] Aortic Arch: ?Visualized Ductal Arch: ?Visualized Cardiac [place]: ? Visualized 3 Vessel View: ?Visualized Diaphragm: [...] 02/24/2016 03:40 pm) Patient Info ID #: [id number] : [birth year] (20 yrs) Name: ABRAHAN SABA Visit Date: 02/24/2016 02:00 pm Performed By Performed By: Kristyn Johns RDMS Attending: Charbel Aburto MD Referred By: KIANA PASCUAL [facility] Service(s) Provided [facility] - Detailed Morphology - Genetics - [id number] Indications FOB transposition of great vessels; E [...] Aortic Arch: Visualized Ductal Arch: Visualized Cardiac [place]: Visualized 3 Vessel View: Visualized Diaphragm: Visualized [...] anomalies documented in this encounter Care Teams Manager Fitness Relationship Specialty Start Date End Date Lexie Finn MD [facility] DR CHILD ADVOCACY & [place] [address] PCP - General 10/12/10 03/07/18 documented as of this encounter
--- OUTSIDE RECORDS SUMMARY | 2024-12-13 16:33 | XMS_ITS | Encounter Summary ---
Author Organization [facility] Address [address] [place] [address] Care Team Providers Care Donor Recruiter Name Role Phone Unknown, Provider Primary Care Provider Unava ilable Encounter Details Date Type Department Care Team (Late st Contact Info) Description 12/28/2022 Lab Requisition [facility] Pathology & Laboratory Medicine - [facility] [address] [place], [place] [address] Outr Resulting Lab, Provider Social History Tobacco [...] gonorrhoeae Result Negative Negative 12/29/2022 13:26 EST [facility] Chlamydia trachomatis Result Negative Negative 12/29/2022 13:26 EST [facility] Urine URINE / Unknown 12/27/2022 1 4:30 EST 12/28/2022 17:15 EST Narrative [facility] - 12/29/2022 13:26 EST A first catch urine specimen is acceptable for detection of Gonorrhea and Chlamydia, but might detect up to 10% fewer infections when compared with vaginal and endocervical swab samples. us Provider Outr Resulting Lab MICROBIOLOGY - GENER AL ORDERABLES Final Result [facility] [address] [place] [address] documented in this encounter Visit Diagnoses Not on filedocumented in this encounter Care Teams Donor Recruiter Relationship Specialty Start Date End Date Unknown, Provider, PCP - General 03/17/16 documented as of this encounter
--- OUTSIDE RECORDS SUMMARY | 2024-12-13 16:33 | XMS_ITS | Encounter Summary ---
Author Organization [facility] Address [address] [place] [address] Care Team Providers Care Medical Associate Name Role Phone Unknown, Provider Primary Care Provider Unava ilable Encounter Details Date Type Department Care Team (Late st Contact Info) Description 11/29/[address] [facility] Pathology & Laboratory Medicine - [facility] [address] [place], [place] [address] Outr Resulting Lab, Provider Social History Tobacco [...] 4th Generation Negative Negative 11/30/2022 10:25 EST [facility] Comment:If acute HIV-1 infec tion is suspected in a high risk patient, submit plasma specimen for HIV-1 RNA quantitation test. Blood VENOUS BLOOD / Unknown 11/29/2022 12:05 EST 11/29/2022 21:41 EST Narrative [facility] - 11/30/2022 10:25 EST Fourth Generation assay performed on the Siemens Centaur XPT. us Provider Outr Resulting Lab IMMUNOLOGY AND SEROL OGY ORDERABLES Final Result [facility] [address] [place] [address] documented in this encounter Visit Diagnoses Not on filedocumented in this encounter Care Teams Medical Associate Relationship Specialty Start Date End Date Unknown, Provider, PCP - General 03/17/16 documented as of this encounter
--- OUTSIDE RECORDS SUMMARY | 2024-12-13 16:33 | XMS_ITS | Encounter Summary ---
Author Organization [facility] [place] [address] Care Team Providers Care Ornamental Machine Operator Name Role Phone Lexie Finn MD Primary Care Provider [phone] Reason for Visit * Reason Comments Ultrasound * Consultation (Routine) - Closed Specialty Diagnoses / Procedures Referred By Xiomara t Referred To Contact Genetics / Obstetrics and Gynecology Diagnoses FOB TRANSPOSITION OF GREAT VESSELS Procedures GENETIC CONSULT Sunshine العراقي CNM [address] [place] [address] [facility] Manager Of Learning [address] [place] [address] Referral ID Status Reason Start Date Expiration Date Visits Re quested Visits Authorized [id number] Closed 01/15/2016 01/14/2017 2 2 Encounter Details Date Type Department Care Team (Latest Contact Info) Description 02/24/2016 2:15 PM EDT Procedure visit Obstetrics [place] [address] Charbel Aburto MD [facility] DR OBSTETRICS [place] [address] Family history of transposition of [...] recommend follow-up ultrsaound in 4 weeks at [facility]. This may representearly growth restriction or dating error. The is dated based upon a 12 week ultrasound done at an outside facility. The 18 week ultrasound done at [facility] was lagging by one week relative to the 12 week ultrasound. I appreciate the opportunity to be involved in this patients care, and am available if further questions should arise. Charbel ABURTO MD 02/24/2016 Cc: Sunshine العراقي CN [address] [place] [address] , with copy of ultrasound report documented in this encounter Plan of Treatment Upcoming Encounters Date Type Department Care Team (Late st Contact Info) Description 02/19/2025 1:40 PM EDT Office Visit Obstetrics [place] [address] Manda Hillman MD [facility] OBSTETRICS [place] [address] documented as of this encounter Visit Diagnoses Diagnosis Family history of transposition of great vessels Family history of congenital anomalies FHx: congenital heart disease Family history of congenital anomalies documented in this encounter Care Teams Ornamental Machine Operator Relationship Specialty Start Date End Date Lexie Finn MD [facility] CHILD ADVOCACY & [place] [address] PCP - General 10/12/10 03/07/18 documented as of this encounter
--- OUTSIDE RECORDS SUMMARY | 2024-12-13 16:33 | XMS_ITS | Encounter Summary ---
[place] [address] Care Team Providers Care Court Orderly Name Role Phone Lexie Finn MD Primary Care Provider Reason for Visit * Reason Comments Family History Father of fetus: his tory of transposition of the great arteries * Consultation (Routine) - Closed Specialty Diagnoses / Procedures Referred By Xiomara desai Referred To Contact Genetics / Obstetrics and Gynecology Diagnoses FOB TRANSPOSITION OF GREAT VESSELS Procedures GENETIC CONSULT Sunshine العراقي CNM [address] [place] [address] [facility] [place] [facility] Clinical Allergist [address] [place] [address] Referral ID Status Reason Start Date Expiration Date Visits Re quested Visits Authorized [id number] Closed 01/15/2016 01/14/2017 2 2 Encounter Details Date Type Department Care Team (Late st Contact Info) Description 02/24/2016 1:00 PM EDT Office Visit Obstetrics [place] [address] Gerald Perkins, [facility] DR OBSTETRICS & [place] [address] Hereditary disease in family possibly [...] of this encounter Progress Notes * MaddieGerald, [facility] - 02/24/2016 5:15 PM EDT Genetic Counseling [...] this diagnosis was confirmed by review ofhis [facility] medical records. 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 TGA is very rarelyassociated with chromosome disorders (e.g. Dooley syndrome, 22q11.2 deletion syndrome), genetic syndromes (e.g. Ragland syndrome, Mark syndrome, Marfan syndrome, CHARGE syndrome, [...] EDT Office Visit Obstetrics [place] [address] Manda Hillman MD [facility] DR OBSTETRICS [place] [address] documented as of this encounter Visit Diagnoses Diagnosis Hereditary disease in family possibly affecting fetus, affecting management of mother, antepartum condition or complication, not applicable or unspecified fetus Encounter for genetic counseling Genetic counseling documented in this encounter Care Teams Court Orderly Relationship Specialty Start Date End Date Lexie Finn MD [facility] CHILD ADVOCACY & [place] [address] PCP - General 10/12/10 03/07/18 documented as of this encounter
--- OUTSIDE RECORDS SUMMARY | 2024-12-13 16:33 | XMS_ITS | Clinical Summary ---
Author Organization [facility] Address [address] [place] [address] Care Team Providers Care Remelt Pan Tank Operator Name Role Phone Unknown, Provider Primary Care Provider Unava ilable Social History [...] Antibody Negative Negative 11/30/2022 9:54 EST [facility] Blood VENOUS BLOOD / Unknown 11/29/2022 12:05 EST 11/29/2022 21:41 EST us Provider Outr Resulting Lab CHEMISTRY & BLOOD GA S ORDERABLES Final Result [facility] [address] [place] [address] from Last 3 Months or Most Recently Relevant to Health Maintenance Care Teams Remelt Pan Tank Operator Relationship Specialty Start Date End Date Unknown, Provider, PCP - General 03/17/16
--- OUTSIDE RECORDS SUMMARY | 2024-12-13 16:33 | XMS_ITS | Encounter Summary ---
[place] [address] Care Team Providers Care Superintendent Oil Well Services Name Role Phone Jb Mary Rajendra COSME Primary Care Provider [phone] Reason for Referral * Diagnostic Test (Routine) - Closed Specialty Diagnoses / Procedures Referred By Xiomara desai Referred To Contact Radiology Diagnoses Conductive hearing loss of right ear with unrestricted hearing of left ear Procedures CT Temporal Bone wo Contrast (Generic) Germán Mcgraw MD [facility] [place] [address] [facility] [place] [address] Referral ID Status Reason Start Date Expiration Date V isits Requested Visits Authorized [id number] Closed Specialty Service Requested 05/21/2018 08/19/2018 1 1 Reason for Visit * Reason Comments Schedule Office Case second opinion on fluctuating hearing loss in right ear some days are fine, some days I can't hear. Some days are in between * Consultation (Routine) - Closed Specialty Diagnoses / Procedures Referred By Contlaurel desai Referred To Contact Otolaryngology Diagnoses 2ND OPINION- CONDUCTIVE HEARING LOSS, UNITLATERAL W/ RESTRICTED HEARING Eleazar Tavares, DO [address] [place] [address] Germán Mcgraw MD [facility] [place] [address] Referral ID Status Reason Start Date Expiration Date Visits Re quested Visits Authorized [id number] Closed 02/20/2018 02/20/2019 1 1 Encounter Details Date Type Department Care Team (Late st Contact Info) Description 05/15/2018 11:20 AM EDT Office [place] [address] Germán Mcgraw MD [facility] [place] [place] [address] Conductive hearing loss of right ear with [...] Mcgraw MD - 05/15/2018 11:20 AM EDT [facility] Otolaryngology - Head and Neck Surgery Germán Mcgraw MD 05/15/18 11:40 AM [place], [place] [address] Office Patient Name: Lizette Saba Date of : 1995 PCP: Mary Muhammad, SUSPENSION CORD TIER Chief Complaint: right ear hearing loss and [...] Anxiety Disorder Father Social History: Lives in [place] [facility] [address] Social History Social History ??? Marital status: [...] EDT Office Visit Obstetrics [place] [address] Manda Hillman MD [facility] DR OBST[place] [address] documented as of this encounter Results * [...] ear documented in this encounter Care Teams Superintendent Oil Well Services Relationship Specialty Start Date End Date Mary Muhammad APRN PCP - General Family Medicine 03/08/18 10/23/24 documented as of this encounter
--- OUTSIDE RECORDS SUMMARY | 2024-12-13 16:33 | XMS_ITS | Encounter Summary ---
Author Organization [facility] Address [address] [place] [address] Care Team Providers Care Network Program Manager Name Role Phone Unavailable Primary Care Provider Unavailabl e Encounter Details Date Type Department Care Team (Latest Contact Info) Description 03/28/2001 10:26 EDT - 03/28/2001 11:59 EDT Hospital Encounter [address] [address] Tyler Castillo, DDS [address] [place], [place] [id number] Discharge Disposition: Auto Discharge Social History Tobacco [...]
--- OUTSIDE RECORDS SUMMARY | 2024-12-13 16:33 | XMS_ITS | Encounter Summary ---
[place] [address] Care Team Providers Care Steam Cleaner Name Role Phone Jb Mary Drew APRN Primary Care Provider [phone] Reason for Referral * Diagnostic Test (Routine) - Closed Specialty Diagnoses / Procedures Referred By Contac t Referred To Contact Diagnoses Family history of congenital heart disease Procedures Echo Hussein Huitron MD [facility] DR OBSTETRICS [place] [address] [facility] [place] [address] Referral ID Status Reason Start Date Expiration Date V isits Requested Visits Authorized [id number] Closed Specialty Service Requested 12/07/2022 12/07/2023 1 1 Encounter Details Date Type Department Care Team (Late st Contact Info) Description 12/07/2022 Orders Only Obstetrics [place] [id number] Hussein Huitron MD [facility] OBSTETRICS [place] [address] Family history of congenital heart [...] EDT Office Visit Obstetrics [place] [address] Manda Hillman MD [facility] OBSTETRICS [place] [address] documented as of this encounter Results * [...] Physician: HUSSEIN HUITRON Performed By: Nataly Perez [facility] Exam Location: [facility]. Interpretation Summary This is a 22 [...] diameter at the annulus measures 0.55 cm ([place] Z-score: - 0.23). Tricuspid Valve The tricuspid valve appears normal. There is a normal biphasic inflow pattern across the valve. There is no evidence of tricuspid insufficiency. The tricuspid diameter at the annulus measures 0.59 cm ([place] Z-score: +0.09). Left Ventricle The left ventricular [...] diameter at the annulus is 0.29 cm ([place] Z-score: -1.6). Pulmonic Valve The pulmonary valve appears normal. There is no evidence of valvular pulmonary stenosis. There is no evidence of pulmonary insufficiency by color or spectral Doppler. The pulmonary annulus measures 0.41 cm ([place] Z-score: -0.68). Great Vessels The main pulmonary artery appears normal. The branch pulmonary arteries appear normal. The ascending aorta does not appear dilated. The descending thoracic aorta does not appear dilated. There is no evidence of coarctation of the aorta. The aortic isthmus measures 0.31 cm ([place] Z-score: +0.37). Circulation The umbilicus has 2 [...] ABRAHAN SABA Study Date: 02/14/2023 Patient Location: [address] [place] [address] : 1995 Gender: Female Age: 27 yrs Reason For Study: Family history of congenital heart disease Ordering Physician: HUSSEIN HUITRON Referring Physician: HUSSEIN HUITRON Performed By: Nataly Perez [facility] Exam Location: [facility]. Interpretation Summary This is a 22 [...] diameter at the annulus measures 0.59 cm ([place] Z-score: +0.09). Left Ventricle The left ventricular [...] diameter at the annulus is 0.29 cm ([place] Z-score: -1.6). Pulmonic Valve The pulmonary valve appears normal. There is no evidence of valvularpulmonary stenosis. There is no evidence of pulmonary insufficiency by color orspectral Doppler. The pulmonary annulus measures 0.41 cm ([place] Z-score: -0.68). Great Vessels The main pulmonary artery appears normal. The branch pulmonary arteriesappear normal. The ascending aorta does not appear dilated. The descendingthoracic aorta does not appear dilated. There is no evidence of coarctation of the aorta.The aortic isthmus measures 0.31 cm ([place] Z-score: +0.37). Circulation The umbilicus has 2 [...] anomalies documented in this encounter Care Teams Steam Cleaner Relationship Specialty Start Date End Date Mary Muhammad APRN PCP - General Family Medicine 03/08/18 10/23/24 documented as of this encounter
--- OUTSIDE RECORDS SUMMARY | 2024-12-13 16:33 | XMS_ITS | Encounter Summary ---
[place] [address] Care Team Providers Care Search Specialist Name Role Phone Jb Mary Drew APRN Primary Care Provider [phone] Reason for Referral * Consultation (Routine) - Closed Specialty Diagnoses / Procedures Referred By Contact Referred To Contact Obstetrics and Gynecology Diagnoses Encounter for supervision of normal , antepartum, unspecified Discordant ventriculoarterial connection Siomara Tolbert CNM [address] [place] [address] [address] [place] [address] [facility] [employer] [employer] [address] [place] [address] Referral ID Status Reason Start Date Expiration Date V isits Requested Visits Authorized [id number] Closed Consult, Test & Treat PCP Updated and/or Approved 11/29/2022 11/29/2023 1 1 Encounter Details Date Type Department Care Team (Latest Contact Info) Description 11/29/2022 Transcribe Orders eDH Incoming Referrals [phone] Soimara Tolbert CNM [address] [place] [address] [address] [place], [place] [id number] Encounter for supervision of normal , antepartum, [...] EDT Office Visit Obstetrics [place] [address] Manda Hillman MD [facility] DR OBSTETRICS [place] [address] Scheduled Referrals Name Type Priority Associated Diagnoses Orde r Schedule Referral to Maternal Medicine Outpatient Referral Routine Encounter for supervision of normal , antepartum, unspecified Discordant ventriculoarterial connection Ordered: 11/29/2022 documented as of this encounter Visit Diagnoses Diagnosis Encounter for supervision of normal , antepartum, unspecified 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
--- OUTSIDE RECORDS SUMMARY | 2024-12-13 16:33 | XMS_ITS | Encounter Summary ---
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 of left ear Procedures CT Temporal Bone wo Contrast (Generic) Germán Mcgraw MD [facility] [place] [address] [facility] [place] [address] Referral ID Status Reason Start Date Expiration Date V isits Requested Visits Authorized [id number] Closed Specialty Service Requested 05/21/2018 08/19/2018 1 1 Reason for Visit * Diagnostic Test (Routine) - Closed Specialty Diagnoses / Procedures Referred By Contac t Referred To Contact Radiology Diagnoses Conductive hearing loss of right ear with unrestricted hearing of left ear Procedures CT Temporal Bone wo Contrast (Generic) Germán Mcgraw MD [facility] [place] [address] [facility] [place] [address] Referral ID Status Reason Start Date Expiration Date V isits Requested Visits Authorized [id number] Closed Specialty Service Requested 05/21/2018 08/19/2018 1 1 Encounter Details Date Type Department Care Team (Latest Contact Info) Description 05/22/2018 8:34 AM EDT - 05/22/2018 11:59 PM EDT Hospital [place] [phone] Germán Mcgraw MD [facility] [place] [address] Conductive hearing loss of right ear with [...] EDT Office Visit Obstetrics [place] [address] Manda Hillamn MD [facility] [place] [address] documented as of this encounter Procedures Procedure [...] ear documented in this encounter Care Teams Stonehand Relationship Specialty Start Date End Date Mary Muhammad, CARMELINA PCP - General Family Medicine 03/08/18 10/23/24 documented as of this encounter
--- OUTSIDE RECORDS SUMMARY | 2024-12-13 16:33 | XMS_ITS | Encounter Summary ---
Author Organization [facility] Address [address] [place] [address] Care Team Providers Care Guest Experience Manager Name Role Phone Unknown, Provider Primary Care Provider Unava ilable Encounter Details Date Type Department Care Team (Latest Contact Info) Description 11/11/2020 Lab Requisition [facility] Pathology & Laboratory Medicine - [facility] [address] [place] [address] Kendy Jeter FNP [address] [place] [address] Encounter for general adult medical examination without [...] System with Manual Evaluation 11/23/2020 14:58 EST [facility] Specimen Adequacy Satisfactory for Evaluation - transformation zone component present 11/23/2020 14:58 EST [facility] General Categorization Negative for intraepithelial lesion or malignancy 11/23/2020 14:58 EST [facility] Attestation . 11/23/2020 14:58 EST [facility] at 1458 Clinical History See below 11/23/19 14:58 EST [facility] Performing Lab [facility] 11/23/2020 14:58 EST [facility] Scanned Images 11/23/2020 14:58 EST [facility] Papanicolaou smear specimen (specimen) CERVIX UTERI STRUCTURE / Unknown 11/10/2020 8:45 EST 11/11/2020 10:59 EST Kendy Jeter DESIGN AND SALES CONSULTANT PATHOLOGY ORDERABLES Final Res ult [facility] [address] [place] [address] documented in this encounter Visit Diagnoses Diagnosis [...] documented as of this encounter Care Teams Guest Experience Manager Relationship Specialty Start Date End Date Unknown, Provider, PCP - General 03/17/16 documented as of this encounter
--- OUTSIDE RECORDS SUMMARY | 2024-12-13 16:33 | XMS_ITS | Encounter Summary ---
Author Organization [facility] Address [address] [place] [address] Care Team Providers Care Feed Miller Name Role Phone Unknown, Provider Primary Care Provider Unava ilable Encounter Details Date Type Department Care Team (Late st Contact Info) Description 11/29/2022 Lab Requisition [facility] Pathology & Laboratory Medicine - [facility] [address] [place], [place] [address] Outr Resulting Lab, Provider Social History Tobacco [...] Ab Positive See Note 11/30/2022 10:30 EST [facility] Comment:Presence of detectab le Varicella Zoster virus IgG antibodies. Blood VENOUS BLOOD / Unknown 11/29/2022 12:05 EST 11/29/2022 21:41 EST us Provider Outr Resulting Lab IMMUNOLOGY AND SEROL OGY ORDERABLES Final Result Performing Organization Address City/State/[facility] Co de Phone Number [facility] [address] [place] [address] * RUBELLA IGG ANTIBODY (11/29/2022 12:05 EST) Rubella IgG Ab Negative See Note 11/30/2022 10:36 EST [facility] Comment:Sample is considered negative for [...] & BLOOD GA S ORDERABLES Final Result Performing Organization Address [facility] Co de Phone Number [facility] [address] [place] [address] documented in this encounter Visit Diagnoses Not on filedocumented in this encounter Care Teams Feed Miller Relationship Specialty Start Date End Date Unknown, Provider, PCP - General 03/17/16 documented as of this encounter
--- OUTSIDE RECORDS SUMMARY | 2024-12-13 16:33 | XMS_ITS | Encounter Summary ---
Author Organization [facility] [place] [address] Care Team Providers Care Per Diem Registered Nurse Name Role Phone Lexie Finn MD Primary Care Provider [phone] Encounter Details Date Type Department Care Team (Latest Contact Info) Description 02/24/2016 12:45 PM EDT - 02/24/2016 2:55 PM EDT Hospital Encounter [place] [address] Meme Huitron MD [facility] OBSTETRICS [place] [address] FHx: congenital heart disease Discharge Disposition: Home [...] EDT Office Visit Obstetrics [place] [address] Manda Hillman MD [facility] DR OBSTETRICS [place] [address] documented as of this encounter Procedures Procedure [...] and agree with the above interpretation. ? Mikhail Aburto MD Electronically Signed Final Report ?? 02/24/2016 03:40 pm Narrative 02/24/2016 3:40 PM EDT OBSTETRICS REPORT ?(Signed Final 02/24/2016 03:40 pm) Patient Info ID #: ? [id number] ?: ??[birth year] (20 yrs) Name: ? ABRAHAN SABA ?Visit Date: 02/24/2016 02:00 pm Performed By Performed By: ? Kristyn Johns RDMS Attending: ?Lamonte FLOR, E ??Kelly Referred By: ?KIANA PASCUAL CN Service(s) Provided ??[facility] - Detailed Morphology - Genetics - [id number] Indications ??FOB transposition of great vessels; E [...] Aortic Arch: ?Visualized Ductal Arch: ?Visualized Cardiac [place]: ? Visualized 3 Vessel View: ?Visualized Diaphragm: [...] visualized Right Ovary Not visualized Procedure Note Mikhail Aburto MD - 02/24/2016 OBSTETRICS REPORT (Signed Final 02/24/2016 03:40 pm) Patient Info ID #: [id number] : [birth year] (20 yrs) Name: ABRAHAN SABA Visit Date: 02/24/2016 02:00 pm Performed By Performed By: Kristyn Johns RDMS Attending: Mikhail Aburto MD Referred By: KIANA PASCUAL [facility] Service(s) Provided [facility] - Detailed Morphology - Genetics - [id number] Indications FOB transposition of great vessels; E [...] Aortic Arch: Visualized Ductal Arch: Visualized Cardiac [place]: Visualized 3 Vessel View: Visualized Diaphragm: Visualized [...] images and agree with the above interpretation. Mikhail Aburto MD Electronically Signed Final Report 02/24/2016 03:40 pm Meme Huitron MD IMG US OB ORDERABLES documented in this encounter Visit Diagnoses Diagnosis FHx: congenital heart disease Family history of congenital anomalies documented in this encounter Care Teams Per Diem Registered Nurse Relationship Specialty Start Date End Date Lexie Finn MD [facility] CHILD [facility] [facility] [place] [address] PCP - General 10/12/10 03/07/18 documented as of this encounter
--- NOTE | 2024-12-13 17:00 | ED.GENADUL_ITS ---
Discharge Plan Disposition Patient Disposition: Home Condition: Stable Discharge Details Clinical Impression: Finger fracture, left, Contusion of knee Primary Care Provider: Yolis Mckeon ED Provider: Michelle Regalado Home Meds and New Rx's Prescriptions: Continued Nexplanon 68 mg implant 1 implant subdermal ONCE Qty: 1 0RF Rx Instructions: as a single dose aripiprazole [Abilify] 5 mg tablet 5 mg PO DAILY albuterol-budesonide 90-80 mcg/actuation HFA aerosol inhaler 2 inh inhalation ONCE PRN Rx Instructions: as a single dose; may repeat up to 6 doses per day (12 inhalations) cholecalciferol (vitamin D3) 125 mcg (5,000 unit) tablet 125 mcg PO DAILY ammonium lactate 12 % cream 1 applic topical BID bacitracin 500 unit/gram ointment 1 applic topical BID Qty: 30 0RF Rx Instructions: Apply after soaks to bilateral great toe wounds paroxetine HCl 40 mg tablet 40 mg PO DAILY Patient Comments: TAKE 1 TABLET BY MOUTH ONCE A DAY clonazepam 0.5 mg tablet 0.5 mg PO BID PRN Patient Comments: TAKE ONE TABLET BY MOUTH TWICE A DAY NEEDED FOR ANXIETY AND PANIC ATTACKS (USE SPARINGLY) Emgality Syringe 120 mg/mL syringe 120 mg SUBCUT .monthly Patient Comments: INJECT 120MG (1 PEN) SUBCUTANEOUSLY ONCE MONTHLY Discharge Instructions Instructions: Finger Fracture ED Additional Instructions: Follow-up with orthopedics regarding your finger fracture, keep splint in place until you are reevaluated You likely have a contusion or strain to your knee, wear your brace weightbearing as tolerated until your symptoms improve, you may apply ice and take ibuprofen and Tylenol as needed for discomfort. Please return earlier should you have new or worsening Referrals: Micheal Bermudez MD [ [facility]FF [facility]YSICIAN] - 3 days Yolis Mckeon [Primary Care Provider] - Discharge Data Discharge Date/Time-TO BE ENTERED AT DEPARTURE: 12/13/24 16:52 HPI General Date/Time Provider Initiated Documentation: 12/13/24 15:46 . HPI Narrative: This 29-year-old female presents with injury to left fourth digit and left knee while skating. She denies any additional injuries. This happened just prior to arrival while she was at work reportedly. 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 She was wearing a helmet and denies hitting her head. Denies any chance of . Related Data Home Medications ?Medication ?Instructions ?Recorded ?Confirmed etonogestrel 68 mg subdermal 1 implant subdermal ONCE #1 ea 07/12/23 09/08/24 implant (Nexplanon) bacitracin 500 unit/gram topical 1 applic topical BID #30 grams 02/04/24 09/08/24 ointment albuterol 90 mcg-budesonide 80 2 inh inhalation ONCE PRN 03/04/24 09/08/24 mcg/actuation HFA aerosol inhaler ammonium lactate 12 % topical cream 1 applic topical BID 03/04/24 09/08/24 aripiprazole 5 mg tablet (Abilify) 5 mg PO DAILY 03/04/24 09/08/24 cholecalciferol (vitamin D3) 125 125 mcg PO DAILY 03/04/24 09/08/24 mcg (5,000 unit) tablet clonazepam 0.5 mg tablet 0.5 mg PO BID PRN 09/08/24 09/08/24 galcanezumab-gnlm 120 mg/mL 120 mg subcut .monthly 09/08/24 09/08/24 subcutaneous syringe (Emgality) paroxetine HCl 40 mg tablet 40 mg PO DAILY 09/08/24 09/08/24 Previous Rx's ?Medication ?Instructions ?Recorded etonogestrel 68 mg subdermal 1 implant subdermal ONCE #1 ea 07/12/23 implant (Nexplanon) bacitracin 500 unit/gram topical 1 applic topical BID #30 grams 02/04/24 ointment Allergies Allergy/AdvReac Type Severity Reaction Status Date / Time bee venom protein (honey bee) Allergy Severe Anaphylaxis Verified 12/13/24 15:45 shellfish derived AdvReac nausea/vomi Unverified 12/13/24 15:45 ting General Stated Complaint: Orthopedic PALOMO: 4 Exam Narrative Exam Narrative: Left knee with tenderness, no visible signs of trauma, no ecchymosis, and with antalgic gait, no tenderness to left hip or left ankle. Tenderness with the left fourth digit, predominantly at the PIP joint, swelling, no tenderness to left wrist no additional visible evidence of trauma Course Vital Signs Vital signs: Vital Signs Temperature 36.2 C L 12/13/24 15:41 Pulse 77 12/13/24 15:41 Respiratory Rate 14 12/13/24 15:41 Blood Pressure 124/82 12/13/24 15:41 Pulse Oximetry 99 12/13/24 15:41 Temperature 36.2 C L 12/13/24 15:41 Temperature Source Temporal Artery Scan 12/13/24 15:41 Pulse 77 12/13/24 15:41 Respiratory Rate 14 12/13/24 15:41 Blood Pressure 124/82 12/13/24 15:41 Blood Pressure Position Sitting 12/13/24 15:41 Pulse Oximetry 99 12/13/24 15:41 Oxygen Delivery Method Room Air 12/13/24 15:41 Oxygen Flow Rate 0 12/13/24 15:41 Pain Level 7 12/13/24 15:41 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 X-ray were ordered and show evidence of a left PIP fracture, left knee without evidence of acute fracture per radiology interpretation my review, placed in a finger splint. Motrin and Tylenol as needed for pain. Referred to orthopedics for follow-up return precautions reviewed and patient expressed understanding Quality:SDOH Health Related Social Needs: Health related social needs housing instability, house d, with risk of homelessness (Z59.811), education (Z55.6) PFSH All Active Problems (Updated 12/13/24 @ 16:41 by ABDIRAHMAN Huff) Contusion of knee (Acute) Finger fracture, left (Acute) Bipolar 1 disorder (Acute) Medical History (Updated 12/13/24 @ 16:41 by ABDIRAHMAN Huff) Sciatic leg pain Normal spontaneous vaginal delivery 06/12/2023. Male infant. Labor induction due to insulin requiring gestational diabetes at term. Gestational diabetes Presence of subdermal contraceptive implant (07/12/23) Nexplanon placed in R arm 07/12/23 Migraine Depression Exercise-induced asthma (11/07/13) intermittent asthma with exercise trigger Surgical History (Updated 01/02/23 @ 23:07 by Nicole Bowers DO) No significant past surgical history Family History Other Neoplasm Paternal Great Aunt with Ovarian cancer Father Migraines Essential hypertension Depression Mental disorder depression Mother Migraines Grandfather Migraines Myocardial infarction Neoplasm 3 TYPES Grandfather Alcohol abuse in remission Neoplasm COLON Grandmother Migraines Grandmother Migraines Diabetes Essential hypertension Family history Neoplasm Ovarian Social History Smoking/Tobacco Use Status: Never Smoking risk assessment performed?: Yes Alcohol Intake: current Alcohol Intake frequency: holidays/special occasions only Alcohol type: wine Drug use: Never Substance use type: does not use Housing: apartment Do you feel safe at home: Yes Do you feel safe in your relationship?: Yes History History 2 Para 1 Hx # Term Pregnancies 1 Multiple births 0 Hx # Pregnancies 0 Ectopic pregnancies 0 AB induced 0 Hx Number of Living Children 1 AB spontaneous 0 Past Pregnancies Del. Date GA/Weeks # Preg Succ Route Wgt Sex Labor Lgth Anesth esia Location Prov Complic 07/03/16 42 No Yes vaginal 3659.923 g Male 8 hr active labor induced for 2 days regional [facility] 06/12/23 39 No Yes vaginal 3118.448 g Male [facility] Delivery Date: 07/03/16 Last Updated by: Siomara Saenz CNM Erik, no complications, checked blood sugar due to 1 elevation on 3-hr, No abnormal levels Delivery Date: 06/12/23 Last Updated by: Kerline Smith MD IND for GDM
== END 2024-12-13 16:52 | disposition home or self-care (01) ==
PROVIDERS: Emergency Provider Physician Assistant; PCP Nurse Practitioner Family
DX: S80.02XA Contusion of left knee, initial encounter (principal); Y93.21 Activity, ice skating; S62.615A Displaced fracture of proximal phalanx of left ring finger, initial encounter for closed fracture; Z55.6 Problems related to health literacy; Z59.811 Housing instability, housed, with risk of homelessness
CPT/HCPCS: 29130; 73562; 81025; 99284; 73140; 99283

== ENCOUNTER 2025-03-24 12:22 | Outpatient (CLI) | payer MEDICAID, SELFPAY ==
--- NOTE | 2025-03-24 12:24 | DI.RAD_ITS ---
Exam(s) XR ANKLE LT COMPLETE EXAM: XR ANKLE LT COMPLETE CLINICAL HISTORY: PAIN LT ANKLE AND JOINT M25.572 R/O FX OR SPRAIN. TECHNIQUE: 2D digital imaging was performed. COMPARISON: CR,XR XR ANKLE LT COMPLETE from 08/30/2020 FINDINGS: 3 views There is mild soft tissue swelling laterally. No evidence of fracture or widening the ankle mortise. Talar dome unremarkable. No degenerative changes. No osseous tarsal coalition. Bone density norm al per IMPRESSION: No fractures evident. DATA REPOSITORY: RADIATION DOSE DELIVERED:
== END 2025-03-24 12:42 ==
LOC: DI 12:22
PROVIDERS: PCP Nurse Practitioner Family; Visit Provider Nurse Practitioner Family
DX: M25.572 Pain in left ankle and joints of left foot (principal)
CPT/HCPCS: 73610

== ENCOUNTER 2025-04-29 02:28 | Outpatient (CLI) | payer MEDICAID, SELFPAY ==
[2025-04-29 11:43] LABS: Abs Immature Grans 0.02 10^3/uL (0.0-0.06); Absolute Basophil Count 0.06 10^3/uL (0.0-0.2); Absolute Eosinophil Count 0.09 10^3/uL (0.0-0.7); Absolute Lymphocyte Count 2.11 10^3/uL (1.2-3.4); Absolute Monocyte Count 0.49 10^3/uL (0.1-0.8); Absolute Neutrophil Count 4.04 10^3/uL (1.2-6.7); Basophils % 0.9 %; Eosinophils % 1.3 %; HCT 38.7 % (36.0-46.0); HGB 12.9 g/dL (11.2-15.7); Immature Grans % 0.3 %; MCH 28.3 pg (27.0-33.0); MCHC 33.3 % (32.0-36.0); MCV 85 fL (80-95); Monocytes % 7.2 %; Neutrophils % 59.3 %; Platelet Count 333 10^3/uL (130-400); RBC 4.56 10^6/uL (3.93-5.22); RDW 13.3 % (11.7-14.6); RDW-SD 41.2 fL; WBC 6.81 10^3/uL (4.4-10.8)
== END 2025-04-29 02:29 | disposition home or self-care (01) ==
LOC: LBO 02:28
PROVIDERS: PCP Nurse Practitioner Family; Visit Provider Obstetrics & Gynecology
DX: Z01.818 Encounter for other preprocedural examination (principal)
CPT/HCPCS: 36415; 86850; 86900; 86901; 85025

== ENCOUNTER 2025-04-30 06:00 | Day surgery (SDC) | payer MEDICAID, SELFPAY ==
[2025-04-30] VITALS (22 sets, daily range): BP systolic 101–145; BP diastolic 55–84; PULSE 62–106; RESP 11–27; TEMP 36–36.6; O2SAT 93–98; BMI 29.9
[2025-04-30] MEDS: Lactated Ringers 1,000 ML 150 ML IV (06:42)
--- NOTE | 2025-04-30 06:57 | ANES.PREOP_ITS ---
General Info Date of Service Date Performed: 04/30/25 Height: 5 ft 6 in Weight: 84 kg Body Mass Index (BMI): 29.9 Surgical Procedure: Operation Date: 04/30/25 07:40 Proposed Procedure Side Surgeon p Tubal Sterilization via bilateral laparoscopic salpingectomy w/Nexplanon removal Bilateral Jessica Hernandez DO Meds Allergies and Home Medications Allergies Allergy/AdvReac Type Severity Reaction Status Date / Time bee venom protein (honey bee) Allergy Severe Anaphylaxis Verified 04/30/25 06:24 shellfish derived AdvReac nausea/vomi Verified 04/30/25 06:24 ting Home Medication ?Medication ?Instructions ?Recorded etonogestrel 68 mg subdermal 1 implant subdermal ONCE #1 ea 07/12/23 implant (Nexplanon) bacitracin 500 unit/gram topical 1 applic topical BID #30 grams 02/04/24 ointment albuterol 90 mcg-budesonide 80 2 inh inhalation ONCE PRN 03/04/24 mcg/actuation HFA aerosol inhaler ammonium lactate 12 % topical cream 1 applic topical BID 03/04/24 aripiprazole 5 mg tablet (Abilify) 5 mg PO DAILY 03/04/24 cholecalciferol (vitamin D3) 125 125 mcg PO DAILY 03/04/24 mcg (5,000 unit) tablet clonazepam 0.5 mg tablet 0.5 mg PO BID PRN 09/08/24 galcanezumab-gnlm 120 mg/mL 120 mg subcut .monthly 09/08/24 subcutaneous syringe (Emgality) paroxetine HCl 40 mg tablet 40 mg PO DAILY 09/08/24 acetaminophen 325 mg capsule 325 mg PO ONCE PRN 03/26/25 loratadine 10 mg tablet (Claritin) 10 mg PO DAILY PRN 03/26/25 ibuprofen 600 mg tablet 600 mg PO Q6H PRN pain 5 days #30 04/29/25 tabs tramadol 25 mg tablet 25 mg PO Q6H PRN pain #10 tabs 04/29/25 Current Visit Medications: Current Medications Generic Name Dose Route Start Last Admin Trade Name Freq PRN Reason Stop Dose Admin Ringer's Solution 1,000 mls @ 150 mls/hr 04/30/25 06:00 04/30/25 06:42 IV 04/30/25 23:59 150 mls/hr INFUSION DINO Administration IV Miscellaneous Supplies 1 each 04/30/25 06:00 Iv Access IV 04/30/25 23:59 DIRECTED DINO Sodium Chloride 0 ml 04/30/25 06:00 Normal Saline Flush 10 Ml Syr IV 04/30/25 23:59 PRN PRN Sodium Chloride 0 ml 04/30/25 06:00 Normal Saline 10 Ml Vial IJ 04/30/25 23:59 DIRECTED PRN Sterile Water 0 ml 04/30/25 06:00 Water,Injection,Sterile 10 Ml Vial IJ 04/30/25 23:59 DIRECTED PRN PFSH Active Problems Active Problems: Problem Status Onset Code Evaluation regarding contraception options Acute Z30.09 Sprain of left ring finger Acute S63.615A Bipolar 1 disorder Acute F31.9 Medical History Medical History Sciatic leg pain Normal spontaneous vaginal delivery 06/12/2023. Male infant. Labor induction due to insulin requiring gestational diabetes at term. Gestational diabetes Presence of subdermal contraceptive implant (07/12/23) Nexplanon placed in R arm 07/12/23 Migraine Depression Exercise-induced asthma (11/07/13) intermittent asthma with exercise trigger Surgical History Surgical History No significant past surgical history Tobacco Smoking/Tobacco Use Status: Never Passive smoking exposure: No Alcohol Alcohol Intake: current Alcohol intake frequency: holidays/special occasions only Alcohol type: wine Substance Use Substance use: Never Substance use type: does not use Prental History History 2 Para 1 Hx # Term Pregnancies 1 Multiple births 0 Hx # Pregnancies 0 Ectopic pregnancies 0 AB induced 0 Hx Number of Living Children 1 AB spontaneous 0 Past Pregnancies Del. Date GA/Weeks # Preg Succ Route Wgt Sex Labor Lgth Anesth esia Location Prov Complic 07/03/16 42 No Yes vaginal 3659.923 g Male 8 hr active labor induced for 2 days regional [facility] 06/12/23 39 No Yes vaginal 3118.448 g Male [facility] [place] Delivery Date: 07/03/16 Last Updated by: Siomara Saenz CNM Erik, no complications, checked blood sugar due to 1 elevation on 3-hr, No abnormal levels Delivery Date: 06/12/23 Last Updated by: Kerline Smith MD IND for GDM Vital Signs and Lab Results Vital Signs Most Recent Vital Signs in EMR: Most Recent Vital Signs Temp Pulse Resp BP Pulse Ox 36.0 C L 70 16 116/72 98 04/30/25 06:16 04/30/25 06:16 04/30/25 06:16 04/30/25 06:16 04/30/25 06:16 Point of Care Results Point of Care Results: POC- Test(urine) Negative 04/30/25 06:41 Lab Results Blood Type / Crossmatch: Antibody Screen NEGATIVE 04/29/25 Complete Blood Count: White Blood Count 6.81 10^3/uL (4.4-10.8) 04/29/25 11:35 Red Blood Count 4.56 10^6/uL (3.93-5.22) 04/29/25 11:35 Hemoglobin 12.9 g/dL (11.2-15.7) 04/29/25 11:35 Hematocrit 38.7 % (36.0-46.0) 04/29/25 11:35 Platelet Count 333 10^3/uL (130-400) 04/29/25 11:35 Complete Metabolic Panel: No Data to Display Liver Function Panel: No Data to Display Coagulation Panel: No Data to Display Cardiac Panel: No Data to Display Arterial Blood Gas: No Data to Display Venous Blood Gas: No Data to Display Pancreas Panel: No Data to Display Thyroid Panel: No Data to Display Infectious Disease: No Data to Display Blood Cultures: No Data to Display Toxicology Panel: No Data to Display Panel: No Data to Display Anesthesia Assessment and Plan Anesthesia History Personal History: Other Family History: Other Exercise Tolerance Exercise Tolerance: Metabolic Equivalents>4 Pertinent Negatives Pertinent Negatives: No Symptoms of GERD, No Major Cardiovascular Symptoms or Complaints and No Major Pulmonary Symptoms or Complaints Cardiac & Pulmonary Exam Cardiac Exam: Normal S1/S2 Heart Sounds Pulmonary Exam: Clear Bilateral Breath Sounds Implantable Cardiac Device Does patient have a Pacemaker or an ICD?: No Airway Exam Known Difficult Airway: No Mallampati Class: 2 Mouth Opening: Normal (> 3cm) Thyromental Distance: Greater than 3 cm Neck Range of Motion: Full ROM Neck Circumference: Normal Teeth Condition: Normal Dentition ASA Classification ASA Score: ASA 2 Emergency Case?: No NPO Status NPO Status: NPO Clears >2 hours, Solids >8 hours Status Status: Negative HCG Anesthesia Plan Resuscitation Status: Full Code Anesthesia Technique: General Anesthesia Airway Planned: Endotracheal Tube Monitors Used: Standard Monitors
[2025-04-30] MEDS: Bupivacaine 0.25% Pres-Free 30 ML VIAL (08:54)
--- NOTE | 2025-04-30 09:41 | ROE_ITS ---
Operative Note Operative Note PRE-OP DIAGNOSIS: Completed family status POST-OP DIAGNOSIS: same PROCEDURE: Laparoscopic sterilization via bilateral salpingectomy with removal of Nexplanon SURGEON: Jessica Hernandez ASSISTING SURGEON: Opal Blair Refer to Anesthesia Record ESTIMATED BLOOD LOSS: 10 PATHOLOGY: other (Bilateral fallopian tubes) COMPLICATIONS: None Patient was transported to: PACU Patient's condition: stable Indications: 29-year-old -0-0-2 ( x 2) presents for planned laparoscopic sterilization via bilateral salpingectomy with removal of Nexplanon for completed family status. Previously, she had been extensively counseled on the permanency of the procedure, available alternatives, and possible surgical complications, and she desired to proceed with the case. Her desires were again confirmed this morning. Findings: No overt abdominal scars outside of small umbilical defect consistent with umbilical piercing. Unremarkable abdominal and pelvic anatomy; no concerning adhesions or overt evidence of pathology. Physiologic cyst noted on the right ovary. Scant serous fluid in the posterior cul-de-sac. Procedure Description: Patient was taken to the OR with IV fluids running. Prophylactic antibiotics were not indicated. The patient urinated just prior to entering the OR. Anesthesia was established and found to be adequate. Patient was positioned in the modified dorsolithotomy position with her legs up in yellowfin stirrups, and her arms were tucked at her sides. The vagina was prepped with Betadine and the abdomen was prepped with chlorhexidine, and allowed to dry for at least 3 minutes. Patient was draped in sterile dressings. A timeout was performed; the patient, risks, and intended procedure was identified. A Espinoza speculum was used to visualize the cervix. The anterior lip of the cervix was stabilized using a single-tooth tenaculum. A Reverse Medicallka uterine manipulator was then introduced without issue. The single-tooth tenaculum was removed. Gloves were changed, and attention was turned to the abdomen. 2 cc of Marcaine were injected into the inferior margin of the umbilicus, and a small incision was created using a #11 blade. The tissue surrounding the umbilicus was isolated using towel clips and lifted, and Optiview technique was utilized for entering the abdominal cavity with a 12 mm operative port without issue. Pneumoperitoneum was established up to a pressure of 15 mmHg. A quick examination of the cavity found no overt evidence of pathology. Two 5 mm ports were placed in the left and right lower quadrants utilizing direct visualization. The patient was positioned into Trendelenburg, and the bowel was gently swept out of the field. The uterus, tubes, and ovaries were appreciated and well-visualized. A LigaSure was utilized to dissect the left fallopian tube. Once completely resected, the fallopian tube was collected via the 12 mm camera port. The same was then done for the right fallopian tube. The left tube was tagged, and the fallopian tubes were sent to pathology. An inspection of the pelvic structures found no evidence of bleeding. All instruments were then removed and the pneumoperitoneum was deflated. The fascia of the 12 mm port was closed using 0 Vicryl on a UR needle while tenting the fascia up and away from the underlying bowels. The 5 mm port sites and skin of the umbilical site were then closed with a series of 3-0 Vicryl stitches. The incision sites were then covered with surgical glue. The tenaculum was removed from the vagina and good hemostasis was appreciated. Gloves were changed and attention was turned to the patient's right arm. The right arm was untucked, and the Nexplanon was palpated. The location of the Nexplanon was demarcated with a marker and the area was cleaned with chlorhexidine which was allowed to dry for 3 minutes. The distal margin of the Nexplanon was injected with 5 cc of Marcaine with epinephrine. A #11 blade was then again used to create a small incision at the distal end of the Nexplanon. The Nexplanon was easily retrieved in its entirety from the incision using mosquito forceps. Pressure was used to control the minimal bleeding. Steri- Strips were used to reapproximate the small incision. A 4 x 4 was folded over the incision, and the defect was wrapped in Coban. The patient tolerated the procedure well and was taken into postop without issue. She is anticipated to recover without issue and return to home today. Date of Procedure: 04/30/25
[2025-04-30] MEDS: Normal Saline 10 ML VIAL IJ (10:24)
[2025-04-30] MEDS: HYDROmorphone 2 MG/ML SYR IVP (10:24)
--- NOTE | 2025-04-30 11:29 | W.ANESPOSTOP ---
Postoperative Evaluation Date, Time and Location Date Performed: 04/30/25 Time Performed: 11:20 Patient Location: Day Surgery Unit Vital Signs Most Recent Imported Vital Signs: Most Recent Vital Signs Temp Pulse Resp BP Pulse Ox 36.2 C L 69 17 104/69 94 04/30/25 10:50 04/30/25 10:50 04/30/25 10:50 04/30/25 10:50 04/30/25 10:50 Pain Score Most Recent Pain Score: Most Recent Pain Score Pain Level 2 04/30/25 10:50 Assessment Mental Status: Awake (Alert & Oriented to Patient Baseline) Airway and Respiratory Function: Patent airway with normal (patient baseline) respiratory exam Cardiovascular Function: Hemodynamically Stable Hydration Status: Adequately Hydrated Nausea & Vomiting: No Nausea or Vomiting Pain: Pain is tolerable per patient Peripheral Nerve Block: Patient did not receive a nerve block
== END 2025-04-30 12:34 | disposition home or self-care (01) ==
PROVIDERS: PCP Nurse Practitioner Family; Visit Provider Obstetrics & Gynecology
PROC: (CPT 58661; principal; 2025-04-30 07:30)
DX: Z30.2 Encounter for sterilization (principal); Z79.899 Other long term (current) drug therapy; F31.9 Bipolar disorder, unspecified; G43.909 Migraine, unspecified, not intractable, without status migrainosus; N83.8 Other noninflammatory disorders of ovary, fallopian tube and broad ligament
CPT/HCPCS: 58661; 88302; J0131; J0665; J1100; J1171; J1596; J1885; J2003; J2250; J2405; J2704

== ENCOUNTER 2025-07-14 14:18 | Outpatient (CLI) | payer MEDICAID, SELFPAY ==
--- NOTE | 2025-07-14 | DI.RAD_ITS ---
Exam(s) XR SCAPULA LT EXAM: XR SCAPULA LT CLINICAL HISTORY: contusion left shoulder S40.012A. TECHNIQUE: 2D digital imaging was performed. Two images were obtained. COMPARISON: No exams were available for comparison FINDINGS: BONES: No acute fracture is present. No bony destructive lesion is seen. JOINTS: No dislocation present. SOFT TISSUE: Normal. IMPRESSION: Unremarkable radiographs of the left scapula. DATA REPOSITORY: RADIATION DOSE DELIVERED:
== END 2025-07-14 14:38 ==
LOC: DI 14:18
PROVIDERS: PCP Nurse Practitioner Family; Visit Provider Nurse Practitioner Family
DX: S40.012A Contusion of left shoulder, initial encounter (principal); X58.XXXA Exposure to other specified factors, initial encounter
CPT/HCPCS: 73010

== ENCOUNTER 2025-07-25 15:06 | Outpatient (CLI) | payer MEDICAID, SELFPAY ==
--- NOTE | 2025-07-25 | DI.CT_ITS ---
Exam(s) CT ABDOMEN PELVIS W EXAM: CT ABDOMEN PELVIS W CLINICAL HISTORY: RLQ PAIN R10.31. TECHNIQUE: Imaging Protocol: Axial computed tomography images with coronal and sagittal reformatted images were created and reviewed CONTRAST MATERIAL: Intravenous: Omnipaque 350 Contrast volume:70 ml Oral: yes COMPARISON: No exams were available for comparison FINDINGS: ABDOMEN and PELVIS: Lung Bases: No acute findings. Liver: Normal density. No suspicious mass. Gallbladder and biliary tract: No radiodense calculus. No wall thickening or pericholecystic fluid. No biliary dilation. Pancreas: Normal density. No abnormal calcifications or inflammatory process. No evidence of mass. Spleen: Normal. Kidneys: Normal size, contour and axis. Tiny nonobstructing stone noted in the mid left kidney. The nephrograms are symmetric.. No obstructive uropathy. No suspicious masses seen. Adrenal glands: No masses seen. Vasculature: Abdominal aorta non-dilated. Soft tissues: Unremarkable. Bladder: Nearly empty and not well evaluated.. Bowel: The administered oral contrast extends down to the level of the rectum. The bowel is well opacified with oral contrast. No obstruction. No bowel wall thickening. Appendix normal. Peritoneal cavity: No ascites. No focal collection. No mesenteric inflammatory response. No free air. Bones: Unremarkable for age. Reproductive organs: Unremarkable. Lymph nodes: No pathologically enlarged lymph nodes. IMPRESSION:: No acute abnormality in the abdomen or pelvis. RADIATION DOSE DELIVERED: 468.53mGy.cm Total DLP DATA REPOSITORY: All CT scans at this facility are submitted to the National Radiology Data Registry (NRDR) Dose Index Registry (DIR) with the [employer] (A[employer]). RADIATION OPTIMIZATION: All CT scans at this facility use at least one of these dose optimization techniques: automated exposure control; mA and/or kV adjustment per patient size (includes targeted exams where dose is matched to clinical indication); or iterative reconstruction.
[2025-07-25] MEDS: Breeza Beverage 473 ML BTL PO ×2 (13:50→13:51)
[2025-07-25] MEDS: Omnipaque 350 MG/ML 50 ML BTL PO (13:52)
[2025-07-25] MEDS: Omnipaque 350 MG/ML 100 ML BTL IJ (15:14)
[2025-07-25] MEDS: Normal Saline Flush 10 ML SYR IVP (15:16)
[2025-07-25] MEDS: Normal Saline - Diluent 50 ML VIAL IJ (15:16)
== END 2025-07-25 15:26 ==
LOC: DI 15:06
PROVIDERS: PCP Nurse Practitioner Family; Visit Provider Physician Assistant Medical
DX: R10.31 Right lower quadrant pain (principal)
CPT/HCPCS: 74177; J3490; Q9967

== ENCOUNTER 2025-07-25 15:07 | Outpatient (CLI) | payer MEDICAID, SELFPAY ==
[2025-07-25 13:21] LABS: Abs Immature Grans 0.02 10^3/uL (0.0-0.06); HCT 40.4 % (36.0-46.0); HGB 13.7 g/dL (11.2-15.7); Immature Grans % 0.2 %; MCH 28.2 pg (27.0-33.0); MCHC 33.9 % (32.0-36.0); MCV 83 fL (80-95); MPV 9.3 fL (8.0-11.0); Platelet Count 299 10^3/uL (130-400); RBC 4.85 10^6/uL (3.93-5.22); RDW 12.9 % (11.7-14.6); RDW-SD 38.8 fL; WBC 9.71 10^3/uL (4.4-10.8)
[2025-07-25 13:38] LABS: Anion Gap 10.3 mmol/L (3-11); BUN 10 mg/dL (7-18); CO2 24.7 mmol/L (21.0-32.0); Calcium 9.6 mg/dL (8.5-10.1); Chloride 104 mmol/L (98-107); Estimated GFR 124.53 (mL/min/1.73m2); Glucose 95 mg/dL (74-106); Potassium 4.0 mmol/L (3.5-5.1); Sodium 139 mmol/L (136-145)
== END 2025-07-25 15:08 | disposition home or self-care (01) ==
LOC: LBO 15:07
PROVIDERS: PCP Nurse Practitioner Family; Visit Provider Physician Assistant Medical
DX: R10.31 Right lower quadrant pain (principal)
CPT/HCPCS: 36415; 80048; 85025